=== PATIENT | female | born 1995 | race Caucasian/White ===

== ENCOUNTER 2023-02-11 18:13 | Outpatient (CLI) | payer MEDICAID, SELFPAY ==
[2023-02-11 18:27] VITALS: BMI 44.8
[2023-02-11 19:00] VITALS: BP 131/82; PULSE 80; RESP 18; TEMP 36.9; O2SAT 99; BMI 45.1
[2023-02-11 19:03] LABS: Microscopic, Urine URINE MICROSCOPIC (MICROSCOPIC)
[2023-02-11 19:29] LABS: Appearance,Urine CLEAR (Clear); Bilirubin,Urine Negative (Negative); Blood, Urine Negative (Negative); Color,Urine YELLOW (Yellow); Glucose,Urine (UA) Negative (Negative); Ketones,Urine Negative (Negative); Leukocyte Esterase,Urine Negative (Negative); Nitrate,Urine Negative (Negative); Protein,Urine Negative (Negative); Specific Gravity, Urine 1.025 (1.005-1.030); Urobilinogen,Urine 0.2 EU/dl (0.2)
[2023-02-11 19:42] LABS: Barbiturates Screen,Urine Negative ng/ml (<200); Benzodiazepines Screen,Urine Negative ng/ml (<200)
[2023-02-11 19:43] LABS: Amphetamine/Metha Screen,Urine Negative ng/ml (<1000)
[2023-02-11 19:44] LABS: Cannabinoid Screen,Urine Negative ng/ml (<50); Methadone Screen,Urine Negative ng/ml (<300)
[2023-02-11 19:45] LABS: Cocaine Screen,Urine Negative ng/ml (<300)
[2023-02-11 19:46] LABS: Opiate Screen,Urine Negative ng/ml (<300); Phencyclidine Screen,Urine Negative ng/ml (<25)
== END 2023-02-11 21:45 | disposition home or self-care (01) ==
LOC: OBOUT 18:18 → OB 18:19
PROVIDERS: Visit Provider Obstetrics & Gynecology
DX: O26.893 Other specified pregnancy related conditions, third trimester (principal); Z3A.28 28 weeks gestation of pregnancy; R10.2 Pelvic and perineal pain; R10.9 Unspecified abdominal pain; M54.50 Low back pain, unspecified
CPT/HCPCS: 59025; 80305; 81001; 96360

== ENCOUNTER 2023-03-17 03:25 | Outpatient (CLI) | payer MEDICAID, SELFPAY ==
[2023-03-17 03:44] VITALS: BMI 44.8
[2023-03-17 04:05] LABS: Microscopic, Urine URINE MICROSCOPIC (MICROSCOPIC)
[2023-03-17 04:09] LABS: Basophils % 0.3 % (0.1-2.0); Eosinophils # 0.1 K/mm3 (0.0-0.4); Eosinophils % 1.2 % (0.1-12.0); Hematocrit 35.1 % (37.0-47.0); Hemoglobin 11.5 g/dL (12.2-16.2); Lymphocytes # 2.3 K/mm3 (0.7-4.5); Lymphocytes % 21.5 % (10-50); Mean Corpuscular HGB Conc 32.7 g/dL (31.8-35.4); Mean Corpuscular Hemoglobin 28.2 pg (27.0-31.2); Mean Corpuscular Volume 86.5 fl (81-99); Mean Platelet Volume 8.1 fl (7.4-10.4); Monocytes # 0.6 K/mm3 (0.1-1.0); Monocytes % 5.6 % (1.7-9.3); Neutrophils # 7.6 K/mm3 (1.8-7.8); Neutrophils % 71.5 % (37.0-80.0); Platelet Count 238 K/mm3 (142-424); Red Blood Count 4.06 M/mm3 (4.20-5.40); Red Cell Distribution Width 13.9 % (11.5-17.5); White Blood Count 10.6 K/mm3 (4.8-10.8)
[2023-03-17 04:12] LABS: Fetal Membrane Rupture (Rapid) Negative (Negative)
[2023-03-17 04:18] LABS: Alanine Aminotransferase 19 U/L (12-78); Albumin Level 3.4 g/dl (3.5-5.0); Albumin/Globulin Ratio 1.1 (1.1-1.8); Alkaline Phosphatase 88 U/L (38-126); Anion Gap 12.6 mEq/L (5-15); Aspartate Amino Transferase 23 U/L (14-36); Bilirubin,Total 0.4 mg/dl (0.2-1.3); Blood Urea Nitrogen 10 mg/dl (7-17); Calcium 8.7 mg/dl (8.4-10.2); Carbon Dioxide 22 mmol/L (22.0-30.0); Chloride 104 mmol/L (98-107); Creatinine Clearance Estimated 95 mL/min (50-200); Estimated Glomerular Filt Rate 100 ml/min (>60); GFR (African American) 121 ML/MIN (>60); Globulin 3.2 g/dL (1.3-3.2); Glucose 148 mg/dl (74-100); Potassium 3.6 mmoL/L (3.5-5.1); Sodium 135 mmol/L (136-145); Total Protein,Serum 6.6 g/dl (6.3-8.2)
[2023-03-17 04:22] VITALS: BP 131/72; PULSE 104; RESP 18; TEMP 36.7; BMI 45.1
[2023-03-17 04:35] LABS: Fetal Membrane Rupture (Rapid) Negative (Negative)
[2023-03-17 04:38] LABS: Appearance,Urine CLEAR (Clear); Bilirubin,Urine Negative (Negative); Blood, Urine Negative (Negative); Color,Urine YELLOW (Yellow); Glucose,Urine (UA) Negative (Negative); Ketones,Urine Negative (Negative); Leukocyte Esterase,Urine Negative (Negative); Nitrate,Urine Negative (Negative); Protein,Urine Negative (Negative); Specific Gravity, Urine 1.015 (1.005-1.030); Urobilinogen,Urine 0.2 EU/dl (0.2)
[2023-03-17 05:01] LABS: Bacteria,Urine Trace /lpf; RBC,Urine Occasional #/hpf (0-3); WBC,Urine Occasional #/hpf (0-3)
--- NOTE | 2023-03-17 05:16 | US_ITS ---
PROCEDURE: US OB BIOPHYSICAL PROFILE CLINICAL INDICATION: Possible ruptured membranes at 33 3/7 weeks COMPARISON: No other comparison studies. FINDINGS: From her last menstrual period she is 33weeks 3days. The following parameters are obtained: Viable fetus in the cephalic presentation. heart rate: 139bpm bpm. Amniotic fluid index: 14.2cm Qualitative AFV: 2 breathing movements: 2 Gross body movements: 2 Tone: 2 Biophysical profile score: 8 Doppler evaluation of the umbilical artery: SD ratio: Resistive index: No obvious anomalies evident.Kidneys, three-vessel cord appear normal. Four-chamber cardiac view appears normal. Placenta: Grade 2 IMPRESSION: 1. Viable fetus in the cephalic presentation with an anterior placenta grade 2. 2. Biophysical profile 8/8 with good breathing movement seen. 3. Normal amniotic fluid index 14.2 cm. Dictated by: Bennett Tolliver MD 03/17/2023 17:36 Bennett Tolliver MD in [facility] 03/17/2023 17:36
--- NOTE | 2023-03-17 08:57 | CARE MANAGER ---
Patient told OB staff that they did not have enough gas to drive home. Provided patient with $10 [employer] gift card for gas.
[2023-03-17 10:52] LABS: Benzodiazepines Screen,Urine Negative ng/ml (<200)
[2023-03-17 10:53] LABS: Amphetamine/Metha Screen,Urine Negative ng/ml (<1000); Barbiturates Screen,Urine Negative ng/ml (<200)
[2023-03-17 10:55] LABS: Cannabinoid Screen,Urine Negative ng/ml (<50); Methadone Screen,Urine Negative ng/ml (<300)
[2023-03-17 10:56] LABS: Cocaine Screen,Urine Negative ng/ml (<300); Opiate Screen,Urine Negative ng/ml (<300)
[2023-03-17 10:57] LABS: Phencyclidine Screen,Urine Negative ng/ml (<25)
== END 2023-03-17 08:47 | disposition home or self-care (01) ==
LOC: OB 08:04 → OUTP 03-18 10:49
PROVIDERS: Visit Provider Nurse Practitioner Obstetrics & Gynecology
DX: O47.03 False labor before 37 completed weeks of gestation, third trimester (principal); Z3A.33 33 weeks gestation of pregnancy
CPT/HCPCS: 59025; 76819; 80053; 80305; 81001; 84112; 85025; 86850; 86870; 96365; 96372

== ENCOUNTER 2023-07-13 18:38 | Emergency (ER) | payer MEDICAID, SELFPAY ==
[2023-07-13 18:41] VITALS: BP 141/85; PULSE 92; RESP 18; TEMP 36.7; O2SAT 100; BMI 43.0
[2023-07-13 18:45] VITALS: BP 141/85; PULSE 86; O2SAT 100
--- NOTE | 2023-07-13 19:00 | CT_ITS ---
PROCEDURE INFORMATION: Exam: CT Head Without Contrast Exam date and time: 07/13/23 07:51 PM Age: 27 years old Clinical indication: Pain; Headache not specified; Additional info: Headache x2 days, new TECHNIQUE: Imaging protocol: Computed tomography of the head without contrast. Radiation optimization: All CT scans at this facility use at least one of these dose optimization techniques: automated exposure control; mA and/or kV adjustment per patient size (includes targeted exams where dose is matched to clinical indication); or iterative reconstruction. REPORTING DATA: Count of CT and Cardiac NM exams in prior 12 months: This patient has received 0 known CTs and 0 known cardiac nuclear medicine studies in the 12 months prior to the current study. COMPARISON: No relevant prior studies available. FINDINGS: Brain: Normal. No hemorrhage. Unremarkable white matter. No mass effect. Cerebral ventricles: No ventriculomegaly. Paranasal sinuses: Visualized sinuses are unremarkable. No fluid levels. Mastoid air cells: Visualized mastoid air cells are well aerated. Bones/joints: Unremarkable. No acute fracture. Soft tissues: Unremarkable. IMPRESSION: No acute intracranial abnormality.
[2023-07-13 19:01] VITALS: BP 131/71; PULSE 80; O2SAT 99
--- NOTE | 2023-07-13 19:13 | HMH.EDGENADL ---
Discharge Plan Disposition Patient Disposition: Home, Self-Care Condition: Good Activity Restrictions/Add. Instructions Additional Instructions/Restrictions: You were evaluated in the emergency department today. Please follow-up with your primary care provider over the next 48 hours. Return to the emergency department for new or worsening symptoms. Clinical Impressions Clinical Impression: Migraine Stand Alone Forms Stand Alone Forms: Work/School Release Instructions Patient Instructions: DI for Headache Discharge ED Provider: Mercedes Yousif General Adult HPI General Chief complaint: Headache Stated complaint: pain in her head and down the back. Time Seen by Provider: 07/13/23 18:56 Mode of Arrival: Ambulatory Source of Information: Patient Limitations: No Limitations Description of Symptoms (Recalled from ER Triage Doc. by RN): c/o head pain shooting down her neck and back for 2 days. Concerned that she has a broken tooth that she noticed to today, thinks this might be a cause of it. History of Present Illness HPI narrative: This patient is a 27-year-old female presenting to the emergency department for evaluation with concern for headache x2 days. She states that she has had pain radiating down her neck. She denies any fevers, vision changes, numbness, tingling, weakness, or other concerns. She does note lightheadedness and light sensitivity. She notes that she does have a broken tooth, which she thinks may be contributing to her symptoms. She took Tylenol and ibuprofen earlier without significant improvement. It was not sudden thunderclap and the headache is not new in quality for her. She does note that she has a history of migraines. Related Data Allergies Allergy/AdvReac Type Severity Reaction Status Date / Time tramadol AdvReac Verified 02/11/23 18:44 ubrogepant [From Ubrelvy] AdvReac Verified 02/11/23 18:44 [facility] Disclaimer: The information contained in this section may have been updated after the patient was seen, as this information can be updated by other users. Social History Smoking Status: Current every day smoker alcohol intake: never current occupational status: unemployed Travel in the last 8 weeks: None ROS Obtained: Yes All systems reviewed & no additional complaints except as documented Physical Exam General General appearance: alert and in no apparent distress Head Head exam: atraumatic and normocephalic Eye Eye exam: Present normal appearance, PERRL and EOMI ENT ENT exam: Present mucous membranes moist and normal external ear exam; Absent normal oropharynx ([place] I fx of tooth 16 with no surrounding swelling/abscess) Neck Neck exam: Present normal inspection, full ROM and trachea midline; Absent tenderness Chest Chest inspection: Present normal inspection and symmetric chest wall rise; Absent tenderness Respiratory Respiratory exam: Present normal lung sounds bilaterally; Absent respiratory distress, wheezes, stridor or accessory muscle use Cardiovascular Cardiovascular exam: Present regular rate and normal rhythm Abdominal Exam Abdominal exam: Present soft; Absent distention, tenderness or guarding Extremities Exam Extremities exam: Present normal inspection, full ROM and normal capillary refill; Absent tenderness or edema Back Exam Back exam: Present normal inspection and full ROM; Absent tenderness Neurological Exam Neurological exam: Present alert, oriented X3, CN II-XII intact and normal gait; Absent motor sensory deficit Psychiatric Psychiatric exam: Present normal affect and normal mood Skin Skin exam: Present warm and dry Medical Decision Making Medical Records Medical records reviewed: Yes I reviewed the patient's medical records. Gareth Inquiry Pt receiving controlled substance: No Vital Signs: 07/13/23 18:41 07/13/23 18:45 07/13/23 19:01 Temperature 98.0 F Temperature Source Oral
[2023-07-13 19:28] LABS: Basophils # 0.1 K/mm3 (0-0.2); Basophils % 0.9 % (0.1-2.0); Eosinophils # 0.2 K/mm3 (0.0-0.4); Eosinophils % 3.2 % (0.1-12.0); Hematocrit 38.8 % (37.0-47.0); Hemoglobin 13.4 g/dL (12.2-16.2); Lymphocytes # 2.8 K/mm3 (0.7-4.5); Lymphocytes % 44.8 % (10-50); Mean Corpuscular HGB Conc 34.5 g/dL (31.8-35.4); Mean Corpuscular Hemoglobin 28.8 pg (27.0-31.2); Mean Corpuscular Volume 83.4 fl (81-99); Mean Platelet Volume 7.5 fl (7.4-10.4); Monocytes # 0.3 K/mm3 (0.1-1.0); Monocytes % 4.7 % (1.7-9.3); Neutrophils # 2.9 K/mm3 (1.8-7.8); Neutrophils % 46.4 % (37.0-80.0); Platelet Count 218 K/mm3 (142-424); Red Blood Count 4.65 M/mm3 (4.20-5.40); Red Cell Distribution Width 15.8 % (11.5-17.5); White Blood Count 6.3 K/mm3 (4.8-10.8)
[2023-07-13 19:33] LABS: Anion Gap 11.7 mEq/L (5-15); Blood Urea Nitrogen 19 mg/dl (7-17); Calcium 9.3 mg/dl (8.4-10.2); Carbon Dioxide 28 mmol/L (22.0-30.0); Chloride 104 mmol/L (98-107); Creatinine Clearance Estimated 83 mL/min (50-200); Estimated Glomerular Filt Rate 85 ml/min (>60); GFR (African American) 103 ML/MIN (>60); Glucose 107 mg/dl (74-100); Potassium 3.7 mmoL/L (3.5-5.1); Sodium 140 mmol/L (136-145)
[2023-07-13 19:40] LABS: HCG Qualitative, Serum Negative (Negative)
--- NOTE | 2023-07-13 22:13 | PC.NURSE ---
rounded on patient no new complaints noted
[2023-07-13 22:20] VITALS: BP 130/75; PULSE 79; RESP 19; TEMP 36.8; O2SAT 98
== END 2023-07-13 22:25 | disposition home or self-care (01) ==
PROVIDERS: Emergency Provider Emergency Medicine
DX: G43.909 Migraine, unspecified, not intractable, without status migrainosus (principal); E66.9 Obesity, unspecified
CPT/HCPCS: 70450; 80048; 84703; 85025; 96361; 96374; 96375; 99284; J0131

== ENCOUNTER 2023-08-01 09:44 | Emergency (ER) | payer MEDICAID, SELFPAY ==
[2023-08-01 09:55] VITALS: BP 143/99; PULSE 104; O2SAT 98
--- NOTE | 2023-08-01 10:01 | HMH.EDGENADL ---
Discharge Plan Disposition Patient Disposition: Home, Self-Care Condition: Fair Prescriptions Prescriptions: New methocarbamol 500 mg tablet 500 mg PO .q6h prn Qty: 30 0RF lidocaine 5 % adhesive patch,medicated 1 patch topical DAILY Qty: 5 0RF Rx Instructions: leave on most painful area for up to 12 hrs Referrals Follow up/Referrals: Titus Santiago DO [Staff Physician] - See instructions (back pain R side w/ radiculopathy) Provider,Referral, [Primary Care Provider] - See instructions Activity Restrictions/Add. Instructions Additional Instructions/Restrictions: You were evaluated in the emergency department today for concerns of back pain. I believe this is likely related to your prior disc problems and muscle spasm. You are appropriate for discharge at this time. You have been prescribed muscle relaxant (methocarbamol) and lidocaine patch. Take these as directed. Also take Tylenol and ibuprofen as you have been. You have been referred to orthopedics for follow-up. Also make an appointment with your primary care physician in 2 to 3 days for reevaluation. Return to the emergency department with any new, worsening, or otherwise concerning symptoms. Clinical Impressions Clinical Impression: Acute lumbar back pain Stand Alone Forms Stand Alone Forms: Work/School Release Discharge ED Provider: Sara Lopez General Adult HPI General Chief complaint: PAIN Stated complaint: lower back/hip pain, no known accident Time Seen by Provider: 08/01/23 09:48 History of Present Illness HPI narrative: This 27-year-old female who recently sprained her right ankle presents to the emergency department with concerns of low back pain. Patient states she knows she has 2 bad disks that have caused back pain in the past. She states that the pain is isolated to her right low back and she has severe pain with trying to bend over. She denies any numbness, tingling, or weakness. She states it is difficult to walk with the pain in her back. She states she has been taking Tylenol and ibuprofen regularly for right ankle pain. She denies any bowel or bladder incontinence or difficulty using the restroom. She states she has in the past been on Percocet for back pain but states that she is no longer able to see her pain doctor because her insurance will not cover it. Related Data Previous Rx's Medication Instructions Recorded lidocaine 5 % topical patch 1 patch topical DAILY #5 ea 08/01/23 methocarbamol 500 mg tablet 500 mg PO .q6h prn #30 tabs 08/01/23 Allergies Allergy/AdvReac Type Severity Reaction Status Date / Time tramadol AdvReac Verified 02/11/23 18:44 ubrogepant [From Ubrelvy] AdvReac Verified 02/11/23 18:44 PFSH PFS Disclaimer: The information contained in this section may have been updated after the patient was seen, as this information can be updated by other users. Social History (Updated 07/13/23 @ 23:24 by Mercedes Yousif DO) Smoking Status: Current every day smoker alcohol intake: never current occupational status: unemployed Travel in the last 8 weeks: None ROS Obtained: Yes All systems reviewed & no additional complaints except as documented Constitutional Constitutional: Denies chills, Denies fever(s), Denies headache(s) and Denies weakness Eyes Eyes: Denies change in vision ENT Ears, Nose, Mouth, and Throat: Denies dizziness, Denies headache(s), Denies nasal congestion and Denies sore throat Cardiovascular Cardiovascular: Denies chest pain, Denies dyspnea and Denies leg edema Respiratory Respiratory: Denies cough and Denies dyspnea Gastrointestinal Gastrointestingal: Denies constipation, diarrhea, nausea or vomiting Genitourinary Female Genitourinary: Denies dysuria Musculoskeletal Musculoskeletal: Reports arthralgias (Right ankle pain, boot in place), Reports back pain, Denies myalgias, Denies numbness and Denies tingling Integumentary/Breasts Skin/Breast: Denies c
[2023-08-01 10:04] VITALS: BP 143/99; PULSE 112; RESP 15; TEMP 36.9; O2SAT 97; BMI 36.6
[2023-08-01 10:08] LABS: Microscopic, Urine URINE MICROSCOPIC (MICROSCOPIC)
[2023-08-01 10:11] LABS: Appearance,Urine CLEAR (Clear); Bilirubin,Urine Negative (Negative); Blood, Urine 3+ (Negative); Color,Urine YELLOW (Yellow); Glucose,Urine (UA) Negative (Negative); Ketones,Urine Negative (Negative); Leukocyte Esterase,Urine Negative (Negative); Nitrate,Urine Negative (Negative); Protein,Urine Negative (Negative); Specific Gravity, Urine >= 1.030 (1.005-1.030); Urobilinogen,Urine 0.2 EU/dl (0.2)
[2023-08-01 10:15] VITALS: BP 79/59; PULSE 75; O2SAT 96
[2023-08-01 10:16] VITALS: BP 102/53; PULSE 82; O2SAT 98
--- NOTE | 2023-08-01 10:46 | PC.NURSE ---
pt sitting on side of bed with call light within reach.
[2023-08-01 12:14] VITALS: BP 102/53; PULSE 82; RESP 18; TEMP 36.9
== END 2023-08-01 12:15 | disposition home or self-care (01) ==
PROVIDERS: Emergency Provider Emergency Medicine
DX: M54.50 Low back pain, unspecified (principal); F17.210 Nicotine dependence, cigarettes, uncomplicated
CPT/HCPCS: 81001; 96372; 99283

== ENCOUNTER 2023-09-17 14:16 | Emergency (ER) | payer MEDICAID, SELFPAY ==
[2023-09-17 14:18] VITALS: BP 126/92; PULSE 102; RESP 16; TEMP 36.7; O2SAT 99; BMI 42.0
[2023-09-17 15:12] LABS: Coronavirus 19, PCR Not Detected (NotDetected); Influenza A, PCR Not Detected (NotDetected); Influenza B, PCR Not Detected (NotDetected)
--- NOTE | 2023-09-17 15:27 | HMH.EDGENADL ---
Discharge Plan Disposition Patient Disposition: Still a Patient Condition: Good Prescriptions Prescriptions: New hydrocodone-acetaminophen 5-325 mg tablet 1 tab PO Q8H PRN (Reason: pain) Qty: 10 0RF clindamycin HCl 300 mg capsule 300 mg PO TID 5 Days Qty: 15 0RF No Action methocarbamol 500 mg tablet 500 mg PO .q6h prn Qty: 30 0RF lidocaine 5 % adhesive patch,medicated 1 patch topical DAILY Qty: 5 0RF Rx Instructions: leave on most painful area for up to 12 hrs Referrals Follow up/Referrals: Provider,Referral, MD [Primary Care Provider] - See instructions Activity Restrictions/Add. Instructions Additional Instructions/Restrictions: Please follow-up with your primary care provider. Please return to the emergency department if you develop any new or worsening symptoms or become concerned for your health. As we discussed, recommend that you establish care with a primary care provider, dentist. Clinical Impressions Clinical Impression: Pain, dental Discharge ED Provider: Sahil Meyer I General Adult HPI General Chief complaint: Dental/Oral Stated complaint: TOOTH ACHE Time Seen by Provider: 09/17/23 14:19 Mode of Arrival: Ambulatory Source of Information: Patient Limitations: No Limitations Description of Symptoms (Recalled from ER Triage Doc. by RN): Patient states that she has a broken tooth on the left upper back side of her mouth. States that she cannot tolerate the pain anymore. History of Present Illness HPI narrative: Patient is a 27-year-old female presenting to the emergency department with dental pain. History was conducted with the patient at bedside. She reports that she was eating some taco meat, started to have pain in the left upper back molar. Patient states that she has had multiple cracked teeth, issues in the past that have been previously managed by dentist. However, she is new to this area, and has not yet established care with a new PCP, dentist. She denies any purulent drainage, fever, chills but does report that she has radiation of her pain down her jaw. States that she has otherwise been in her normal state of health. Denies any recent trauma, injuries. She does report that she has also had a mild sore throat, her son has had a viral infection and she is concerned that she could possibly have COVID and would like to be tested for strep and COVID today. Denies shortness of breath, chest pain, abdominal pain, nausea, vomiting. Related Data Previous Rx's Medication Instructions Recorded lidocaine 5 % topical patch 1 patch topical DAILY #5 ea 08/01/23 methocarbamol 500 mg tablet 500 mg PO .q6h prn #30 tabs 08/01/23 clindamycin HCl 300 mg capsule 300 mg PO TID 5 days #15 caps 09/17/23 hydrocodone 5 mg-acetaminophen 325 1 tab PO Q8H PRN pain #10 tabs 09/17/23 mg tablet Allergies Allergy/AdvReac Type Severity Reaction Status Date / Time tramadol AdvReac Verified 02/11/23 18:44 ubrogepant [From Ubrelvy] AdvReac Verified 02/11/23 18:44 PFSH PFS Disclaimer: The information contained in this section may have been updated after the patient was seen, as this information can be updated by other users. Social History (Updated 07/13/23 @ 23:24 by Mercedes Yousif DO) Smoking Status: Current every day smoker alcohol intake: never current occupational status: unemployed Travel in the last 8 weeks: None ROS Obtained: Yes All systems reviewed & no additional complaints except as documented Physical Exam General General appearance: alert and in no apparent distress Head Head exam: atraumatic and normocephalic ENT ENT exam: Present other (Patient does have progressive tenderness to palpation of the back left upper molar); Absent normal exam Neck Neck exam: Present full ROM Chest Chest inspection: Present normal inspection and symmetric chest wall rise Respiratory Respiratory exam: Present normal lung sounds bilaterally; Absent respiratory di
[2023-09-17 15:28] LABS: Strep Scrn Group A (Rapid) Negative (Negative)
[2023-09-17 15:53] VITALS: BP 126/92; PULSE 102; RESP 16; TEMP 36.7; O2SAT 99
== END 2023-09-17 15:55 | disposition home or self-care (01) ==
PROVIDERS: Emergency Provider Emergency Medicine
DX: R68.84 Jaw pain (principal); J02.9 Acute pharyngitis, unspecified; F17.200 Nicotine dependence, unspecified, uncomplicated
CPT/HCPCS: 87430; 87636; 99283

== ENCOUNTER 2023-10-20 17:02 | Emergency (ER) | payer MEDICAID, SELFPAY ==
[2023-10-20 17:42] VITALS: BP 116/86; PULSE 84; RESP 16; TEMP 36.9; O2SAT 100; BMI 43.4
[2023-10-20] MEDS: TETRACAINE/BENZOCAINE/BUTAMBEN 56 GM SPRAY TP (18:00)
[2023-10-20] MEDS: LIDOCAINE 2% VISCOUS SOL 15ML UDC 15 ML PO (18:00)
[2023-10-20] MEDS: ACETAMINOPHEN 300MG W/CODEINE 30MG TAKE HOME PACK (6) 1 PACKET PO (18:48)
--- NOTE | 2023-10-20 18:54 | ED_ITS ---
Discharge Plan Disposition Patient Disposition: Home, Self-Care Prescriptions Prescriptions: New amoxicillin-pot clavulanate 875-125 mg tablet 1 tab PO BID 5 Days Qty: 10 0RF No Action methocarbamol 500 mg tablet 500 mg PO .q6h prn Qty: 30 0RF lidocaine 5 % adhesive patch,medicated 1 patch topical DAILY Qty: 5 0RF Rx Instructions: leave on most painful area for up to 12 hrs hydrocodone-acetaminophen 5-325 mg tablet 1 tab PO Q8H PRN (Reason: pain) Qty: 10 0RF clindamycin HCl 300 mg capsule 300 mg PO TID 5 Days Qty: 15 0RF Referrals Follow up/Referrals: Provider,Referral, MD [Primary Care Provider] - See instructions Activity Restrictions/Add. Instructions Additional Instructions/Restrictions: Call your family doctor to establish care for this visit to the emergency department and schedule follow-up within 48 hours to ensure improvement. If you have any worsening of your condition or any other concerning signs or symptoms, return to the emergency department or your primary care doctor for further evaluation. Clinical Impressions Clinical Impression: Abscess, dental Discharge ED Provider: James Duke General Adult HPI General Chief complaint: Dental/Oral Stated complaint: Broken tooth Time Seen by Provider: 10/20/23 17:03 Mode of Arrival: Ambulatory Source of Information: Patient Limitations: No Limitations Description of Symptoms (Recalled from ER Triage Doc. by RN): c/o broken tooth left upper side that is causing pain since for a few months History of Present Illness HPI narrative: 27-year-old female history of numerous dental caries and dental infections presenting with dental pain. Has been going on for few months, got worse over the past couple days. No fevers or chills, patient is having trismus and facial swelling. Is supposed be following up with a dentist tomorrow, 10/21. Related Data Previous Rx's Medication Instructions Recorded lidocaine 5 % topical patch 1 patch topical DAILY #5 ea 08/01/23 methocarbamol 500 mg tablet 500 mg PO .q6h prn #30 tabs 08/01/23 clindamycin HCl 300 mg capsule 300 mg PO TID 5 days #15 caps 09/17/23 hydrocodone 5 mg-acetaminophen 325 1 tab PO Q8H PRN pain #10 tabs 09/17/23 mg tablet amoxicillin 875 mg-potassium 1 tab PO BID 5 days #10 tabs 10/20/23 clavulanate 125 mg tablet Allergies Allergy/AdvReac Type Severity Reaction Status Date / Time tramadol AdvReac Verified 02/11/23 18:44 ubrogepant [From Ubrelvy] AdvReac Verified 02/11/23 18:44 PFSH [facility] Disclaimer: The information contained in this section may have been updated after the patient was seen, as this information can be updated by other users. Social History (Updated 07/13/23 @ 23:24 by Mercedes Yousif DO) Smoking Status: Former smoker alcohol intake: never current occupational status: unemployed Travel in the last 8 weeks: None ROS Obtained: Yes All systems reviewed & no additional complaints except as documented Physical Exam General General appearance: alert and in no apparent distress Head Head exam: atraumatic, normocephalic and other (Left-sided facial swelling. Trismus. Intraoral exam unremarkable) Eye Eye exam: Present normal appearance, PERRL and EOMI ENT ENT exam: Present mucous membranes moist Neck Neck exam: Present normal inspection, full ROM and trachea midline Respiratory Respiratory exam: Absent respiratory distress, wheezes, stridor, accessory muscle use or prolonged expiratory phase Cardiovascular Cardiovascular exam: Present normal rhythm Abdominal Exam Abdominal exam: Present soft; Absent distention, tenderness, guarding, rebound or rigidity Extremities Exam Extremities exam: Absent edema Neurological Exam Neurological exam: Present alert, oriented X3, CN II-XII intact and normal gait; Absent motor sensory deficit Skin Skin exam: Present warm and dry; Absent diaphoresis or erythema Medical Decision Making Medical Records Medical records reviewed: Yes I reviewed the patient's medical records. Gareth Inquiry Pt receiving controlled substance: No Gareth was queried for this patient: No Vital Signs: 10/20/23 17:42 10/20/23 19:05 Temperature 98.5 F 98.5 F Temperature Source Oral Pulse Rate 84 Pulse Rate [Left Radial] 84 Respiratory Rate 16 16 Blood Pressure 116/86 Blood Pressure [Right Arm] 116/86 Blood Pressure Mean [Right Arm] 96 Blood Pressure Source [Right Arm] Automatic Cuff Blood Pressure Position [Right Arm] Sitting 02 Sat by Pulse Oximetry 100 Oxygen Delivery Method Room Air Orders (Tests/Meds): ED MEDICATIONS Discontinued Medications Generic Name Dose Route Start Last Admin Trade Name Freq PRN Reason Stop Dose Admin Acetaminophen/Codeine Phosphate 1 packet 10/20/23 18:25 10/20/23 18:48 Acetaminophen 300mg W/Codeine 30mg Take Home Pack (6) PO 10/20/23 18:26 1 packet ONCE ONE Administration Amoxicillin/Clavulanate Potassium 1 each 10/20/23 19:09 Amoxicillin/Clavulanate Potassium 875/125mg Tablet PO 10/20/23 19:10 ONCE ONE Benzocaine/Butamben/Tetracaine HCl 1 gm 10/20/23 18:00 10/20/23 18:00 Tetracaine/Benzocaine/Butamben 56 Gm [place] TP 10/20/23 18:01 1 gm ONCE ONE Administration Lidocaine HCl 15 ml 10/20/23 18:00 10/20/23 18:00 Lidocaine 2% Viscous [place] 15ml Udc PO 10/20/23 18:01 15 ml ONCE ONE Administration Medical Decision Narrative: 27-year-old female history of numerous dental caries and dental infections presenting with dental pain. Has been going on for few months, got worse over the past couple days. No fevers or chills, patient is having trismus and facial swelling. Is supposed be following up with a dentist tomorrow, 10/21. History obtained with patient. On physical exam, patient very well-appearing. No acute distress, but is holding her face. Patient has trismus. Intraoral exam largely unremarkable, no evidence of drainable, dental abscess. No lymphadenopathy. Patient has no mastoid tenderness or angle of mandible tenderness. No difficulty with range of motion of neck. Lidocaine was tried, unsuccessful. Patient was given Tylenol 3 take-home pack due to severe pain. She was also given first dose of Augmentin here. Because patient at baseline without signs or symptoms of clinical decompensation, deemed appropriate for discharge. Results were relayed to patient who voiced understanding and were agreeable to outpatient management and follow up. At the time of discharge the patient was hemodynamically stable, tolerating PO, and mobilizing appropriately. Augmentin sent to pharmacy. Critical Care Critical Care Time Critical Care Time: No
[2023-10-20 19:05] VITALS: BP 116/86; PULSE 84; RESP 16; TEMP 36.9; O2SAT 100
[2023-10-20] MEDS: AMOXICILLIN/CLAVULANATE POTASSIUM 875/125MG TABLET 1 EACH PO (19:25)
== END 2023-10-20 19:37 | disposition home or self-care (01) ==
PROVIDERS: Emergency Provider Emergency Medicine
DX: R22.0 Localized swelling, mass and lump, head (principal); S02.5XXA Fracture of tooth (traumatic), initial encounter for closed fracture; X58.XXXA Exposure to other specified factors, initial encounter; Z87.891 Personal history of nicotine dependence
CPT/HCPCS: 99283

== ENCOUNTER 2024-01-23 17:37 | Observation (INO) | payer MEDICAID, SELFPAY ==
[2024-01-23 17:38] VITALS: BP 126/67; PULSE 124; RESP 16; TEMP 36.8; O2SAT 100; BMI 43.0
--- NOTE | 2024-01-23 18:10 | ED_ITS ---
<Statement entered by Ramiro Coppola MD - 01/24/24 00:34> I was consulted by the AISHA, and we discussed the complexity of the problems being addressed. I approved the treatment and management plan for this patient's care in the emergency department, thus performing a substantive portion of the medical decision making. Ramiro Coppola MD Discharge Plan Disposition Patient Disposition: Admitted Condition: Fair Clinical Impressions Clinical Impression: Tachycardia, Abdominal pain, acute Discharge ED Provider: Ramiro Coppola General Adult HPI <YUNIEL Redmond - Last Filed: 01/23/24 22:33> General Chief complaint: Abdominal Pain Stated complaint: RT abd pain, fever dizzy, RT shoulder pain Time Seen by Provider: 01/23/24 18:10 Mode of Arrival: Ambulatory Source of Information: Patient Limitations: No Limitations Description of Symptoms (Recalled from ER Triage Doc. by RN): Patient reports dizziness, fever and right sided abdomen pain since last night. States she took tylenol at 1pm, ibuprofen at 11am, and zofran at 1pm. History of Present Illness HPI narrative: Patient presents for 24 hours dizziness, abdominal pain, fever greater than 101, and right-sided abdominal pain. Patient took Tylenol without relief and presents today with continued symptoms. She denies hemoptysis hematochezia hematemesis melena but she is on her period currently. Related Data Previous Rx's Medication Instructions Recorded lidocaine 5 % topical patch 1 patch topical DAILY #5 ea 08/01/23 methocarbamol 500 mg tablet 500 mg PO .q6h prn #30 tabs 08/01/23 clindamycin HCl 300 mg capsule 300 mg PO TID 5 days #15 caps 09/17/23 hydrocodone 5 mg-acetaminophen 325 1 tab PO Q8H PRN pain #10 tabs 09/17/23 mg tablet amoxicillin 875 mg-potassium 1 tab PO BID 5 days #10 tabs 10/20/23 clavulanate 125 mg tablet cefdinir 300 mg capsule 300 mg PO BID 10 days #20 caps 01/23/24 Allergies Allergy/AdvReac Type Severity Reaction Status Date / Time tramadol AdvReac Verified 02/11/23 18:44 ubrogepant [From Ubrelvy] AdvReac Verified 02/11/23 18:44 PFSH <YUNIEL Redmond - Last Filed: 01/23/24 22:33> [facility] Disclaimer: The information contained in this section may have been updated after the patient was seen, as this information can be updated by other users. Social History (Updated 07/13/23 @ 23:24 by Mercedes Yousif DO) Smoking Status: Unknown if ever smoked alcohol intake: never current occupational status: unemployed Travel in the last 8 weeks: None <YUNIEL Redmond - Last Filed: 01/23/24 22:33> ROS Obtained: Yes Systems reviewed as appropriate & no additional complaints except as documented Physical Exam <YUNIEL Redmond - Last Filed: 01/23/24 22:33> General General appearance: alert and in no apparent distress Head Head exam: atraumatic and normal inspection Eye Eye exam: Present normal appearance ENT ENT exam: Present normal exam, normal oropharynx and mucous membranes moist Neck Neck exam: Present normal inspection and full ROM Chest Chest inspection: Present normal inspection Respiratory Respiratory exam: Present normal lung sounds bilaterally; Absent respiratory distress Cardiovascular Cardiovascular exam: Present normal rhythm, tachycardia, normal heart sounds, +S1 and +S2 Abdominal Exam Abdominal exam: Present soft (Grossly obese), tenderness (Mildly nonfocally tender in the right side of her abdomen) and normal bowel sounds; Absent guarding, rebound or rigidity Extremities Exam Extremities exam: Present normal inspection and full ROM Back Exam Back exam: Present normal inspection and full ROM Neurological Exam Neurological exam: Present alert and oriented X3 Psychiatric Psychiatric exam: Present normal affect and normal mood Skin Skin exam: Present warm, dry and normal color Medical Decision Making <YUNIEL Redmond - Last Filed: 01/23/24 22:33> Medical Records Medical records reviewed: Yes I reviewed the patient's medical records. Gareth Inquiry Pt receiving controlled substance: No Vital Signs: 01/23/24 17:38 01/23/24 20:57 Temperature 98.3 F 98.3 F Temperature Source Oral Oral Pulse Rate 91 H Pulse Rate [Radial] 124 H Respiratory Rate 16 16 Blood Pressure 134/78 Blood Pressure [Right Arm] 126/67 Blood Pressure Mean [Right Arm] 86 Blood Pressure Source [Right Arm] Automatic Cuff Blood Pressure Position [Right Arm] Sitting 02 Sat by Pulse Oximetry 100 Oxygen Delivery Method Room Air Lab Data Lab results reviewed: Yes I reviewed the patient's lab results. Lab Results 01/23/24 17:40: Urine Color Dark yellow, Urine Appearance Cloudy, Urine pH 6.0, Ur Specific [place] >= 1.030, Urine Protein 1+, Urine Glucose (UA) Negative, Urine Ketones Negative, Urine Blood 3+, Urine Nitrate Positive, Urine Bilirubin 1+ A, Urine Urobilinogen 1.0, Ur Leukocyte Esterase Trace, Urine RBC Tntc, Urine WBC Occasional, Ur Squamous Epith Cells Occasional, Urine Bacteria Trace, Urine HCG, Qual Negative 01/23/24 17:55: WBC 8.7, RBC 4.72, Hgb 13.2, Hct 39.6, MCV 83.9, MCH 28.0, MCHC 33.3, RDW 14.8, Plt Count 240, MPV 7.6, Neut % (Auto) 77.2, Lymph % (Auto) 15.5, [place] % (Auto) 5.7, Eos % (Auto) 1.1, Baso % (Auto) 0.6, Neut # (Auto) 6.7, Lymph # (Auto) 1.4, [place] # (Auto) 0.5, Eos # (Auto) 0.1, Baso # (Auto) 0.1, PT 11.3, INR 1.05, Sodium 140, Potassium 3.0 L, Chloride 102, Carbon Dioxide 30, Anion Gap 11.0, BUN 14, Creatinine 1.00, Estimated Creat Clear 66, Estimated GFR 66, Est GFR ( Amer) 79, Glucose 75, Lactate 0.8, Calcium 9.1, Total Bilirubin 1.5 H, AST 27, ALT 20, Alkaline Phosphatase 61, Total Protein 7.8, Albumin 4.3, Globulin 3.5 H, Albumin/Globulin Ratio 1.2, Lipase 25, Procalcitonin 0.098, Serum HCG, Qual Negative, SARS-CoV-2 (PCR) Not detected, Influenza A Untype (PCR) Not detected, Influenza Type B (PCR) Not detected 01/23/24 17:55 01/23/24 17:55 Orders (Tests/Meds): ED MEDICATIONS Generic Name Dose Route Start Last Admin Trade Name Freq PRN Reason Stop Dose Admin Acetaminophen 650 mg 01/23/24 20:51 Acetaminophen 325mg Tab PO 02/22/24 20:50 Q4HP PRN Fever or Mild Pain (1-3) Enoxaparin Sodium 40 mg 01/23/24 21:00 01/23/24 22:29 Enoxaparin 40mg/0.4ml Syringe SQ 02/22/24 20:59 40 mg DAILY CIRILO Administration Potassium Chloride/Water 100 mls @ 50 mls/hr 01/23/24 19:05 01/23/24 22:29 Potassium Chloride 20meq/100ml Ivpb IV 01/24/24 01:04 50 mls/hr Q2H CIRILO Administration Ceftriaxone Sodium 1 gm/ 50 mls @ 100 mls/hr 01/23/24 20:45 01/23/24 22:28 Sodium Chloride IV 02/02/24 20:44 100 mls/hr Q24H CIRILO Administration Sodium Chloride 500 mls @ 250 mls/hr 01/23/24 22:20 01/23/24 22:28 Sod Chlor 0.9% 1000ml Bag IV 01/24/24 00:19 250 mls/hr .Q2H ONE Administration Nicotine 21 mg 01/23/24 20:51 Nicotine 21mg/24hr Patch TD 02/22/24 20:50 DAILYP PRN Nicotine Cravings Ondansetron HCl 4 mg 01/23/24 20:51 Ondansetron 4mg/2ml Vial IV 02/22/24 20:50 Q8HP PRN Nausea Pantoprazole Sodium 40 mg 01/23/24 21:00 01/23/24 22:29 Pantoprazole 40mg Tablet PO 02/22/24 20:59 40 mg DAILY CIRILO Administration Sodium Chloride 10 ml 01/23/24 19:03 01/23/24 19:04 Sodium Chloride 0.9% 10ml Syr (Rad Only) IV 02/22/24 19:02 10 ml NEEDED PRN Administration Maintain IV Site Discontinued Medications Generic Name Dose Route Start Last Admin Trade Name Freq PRN Reason Stop Dose Admin Acetaminophen 1,000 mg 01/23/24 18:26 01/23/24 18:36 Acetaminophen 1,000mg/100ml Vial IV 01/23/24 18:27 1,000 mg ONCE ONE Administration Hydromorphone HCl 1 mg 01/23/24 20:38 01/23/24 21:56 Hydromorphone 2mg/Ml Syringe IM 01/23/24 20:39 Not Given ONCE ONE Lactated Ringer's 1,000 mls @ 999 mls/hr 01/23/24 18:26 01/23/24 18:37 Lactated Ringer's 1000 Ml Bag IV 01/23/24 19:26 999 mls/hr .Q1H1M ONE Administration Lactated Ringer's 1,000 mls @ 250 mls/hr 01/23/24 20:30 Lactated Ringer's 1000 Ml Bag IV 02/22/24 20:29 .Q4H CIRILO Iopamidol 75 ml 01/23/24 19:03 01/23/24 19:04 Iopamidol-370 (76%);100ml Bottle IV 01/23/24 19:04 75 ml ONCE ONE Administration Ketorolac Tromethamine 15 mg 01/23/24 18:26 01/23/24 18:36 Ketorolac 30mg/Ml Vial IV 01/23/24 18:27 15 mg ONCE ONE Administration Ondansetron HCl 4 mg 01/23/24 18:26 01/23/24 18:37 Ondansetron 4mg/2ml Vial IV 01/23/24 18:27 4 mg ONCE ONE Administration ORDERS Category Date Time Status CT abdomen pelvis w con Stat Cat Scan 01/23/24 18:26 Completed CBC w/Auto Diff [Complete Blood Count Auto Diff] Stat Lab 01/23/24 17:55 Completed CMP [Comprehensive Metabolic Panel] Stat Lab 01/23/24 17:55 Completed Complete Blood Count Auto Diff AMLAB Lab 01/24/24 06:00 Ordered Comprehensive Metabolic Panel AMLAB Lab 01/24/24 06:00 Ordered HCG Qualitative, Serum Stat Lab 01/23/24 17:55 Completed HIV Panel [id number] Routine Lab 01/23/24 20:58 Ordered INR [Prothrombin Time INR] Stat Lab 01/23/24 17:55 Completed Lactic Acid Stat Lab 01/23/24 17:55 Completed Lipase Stat Lab 01/23/24 17:55 Completed Magnesium AMLAB Lab 01/24/24 06:00 Ordered Peripheral Smear Review Routine Lab 01/23/24 17:55 Received Procalcitonin Stat Lab 01/23/24 17:55 Completed Rapid PCR Covid and Flu A/B Stat Lab 01/23/24 17:55 Completed Urinalysis and Microscopic Stat Lab 01/23/24 17:40 Completed Urine , HCG Qual. Stat Lab 01/23/24 17:40 Completed Blood Culture Stat Micro 01/23/24 21:10 Received Medical Decision Narrative: In summary patient is a 28-year-old female who presents to the emergency department for evaluation of nausea vomiting and abdominal pain. Patient is normotensive tachycardic satting at 100% on room air upon arrival, with a temperature of 98.3 currently. Physical exam is remarkable for an unwell appearing 28-year-old female who has a nonspecific abdominal exam however she is tender to palpation only on the right side. There is no rebound no guarding no rigidity. Bowel sounds are normal active.. Differential diagnosis includes urinary tract infectious disease, cholecystitis, appendicitis, ovarian torsion, gastroenteritis etc. Initial workup will be conducted with hematologic labs urines CT scan of the abdomen pelvis with contrast twelve-lead EKG. Initial interventions include Toradol Tylenol to crystalloid bolus. Initial workup reviewed by me shows a normal white count only and elevated alk phos but normal transaminases and bilirubin and trace bacteria nitrites and proteinuria. Upon repeat evaluation patient is not feeling better and remains tachycardic thus I had a discussion about patient management with hospital medicine. Will get blood cultures start her on Rocephin and admit her for further evaluation and care. <Ramiro Coppola MD - Last Filed: 01/23/24 18:42> Vital Signs: 01/23/24 17:38 01/23/24 20:57 Temperature 98.3 F 98.3 F Temperature Source Oral Oral Pulse Rate 91 H Pulse Rate [Radial] 124 H Respiratory Rate 16 16 Blood Pressure 134/78 Blood Pressure [Right Arm] 126/67 Blood Pressure Mean [Right Arm] 86 Blood Pressure Source [Right Arm] Automatic Cuff Blood Pressure Position [Right Arm] Sitting 02 Sat by Pulse Oximetry 100 Oxygen Delivery Method Room Air Lab Data Lab Results 01/23/24 17:40: Urine Color Dark yellow, Urine Appearance Cloudy, Urine pH 6.0, Ur Specific [place] >= 1.030, Urine Protein 1+, Urine Glucose (UA) Negative, Urine Ketones Negative, Urine Blood 3+, Urine Nitrate Positive, Urine Bilirubin 1+ A, Urine Urobilinogen 1.0, Ur Leukocyte Esterase Trace, Urine RBC Tntc, Urine WBC Occasional, Ur Squamous Epith Cells Occasional, Urine Bacteria Trace, Urine HCG, Qual Negative 01/23/24 17:55: WBC 8.7, RBC 4.72, Hgb 13.2, Hct 39.6, MCV 83.9, MCH 28.0, MCHC 33.3, RDW 14.8, Plt Count 240, MPV 7.6, Neut % (Auto) 77.2, Lymph % (Auto) 15.5, [place] % (Auto) 5.7, Eos % (Auto) 1.1, Baso % (Auto) 0.6, Neut # (Auto) 6.7, Lymph # (Auto) 1.4, [place] # (Auto) 0.5, Eos # (Auto) 0.1, Baso # (Auto) 0.1, PT 11.3, INR 1.05, Sodium 140, Potassium 3.0 L, Chloride 102, Carbon Dioxide 30, Anion Gap 11.0, BUN 14, Creatinine 1.00, Estimated Creat Clear 66, Estimated GFR 66, Est GFR ( Amer) 79, Glucose 75, Lactate 0.8, Calcium 9.1, Total Bilirubin 1.5 H, AST 27, ALT 20, Alkaline Phosphatase 61, Total Protein 7.8, Albumin 4.3, Globulin 3.5 H, Albumin/Globulin Ratio 1.2, Lipase 25, Procalcitonin 0.098, Serum HCG, Qual Negative, SARS-CoV-2 (PCR) Not detected, Influenza A Untype (PCR) Not detected, Influenza Type B (PCR) Not detected Orders (Tests/Meds): ED MEDICATIONS Generic Name Dose Route Start Last Admin Trade Name Freq PRN Reason Stop Dose Admin Acetaminophen 650 mg 01/23/24 20:51 Acetaminophen 325mg Tab PO 02/22/24 20:50 Q4HP PRN Fever or Mild Pain (1-3) Enoxaparin Sodium 40 mg 01/23/24 21:00 01/23/24 22:29 Enoxaparin 40mg/0.4ml Syringe SQ 02/22/24 20:59 40 mg DAILY CIRILO Administration Potassium Chloride/Water 100 mls @ 50 mls/hr 01/23/24 19:05 01/23/24 22:29 Potassium Chloride 20meq/100ml Ivpb IV 01/24/24 01:04 50 mls/hr Q2H CIRILO Administration Ceftriaxone Sodium 1 gm/ 50 mls @ 100 mls/hr 01/23/24 20:45 04/21/24 22:28 Sodium Chloride IV 02/02/24 20:44 100 mls/hr Q24H CIRILO Administration Sodium Chloride 500 mls @ 250 mls/hr 01/23/24 22:20 01/23/24 22:28 Sod Chlor 0.9% 1000ml Bag IV 01/24/24 00:19 250 mls/hr .Q2H ONE Administration Nicotine 21 mg 01/23/24 20:51 Nicotine 21mg/24hr Patch TD 02/22/24 20:50 DAILYP PRN Nicotine Cravings Ondansetron HCl 4 mg 01/23/24 20:51 Ondansetron 4mg/2ml Vial IV 02/22/24 20:50 Q8HP PRN Nausea Pantoprazole Sodium 40 mg 01/23/24 21:00 01/23/24 22:29 Pantoprazole 40mg Tablet PO 02/22/24 20:59 40 mg DAILY CIRILO Administration Sodium Chloride 10 ml 01/23/24 19:03 01/23/24 19:04 Sodium Chloride 0.9% 10ml Syr (Rad Only) IV 02/22/24 19:02 10 ml NEEDED PRN Administration Maintain IV Site Discontinued Medications Generic Name Dose Route Start Last Admin Trade Name Freq PRN Reason Stop Dose Admin Acetaminophen 1,000 mg 01/23/24 18:26 01/23/24 18:36 Acetaminophen 1,000mg/100ml Vial IV 01/23/24 18:27 1,000 mg ONCE ONE Administration Hydromorphone HCl 1 mg 01/23/24 20:38 01/23/24 21:56 Hydromorphone 2mg/Ml Syringe IM 01/23/24 20:39 Not Given ONCE ONE Lactated Ringer's 1,000 mls @ 999 mls/hr 01/23/24 18:26 01/23/24 18:37 Lactated Ringer's 1000 Ml Bag IV 01/23/24 19:26 999 mls/hr .Q1H1M ONE Administration Lactated Ringer's 1,000 mls @ 250 mls/hr 01/23/24 20:30 Lactated Ringer's 1000 Ml Bag IV 02/22/24 20:29 .Q4H CIRILO Iopamidol 75 ml 01/23/24 19:03 01/23/24 19:04 Iopamidol-370 (76%);100ml Bottle IV 01/23/24 19:04 75 ml ONCE ONE Administration Ketorolac Tromethamine 15 mg 01/23/24 18:26 01/23/24 18:36 Ketorolac 30mg/Ml Vial IV 01/23/24 18:27 15 mg ONCE ONE Administration Ondansetron HCl 4 mg 01/23/24 18:26 01/23/24 18:37 Ondansetron 4mg/2ml Vial IV 01/23/24 18:27 4 mg ONCE ONE Administration ORDERS Category Date Time Status CT abdomen pelvis w con Stat Cat Scan 01/23/24 18:26 Completed CBC w/Auto Diff [Complete Blood Count Auto Diff] Stat Lab 01/23/24 17:55 Completed CMP [Comprehensive Metabolic Panel] Stat Lab 01/23/24 17:55 Completed Complete Blood Count Auto Diff AMLAB Lab 01/24/24 06:00 Ordered Comprehensive Metabolic Panel AMLAB Lab 01/24/24 06:00 Ordered HCG Qualitative, Serum Stat Lab 01/23/24 17:55 Completed HIV Panel [id number] Routine Lab 01/23/24 20:58 Ordered INR [Prothrombin Time INR] Stat Lab 01/23/24 17:55 Completed Lactic Acid Stat Lab 01/23/24 17:55 Completed Lipase Stat Lab 01/23/24 17:55 Completed Magnesium AMLAB Lab 01/24/24 06:00 Ordered Peripheral Smear Review Routine Lab 01/23/24 17:55 Received Procalcitonin Stat Lab 01/23/24 17:55 Completed Rapid PCR Covid and Flu A/B Stat Lab 01/23/24 17:55 Completed Urinalysis and Microscopic Stat Lab 01/23/24 17:40 Completed Urine , HCG Qual. Stat Lab 01/23/24 17:40 Completed Blood Culture Stat Micro 01/23/24 21:10 Received ECG Data Tracing #1: Independently interpreted by me, rate is 107, rhythm is regular, axis is normal, no ST elevation in anatomical contiguous leads, QTc 385. Critical Care <YUNIEL Redmond - Last Filed: 01/23/24 22:33> Critical Care Time Critical Care Time: No
--- NOTE | 2024-01-23 18:26 | CT_ITS ---
PROCEDURE INFORMATION: Exam: CT Abdomen And Pelvis With Contrast Exam date and time: 01/23/2024 7:05 PM Age: 28 years old Clinical indication: Abdominal pain; Additional info: Acute abdominal pain TECHNIQUE: Imaging protocol: Computed tomography of the abdomen and pelvis with contrast. Radiation optimization: All CT scans at this facility use at least one of these dose optimization techniques: automated exposure control; mA and/or kV adjustment per patient size (includes targeted exams where dose is matched to clinical indication); or iterative reconstruction. Contrast material: ISOVUE; Contrast volume: 75 ml; Contrast route: IV; COMPARISON: US OB BIOPHYSICAL PROFILE 03/17/2023 7:05 AM FINDINGS: Lungs: Patchy nodular infiltrate left lower lobe partially visualized likely secondary to pneumonia. Liver: Normal. No mass. Gallbladder and bile ducts: Normal. No calcified stones. No ductal dilation. Pancreas: Normal. No ductal dilation. Spleen: Spleen is enlarged measuring 15 cm in greatest dimension. Adrenal glands: Normal. No mass. Kidneys and ureters: Normal. No hydronephrosis. Stomach and bowel: Unremarkable. No obstruction. No mucosal thickening. Appendix: No evidence of appendicitis. Intraperitoneal space: Unremarkable. No free air. No significant fluid collection. Vasculature: Unremarkable. No abdominal aortic aneurysm. Lymph nodes: Unremarkable. No enlarged lymph nodes. Urinary bladder: Unremarkable as visualized. Reproductive: Unremarkable as visualized. Bones/joints: Unremarkable. No acute fracture. Soft tissues: Unremarkable. IMPRESSION: 1. Patchy nodular infiltrate left lower lobe partially visualized likely secondary to pneumonia. 2. Mild splenomegaly.
--- NOTE | 2024-01-23 18:26 | ECG_ITS ---
APPROVED REPORT Exam: Resting ECG HR:107 bpm ECG Measurements Heart Rate 107 AXES IL 172 P 60 QRSd 92 QRS 75 QT 323 T 52 QTc 385 Conclusion SINUS TACHYCARDIA ABNORMAL RHYTHM ECG UNCONFIRMED REPORT Electronically signed by : HELIO STEPHENSON, 01/24/2024 02:56:28
[2024-01-23 18:27] LABS: Microscopic, Urine URINE MICROSCOPIC (MICROSCOPIC)
[2024-01-23 18:29] LABS: Appearance,Urine CLOUDY (Clear); Blood, Urine 3+ (Negative); Color,Urine DARK YELLOW (Yellow); Glucose,Urine (UA) Negative (Negative); Ketones,Urine Negative (Negative); Leukocyte Esterase,Urine TRACE (Negative); Nitrate,Urine POSITIVE (Negative); Protein,Urine 1+ (Negative); Specific Gravity, Urine >= 1.030 (1.005-1.030)
[2024-01-23 18:32] LABS: Bilirubin,Urine 1+ (Negative); Urine Pregnancy, HCG Qual. Negative (Negative)
[2024-01-23 18:35] LABS: Coronavirus 19, PCR Not Detected (NotDetected); Influenza A, PCR Not Detected (NotDetected); Influenza B, PCR Not Detected (NotDetected)
[2024-01-23] MEDS: ACETAMINOPHEN 1,000MG/100ML VIAL 1000 MG IV (18:36)
[2024-01-23] MEDS: KETOROLAC 30MG/ML VIAL 15 MG IV (18:36)
[2024-01-23] MEDS: ONDANSETRON 4MG/2ML VIAL 4 MG IV (18:37)
[2024-01-23] MEDS: LACTATED RINGERS 1000ML 1,000 ML 999 ML IV (18:37)
[2024-01-23 18:41] LABS: Lactic Acid 0.8 mmol/L (0.7-2.1)
[2024-01-23 18:42] LABS: Basophils # 0.1 K/mm3 (0-0.2); Basophils % 0.6 % (0.1-2.0); Eosinophils # 0.1 K/mm3 (0.0-0.4); Eosinophils % 1.1 % (0.1-12.0); Hematocrit 39.6 % (37.0-47.0); Hemoglobin 13.2 g/dL (12.2-16.2); Lymphocytes # 1.4 K/mm3 (0.7-4.5); Lymphocytes % 15.5 % (10-50); Mean Corpuscular HGB Conc 33.3 g/dL (31.8-35.4); Mean Corpuscular Volume 83.9 fl (81-99); Mean Platelet Volume 7.6 fl (7.4-10.4); Monocytes # 0.5 K/mm3 (0.1-1.0); Monocytes % 5.7 % (1.7-9.3); Neutrophils # 6.7 K/mm3 (1.8-7.8); Neutrophils % 77.2 % (37.0-80.0); Platelet Count 240 K/mm3 (142-424); Red Blood Count 4.72 M/mm3 (4.20-5.40); Red Cell Distribution Width 14.8 % (11.5-17.5); White Blood Count 8.7 K/mm3 (4.8-10.8)
[2024-01-23 18:45] LABS: Alanine Aminotransferase 20 U/L (12-78); Albumin Level 4.3 g/dl (3.5-5.0); Albumin/Globulin Ratio 1.2 (1.1-1.8); Alkaline Phosphatase 61 U/L (38-126); Aspartate Amino Transferase 27 U/L (14-36); Bilirubin,Total 1.5 mg/dl (0.2-1.3); Blood Urea Nitrogen 14 mg/dl (7-17); Calcium 9.1 mg/dl (8.4-10.2); Carbon Dioxide 30 mmol/L (22.0-30.0); Chloride 102 mmol/L (98-107); Creatinine Clearance Estimated 66 mL/min (50-200); Estimated Glomerular Filt Rate 66 ml/min (>60); GFR (African American) 79 ML/MIN (>60); Globulin 3.5 g/dL (1.3-3.2); Glucose 75 mg/dl (74-100); INR 1.05 (0.9-1.1); Prothrombin Time 11.3 seconds (10.1-12.5); Sodium 140 mmol/L (136-145); Total Protein,Serum 7.8 g/dl (6.3-8.2)
[2024-01-23 18:46] LABS: Bacteria,Urine Trace /lpf; RBC,Urine TNTC #/hpf (0-3); Squamous Epithelial Cell,Urine Occasional #/hpf (0-5)
[2024-01-23 18:47] LABS: WBC,Urine Occasional #/hpf (0-3)
[2024-01-23 18:52] LABS: HCG Qualitative, Serum Negative (Negative)
[2024-01-23 18:54] LABS: Lipase 25 U/L (23-300)
[2024-01-23 19:01] LABS: Procalcitonin 0.098 ng/mL (0.0-2.0)
--- NOTE | 2024-01-23 19:02 | PC.NURSE ---
PT TO CT
[2024-01-23] MEDS: IOPAMIDOL-370 (76%);100ML BOTTLE 75 ML IV (19:04)
[2024-01-23] MEDS: SODIUM CHLORIDE 0.9% 10ML SYR (RAD ONLY) 10 ML IV (19:04)
[2024-01-23] MEDS: KCl 20mEq/100ml 100 ML 50 MEQ IV ×3 (19:22→22:29)
--- NOTE | 2024-01-23 20:52 | P.HP_ITS ---
History of Present Illness *Admission Date: 01/23/24 *Reason for visit:: abd pain *History of present illness: This is a 28-year-old obese female, with past medical history of chronic lumbar pain, migraine, multiple dental caries with a recent treatment for dental abscess, back in October who presented today to the ED for evaluation of 24 hours dizziness, fever greater than 101, and right-sided abdominal pain. Patient took Tylenol without relief and presents today with continued symptoms. She denies hemoptysis hematochezia hematemesis melena but she is on her period currently. Admitted for further workup. [facility] Disclaimer: The information contained in this section may have been updated after the patient was seen, as this information can be updated by other users. 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 (Updated 01/23/24 @ 23:07 by Mandie Mazariegos RN) History of wisdom tooth extraction Hx of tonsillectomy Social History (Updated 07/13/23 @ 23:24 by Mercedes Yousif DO) Smoking Status: Unknown if ever smoked alcohol intake: never current occupational status: unemployed Travel in the last 8 weeks: None Review of Systems Review of Systems Review of systems:: pertinent systems reviewed and negative unless documented below Meds Home Medications and Allergies New Prescriptions to Start Prescriptions: Allergies Allergy/AdvReac Type Severity Reaction Status Date / Time tramadol AdvReac Verified 02/11/23 18:44 ubrogepant [From Ubrelvy] AdvReac Verified 02/11/23 18:44 Exam Data for Last 24 hours Vital signs and Labs for Last 24 Hours: Temp Pulse Resp BP Pulse Ox O2 Del Method 98.3 F 124 H 16 126/67 100 Room Air 01/23/24 17:38 01/23/24 17:38 01/23/24 17:38 01/23/24 17:38 01/23/24 17:38 01/23/24 17:38 Laboratory Results - last 24 hr 01/23/24 17:40: Urine Color Dark yellow, Urine Appearance Cloudy, Urine pH 6.0, Ur Specific [place] >= 1.030, Urine Protein 1+, Urine Glucose (UA) Negative, Urine Ketones Negative, Urine Blood 3+, Urine Nitrate Positive, Urine Bilirubin 1+ A, Urine Urobilinogen 1.0, Ur Leukocyte Esterase Trace, Urine RBC Tntc, Urine WBC Occasional, Ur Squamous Epith Cells Occasional, Urine Bacteria Trace, Urine HCG, Qual Negative 01/23/24 17:55: WBC 8.7, RBC 4.72, Hgb 13.2, Hct 39.6, MCV 83.9, MCH 28.0, MCHC 33.3, RDW 14.8, Plt Count 240, MPV 7.6, Neut % (Auto) 77.2, Lymph % (Auto) 15.5, [place] % (Auto) 5.7, Eos % (Auto) 1.1, Baso % (Auto) 0.6, Neut # (Auto) 6.7, Lymph # (Auto) 1.4, [place] # (Auto) 0.5, Eos # (Auto) 0.1, Baso # (Auto) 0.1, PT 11.3, INR 1.05, Sodium 140, Potassium 3.0 L, Chloride 102, Carbon Dioxide 30, Anion Gap 11.0, BUN 14, Creatinine 1.00, Estimated Creat Clear 66, Estimated GFR 66, Est GFR ( Amer) 79, Glucose 75, Lactate 0.8, Calcium 9.1, Total Bilirubin 1.5 H, AST 27, ALT 20, Alkaline Phosphatase 61, Total Protein 7.8, Albumin 4.3, Globulin 3.5 H, Albumin/Globulin Ratio 1.2, Lipase 25, Procalcitonin 0.098, Serum HCG, Qual Negative, SARS-CoV-2 (PCR) Not detected, Influenza A Untype (PCR) Not detected, Influenza Type B (PCR) Not detected I & O for Last 24 hours: Intake & Output 01/20/24 01/21/24 01/22/24 01/23/24 23:59 23:59 23:59 23:59 Weight 106.594 kg Constitutional Constitutional: moderate distress and morbidly obese *Routine HEENT Exam Head: Present normocephalic Eye: Present EOMI and PERRL ENT: Present mucous membranes moist *Routine Neck Exam Neck: Present supple; Absent lymphadenopathy *Routine Respiratory Exam Respiratory: Present CTA bilaterally *Routine Cardiovascular Exam Cardiovascular: Present RRR, Normal S1, Normal S2 and tachycardia *Routine Abdominal Exam Abdominal: Present soft, normoactive bowel sounds, tenderness and guarding *Routine Rectal Exam Rectal:: deferred *Routine Genitalia Exam Genitalia:: deferred *Routine Extremities Exam Extremities: Absent cyanosis, clubbing or edema *Routine Skin Exam Skin: Present warm; Absent rash *Routine Neurological Exam Neurological: Present alert, oriented X3, normal reflexes and moving all extremities Routine Psychiatric Exam Psychiatric: Present good insight H&P: Result Imaging and Cardiology EKG: Status: image reviewed by me, Preliminary report and final report CT scan - abdomen: Status: image reviewed by me, Preliminary report and final report Assessment and Plan *Assessment and plan (1) Fever of unknown origin (FUO): Status: Acute Category: Medical Code(s): R50.9 - Fever, unspecified (2) Tachycardia: Status: Acute Category: Medical Code(s): R00.0 - Tachycardia, unspecified (3) Abdominal pain, acute: Status: Acute Category: Medical Code(s): R10.9 - Unspecified abdominal pain (4) Left lower lobe pneumonia: Status: Acute Qualifiers: Pneumonia type: due to unspecified organism Qualified Code(s): J18.9 - Pneumonia, unspecified organism Category: Medical Code(s): J18.9 - Pneumonia, unspecified organism (5) Splenomegaly: Status: Acute Category: Medical Code(s): R16.1 - Splenomegaly, not elsewhere classified (6) Hypokalemia: Status: Acute Category: Medical Code(s): E87.6 - Hypokalemia (7) Current every day vaping: Status: Acute Category: Social Hx Code(s): Z72.89 - Other problems related to lifestyle (8) Obesities, morbid: Status: Acute Category: Medical Code(s): E66.01 - Morbid (severe) obesity due to excess calories Plan 28-year-old obese female, with past medical history of chronic lumbar pain, migraine, vaping and multiple dental caries with a recent treatment for dental abscess, back in October who presented today to the ED for evaluation of 24 hours dizziness, fever greater than 101, and right-sided abdominal pain. Initially presented with tachycardia and fever. Bolus crystalloid given with Tylenol and ketorolac for abdominal pain and fever. Labs are grossly unremarkable except for slightly elevated globulin, white count are normal, low potassium. CT of the abdomen was conducted. Imaging is reviewed. There is a concern for left lower lobe pneumonia and splenomegaly. Findings discussed with the ED provider for admission. I agree for the admission plan as follow: -Fever and tachycardia. Unknown origin: Suspect left lobe lower pneumonia: Also presented with splenomegaly, normal CBC: Admit patient for medical service. Dispo Med-surg. Patient has history of recent dental axis that required antibiotic treatment back in October. Presented with fever and tachycardia associated with splenomegaly and left lower pneumonia. Diagnosis to rule out is: Streptococcal Staphylococcus infection, endocarditis, sidra virus, HIV. \ Peripheral blood smear Ultrasound of the upper abdomen ordered Echocardiogram ordered Continuous cardiac monitoring Monitor vital signs per unit protocol. Including temperature and sepsis Continue IV hydration Started on Zosyn 4.5 g Pain management with Tylenol and morphine as needed Blood culture pending UA pending. Does not like UTI Repeat a.m. 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 PCP to follow-up abnormal BMI Lovenox for DVT prophylaxis. On Protonix Full Code
[2024-01-23 20:57] VITALS: BP 134/78; PULSE 91; RESP 16; TEMP 36.8; O2SAT 100
[2024-01-23] MEDS: CEFTRIAXONE SODIUM 1 GM in 0.9 % SODIUM CHLORIDE 50 ML IV (22:28)
[2024-01-23] MEDS: 0.9 % SODIUM CHLORIDE 1000ML 500 ML 250 ML IV (22:28)
[2024-01-23] MEDS: ENOXAPARIN 40MG/0.4ML SYRINGE 40 MG SQ (22:29)
[2024-01-23] MEDS: PANTOPRAZOLE 40MG TABLET 40 MG PO (22:29)
[2024-01-23 22:33] VITALS: BP 156/70; PULSE 94; RESP 18; TEMP 37; O2SAT 99
--- NOTE | 2024-01-23 23:57 | PC.NURSE ---
Pt refused HIV panel due to patient stating she had this done at outside facility last April, nothing reactive on that test per patient.
[2024-01-24] VITALS (7 sets, daily range): BP systolic 108–137; BP diastolic 60–85; PULSE 69–101; RESP 16–20; TEMP 36.6–37.4; O2SAT 97–100; BMI 46.8
[2024-01-24] MEDS: MORPHINE 2MG/ML SYRINGE 2 MG IV ×4 (01:16→20:03)
--- NOTE | 2024-01-24 01:44 | US_ITS ---
FINAL REPORT CLINICAL HISTORY: abd pain. Splenomegaly COMPARISON: None FINDINGS: Sonographic images of the right upper quadrant were obtained. The pancreas is partially obscured. There is mild fatty infiltration of the liver. The gallbladder is mildly distended. There is no evidence of gallstones. There is no evidence of biliary ductal dilatation.The common duct measures 3 mm. Limited images of the right kidney are unremarkable. IMPRESSION: Mild fatty liver. Reviewed, Interpreted and Dictated by Eliazar Quiros MD Transcribed by Sussy Hughes Authenticated and [facility]
--- NOTE | 2024-01-24 01:49 | CA_ITS ---
APPROVED REPORT EXAM: Comprehensive 2D, Doppler, and color-flow Echocardiogram [employer] Workman: Khushi Walker RT(R) Ht: 5 ft 2 in Wt: 235lbs BSA: 2.05 BP: 134/78 mmHg Indications: fever, vape, dental abcess in October 2023, rule out endocarditis, tachycardia, right lower quadrant pain. 2D Dimensions LA Volume 26.50 mL LA Volume Index 12.93 mL/m2 (M/F) 16-34 EF AP4 59.80 % GL Strain -21.6 % M-Mode Dimensions RVDd 2.58 cm (0.9-2.6) LA Diam 3.47 cm (1.9-4.0) LVDd 4.25 cm (3.5-5.7) LVDs 3.15 cm (3.5-5.7) IVSd 0.99 cm (0.6-1.1) PWd 0.95 cm (0.6-1.1) EF (Teich) 51.20% FS 25.90% EDV (Teich) 80.80 mL ESV (Teich) 39.40 mL LV Diastology E Decel Time 150 (160-240 msec) E/A Ratio 1.2 Mitral Valve MV E Max Evan. 109.0 (40-130 cm/s) MV A Velocity 91.0 (40-130 cm/s) E/A Ratio 1.20 MV PHT 44.0 ms Left Ventricle The left ventricle is normal size. The left ventricular systolic function is normal. The left ventricular ejection fraction is within the normal range. There is normal left ventricular wall thickness. There is normal LV segmental wall motion. The left ventricular diastolic function is normal. LVEF is 55%. Right Ventricle The right ventricle is normal size. The right ventricular systolic function is normal. Atria The left atrium size is normal. The right atrium size is normal. There is no Doppler evidence of interatrial shunt. Aortic Valve The aortic valve opens well. There is no aortic valvular stenosis. No aortic regurgitation is present. There is no aortic valvular vegetation. Mitral Valve The mitral valve is normal in structure. No evidence of mitral valve stenosis. Trace mitral regurgitation. There is no evidence of mitral valve vegetations. Tricuspid Valve The tricuspid valve leaflets are thin and pliable. Trace tricuspid regurgitation. There is insufficient RVSP. There is no tricuspid valve vegetations. Pulmonic Valve The pulmonary valve is normal in structure. Trace pulmonic regurgitation. There is no pulmonic valve vegetations. Great Vessels The aortic root is normal in size. The ascending aorta is normal in size. IVC is normal in size and collapses >50% with inspiration. Pericardium There is no pericardial effusion. Other Information Study Quality: Fair Conclusion Normal biventricular systolic function. No significant valvular stenosis or regurgitation. In the setting of prior dental abscess, this TTE demonstrates no evidence of valvular vegetations. Note, however, that TTE has low sensitivity to rule out vegetations conclusively. If there is clinical concern, further evaluation with JOE is suggested. Electronically signed by : Kayleigh Babin MD 01/27/2024 11:51:29
[2024-01-24] MEDS: PIPERACILLIN/TAZO 4.5 GM in 0.9 % SODIUM CHLORIDE 100 ML IV ×3 (02:20→18:57)
--- NOTE | 2024-01-24 04:54 | PC.NURSE ---
Alert and oriented. Complained of right sided lower abdominal pain, treated per dec. Pt has been resting. Ambulates to the restroom with standby assist. Pt received 3 runs of potassium per orders, held PO potassium per Jacqueline Martel APRN until morning labs are resulted. Pt has been NPO since 299. Pt has had no other complaints. Call light in reach.
[2024-01-24 07:02] LABS: Basophils # 0.1 K/mm3 (0-0.2); Basophils % 0.8 % (0.1-2.0); Eosinophils # 0.2 K/mm3 (0.0-0.4); Eosinophils % 3.1 % (0.1-12.0); Hematocrit 37.4 % (37.0-47.0); Lymphocytes # 1.5 K/mm3 (0.7-4.5); Lymphocytes % 25.6 % (10-50); Mean Corpuscular HGB Conc 32.2 g/dL (31.8-35.4); Mean Corpuscular Hemoglobin 27.5 pg (27.0-31.2); Mean Corpuscular Volume 85.5 fl (81-99); Mean Platelet Volume 7.6 fl (7.4-10.4); Monocytes # 0.4 K/mm3 (0.1-1.0); Monocytes % 7.3 % (1.7-9.3); Neutrophils # 3.6 K/mm3 (1.8-7.8); Neutrophils % 63.2 % (37.0-80.0); Platelet Count 194 K/mm3 (142-424); Red Blood Count 4.37 M/mm3 (4.20-5.40); Red Cell Distribution Width 15.1 % (11.5-17.5); White Blood Count 5.7 K/mm3 (4.8-10.8)
[2024-01-24 07:08] LABS: Chloride 111 mmol/L (98-107)
[2024-01-24 07:09] LABS: Potassium 3.6 mmoL/L (3.5-5.1); Sodium 139 mmol/L (136-145)
[2024-01-24 07:11] LABS: Alanine Aminotransferase 14 U/L (12-78); Albumin Level 3.1 g/dl (3.5-5.0); Albumin/Globulin Ratio 1.1 (1.1-1.8); Alkaline Phosphatase 57 U/L (38-126); Anion Gap 4.6 mEq/L (5-15); Aspartate Amino Transferase 24 U/L (14-36); Bilirubin,Total 0.8 mg/dl (0.2-1.3); Blood Urea Nitrogen 10 mg/dl (7-17); Calcium 8.1 mg/dl (8.4-10.2); Carbon Dioxide 27 mmol/L (22.0-30.0); Creatinine Clearance Estimated 70 mL/min (50-200); Estimated Glomerular Filt Rate 74 ml/min (>60); GFR (African American) 90 ML/MIN (>60); Globulin 2.8 g/dL (1.3-3.2); Glucose 99 mg/dl (74-100); Total Protein,Serum 5.9 g/dl (6.3-8.2)
[2024-01-24 07:49] LABS: Bilirubin,Unconjugated 0.5 mg/dL (0.0-1.1)
[2024-01-24 07:50] LABS: Alanine Aminotransferase 14 U/L (12-78); Albumin Level 3.1 g/dl (3.5-5.0); Alkaline Phosphatase 60 U/L (38-126); Aspartate Amino Transferase 18 U/L (14-36); Bilirubin,Direct 0.3 mg/dl (0.0-0.4); Bilirubin,Indirect 0.5 mg/dL (0.0-0.9); Bilirubin,Total 0.8 mg/dl (0.2-1.3); Total Protein,Serum 5.7 g/dl (6.3-8.2)
[2024-01-24] MEDS: ENOXAPARIN 40MG/0.4ML SYRINGE 40 MG SQ (07:59)
--- NOTE | 2024-01-24 08:59 | PC.NURSE ---
per cornell, okay to remove heart monitor and resume regular diet.
--- NOTE | 2024-01-24 11:27 | PC.NURSE ---
ROUNDED ON PT, PT SITTING UP IN BED ON THE PHONE, APPEARS TO BE IN NO DISTRESS OR SHOWING SIGNS OF PAIN. WHILE STARTED IV ABX PT ASKED ABOUT POSS GOING HOME TODAY, REASSURED, DISCHARGE IS A POSS LATER TODAY. ABOUT 20 MINS LATER CHECKED ON PT AND SHE STATED SHES HURTING IN SAME PLACE (RLQ) AND WANTING HER V/S CHECKED. PT SAT ON SIDE OF BED, VSS 138/76 HR-94 RR-18 02-100% RA TEMP-98.8. PT STATES MY HEART RATE WILL GO DOWN IF YOU GIVE ME PAIN MEDS . PT WALKED TO BR. WILL TREAT PAIN PER MAR.
[2024-01-24] MEDS: ACETAMINOPHEN 325MG TAB 650 MG PO (16:01)
--- NOTE | 2024-01-24 17:20 | P.PN_ITS ---
Subjective *Date: 01/24/24 *Time: 17:20 Interval history: patient seen at bedside, complains of RLQ abdominal pain, as well as fevers, no CP SOB Exam Data for Last 24 hours Vital signs and Labs for Last 24 Hours: Temp Pulse Resp BP Pulse Ox O2 Del Method 99.3 F 81 20 109/60 L 98 Room Air 01/24/24 15:47 01/24/24 15:47 01/24/24 15:47 01/24/24 15:47 01/24/24 15:47 01/24/24 15:47 Laboratory Results - last 24 hr 01/23/24 17:40: Urine Color Dark yellow, Urine Appearance Cloudy, Urine pH 6.0, Ur Specific [place] >= 1.030, Urine Protein 1+, Urine Glucose (UA) Negative, Urine Ketones Negative, Urine Blood 3+, Urine Nitrate Positive, Urine Bilirubin 1+ A, Urine Urobilinogen 1.0, Ur Leukocyte Esterase Trace, Urine RBC Tntc, Urine WBC Occasional, Ur Squamous Epith Cells Occasional, Urine Bacteria Trace, Urine HCG, Qual Negative 01/23/24 17:55: WBC 8.7, RBC 4.72, Hgb 13.2, Hct 39.6, MCV 83.9, MCH 28.0, MCHC 33.3, RDW 14.8, Plt Count 240, MPV 7.6, Neut % (Auto) 77.2, Lymph % (Auto) 15.5, [place] % (Auto) 5.7, Eos % (Auto) 1.1, Baso % (Auto) 0.6, Neut # (Auto) 6.7, Lymph # (Auto) 1.4, [place] # (Auto) 0.5, Eos # (Auto) 0.1, Baso # (Auto) 0.1, PT 11.3, INR 1.05, Sodium 140, Potassium 3.0 L, Chloride 102, Carbon Dioxide 30, Anion Gap 11.0, BUN 14, Creatinine 1.00, Estimated Creat Clear 66, Estimated GFR 66, Est GFR ( Amer) 79, Glucose 75, Lactate 0.8, Calcium 9.1, Total Bilirubin 1.5 H, AST 27, ALT 20, Alkaline Phosphatase 61, Total Protein 7.8, Albumin 4.3, Globulin 3.5 H, Albumin/Globulin Ratio 1.2, Lipase 25, Procalcitonin 0.098, Serum HCG, Qual Negative, SARS-CoV-2 (PCR) Not detected, Influenza A Untype (PCR) Not detected, Influenza Type B (PCR) Not detected 01/24/24 05:38: WBC 5.7 D, RBC 4.37, Hgb 12.0 L, Hct 37.4, MCV 85.5, MCH 27.5, MCHC 32.2, RDW 15.1, Plt Count 194, MPV 7.6, Neut % (Auto) 63.2, Lymph % (Auto) 25.6, [place] % (Auto) 7.3, Eos % (Auto) 3.1, Baso % (Auto) 0.8, Neut # (Auto) 3.6, Lymph # (Auto) 1.5, [place] # (Auto) 0.4, Eos # (Auto) 0.2, Baso # (Auto) 0.1, Sodium 139, Potassium 3.6, Chloride 111 H, Carbon Dioxide 27, Anion Gap 4.6 L, BUN 10 D, Creatinine 0.90, Estimated Creat Clear 70, Estimated GFR 74, Est GFR ( Amer) 90, Glucose 99 D, Calcium 8.1 L, Magnesium 2.0, Total Bilirubin 0.8 01/24/24 05:38: Total Bilirubin 0.8, Direct Bilirubin 0.3, Conjugated Bilirubin 0.0, Indirect Bilirubin 0.5, Unconjugated Bilirubin 0.5, AST 24 01/24/24 05:38: AST 18, ALT 14 D 01/24/24 05:38: ALT 14, Alkaline Phosphatase 57 01/24/24 05:38: Alkaline Phosphatase 60, Total Protein 5.9 L 01/24/24 05:38: Total Protein 5.7 L, Albumin 3.1 L D 01/24/24 05:38: Albumin 3.1 L, Globulin 2.8, Albumin/Globulin Ratio 1.1 I & O for Last 24 hours: Intake & Output 01/21/24 01/22/24 01/23/24 01/24/24 23:59 23:59 23:59 23:59 Intake Total 1963 Output Total 0 / 0 0 / 0 Balance 0 / 0 1963 Weight 106.594 kg 115.575 kg Constitutional Constitutional: no acute distress *Routine HEENT Exam Head: Present normocephalic Eye: Present EOMI and PERRL ENT: Present mucous membranes moist *Routine Neck Exam Neck: Present supple; Absent lymphadenopathy *Routine Respiratory Exam Respiratory: Present CTA bilaterally *Routine Cardiovascular Exam Cardiovascular: Present RRR *Routine Abdominal Exam Abdominal: Present soft, normoactive bowel sounds and tenderness Comments: reports mild tenderness in RLQ abdomen *Routine Extremities Exam Extremities: Absent cyanosis, clubbing or edema *Routine Skin Exam Skin: Present warm; Absent rash *Routine Neurological Exam Neurological: Present alert and oriented X3 Assessment and Plan *Assessment and plan (1) Fever of unknown origin (FUO): Status: Acute Category: Medical Code(s): R50.9 - Fever, unspecified (2) Tachycardia: Status: Acute Category: Medical Code(s): R00.0 - Tachycardia, unspecified (3) Abdominal pain, acute: Status: Acute Category: Medical Code(s): R10.9 - Unspecified abdominal pain (4) Left lower lobe pneumonia: Status: Acute Qualifiers: Pneumonia type: due to unspecified organism Qualified Code(s): J18.9 - Pneumonia, unspecified organism Category: Medical Code(s): J18.9 - Pneumonia, unspecified organism (5) Splenomegaly: Status: Acute Category: Medical Code(s): R16.1 - Splenomegaly, not elsewhere classified (6) Hypokalemia: Status: Acute Category: Medical Code(s): E87.6 - Hypokalemia (7) Current every day vaping: Status: Acute Category: Social Hx Code(s): Z72.89 - Other problems related to lifestyle (8) Obesities, morbid: Status: Acute Category: Medical Code(s): E66.01 - Morbid (severe) obesity due to excess calories Plan 28-year-old obese female, with past medical history of chronic lumbar pain, migraine, vaping and multiple dental caries with a recent treatment for dental abscess, back in October who presented today to the ED for evaluation of 24 hours dizziness, fever greater than 101, and right-sided abdominal pain. Initially presented with tachycardia and fever. Bolus crystalloid given with Tylenol and ketorolac for abdominal pain and fever. Labs are grossly unremarkable except for slightly elevated globulin, white count are normal, low potassium. CT of the abdomen was conducted. Imaging is reviewed. There is a concern for left lower lobe pneumonia and splenomegaly. Findings discussed with the ED provider for admission. I agree for the admission plan as follow: -Fever and tachycardia. Unknown origin: Suspect left lobe lower pneumonia: Also presented with splenomegaly, normal CBC: Patient has history of recent dental axis that required antibiotic treatment back in October. Presented with fever and tachycardia associated with splenomegaly and left lower pneumonia. Diagnosis to rule out is: Streptococcal Staphylococcus infection, endocarditis, sidra virus, HIV. \ Peripheral blood smear Ultrasound of the upper abdomen ordered Echocardiogram ordered Continuous cardiac monitoring Monitor vital signs per unit protocol. Including temperature and sepsis Continue IV hydration Started on Zosyn 4.5 g Pain management with Tylenol and morphine as needed Blood culture pending UA pending. Does not like UTI Repeat a.m. monitor daily lab Hypokalemia : monitor and replace During every day vaping On nicotine patch morbidly obese: Encouraged for weight management. PCP to follow-up abnormal BMI Lovenox for DVT prophylaxis. On Protonix Full Code has mild elevations of temperature, abdominal pain. continue empirircal Abx, if septic work up negative and stays fever free for 24hrs, can be discharged in the morning after Echo resul.
[2024-01-24] MEDS: PANTOPRAZOLE 40MG TABLET 40 MG PO (20:47)
[2024-01-24] MEDS: NICOTINE 21MG/24HR PATCH 21 MG TD (20:48)
[2024-01-25] VITALS: PULSE 101
[2024-01-25] MEDS: MORPHINE 2MG/ML SYRINGE 2 MG IV ×2 (01:56→08:32)
[2024-01-25] MEDS: PIPERACILLIN/TAZO 4.5 GM in 0.9 % SODIUM CHLORIDE 100 ML IV ×2 (01:57→09:27)
[2024-01-25 04:00] VITALS: BMI 47.0
[2024-01-25 06:34] LABS: Chloride 112 mmol/L (98-107); Potassium 3.7 mmoL/L (3.5-5.1); Sodium 142 mmol/L (136-145)
[2024-01-25 06:36] LABS: Alanine Aminotransferase 13 U/L (12-78); Aspartate Amino Transferase 18 U/L (14-36); Blood Urea Nitrogen 10 mg/dl (7-17); Creatinine Clearance Estimated 78 mL/min (50-200); Estimated Glomerular Filt Rate 85 ml/min (>60); GFR (African American) 103 ML/MIN (>60)
[2024-01-25 06:37] LABS: Albumin Level 3.1 g/dl (3.5-5.0); Albumin/Globulin Ratio 1.1 (1.1-1.8); Alkaline Phosphatase 54 U/L (38-126); Anion Gap 6.7 mEq/L (5-15); Bilirubin,Total 0.6 mg/dl (0.2-1.3); Calcium 8.1 mg/dl (8.4-10.2); Carbon Dioxide 27 mmol/L (22.0-30.0); Globulin 2.8 g/dL (1.3-3.2); Glucose 105 mg/dl (74-100); Total Protein,Serum 5.9 g/dl (6.3-8.2)
[2024-01-25 06:43] LABS: Basophils % 0.8 % (0.1-2.0); Eosinophils # 0.2 K/mm3 (0.0-0.4); Eosinophils % 4.4 % (0.1-12.0); Hematocrit 35.4 % (37.0-47.0); Hemoglobin 11.6 g/dL (12.2-16.2); Lymphocytes # 1.8 K/mm3 (0.7-4.5); Lymphocytes % 40.5 % (10-50); Mean Corpuscular HGB Conc 32.7 g/dL (31.8-35.4); Mean Corpuscular Hemoglobin 27.8 pg (27.0-31.2); Monocytes # 0.2 K/mm3 (0.1-1.0); Monocytes % 5.4 % (1.7-9.3); Neutrophils # 2.2 K/mm3 (1.8-7.8); Platelet Count 217 K/mm3 (142-424); Red Blood Count 4.16 M/mm3 (4.20-5.40); Red Cell Distribution Width 14.8 % (11.5-17.5); White Blood Count 4.4 K/mm3 (4.8-10.8)
[2024-01-25 07:52] VITALS: BP 113/62; PULSE 93; RESP 18; TEMP 36.7; O2SAT 100
--- NOTE | 2024-01-25 08:04 | P.DS_ITS ---
General Admission date:: 01/23/24 Discharge date: 01/25/24 HPI HPI HPI: This is a 28-year-old obese female, with past medical history of chronic lumbar pain, migraine, multiple dental caries with a recent treatment for dental abscess, back in October who presented today to the ED for evaluation of 24 hours dizziness, fever greater than 101, and right-sided abdominal pain. Patient took Tylenol without relief and presents today with continued symptoms. She denies hemoptysis hematochezia hematemesis melena but she is on her period currently. Admitted for further workup. Hospital Course Hospital Course Hospital Course: 28-year-old obese female, with past medical history of chronic lumbar pain, migraine, vaping and multiple dental caries with a recent treatment for dental abscess, back in October who presented today to the ED for evaluation of 24 hours dizziness, fever greater than 101, and right-sided abdominal pain. Initially presented with tachycardia and fever. Bolus crystalloid given with Tylenol and ketorolac for abdominal pain and fever. Labs are grossly unremarkable except for slightly elevated globulin, white count are normal, low potassium. CT of the abdomen was conducted. Imaging is reviewed. There is a concern for left lower lobe pneumonia and splenomegaly. Findings discussed with the ED provider for admission. Patient admitted to medicine for further management. Remained afebrile during duration of hospitalization. Tolerating p.o. intake. Still having persistent abdominal pain that would wax and wane. Given her stability however, will discharge home to further convalesce. No indication for further inpatient management. Problems addressed as follows: -Fever and tachycardia. Unknown origin: Suspect left lobe lower pneumonia: Also presented with splenomegaly, normal CBC: [place] (EBV positive) Patient admitted with abdominal pain and fever of unknown origin. Started on empiric antibiotics. Imaging concerning for lower lobe pneumonia and splenomegaly. Workup relatively unremarkable. Strep was negative. After discharge, her EBV titers came back early. Given her symptoms and image findings, condition highly suspicious for mono. No specific treatment for EBV. Patient was transitioned to Augmentin to complete empiric course for her pneumonia. Continue symptomatic management with pain control for abdomen. Tolerating p.o. intake. Voiding independently. No fever in over 48 hours. Stable to discharge home. Blood cultures and urinalysis were unremarkable. Minor electrolyte disturbances with hypokalemia, replaced during admission. Her obesity complicates all aspects of her care Exam Data for Last 24 hours Vital signs and Labs for Last 24 Hours: Temp Pulse Resp BP Pulse Ox O2 Del Method 98.1 F 93 H 18 113/62 100 Room Air 01/25/24 07:52 01/25/24 07:52 01/25/24 07:52 01/25/24 07:52 01/25/24 07:52 01/25/24 07:52 Laboratory Results - last 24 hr 01/25/24 05:41: WBC 4.4 L, RBC 4.16 L, Hgb 11.6 L, Hct 35.4 L, MCV 85.0, MCH 27.8, MCHC 32.7, RDW 14.8, Plt Count 217, MPV 8.0, Neut % (Auto) 49.0, Lymph % (Auto) 40.5, [place] % (Auto) 5.4, Eos % (Auto) 4.4, Baso % (Auto) 0.8, Neut # (Auto) 2.2, Lymph # (Auto) 1.8, [place] # (Auto) 0.2, Eos # (Auto) 0.2, Baso # (Auto) 0.0, Sodium 142, Potassium 3.7, Chloride 112 H, Carbon Dioxide 27, Anion Gap 6.7, BUN 10, Creatinine 0.80, Estimated Creat Clear 78, Estimated GFR 85, Est GFR ( Amer) 103, Glucose 105 H, Calcium 8.1 L, Magnesium 2.0, Total Bilirubin 0.6, AST 18, ALT 13, Alkaline Phosphatase 54, Total Protein 5.9 L, Albumin 3.1 L, Globulin 2.8, Albumin/Globulin Ratio 1.1 I & O for Last 24 hours: Intake & Output 01/22/24 01/23/24 01/24/24 01/25/24 23:59 23:59 23:59 23:59 Intake Total 2186 / 2186 Output Total 0 / 0 0 / 0 0 / 0 Balance 0 / 0 2186 / 2186 0 / 0 Weight 106.594 kg 115.575 kg 116.074 kg Constitutional Constitutional: no acute distress, morbidly obese and cooperative *Routine HEENT Exam Head: Present normocephalic Eye: Present EOMI and PERRL ENT: Present mucous membranes moist *Routine Neck Exam Neck: Present supple; Absent lymphadenopathy *Routine Respiratory Exam Respiratory: Present CTA bilaterally; Absent rhonchi, wheezes or crackles *Routine Cardiovascular Exam Cardiovascular: Present RRR *Routine Abdominal Exam Abdominal: Present soft, normoactive bowel sounds and tenderness (Mild, nonfocal) *Routine Rectal Exam Patient deferred: visual exam *Routine Exam Patient deferred: external exam *Routine Extremities Exam Extremities: Absent cyanosis, clubbing or edema *Routine Skin Exam Skin: Present warm; Absent rash *Routine Neurological Exam Neurological: Present alert, oriented X3 and moving all extremities; Absent altered mental status Results Data Completed and Pending Labs on day of discharge: Labs from last 24 hours 01/25/24 05:41 WBC 4.4 L RBC 4.16 L Hgb 11.6 L Hct 35.4 L MCV 85.0 MCH 27.8 MCHC 32.7 RDW 14.8 Plt Count 217 MPV 8.0 Neut % (Auto) 49.0 Lymph % (Auto) 40.5 [place] % (Auto) 5.4 Eos % (Auto) 4.4 Baso % (Auto) 0.8 Neut # (Auto) 2.2 Lymph # (Auto) 1.8 [place] # (Auto) 0.2 Eos # (Auto) 0.2 Baso # (Auto) 0.0 Sodium 142 Potassium 3.7 Chloride 112 H Carbon Dioxide 27 Anion Gap 6.7 BUN 10 Creatinine 0.80 Estimated Creat Clear 78 Estimated GFR 85 Est GFR ( Amer) 103 Glucose 105 H Calcium 8.1 L Magnesium 2.0 Total Bilirubin 0.6 AST 18 ALT 13 Alkaline Phosphatase 54 Total Protein 5.9 L Albumin 3.1 L Globulin 2.8 Albumin/Globulin Ratio 1.1 DS: Diagnosis Discharge Diagnosis (1) EBV infection: Status: Acute Code(s): B27.90 - Infectious mononucleosis, unspecified without complication (2) Fever of unknown origin (FUO): Status: Acute Code(s): R50.9 - Fever, unspecified (3) Tachycardia: Status: Acute Code(s): R00.0 - Tachycardia, unspecified (4) Abdominal pain, acute: Status: Acute Code(s): R10.9 - Unspecified abdominal pain (5) Left lower lobe pneumonia: Status: Acute Code(s): J18.9 - Pneumonia, unspecified organism Qualifiers: Pneumonia type: due to unspecified organism Qualified Code(s): J18.9 - Pneumonia, unspecified organism (6) Splenomegaly: Status: Acute Code(s): R16.1 - Splenomegaly, not elsewhere classified (7) Hypokalemia: Status: Acute Code(s): E87.6 - Hypokalemia (8) Current every day vaping: Status: Acute Code(s): Z72.89 - Other problems related to lifestyle (9) Obesities, morbid: Status: Acute Code(s): E66.01 - Morbid (severe) obesity due to excess calories Meds Home Medications and Allergies Home Medications Medication Instructions Recorded Confirmed Type amoxicillin 875 mg-potassium 1 tab PO BID 3 days #5 tabs 01/25/24 Rx clavulanate 125 mg tablet hydrocodone 5 mg-acetaminophen 325 1 tab PO Q8H PRN abdominal pain 3 01/25/24 Rx mg tablet days #9 tabs New Prescriptions to Start Prescriptions: amoxicillin-pot clavulanate Cristofer Sy hydrocodone-acetaminophen Cristofer Sy Allergies Allergy/AdvReac Type Severity Reaction Status Date / Time tramadol AdvReac Verified 02/11/23 18:44 ubrogepant [From Ubrelvy] AdvReac Verified 02/11/23 18:44 Discharge Plan Disposition Patient Disposition: Home, Self-Care Condition: Fair Follow up Plan Follow up with: Bennett Tolliver MD [Staff Physician] - Enter time for follow up (Please call for follow up appt. tomorrow. ) Prescriptions/Medication Reconciliation: New amoxicillin-pot clavulanate 875-125 mg tablet 1 tab PO BID 3 Days Qty: 5 0RF hydrocodone-acetaminophen 5-325 mg tablet 1 tab PO Q8H PRN (Reason: abdominal pain) 3 Days Qty: 9 0RF Problem Reconciliation Problems Reviewed?: Yes Patient Discharge Instructions ACTIVITY: Continue current activity DIET: continue same diet Patient Instructions: DI for Pneumonia -- Adult, DI for Abdominal Pain-Adult Providers Primary Care Provider: Provider,Referral Admit Provider: Darryl Horne Attending Provider: Darryl Horne
[2024-01-25] MEDS: ENOXAPARIN 40MG/0.4ML SYRINGE 40 MG SQ (08:33)
[2024-01-25 10:00] VITALS: PULSE 91; RESP 16
[2024-01-25] MEDS: SODIUM CHLORIDE 3% 15ML NEB 3 ML IH (10:00)
[2024-01-25 14:46] LABS: Epstein-Barr Virus Early Ag Ab 20.4 U/mL (0.0-8.9)
[2024-01-25] MEDS: KETOROLAC 30MG/ML VIAL 30 MG IV (14:49)
[2024-01-25 16:00] VITALS: BP 115/70; PULSE 60; RESP 18; TEMP 36.9; O2SAT 100
--- NOTE | 2024-01-25 16:16 | PC.NURSE ---
no acute changes since previous assessment. c/o abd x1 this shift. medicated per mar with good effectiveness.
[2024-01-25 21:13] LABS: Peripheral Smear Review Scanned Result
[2024-01-27 08:43] LABS: Epstein-Barr DNA Quant, PCR Negative
--- NOTE | 2024-01-27 11:42 | CARE MANAGER ---
Unable to reach patient to discuss recent discharge. Call attempted X 2 to both numbers on chart. Left VM on S/O phone for return call.
== END 2024-01-25 18:52 | disposition home or self-care (01) ==
LOC: ER 20:33 → 2ND 20:50
PROVIDERS: Internal Medicine Adolescent Medicine; Nurse Practitioner Family; Physician Assistant; Admitting Provider Internal Medicine; Emergency Provider Emergency Medicine; Visit Provider Internal Medicine
DX: J18.9 Pneumonia, unspecified organism (principal); E87.6 Hypokalemia; R50.9 Fever, unspecified; E66.01 Morbid (severe) obesity due to excess calories; Z68.42 Body mass index [BMI] 45.0-49.9, adult
CPT/HCPCS: 36415; 74177; 76705; 80053; 80076; 81001; 81025; 83605; 83690; 83735; 84145; 84703; 85025; 85610; 86663; 87040; 87070; 87205; 87636; 87799; 87802; 93005; 93306; 99285; G0378; J0131; J0696; J2405; J2543; Q9967

== ENCOUNTER 2024-04-23 18:05 | Emergency (ER) | payer MEDICAID, SELFPAY ==
[2024-04-23 18:06] VITALS: BP 146/91; PULSE 94; RESP 16; TEMP 37.2; O2SAT 96; BMI 43.0
--- NOTE | 2024-04-23 18:29 | ECG_ITS ---
APPROVED REPORT Exam: Resting ECG HR:86 bpm ECG Measurements Heart Rate 86 AXES MI 132 P 48 QRSd 91 QRS 71 QT 360 T 58 QTc 403 Conclusion SINUS RHYTHM LOW QRS VOLTAGE IN PRECORDIAL LEADS [QRS DEFLECTION < 1.0 mV IN CHEST LEADS] BORDERLINE ECG UNCONFIRMED REPORT Electronically signed by : HELIO STEPHENSON, 04/24/2024 00:36:13
--- NOTE | 2024-04-23 18:56 | ED_ITS ---
<Statement entered by Ramiro Coppola MD - 04/23/24 23:50> I was consulted by the AISHA, and we discussed the complexity of the problems being addressed. I approved the treatment and management plan for this patient's care in the emergency department, thus performing a substantive portion of the medical decision making. Patient has mildly tender upper abdomen, no evidence of peritonitis, no rebound. Patient has right upper quadrant pain with p.o. intake that radiates to her right shoulder strongly consistent with biliary colic. However she does not have cholecystitis was tolerating p.o. at bedside and is appropriate for outpatient management. Ramiro Coppola MD Discharge Plan Disposition Patient Disposition: Home, Self-Care Condition: Good Prescriptions Prescriptions: No Action amoxicillin-pot clavulanate 875-125 mg tablet 1 tab PO BID 3 Days Qty: 5 0RF hydrocodone-acetaminophen 5-325 mg tablet 1 tab PO Q8H PRN (Reason: abdominal pain) 3 Days Qty: 9 0RF oxycodone 5 mg tablet 5 mg PO Q8H PRN (Reason: pain (scale score 7-10) from tooth) Qty: 12 0RF amoxicillin-pot clavulanate 875-125 mg tablet 1 tab PO BID Qty: 20 0RF Referrals Follow up/Referrals: Panda Noel MD [Staff Physician] - See instructions (Right upper quadrant abdominal pain) ProviderJosé Antonio MD [Primary Care Provider] - See instructions Activity Restrictions/Add. Instructions Additional Instructions/Restrictions: Please call tomorrow and make your appointment general surgery. Please eat a bland diet like bananas rice applesauce toast and stay away from all spicy foods. Please establish care with a local PCP. Return to the emergency department for any worsening signs or symptoms as needed. Clinical Impressions Clinical Impression: Right upper quadrant abdominal pain Instructions Patient Instructions: DI for Acute Abdominal Pain Discharge ED Provider: Ramiro Coppola General Adult HPI <YUNIEL Redmond - Last Filed: 04/23/24 21:40> General Chief complaint: Abdominal Pain Stated complaint: Abdominal pain Time Seen by Provider: 04/23/24 18:55 Mode of Arrival: Ambulatory Source of Information: Patient Limitations: No Limitations Description of Symptoms (Recalled from ER Triage Doc. by RN): pt presents to ED with c/o right upper quadrant pain that began 1 week ago intermittent, pain became constant today. pt reports right shoulder pain ongoing for the past couple of days with radiation into her chest. pt reports pain with deep inspiration and diarrhea. History of Present Illness HPI narrative: Patient presents for evaluation of right upper quadrant and epigastric abdominal pain. Patient states that this has been ongoing for a week usually worse with food but has been intermittent not constant. However the last 24 hours patient reports that he has been intense radiating to her back on the right and she is been nauseated so has not eaten. Patient denies fever chills hemoptysis hematochezia melena hematemesis hematuria but does report that she has had some loose stool. Patient is G6, P5 Ab1 and her last period ended today Related Data Previous Rx's Medication Instructions Recorded amoxicillin 875 mg-potassium 1 tab PO BID 3 days #5 tabs 01/25/24 clavulanate 125 mg tablet hydrocodone 5 mg-acetaminophen 325 1 tab PO Q8H PRN abdominal pain 3 01/25/24 mg tablet days #9 tabs amoxicillin 875 mg-potassium 1 tab PO BID tooth infection #20 03/05/24 clavulanate 125 mg tablet tabs oxycodone 5 mg tablet 5 mg PO Q8H PRN pain (scale score 03/05/24 7-10) from tooth #12 tabs Allergies Allergy/AdvReac Type Severity Reaction Status Date / Time ketorolac [From Toradol] AdvReac Verified 04/23/24 19:13 tramadol AdvReac Verified 02/11/23 18:44 ubrogepant [From Ubrelvy] AdvReac Verified 02/11/23 18:44 [facility] <YUNIEL Redmond - Last Filed: 04/23/24 21:40> [facility] Disclaimer: The information contained in this section may have been updated after the patient was seen, as this information can be updated by other users. 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 (Updated 01/23/24 @ 23:07 by Mandie Mazariegos RN) History of wisdom tooth extraction Hx of tonsillectomy Family History (Updated 01/24/24 @ 12:53 by Faby De La Garza RN) Mother Breast cancer Father Hypertension Grandfather Stomach cancer Other Diabetes Social History (Updated 07/13/23 @ 23:24 by Mercedes Yousif DO) Smoking Status: Current every day smoker alcohol intake: never current occupational status: unemployed Travel in the last 8 weeks: None <YUNIEL Redmond - Last Filed: 04/23/24 21:40> ROS Obtained: Yes Systems reviewed as appropriate & no additional complaints except as documented Physical Exam <YUNIEL Redmond - Last Filed: 04/23/24 21:40> General General appearance: alert and in no apparent distress Respiratory Respiratory exam: Present normal lung sounds bilaterally Cardiovascular Cardiovascular exam: Present regular rate, normal rhythm and normal heart sounds Abdominal Exam Abdominal exam: Present soft (Obese), tenderness (Tender to palpation in the epigastrium right upper quadrant without rebound or guarding or rigidity.) and normal bowel sounds; Absent guarding or rebound Neurological Exam Neurological exam: Present alert and oriented X3 Medical Decision Making <YUNIEL Redmond - Last Filed: 04/23/24 21:40> Medical Records Medical records reviewed: Yes I reviewed the patient's medical records. Gareth Inquiry Pt receiving controlled substance: No Vital Signs: 04/23/24 18:06 Temperature 98.9 F Temperature Source Oral Pulse Rate [Left Radial] 94 H Respiratory Rate 16 Blood Pressure [Right Arm] 146/91 H Blood Pressure Mean [Right Arm] 109 02 Sat by Pulse Oximetry 96 Oxygen Delivery Method Room Air Lab Data Lab results reviewed: Yes I reviewed the patient's lab results. Lab Results 04/23/24 18:23: WBC 4.7 L, RBC 4.64, Hgb 13.6, Hct 38.8, MCV 83.5, MCH 29.3, MCHC 35.1, RDW 14.5, Plt Count 239, MPV 7.7, Neut % (Auto) 63.4, Lymph % (Auto) 30.6, [place] % (Auto) 3.2, Eos % (Auto) 1.7, Baso % (Auto) 1.1, Neut # (Auto) 3.0, Lymph # (Auto) 1.4, [place] # (Auto) 0.2, Eos # (Auto) 0.1, Baso # (Auto) 0.1, Sodium 138, Potassium 3.5, Chloride 108 H, Carbon Dioxide 25, Anion Gap 8.5, BUN 15, Creatinine 0.90, Estimated Creat Clear 73, Estimated GFR 74, Est GFR ( Amer) 90, Glucose 122 H, Calcium 9.4, Total Bilirubin 0.9, AST 25, ALT 23, Alkaline Phosphatase 57, Total Protein 7.3, Albumin 4.0, Globulin 3.3 H, Albumin/Globulin Ratio 1.2, Lipase 43, Serum HCG, Qual Negative, Urine Color Yellow, Urine Appearance Clear, Urine pH 7.0, Ur Specific [place] 1.020, Urine Protein Negative, Urine Glucose (UA) Negative, Urine Ketones Negative, Urine Blood Negative, Urine Nitrate Negative, Urine Bilirubin Negative, Urine Urobilinogen 0.2, Ur Leukocyte Esterase Negative, Urine RBC Occasional, Urine WBC 3-5, Ur Squamous Epith Cells 5-10 04/23/24 18:23 04/23/24 18:23 Orders (Tests/Meds): ED MEDICATIONS Discontinued Medications Generic Name Dose Route Start Last Admin Trade Name Freq PRN Reason Stop Dose Admin Acetaminophen 1,000 mg 04/23/24 19:01 04/23/24 19:12 Acetaminophen 1,000mg/100ml Vial IV 04/23/24 19:02 1,000 mg ONCE ONE Administration Lactated Ringer's 1,000 mls @ 999 mls/hr 04/23/24 19:01 04/23/24 19:12 Lactated Ringer's 1000 Ml Bag IV 04/23/24 20:01 999 mls/hr .Q1H1M ONE Administration Iopamidol 75 ml 04/23/24 19:36 04/23/24 19:36 Iopamidol-370 (76%);100ml Bottle IV 04/23/24 19:37 75 ml ONCE ONE Administration Ketorolac Tromethamine 15 mg 04/23/24 19:01 04/23/24 19:19 Ketorolac 30mg/Ml Vial IV 04/23/24 19:02 Not Given ONCE ONE Morphine Sulfate 4 mg 04/23/24 21:11 04/23/24 21:24 Morphine 4mg/Ml Syringe IV 04/23/24 21:12 4 mg ONCE ONE Administration Ondansetron HCl 4 mg 04/23/24 19:01 04/23/24 19:12 Ondansetron 4mg/2ml Vial IV 04/23/24 19:02 4 mg ONCE ONE Administration Sodium Chloride 10 ml 04/23/24 19:36 04/23/24 19:36 Sodium Chloride 0.9% 10ml Syr (Rad Only) IV 04/23/24 19:37 10 ml ONCE ONE Administration ORDERS Category Date Time Status CT abdomen pelvis w con Stat Cat Scan 04/23/24 19:01 Completed CBC w/Auto Diff [Complete Blood Count Auto Diff] Stat Lab 04/23/24 18:23 Completed CMP [Comprehensive Metabolic Panel] Stat Lab 04/23/24 18:23 Completed Diarrhea 23 Panel, PCR Stat Lab 04/23/24 19:02 Ordered HCG Qualitative, Serum Stat Lab 04/23/24 18:23 Completed Lipase Stat Lab 04/23/24 18:23 Completed UA [Urinalysis and Microscopic] Stat Lab 04/23/24 18:23 Completed Medical Decision Narrative: In summary patient is a 28-year-old female who presents to the emergency department for evaluation of right upper quadrant abdominal pain. Patient is dynamically stable upon arrival, afebrile. Physical exam remarkable for right upper quadrant tenderness to palpation/epigastric tenderness without rebound or guarding or rigidity. Bowel sounds normal active.. Differential diagnosis includes ulcer disease versus esophagitis versus kidney stone versus UTI versus biliary colic versus cholecystitis versus pancreatitis etc. Initial workup will be conducted with hematologic labs CT scan abdomen pelvis urinalysis. Initial interventions include crystalloid bolus Tylenol Zofran. Initial workup reviewed by me shows that her hematologic labs are nonactionable including normal white count with no shift normal transaminases, my informal interpretation of his CT scan shows shows no acute processes. Upon repeat evaluation patient reports minimal improvement in her pain. Given this we will attempt a p.o. challenge with a stronger opiate. On reassessment patient is tolerating oral intake and is comfortable for discharge. Given that we are going to refer her to general surgery for possible HIDA scan/upper endoscopy. <Ramiro Coppola MD - Last Filed: 04/23/24 19:09> Vital Signs: 04/23/24 18:06 Temperature 98.9 F Temperature Source Oral Pulse Rate [Left Radial] 94 H Respiratory Rate 16 Blood Pressure [Right Arm] 146/91 H Blood Pressure Mean [Right Arm] 109 02 Sat by Pulse Oximetry 96 Oxygen Delivery Method Room Air Lab Data Lab Results 04/23/24 18:23: WBC 4.7 L, RBC 4.64, Hgb 13.6, Hct 38.8, MCV 83.5, MCH 29.3, MCHC 35.1, RDW 14.5, Plt Count 239, MPV 7.7, Neut % (Auto) 63.4, Lymph % (Auto) 30.6, [place] % (Auto) 3.2, Eos % (Auto) 1.7, Baso % (Auto) 1.1, Neut # (Auto) 3.0, Lymph # (Auto) 1.4, [place] # (Auto) 0.2, Eos # (Auto) 0.1, Baso # (Auto) 0.1, Sodium 138, Potassium 3.5, Chloride 108 H, Carbon Dioxide 25, Anion Gap 8.5, BUN 15, Creatinine 0.90, Estimated Creat Clear 73, Estimated GFR 74, Est GFR ( Amer) 90, Glucose 122 H, Calcium 9.4, Total Bilirubin 0.9, AST 25, ALT 23, Alkaline Phosphatase 57, Total Protein 7.3, Albumin 4.0, Globulin 3.3 H, Albumin/Globulin Ratio 1.2, Lipase 43, Serum HCG, Qual Negative, Urine Color Yellow, Urine Appearance Clear, Urine pH 7.0, Ur Specific [place] 1.020, Urine Protein Negative, Urine Glucose (UA) Negative, Urine Ketones Negative, Urine Blood Negative, Urine Nitrate Negative, Urine Bilirubin Negative, Urine Urobilinogen 0.2, Ur Leukocyte Esterase Negative, Urine RBC Occasional, Urine WBC 3-5, Ur Squamous Epith Cells 5-10 Orders (Tests/Meds): ED MEDICATIONS Discontinued Medications Generic Name Dose Route Start Last Admin Trade Name Freedomq PRN Reason Stop Dose Admin Acetaminophen 1,000 mg 04/23/24 19:01 04/23/24 19:12 Acetaminophen 1,000mg/100ml Vial IV 04/23/24 19:02 1,000 mg ONCE ONE Administration Lactated Ringer's 1,000 mls @ 999 mls/hr 04/23/24 19:01 04/23/24 19:12 Lactated Ringer's 1000 Ml Bag IV 04/23/24 20:01 999 mls/hr .Q1H1M ONE Administration Iopamidol 75 ml 04/23/24 19:36 04/23/24 19:36 Iopamidol-370 (76%);100ml Bottle IV 04/23/24 19:37 75 ml ONCE ONE Administration Ketorolac Tromethamine 15 mg 04/23/24 19:01 04/23/24 19:19 Ketorolac 30mg/Ml Vial IV 04/23/24 19:02 Not Given ONCE ONE Morphine Sulfate 4 mg 04/23/24 21:11 04/23/24 21:24 Morphine 4mg/Ml Syringe IV 04/23/24 21:12 4 mg ONCE ONE Administration Ondansetron HCl 4 mg 04/23/24 19:01 04/23/24 19:12 Ondansetron 4mg/2ml Vial IV 04/23/24 19:02 4 mg ONCE ONE Administration Sodium Chloride 10 ml 04/23/24 19:36 04/23/24 19:36 Sodium Chloride 0.9% 10ml Syr (Rad Only) IV 04/23/24 19:37 10 ml ONCE ONE Administration ORDERS Category Date Time Status CT abdomen pelvis w con Stat Cat Scan 04/23/24 19:01 Completed CBC w/Auto Diff [Complete Blood Count Auto Diff] Stat Lab 04/23/24 18:23 Completed CMP [Comprehensive Metabolic Panel] Stat Lab 04/23/24 18:23 Completed Diarrhea 23 Panel, PCR Stat Lab 04/23/24 19:02 Ordered HCG Qualitative, Serum Stat Lab 04/23/24 18:23 Completed Lipase Stat Lab 04/23/24 18:23 Completed UA [Urinalysis and Microscopic] Stat Lab 04/23/24 18:23 Completed ECG Data Tracing #1: Independently inter by me rate is 86, rhythm is regular, axis is normal, no ST elevation in anatomical contiguous leads, QTc 403 Critical Care <YUNIEL Redmond - Last Filed: 04/23/24 21:40> Critical Care Time Critical Care Time: No
--- NOTE | 2024-04-23 19:01 | CT_ITS ---
PROCEDURE INFORMATION: Exam: CT Abdomen And Pelvis With Contrast Exam date and time: 04/23/2024 7:36 PM Age: 28 years old Clinical indication: Abdominal pain; Generalized; Additional info: Epigastric abdominal pain TECHNIQUE: Imaging protocol: Computed tomography of the abdomen and pelvis with contrast. Radiation optimization: All CT scans at this facility use at least one of these dose optimization techniques: automated exposure control; mA and/or kV adjustment per patient size (includes targeted exams where dose is matched to clinical indication); or iterative reconstruction. Contrast material: ISOVUE; Contrast volume: 75 ml; Contrast route: IV; COMPARISON: CT ABDOMEN PELVIS W CON 01/23/2024 7:05 PM FINDINGS: Lungs: Lung bases are clear. Liver: Normal. No mass. Gallbladder and biliary ducts: Normal. No calcified stones. No ductal dilation. Pancreas: Normal. No ductal dilation. Spleen: Normal. No splenomegaly. Adrenal glands: Normal. No mass. Kidneys and ureters: Normal. No hydronephrosis. Stomach and bowel: Unremarkable. No obstruction. No mucosal thickening. Appendix: Appendix is normal. No evidence of appendicitis. Intraperitoneal space: Unremarkable. No free air. No significant fluid collection. Vasculature: Unremarkable. No abdominal aortic aneurysm. Lymph nodes: Unremarkable. No enlarged lymph nodes. Urinary bladder: Unremarkable as visualized. Reproductive: Unremarkable as visualized. Bones/joints: Unremarkable. No acute fracture. Soft tissues: Small fat containing umbilical hernia redemonstrated. IMPRESSION: No acute abnormalities of the abdomen and pelvis. Nonemergent findings as above.
[2024-04-23 19:11] LABS: Microscopic, Urine URINE MICROSCOPIC (MICROSCOPIC)
[2024-04-23] MEDS: ACETAMINOPHEN 1,000MG/100ML VIAL 1000 MG IV (19:12)
[2024-04-23] MEDS: ONDANSETRON 4MG/2ML VIAL 4 MG IV (19:12)
[2024-04-23] MEDS: LACTATED RINGERS 1000ML 1,000 ML 999 ML IV (19:12)
[2024-04-23 19:13] LABS: Basophils # 0.1 K/mm3 (0-0.2); Basophils % 1.1 % (0.1-2.0); Eosinophils # 0.1 K/mm3 (0.0-0.4); Eosinophils % 1.7 % (0.1-12.0); Hematocrit 38.8 % (37.0-47.0); Hemoglobin 13.6 g/dL (12.2-16.2); Lymphocytes # 1.4 K/mm3 (0.7-4.5); Lymphocytes % 30.6 % (10-50); Mean Corpuscular HGB Conc 35.1 g/dL (31.8-35.4); Mean Corpuscular Hemoglobin 29.3 pg (27.0-31.2); Mean Corpuscular Volume 83.5 fl (81-99); Mean Platelet Volume 7.7 fl (7.4-10.4); Monocytes # 0.2 K/mm3 (0.1-1.0); Monocytes % 3.2 % (1.7-9.3); Neutrophils % 63.4 % (37.0-80.0); Platelet Count 239 K/mm3 (142-424); Red Blood Count 4.64 M/mm3 (4.20-5.40); Red Cell Distribution Width 14.5 % (11.5-17.5); White Blood Count 4.7 K/mm3 (4.8-10.8)
[2024-04-23 19:15] LABS: Appearance,Urine CLEAR (Clear); Bilirubin,Urine Negative (Negative); Blood, Urine Negative (Negative); Color,Urine YELLOW (Yellow); Glucose,Urine (UA) Negative (Negative); Ketones,Urine Negative (Negative); Leukocyte Esterase,Urine Negative (Negative); Nitrate,Urine Negative (Negative); Protein,Urine Negative (Negative); Urobilinogen,Urine 0.2 EU/dl (0.2)
[2024-04-23 19:20] LABS: Chloride 108 mmol/L (98-107); Potassium 3.5 mmoL/L (3.5-5.1); Sodium 138 mmol/L (136-145)
[2024-04-23 19:23] LABS: Alanine Aminotransferase 23 U/L (12-78); Albumin/Globulin Ratio 1.2 (1.1-1.8); Alkaline Phosphatase 57 U/L (38-126); Anion Gap 8.5 mEq/L (5-15); Aspartate Amino Transferase 25 U/L (14-36); Bilirubin,Total 0.9 mg/dl (0.2-1.3); Blood Urea Nitrogen 15 mg/dl (7-17); Calcium 9.4 mg/dl (8.4-10.2); Carbon Dioxide 25 mmol/L (22.0-30.0); Creatinine Clearance Estimated 73 mL/min (50-200); Estimated Glomerular Filt Rate 74 ml/min (>60); GFR (African American) 90 ML/MIN (>60); Globulin 3.3 g/dL (1.3-3.2); Glucose 122 mg/dl (74-100); Lipase 43 U/L (23-300); Total Protein,Serum 7.3 g/dl (6.3-8.2)
[2024-04-23 19:25] LABS: HCG Qualitative, Serum Negative (Negative)
[2024-04-23 19:29] LABS: RBC,Urine Occasional #/hpf (0-3)
[2024-04-23] MEDS: IOPAMIDOL-370 (76%);100ML BOTTLE 75 ML IV (19:36)
[2024-04-23] MEDS: SODIUM CHLORIDE 0.9% 10ML SYR (RAD ONLY) 10 ML IV (19:36)
[2024-04-23] MEDS: MORPHINE 4MG/ML SYRINGE 4 MG IV (21:24)
[2024-04-23 21:40] VITALS: BP 118/64; PULSE 70; RESP 16; TEMP 36.8; O2SAT 99
== END 2024-04-23 21:50 | disposition home or self-care (01) ==
PROVIDERS: Physician Assistant; Emergency Provider Emergency Medicine
DX: R10.11 Right upper quadrant pain (principal); R11.0 Nausea; F17.210 Nicotine dependence, cigarettes, uncomplicated
CPT/HCPCS: 74177; 80053; 81001; 83690; 84703; 85025; 93005; 96361; 96374; 96375; 99285; J0131; J2270; J2405; J7120; Q9967

== ENCOUNTER 2024-07-29 17:49 | Emergency (ER) | payer MEDICAID, SELFPAY ==
[2024-07-29 18:08] VITALS: BP 122/73; PULSE 82; RESP 13; TEMP 36.8; O2SAT 100; BMI 42.2
--- NOTE | 2024-07-29 18:31 | HMH.EDGENADL ---
Discharge Plan Disposition Patient Disposition: Home, Self-Care Condition: Good Prescriptions Prescriptions: New amoxicillin 500 mg tablet 500 mg PO BID 10 Days Qty: 20 0RF No Action amoxicillin-pot clavulanate 875-125 mg tablet 1 tab PO BID 3 Days Qty: 5 0RF hydrocodone-acetaminophen 5-325 mg tablet 1 tab PO Q8H PRN (Reason: abdominal pain) 3 Days Qty: 9 0RF oxycodone 5 mg tablet 5 mg PO Q8H PRN (Reason: pain (scale score 7-10) from tooth) Qty: 12 0RF amoxicillin-pot clavulanate 875-125 mg tablet 1 tab PO BID Qty: 20 0RF Referrals Follow up/Referrals: Provider,Referral, MD [Primary Care Provider] - See instructions Activity Restrictions/Add. Instructions Additional Instructions/Restrictions: Tylenol as needed for pain Follow-up with a dentist Antibiotics as ordered If symptoms worsen or do not improve return Clinical Impressions Clinical Impression: Dental caries Instructions Patient Instructions: DI for Tooth Decay Print Language Print Language: Yi Discharge ED Provider: Karlie Avila General Adult HPI <Filomena Ludwig ([facility]), HYDROGEN OPERATOR - Last Filed: 07/29/24 18:39> General Chief complaint: PAIN Stated complaint: Toothache Time Seen by Provider: 07/29/24 18:22 Mode of Arrival: Ambulatory Source of Information: Patient Limitations: No Limitations Description of Symptoms (Recalled from ER Triage Doc. by RN): pt presents to ED with c/o left broken teeth. pt reports that pain began yesterday, but teeth have been broken for the past few months. History of Present Illness HPI narrative: 28-year-old female presents for dental pain. Patient states she has 2 broken teeth 1 on the top and 1 on the bottom on the left side for few months and pain began yesterday. Patient states she is 6 weeks Related Data Previous Rx's ?Medication ?Instructions ?Recorded amoxicillin 875 mg-potassium 1 tab PO BID 3 days #5 tabs 01/25/24 clavulanate 125 mg tablet hydrocodone 5 mg-acetaminophen 325 1 tab PO Q8H PRN abdominal pain 3 01/25/24 mg tablet days #9 tabs amoxicillin 875 mg-potassium 1 tab PO BID tooth infection #20 03/05/24 clavulanate 125 mg tablet tabs oxycodone 5 mg tablet 5 mg PO Q8H PRN pain (scale score 03/05/24 7-10) from tooth #12 tabs amoxicillin 500 mg tablet 500 mg PO BID 10 days #20 tabs 07/29/24 Allergies Allergy/AdvReac Type Severity Reaction Status Date / Time ketorolac [From Toradol] AdvReac Verified 04/23/24 19:13 tramadol AdvReac Verified 02/11/23 18:44 ubrogepant [From Ubrelvy] AdvReac Verified 02/11/23 18:44 PFSH <[facility] HYDROGEN OPERATOR - Last Filed: 07/29/24 18:39> PFSH Disclaimer: The information contained in this section may have been updated after the patient was seen, as this information can be updated by other users. 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) Smoking Status: Current every day smoker alcohol intake: never current occupational status: unemployed Travel in the last 8 weeks: None Other Medical History Have you received the Flu Vaccine for this season: No Have you received the Pneumonia Vaccine: No <[facility] HYDROGEN OPERATOR - Last Filed: 07/29/24 18:39> ROS Obtained: Yes Systems reviewed as appropriate & no additional complaints except as documented ENT Ears, Nose, Mouth, and Throat: Reports system reviewed and no additional complaints, except as documented, Reports as per HPI and Reports dental pain Physical Exam <[facility] HYDROGEN OPERATOR - Last Filed: 07/29/24 18:39> General General appearance: alert and in no apparent distress Head Head exam: atraumatic Eye Eye exam: Present normal appearance ENT ENT exam: Present normal oropharynx, mucous membranes moist and other Expanded ENT Exam Open Mouth Image: 1. Dental caries 2. Dental caries Teeth exam: Present dental caries Respiratory Respiratory exam: Present normal lung sounds bilaterally Cardiovascular Cardiovascular exam: Present regular rate and normal rhythm Neurological Exam Neurological exam: Present alert and oriented X3 Skin Skin exam: Present warm and intact Medical Decision Making <[facility] Daniels - Last Filed: 07/29/24 18:39> Medical Records Medical records reviewed: Yes I reviewed the patient's medical records. Screening: Per USPSTF and CDC recommendations, given the prevalence of disease in our region, it is our hospital?s policy to screen for HIV and viral Hepatitis for all patients aged 18 and over and those with ongoing risk factors. Gareth Inquiry Pt receiving controlled substance: No Gareth was queried for this patient: No Vital Signs: 07/29/24 18:08 07/29/24 18:59 Temperature 98.2 F 98.0 F Temperature Source Oral Pulse Rate 78 Pulse Rate [Left Radial] 82 Respiratory Rate 13 13 Blood Pressure 150/78 H Blood Pressure [Right Arm] 122/73 Blood Pressure Mean [Right Arm] 89 02 Sat by Pulse Oximetry 100 Oxygen Delivery Method Room Air Lab Data Lab results reviewed: Yes I reviewed the patient's lab results. Orders (Tests/Meds): ED MEDICATIONS Discontinued Medications Generic Name Dose Route Start Last Admin Trade Name Freq PRN Reason Stop Dose Admin Lidocaine HCl 15 ml 07/29/24 18:40 07/29/24 18:51 Lidocaine 2% Viscous [place] 15ml Udc PO 07/29/24 18:41 15 ml ONCE ONE Administration Medical Decision Narrative: In summary patient is a 28-year-old female who presents to the emergency department for evaluation of dental pain. Patient is hemodynamically stable upon arrival, afebrile. On exam dental caries noted. Differential diagnosis includes dental caries. Upon repeat evaluation dental caries noted no tenderness or redness or swelling noted. Given this patient was appropriate for discharge at this time will discharge with prescription of amoxicillin and lidocaine. Patient instructed to take Tylenol as needed for pain and to follow-up with a dentist. <Karlie Avila MD - Last Filed: 07/29/24 19:07> Vital Signs: 07/29/24 18:08 07/29/24 18:59 Temperature 98.2 F 98.0 F Temperature Source Oral Pulse Rate 78 Pulse Rate [Left Radial] 82 Respiratory Rate 13 13 Blood Pressure 150/78 H Blood Pressure [Right Arm] 122/73 Blood Pressure Mean [Right Arm] 89 02 Sat by Pulse Oximetry 100 Oxygen Delivery Method Room Air Orders (Tests/Meds): ED MEDICATIONS Discontinued Medications Generic Name Dose Route Start Last Admin Trade Name Whit PRN Reason Stop Dose Admin Lidocaine HCl 15 ml 07/29/24 18:40 07/29/24 18:51 Lidocaine 2% Viscous [place] 15ml Udc PO 07/29/24 18:41 15 ml ONCE ONE Administration Medical Decision Narrative: In summary patient is a 28-year-old female who presents to the emergency department for evaluation of dental pain. Patient is hemodynamically stable upon arrival, afebrile. On exam dental caries noted. Differential diagnosis includes dental caries. Upon repeat evaluation dental caries noted no tenderness or redness or swelling noted. Given this patient was appropriate for discharge at this time will discharge with prescription of amoxicillin and lidocaine. Patient instructed to take Tylenol as needed for pain and to follow-up with a dentist. I was consulted by the AISHA, and we discussed the complexity of the problems being addressed. I approved the treatment and management plan for this patient's care in the Emergency Department, thus performing a substantive portion of the medical decision making. Karlie Avila MD Critical Care <Filomena Ludwig ([facility]), HYDROGEN OPERATOR - Last Filed: 07/29/24 18:39> Critical Care Time Critical Care Time: No
[2024-07-29] MEDS: LIDOCAINE 2% VISCOUS SOL 15ML UDC 15 ML PO (18:51)
[2024-07-29 18:59] VITALS: BP 150/78; PULSE 78; RESP 13; TEMP 36.7; O2SAT 99
== END 2024-07-29 19:00 | disposition home or self-care (01) ==
LOC: UTC 17:51 → ER 17:53
PROVIDERS: Emergency Provider Emergency Medicine
DX: K02.9 Dental caries, unspecified (principal); K08.89 Other specified disorders of teeth and supporting structures
CPT/HCPCS: 99282

== ENCOUNTER 2024-09-29 23:27 | Observation (INO) | payer MEDICAID, SELFPAY ==
[2024-09-29 23:36] VITALS: BP 125/72; PULSE 92; RESP 20; TEMP 36.8; O2SAT 99; BMI 43.9
--- NOTE | 2024-09-29 23:42 | HMH.EDGENADL ---
Discharge Plan Disposition Patient Disposition: Admitted Prescriptions Prescriptions: No Action amoxicillin-pot clavulanate 875-125 mg tablet 1 tab PO BID 3 Days Qty: 5 0RF hydrocodone-acetaminophen 5-325 mg tablet 1 tab PO Q8H PRN (Reason: abdominal pain) 3 Days Qty: 9 0RF amoxicillin 500 mg tablet 500 mg PO BID 10 Days Qty: 20 0RF oxycodone 5 mg tablet 5 mg PO Q8H PRN (Reason: pain (scale score 7-10) from tooth) Qty: 12 0RF amoxicillin-pot clavulanate 875-125 mg tablet 1 tab PO BID Qty: 20 0RF Referrals Follow up/Referrals: Provider,Referral, MD [Primary Care Provider] - See instructions Clinical Impressions Clinical Impression: Nausea, vomiting, and diarrhea, Intrauterine Instructions Patient Instructions: DI for Diarrhea and Traveler's Diarrhea -- Adult, DI for Diarrhea and Traveler's Diarrhea -- Child, DI for Nausea -- Adult, DI for Nausea -- Child Print Language Print Language: Hebrew Discharge ED Provider: Sara Lopez General Adult HPI General Chief complaint: Nausea/Vomiting/Diarrhea Stated complaint: abd pain, diarrhea, vomiting, 15 wks antepartum Time Seen by Provider: 09/29/24 23:29 Mode of Arrival: Wheelchair Source of Information: Patient Limitations: No Limitations Description of Symptoms (Recalled from ER Triage Doc. by RN): pt reports Nausea, vomitting, diarrhea since 8 am. pt reports upper abdominal soreness as well. History of Present Illness HPI narrative: 28-year-old female G8, P5 approximately 15 weeks presents to the ER for concerns of nausea, vomiting, diarrhea that started 15 hours prior to arrival. She reports diffuse abdominal discomfort. She states she gets significant cramping prior to having diarrhea. She states she is not having any pelvic cramping or contractions, no vaginal bleeding or discharge. She denies dysuria or hematuria. She reports she has taken Tylenol at home without significant improvement of symptoms. She has not taken anything for her other symptoms. She states she did previously have a prescription for narcotics for dental pain but is out of those. She states she has had subjective fever and chills, no measured fever at home. No chest pain or shortness of breath, no numbness, tingling, weakness, headache, or other symptoms Related Data Previous Rx's ?Medication ?Instructions ?Recorded amoxicillin 875 mg-potassium 1 tab PO BID 3 days #5 tabs 01/25/24 clavulanate 125 mg tablet hydrocodone 5 mg-acetaminophen 325 1 tab PO Q8H PRN abdominal pain 3 01/25/24 mg tablet days #9 tabs amoxicillin 875 mg-potassium 1 tab PO BID tooth infection #20 03/05/24 clavulanate 125 mg tablet tabs oxycodone 5 mg tablet 5 mg PO Q8H PRN pain (scale score 03/05/24 7-10) from tooth #12 tabs amoxicillin 500 mg tablet 500 mg PO BID 10 days #20 tabs 07/29/24 Allergies Allergy/AdvReac Type Severity Reaction Status Date / Time ketorolac (From Toradol) AdvReac Verified 04/23/24 19:13 tramadol AdvReac Verified 02/11/23 18:44 ubrogepant (From Ubrelvy) AdvReac Verified 02/11/23 18:44 PFSH PFS Disclaimer: The information contained in this section may have been updated after the patient was seen, as this information can be updated by other users. 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: No Have you tested positive for COVID-19: No Exposed to someone with COVID-19 in past 14 days?: No Do you have a sore throat?: No Do you have a cough?: No Do you have any weakness?: No Do you have any diarrhea?: Yes Are you experiencing any unusual bleeding?: No Do you have any muscle aches/pain?: No Do you have any abdominal pain?: Yes Are you experiencing loss of taste or smell?: No Other Medical History Have you received the Flu Vaccine for this season: No Have you received the Pneumonia Vaccine: No ROS Obtained: Yes Systems reviewed as appropriate & no additional complaints except as documented Per HPI Physical Exam General General appearance: alert and in no apparent distress Head Head exam: atraumatic and normocephalic Eye Eye exam: Present PERRL and EOMI ENT ENT exam: Present mucous membranes moist Neck Neck exam: Present normal inspection and full ROM Chest Chest inspection: Present symmetric chest wall rise Respiratory Respiratory exam: Present normal lung sounds bilaterally; Absent respiratory distress, wheezes or stridor Cardiovascular Cardiovascular exam: Present regular rate and normal rhythm Abdominal Exam Abdominal exam: Present soft and tenderness (Mild diffuse); Absent distention, guarding, rebound or rigidity Extremities Exam Extremities exam: Present full ROM; Absent edema or calf tenderness Neurological Exam Neurological exam: Present alert and oriented X3; Absent motor sensory deficit Psychiatric Psychiatric exam: Present normal affect and normal mood Skin Skin exam: Present warm, dry and other (Few small less than 1 cm open wounds on the right hand, right forearm. Patient states she has chronic dry skin and often picks. Wounds do not appear infected, no purulence, fluctuance, or induration, or erythema.) Medical Decision Making Medical Records Medical records reviewed: Yes I reviewed the patient's medical records. Screening: Per USPSTF and CDC recommendations, given the prevalence of disease in our region, it is our hospital?s policy to screen for HIV and viral Hepatitis for all patients aged 18 and over and those with ongoing risk factors. MR Comment: Patient was admitted to our hospital in January 2024 for concerns of abdominal pain. She had fever and tachycardia at that time. Suspected left lower lobe pneumonia and splenomegaly. Patient received empiric antibiotics per the progress note I reviewed from January 23. Per the discharge summary from the next day, patient ended up tolerating oral intake and was discharged on Augmentin and hydrocodone for dental concerns Gareth Inquiry Pt receiving controlled substance: No Vital Signs: 09/29/24 23:36 09/29/24 23:56 09/30/24 00:00 Temperature 98.2 F Temperature Source Oral Pulse Rate 98 H 95 H Pulse Rate [Right] 92 H Respiratory Rate 20 Blood Pressure 120/71 109/70 L Blood Pressure [Right Arm] 125/72 Blood Pressure Mean [Right Arm] 89 02 Sat by Pulse Oximetry 99 100 98 Oxygen Delivery Method Room Air 09/30/24 00:11 09/30/24 00:26 09/30/24 00:30 Temperature Temperature Source Pulse Rate 90 86 80 Pulse Rate [Right] Respiratory Rate Blood Pressure 100/58 L 113/67 116/70 Blood Pressure [Right Arm] Blood Pressure Mean [Right Arm] 02 Sat by Pulse Oximetry 99 99 99 Oxygen Delivery Method 09/30/24 00:36 09/30/24 00:41 09/30/24 00:46 Temperature Temperature Source Pulse Rate 76 83 75 Pulse Rate [Right] Respiratory Rate Blood Pressure 103/60 L 110/61 110/56 L Blood Pressure [Right Arm] Blood Pressure Mean [Right Arm] 02 Sat by Pulse Oximetry 98 97 97 Oxygen Delivery Method 09/30/24 00:50 09/30/24 00:56 09/30/24 01:00 Temperature Temperature Source Pulse Rate 76 74 71 Pulse Rate [Right] Respiratory Rate Blood Pressure 108/60 L 108/55 L 115/59 L Blood Pressure [Right Arm] Blood Pressure Mean [Right Arm] 02 Sat by Pulse Oximetry 98 98 99 Oxygen Delivery Method Lab Data Lab Results 09/29/24 23:41: WBC 5.6, RBC 4.45, Hgb 13.0, Hct 36.8 L, MCV 82.7, MCH 29.2, MCHC 35.3, RDW 14.1, Plt Count 176, MPV 8.9, Neut % (Auto) 85.0 H, Lymph % (Auto) 9.5 L, [place] % (Auto) 4.7, Eos % (Auto) 0.2, Baso % (Auto) 0.2, Neut # (Auto) 4.7, Lymph # (Auto) 0.5 L, [place] # (Auto) 0.3, Eos # (Auto) 0.0, Baso # (Auto) 0.0, Total Counted 100, Neutrophils % (Manual) 82 H, Lymphocytes % (Manual) 15, Monocytes % (Manual) 3, Platelet Estimate Normal, RBC Morphology Normal, PT 10.2, INR 0.90, Sodium 131 L, Potassium 3.5, Chloride 102, Carbon Dioxide 24, Anion Gap 8.5, BUN 6 L, Creatinine 0.70, Estimated Creat Clear 94, Estimated GFR 99, Est GFR ( Amer) 120, Glucose 101 H, Calcium 8.9, Total Bilirubin 1.1, AST 21, ALT 16, Alkaline Phosphatase 60, Total Protein 6.8, Albumin 3.7, Globulin 3.1, Albumin/Globulin Ratio 1.2, HCG, Quant [id number] H 09/30/24 00:08: Urine Color Yellow, Urine Appearance Clear, Urine pH 6.0, Ur Specific [place] 1.025, Urine Protein Negative, Urine Glucose (UA) Negative, Urine Ketones Trace, Urine Blood Negative, Urine Nitrate Negative, Urine Bilirubin Negative, Urine Urobilinogen 1.0, Ur Leukocyte Esterase Negative, Urine RBC None, Urine WBC None, Ur Squamous Epith Cells 3-5, Urine Bacteria Trace, Urine Opiates Screen Negative, Urine Methadone Screen Negative, Ur Barbituates Screen Negative, Ur Phencyclidine Scrn Negative, Ur Amphetamines Screen Negative, U Benzodiazepines Scrn Negative, Urine Cocaine Screen Negative, U Marijuana (THC) Screen Negative 09/30/24 00:33: Blood Type A Negative 09/29/24 23:41 09/29/24 23:41 Orders (Tests/Meds): ED MEDICATIONS Generic Name Dose Route Start Last Admin Trade Name Freq PRN Reason Stop Dose Admin Folic Acid 1 mg 09/30/24 02:57 Folic Acid 1mg Tablet PO 09/30/24 02:58 ONCE ONE Multivitamins 10 ml/ Thiamine 1,015 mls @ 150 mls/hr 09/30/24 03:00 HCl 100 mg/ Magnesium Sulfate IV 09/30/24 09:45 2 gm/ Lactated Ringer's .[id number] [facility] Ondansetron HCl 4 mg 09/30/24 02:56 Ondansetron 4mg/2ml Vial IV 09/30/24 02:57 ONCE ONE Discontinued Medications Generic Name Dose Route Start Last Admin Trade Name Freq PRN Reason Stop Dose Admin Acetaminophen 1,000 mg 09/30/24 00:02 09/30/24 00:05 Acetaminophen 1,000mg/100ml Vial IV 09/30/24 00:03 1,000 mg ONCE ONE Administration Doxylamine Succinate/Pyridoxine 1 tab 09/30/24 00:03 09/30/24 00:10 Doxylamine 10mg/Pyridoxine 10mg Tablet PO 09/30/24 00:04 1 tab ONCE ONE Administration Lactated Ringer's 1,000 mls @ 999 mls/hr 09/29/24 23:45 09/29/24 23:56 Lactated Ringer's 1000 Ml Bag IV 09/30/24 00:45 999 mls/hr .Q1H1M ONE Administration Lactated Ringer's 1,000 mls @ 999 mls/hr 09/30/24 00:01 09/30/24 00:58 Lactated Ringer's 1000 Ml Bag IV 09/30/24 01:01 999 mls/hr .Q1H1M ONE Administration Metoclopramide HCl 10 mg 09/30/24 02:01 09/30/24 02:03 Metoclopramide 10mg Tablet PO 09/30/24 02:02 10 mg ONCE ONE Administration Sodium Chloride 10 ml 09/29/24 23:41 Sodium Chloride 0.9% 10ml Flush Syringe IV 10/29/24 23:40 NEEDED PRN Maintain IV Site ORDERS Category Date Time Status ABO/RH Type Stat BBK 09/29/24 23:46 Completed POCUS Point of Care (ER Only) Stat Exams 09/30/24 00:03 Completed CBC w/Auto Diff [Complete Blood Count Auto Diff] Stat Lab 09/29/24 23:41 Completed CMP [Comprehensive Metabolic Panel] Stat Lab 09/29/24 23:41 Completed HCG,Quantitative Stat Lab 09/29/24 23:41 Completed PT INR [Prothrombin Time INR] Stat Lab 09/29/24 23:41 Completed UDS [Drug Screen,Urine] Stat Lab 09/29/24 23:45 Completed Urinalysis and Microscopic Stat Lab 09/30/24 00:08 Completed ECG Request Stat Y 09/29/24 23:41 Stop Req Medical Decision Narrative: In summary, this 28-year-old female G8, P5 presents to the emergency department today with nausea vomiting and diarrhea in the setting of known 15-week gestational age . On initial evaluation patient is hemodynamically stable, afebrile, she is ill-appearing but nontoxic, not in extremis, overall her physical exam is reassuring aside from her appearing ill. She has moist mucous membranes, soft abdomen which is mildly diffusely tender but no rebound or guarding, no peritonitic signs. Differential diagnosis includes but is not limited to viral syndrome, electrolyte abnormality, dehydration, intrauterine , ectopic , urinary tract infection. Based on these concerns, I ordered serum labs, [id number] ultrasound. Because of the picking erwin on the patient's arms as well as her ill appearance, I considered the possibility of substance use so I did order UDS. Patient received IV fluids, doxylamine, pyridoxine initially for treatment. Labs did not demonstrate any acute actionable abnormality, quantitative hCG 37,297, UA negative for findings of infection, UDS negative. No leukocytosis or anemia. Platelets normal. Patient still had nausea and inability to tolerate oral intake after initial treatment. She then received metoclopramide since this has a better safety profile in than some other medications. Despite this medication, she continued having nausea and vomiting. At this point I believe she requires admission since she is intolerant to any oral intake despite multiple interventions. I called OB on-call and discussed this case with Dr. Johnson. After reviewing the case, she recommended a banana bag and additional antiemetics. She stated that since the patient is in second trimester she is comfortable with both Phenergan and Zofran. IV Zofran is being administered to the patient. She is agreeable to admit the patient for continued fluids and emesis management. Patient in agreement with this plan. She was admitted to the OB floor in stable condition. Procedures Miscellaneous Procedure Procedure Performed: Limited OB ultrasound Indication: Known , EGA approximately 15 weeks according to mom Identified structures: [-Uterus -Left adnexa -Right adnexa -Pouch of El] Findings: Uterus: Definitive single live IUP FHR: 150 CRL: 86 mm, EGA 14 weeks 4 days Right adnexa: Normal Left adnexa: Normal Cul de sac: Free fluid absent Impression: -IUP: Present - heart rate: 150 -Ectopic : Absent -Free fluid: Absent Images were saved to permanent archive The study was technically adequate CPT Transabdominal: 28892-57 This study was performed by me, and I personally interpreted all images/videos. Based on my clinical judgement, these images were adequate and did not necessitate further imaging. Critical Care Critical Care Time Critical Care Time: No
[2024-09-29 23:53] LABS: Basophils % 0.2 % (0.1-2.0); Eosinophils % 0.2 % (0.1-12.0); Hematocrit 36.8 % (37.0-47.0); Lymphocytes # 0.5 K/mm3 (0.7-4.5); Lymphocytes % 9.5 % (10-50); Mean Corpuscular HGB Conc 35.3 g/dL (31.8-35.4); Mean Corpuscular Hemoglobin 29.2 pg (27.0-31.2); Mean Corpuscular Volume 82.7 fl (81-99); Mean Platelet Volume 8.9 fl (7.4-10.4); Monocytes # 0.3 K/mm3 (0.1-1.0); Monocytes % 4.7 % (1.7-9.3); Neutrophils # 4.7 K/mm3 (1.8-7.8); Platelet Count 176 K/mm3 (142-424); Red Blood Count 4.45 M/mm3 (4.20-5.40); Red Cell Distribution Width 14.1 % (11.5-17.5); White Blood Count 5.6 K/mm3 (4.8-10.8)
[2024-09-29 23:56] VITALS: BP 120/71; PULSE 98; O2SAT 100
[2024-09-29] MEDS: LACTATED RINGERS 1000ML 1,000 ML 999 ML IV (23:56)
[2024-09-29 23:57] LABS: MANUAL DIFFERENTIAL MANUAL DIFFERENTIAL (MANUAL DIFF)
[2024-09-30] VITALS (15 sets, daily range): BP systolic 96–116; BP diastolic 40–72; PULSE 71–95; RESP 16–18; TEMP 36.6–37.1; O2SAT 97–99; BMI 44.1
[2024-09-30 00:04] LABS: Alanine Aminotransferase 16 U/L (12-78); Albumin Level 3.7 g/dl (3.5-5.0); Albumin/Globulin Ratio 1.2 (1.1-1.8); Alkaline Phosphatase 60 U/L (38-126); Anion Gap 8.5 mEq/L (5-15); Aspartate Amino Transferase 21 U/L (14-36); Bilirubin,Total 1.1 mg/dl (0.2-1.3); Blood Urea Nitrogen 6 mg/dl (7-17); Calcium 8.9 mg/dl (8.4-10.2); Carbon Dioxide 24 mmol/L (22.0-30.0); Chloride 102 mmol/L (98-107); Creatinine Clearance Estimated 94 mL/min (50-200); Estimated Glomerular Filt Rate 99 ml/min (>60); GFR (African American) 120 ML/MIN (>60); Globulin 3.1 g/dL (1.3-3.2); Glucose 101 mg/dl (74-100); Potassium 3.5 mmoL/L (3.5-5.1); Sodium 131 mmol/L (136-145); Total Protein,Serum 6.8 g/dl (6.3-8.2)
[2024-09-30] MEDS: ACETAMINOPHEN 1,000MG/100ML VIAL 1000 MG IV (00:05)
[2024-09-30 00:07] LABS: Prothrombin Time 10.2 seconds (10.1-12.5)
[2024-09-30] MEDS: DOXYLAMINE 10MG/PYRIDOXINE 10MG TABLET 1 TAB PO (00:10)
[2024-09-30 00:23] LABS: Microscopic, Urine URINE MICROSCOPIC (MICROSCOPIC)
[2024-09-30 00:30] LABS: Appearance,Urine CLEAR (Clear); Bilirubin,Urine Negative (Negative); Blood, Urine Negative (Negative); Color,Urine YELLOW (Yellow); Glucose,Urine (UA) Negative (Negative); Ketones,Urine TRACE (Negative); Leukocyte Esterase,Urine Negative (Negative); Nitrate,Urine Negative (Negative); Protein,Urine Negative (Negative); Specific Gravity, Urine 1.025 (1.005-1.030)
[2024-09-30 00:46] LABS: HCG,Quantitative 37297 mIU/ml (0-5.42)
[2024-09-30 00:50] LABS: Bacteria,Urine Trace /lpf
[2024-09-30] MEDS: LACTATED RINGERS 1000ML 1,000 ML 999 ML IV (00:58)
[2024-09-30 01:22] LABS: Amphetamine/Metha Screen,Urine Negative ng/ml (<1000)
[2024-09-30 01:23] LABS: Barbiturates Screen,Urine Negative ng/ml (<200)
[2024-09-30 01:24] LABS: Benzodiazepines Screen,Urine Negative ng/ml (<200); Cannabinoid Screen,Urine Negative ng/ml (<50)
[2024-09-30 01:25] LABS: Cocaine Screen,Urine Negative ng/ml (<300); Methadone Screen,Urine Negative ng/ml (<300)
[2024-09-30 01:26] LABS: Opiate Screen,Urine Negative ng/ml (<300)
[2024-09-30 01:27] LABS: Phencyclidine Screen,Urine Negative ng/ml (<25)
[2024-09-30] MEDS: METOCLOPRAMIDE 10MG TABLET 10 MG PO (02:03)
[2024-09-30 02:54] LABS: Lymphocytes % 15 % (10-50); Monocytes % 3 % (2-9); Neutrophils % 82 % (42-76); RBC Morphology Normal; Total Cells Counted 100
[2024-09-30 02:55] LABS: Platelet Estimate Normal
[2024-09-30] MEDS: ONDANSETRON 4MG/2ML VIAL 4 MG IV ×2 (03:05→10:48)
[2024-09-30] MEDS: MVI, ADULT NO.1 WITH VIT K 10 ML, THIAMINE HCL 100 MG, MAGNESIUM SULFATE 2 GM in LACTAT... 150 ML IV (03:06)
--- NOTE | 2024-09-30 03:25 | PC.NURSE ---
report received from Umer Lawrence RN
--- NOTE | 2024-09-30 12:03 | EXP.HPDC ---
General Admission date:: 09/30/24 Discharge date: 09/30/24 *Admission Date: 09/30/24 *Chief complaint: Nausea, vomiting, diarrhea *History of present illness: Ms Adelia Willoughby is a 28 at approximately 15 week gestation who presented to [facility] ED with complaint of nausea, vomiting, abdominal pain and diarrhea that started yesterday around 1600 while she was at work. She admits prior to this she had some normal morning sickness. She denies pelvic pain and vaginal bleeding. Past medical history significant for chronic back pain/bulging disc for which she takes Tylenol. She also reports new diagnosis of hypothyroidism. She has not started medication yet. She saw the diagnosis in her medical records from her PCP. She also reports teeth pain from broken and infected teeth. She does not have a dentist yet. She denies urinary symptoms. No fever/chills, chest pain or shortness of breath. History of x 5. She receives care at [facility]. She has had one visit with them so far this . Her first child has a different father from the rest of her children and current . She received IV fluids, B6 and Unisom in the ER without relief of nausea and vomiting. She was unable to keep sips of water down. Suspect viral gastroenteritis. Labs within normal limits (WBC WNL but neutrophils elevated slightly). Vital signs stable/afebrile. She was admitted for banana bag and antiemetics. She received IV zofran and has not had any further emesis. She has tolerated sips, bites of jello and some crackers. Nausea and vomiting is improved by zofran. She is still reporting diarrhea and fatigue. This morning she is also complaining of chronic back pain and teeth pain. She received Tylenol and ice pack for her back pain. She reports heat makes it worse. TSH ordered. She was discharged home with instructions to rest and hydrate. She was instructed to follow-up with her PCP and OB early next week. [facility] Disclaimer: The information contained in this section may have been updated after the patient was seen, as this information can be updated by other users. 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 , [employer]) History of wisdom tooth extraction Hx of tonsillectomy Family History , [employer]) Stomach cancer Grandfather Diabetes Breast cancer Mother Hypertension Father Social History , [employer]ATION [employer]) Smoking Status: Current every day smoker alcohol intake: never current occupational status: employed Travel in the last 8 weeks: None Have you lived/traveled outside US in past 30 days?: No Contact w/someone who lives/traveled outside US past 30 days?: No Exposure to someone with infectious disease in past 14 days?: No Do you have a fever (greater than 100.4 F or 38 C)?: No Have you tested positive for COVID-19: No Exposed to someone with COVID-19 in past 14 days?: No Do you have a sore throat?: No Do you have a cough?: No Do you have any weakness?: No Do you have any diarrhea?: Yes Are you experiencing any unusual bleeding?: No Do you have any muscle aches/pain?: No Do you have any abdominal pain?: Yes Are you experiencing loss of taste or smell?: No Other Medical History Have you received the Flu Vaccine for this season: No Have you received the Pneumonia Vaccine: No Review of Systems Review of Systems Review of systems:: pertinent systems reviewed and negative unless documented below Constitutional Constitutional: Reports fatigue *Gastrointestinal Gastrointestinal: Reports cramping and Reports diarrhea Endocrine Endocrine: Reports fatigue Exam Data for Last 24 hours Vital signs and Labs for Last 24 Hours: Temp Pulse Resp BP Pulse Ox O2 Del Method 98.8 F 91 H 18 108/51 L 97 Room Air 09/30/24 07:59 09/30/24 07:59 09/30/24 07:59 09/30/24 07:59 09/30/24 07:59 09/30/24 07:59 Laboratory Results - last 24 hr 09/29/24 23:41: WBC 5.6, RBC 4.45, Hgb 13.0, Hct 36.8 L, MCV 82.7, MCH 29.2, MCHC 35.3, RDW 14.1, Plt Count 176, MPV 8.9, Neut % (Auto) 85.0 H, Lymph % (Auto) 9.5 L, [place] % (Auto) 4.7, Eos % (Auto) 0.2, Baso % (Auto) 0.2, Neut # (Auto) 4.7, Lymph # (Auto) 0.5 L, [place] # (Auto) 0.3, Eos # (Auto) 0.0, Baso # (Auto) 0.0, Total Counted 100, Neutrophils % (Manual) 82 H, Lymphocytes % (Manual) 15, Monocytes % (Manual) 3, Platelet Estimate Normal, RBC Morphology Normal, PT 10.2, INR 0.90, Sodium 131 L, Potassium 3.5, Chloride 102, Carbon Dioxide 24, Anion Gap 8.5, BUN 6 L, Creatinine 0.70, Estimated Creat Clear 94, Estimated GFR 99, Est GFR ( Amer) 120, Glucose 101 H, Calcium 8.9, Total Bilirubin 1.1, AST 21, ALT 16, Alkaline Phosphatase 60, Total Protein 6.8, Albumin 3.7, Globulin 3.1, Albumin/Globulin Ratio 1.2, HCG, Quant 40767 H 09/30/24 00:08: Urine Color Yellow, Urine Appearance Clear, Urine pH 6.0, Ur Specific [place] 1.025, Urine Protein Negative, Urine Glucose (UA) Negative, Urine Ketones Trace, Urine Blood Negative, Urine Nitrate Negative, Urine Bilirubin Negative, Urine Urobilinogen 1.0, Ur Leukocyte Esterase Negative, Urine RBC None, Urine WBC None, Ur Squamous Epith Cells 3-5, Urine Bacteria Trace, Urine Opiates Screen Negative, Urine Methadone Screen Negative, Ur Barbituates Screen Negative, Ur Phencyclidine Scrn Negative, Ur Amphetamines Screen Negative, U Benzodiazepines Scrn Negative, Urine Cocaine Screen Negative, U Marijuana (THC) Screen Negative 09/30/24 00:33: Blood Type A Negative I & O for Last 24 hours: Intake & Output 09/27/24 09/28/24 09/29/24 09/30/24 23:59 23:59 23:59 23:59 Weight 240 lb 239 lb 15.994 oz Constitutional Constitutional: no acute distress and cooperative *Routine HEENT Exam Head: Present normocephalic and atraumatic Eye: Absent conjunctivae pink ENT: Present mucous membranes moist *Routine Neck Exam Neck: Present full ROM *Routine Respiratory Exam Respiratory: Present CTA bilaterally and normal respiratory effort *Routine Cardiovascular Exam Cardiovascular: Present RRR *Routine Abdominal Exam Abdominal: Present soft and tenderness (mild diffuse tenderness to palpation); Absent distended *Routine Rectal Exam Rectal:: deferred *Routine Genitalia Exam Genitalia:: deferred *Routine Extremities Exam Extremities: Present full ROM; Absent edema or calf tenderness *Routine Neurological Exam Neurological: Present alert, moving all extremities and normal speech Routine Psychiatric Exam Psychiatric: Present normal affect and cooperative Meds Home Medications and Allergies Home Medications ?Medication ?Instructions ?Recorded ?Confirmed ?Type amoxicillin 875 mg-potassium 1 tab PO BID 3 days #5 tabs 01/25/24 Rx clavulanate 125 mg tablet amoxicillin 875 mg-potassium 1 tab PO BID tooth infection #20 03/05/24 Rx clavulanate 125 mg tablet tabs oxycodone 5 mg tablet 5 mg PO Q8H PRN pain (scale score 03/05/24 Rx 7-10) from tooth #12 tabs amoxicillin 500 mg tablet 500 mg PO BID 10 days #20 tabs 07/29/24 Rx ondansetron 4 mg disintegrating 4 mg PO Q6H PRN nausea and 09/30/24 Rx tablet vomiting #30 tabs New Prescriptions to Start Prescriptions: ondansetron Eliza Johnson Allergies Allergy/AdvReac Type Severity Reaction Status Date / Time ketorolac (From Toradol) AdvReac Verified 04/23/24 19:13 tramadol AdvReac Verified 02/11/23 18:44 ubrogepant (From Ubrelvy) AdvReac Verified 02/11/23 18:44 Hospital Course Hospital Course Hospital Course: Ms Adelia Willoughby is a 28 at approximately 15 week gestation who presented to [facility] ED with complaint of nausea, vomiting, abdominal pain and diarrhea that started yesterday around 1600 while she was at work. She admits prior to this she had some normal morning sickness. She denies pelvic pain and vaginal bleeding. Past medical history significant for chronic back pain/bulging disc for which she takes Tylenol. She also reports new diagnosis of hypothyroidism. She has not started medication yet. She saw the diagnosis in her medical records from her PCP. She also reports teeth pain from broken and infected teeth. She does not have a dentist yet. She denies urinary symptoms. No fever/chills, chest pain or shortness of breath. History of x 5. She receives care at [facility]. She has had one visit with them so far this . Her first child has a different father from the rest of her children and current . She received IV fluids, B6 and Unisom in the ER without relief of nausea and vomiting. She was unable to keep sips of water down. Suspect viral gastroenteritis. Labs within normal limits (WBC WNL but neutrophils elevated slightly). Vital signs stable/afebrile. She was admitted for banana bag and antiemetics. She received IV zofran and has not had any further emesis. She has tolerated sips, bites of jello and some crackers. Nausea and vomiting is improved by zofran. She is still reporting diarrhea and fatigue. This morning she is also complaining of chronic back pain and teeth pain. She received Tylenol and ice pack for her back pain. She reports heat makes it worse. TSH ordered. She was discharged home with instructions to rest and hydrate. She was instructed to follow-up with her PCP and OB early next week. Results Data Completed and Pending Labs on day of discharge: Labs from last 24 hours 09/30/24 09/30/24 09/29/24 00:33 00:08 23:41 WBC 5.6 RBC 4.45 Hgb 13.0 Hct 36.8 L MCV 82.7 MCH 29.2 MCHC 35.3 RDW 14.1 Plt Count 176 MPV 8.9 Neut % (Auto) 85.0 H Lymph % (Auto) 9.5 L [place] % (Auto) 4.7 Eos % (Auto) 0.2 Baso % (Auto) 0.2 Neut # (Auto) 4.7 Lymph # (Auto) 0.5 L [place] # (Auto) 0.3 Eos # (Auto) 0.0 Baso # (Auto) 0.0 Total Counted 100 Neutrophils % (Manual) 82 H Lymphocytes % (Manual) 15 Monocytes % (Manual) 3 Platelet Estimate Normal RBC Morphology Normal PT 10.2 INR 0.90 Sodium 131 L Potassium 3.5 Chloride 102 Carbon Dioxide 24 Anion Gap 8.5 BUN 6 L Creatinine 0.70 Estimated Creat Clear 94 Estimated GFR 99 Est GFR ( Amer) 120 Glucose 101 H Calcium 8.9 Total Bilirubin 1.1 AST 21 ALT 16 Alkaline Phosphatase 60 Total Protein 6.8 Albumin 3.7 Globulin 3.1 Albumin/Globulin Ratio 1.2 HCG, Quant 48983 H Urine Color Yellow Urine Appearance Clear Urine pH 6.0 Ur Specific [place] 1.025 Urine Protein Negative Urine Glucose (UA) Negative Urine Ketones Trace Urine Blood Negative Urine Nitrate Negative Urine Bilirubin Negative Urine Urobilinogen 1.0 Ur Leukocyte Esterase Negative Urine RBC None Urine WBC None Ur Squamous Epith Cells 3-5 Urine Bacteria Trace Urine Opiates Screen Negative Urine Methadone Screen Negative Ur Barbituates Screen Negative Ur Phencyclidine Scrn Negative Ur Amphetamines Screen Negative U Benzodiazepines Scrn Negative Urine Cocaine Screen Negative U Marijuana (THC) Screen Negative Blood Type A Negative DS: Diagnosis Discharge Diagnosis (1) Nausea, vomiting, and diarrhea: Status: Acute Code(s): R11.2 - Nausea with vomiting, unspecified; R19.7 - Diarrhea, unspecified (2) Intrauterine : Status: Acute Code(s): Z34.90 - Encounter for supervision of normal , unspecified, unspecified trimester (3) Current every day vaping: Status: Acute Code(s): Z72.89 - Other problems related to lifestyle (4) Dental caries: Status: Acute Code(s): K02.9 - Dental caries, unspecified (5) Pain in tooth: Status: Acute Code(s): K08.89 - Other specified disorders of teeth and supporting structures Discharge Plan Disposition Patient Disposition: Home, Self-Care Condition: Fair Follow up Plan Prescriptions/Medication Reconciliation: New ondansetron 4 mg tablet,disintegrating 4 mg PO Q6H PRN (Reason: nausea and vomiting) Qty: 30 0RF Continued amoxicillin-pot clavulanate 875-125 mg tablet 1 tab PO BID 3 Days Qty: 5 0RF amoxicillin 500 mg tablet 500 mg PO BID 10 Days Qty: 20 0RF oxycodone 5 mg tablet 5 mg PO Q8H PRN (Reason: pain (scale score 7-10) from tooth) Qty: 12 0RF amoxicillin-pot clavulanate 875-125 mg tablet 1 tab PO BID Qty: 20 0RF Discontinued hydrocodone-acetaminophen 5-325 mg tablet 1 tab PO Q8H PRN (Reason: abdominal pain) 3 Days Qty: 9 0RF Problem Reconciliation Problems Reviewed?: Yes Patient Discharge Instructions ACTIVITY: Continue current activity and Ambulate as tolerated DIET: regular diet Additional Instructions: Follow-up with your primary care doctor and OB next week. Print Language: Burmese Providers Primary Care Provider: Provider,Referral Admit Provider: Eliza Johnson Attending Provider: Eliza Johnson
[2024-09-30 13:17] LABS: Thyroid Stimulating Hormone 0.96 uIU/mL (0.465-4.68)
== END 2024-09-30 16:35 | disposition home or self-care (01) ==
LOC: ER 09-30 02:59 → OB 09-30 03:05
PROVIDERS: Admitting Provider Obstetrics & Gynecology; Emergency Provider Emergency Medicine; Visit Provider Obstetrics & Gynecology
DX: O21.9 Vomiting of pregnancy, unspecified (principal); Z3A.15 15 weeks gestation of pregnancy
CPT/HCPCS: 36415; 80053; 80307; 81001; 84443; 84702; 85007; 85025; 85027; 85610; 86900; 86901; 99285; G0378; J0131; J2405; J3411; J7120

== ENCOUNTER 2024-11-06 23:48 | Emergency (ER) | payer MEDICAID, SELFPAY ==
--- NOTE | 2024-11-06 23:48 | ECG_ITS ---
APPROVED REPORT Exam: Resting ECG HR:99 bpm ECG Measurements Heart Rate 99 AXES DE 143 P 62 QRSd 85 QRS 58 QT 335 T 52 QTc 391 Conclusion SINUS RHYTHM NORMAL ECG UNCONFIRMED REPORT Electronically signed by : HELIO STEPHENSON, 11/07/2024 06:48:00
[2024-11-06 23:49] VITALS: BP 148/91; PULSE 111; RESP 22; O2SAT 97; BMI 42.0
--- NOTE | 2024-11-06 23:55 | ED_ITS ---
Discharge Plan Disposition Patient Disposition: Home, Self-Care Prescriptions Prescriptions: No Action No Known Home Medications Referrals Follow up/Referrals: Provider,Referral, [Primary Care Provider] - See instructions Activity Restrictions/Add. Instructions Additional Instructions/Restrictions: Please follow-up with your primary care provider. Please return to the emergency department if you develop any new or worsening symptoms or become concerned for your health. If your pain continues to worsen consider reassessment. Clinical Impressions Clinical Impression: Abdominal pain, RUQ Chest pain Qualifiers: Chest pain type: unspecified Qualified Code(s): R07.9 - Chest pain, unspecified Stand Alone Forms Stand Alone Forms: Work/School Release Print Language Print Language: Occitan Discharge ED Provider: Tejinder Aj Adult HPI General Chief complaint: Chest Pain Stated complaint: Chest Pain Time Seen by Provider: 11/06/24 23:50 Mode of Arrival: Ambulatory Source of Information: Patient Limitations: No Limitations Description of Symptoms (Recalled from ER Triage Doc. by RN): Pt reports sudden onset of SOA and chest pain 1 hour ago while getting ready for work. Pt describes pain as sharp and constant. Pt also reports tingling and buring in right arm. Pt is 19 weeks . Pt vapes. History of Present Illness HPI narrative: 29-year-old female, 19 weeks , history of obesity, prior gestational diabetes, presents for acute onset shortness of breath and dizziness. She reports it started as she was getting ready for work. She denies any history of blood clot, denies any unilateral swelling. Reports some right-sided chest pain/pain under her right breast. Pain is also somewhat in the right upper quadrant. Reports cough for the last few days, denies fever or chills etc. Related Data Home Medications ?Medication ?Instructions ?Recorded ?Confirmed No Known Home Medications 11/06/24 11/06/24 Allergies Allergy/AdvReac Type Severity Reaction Status Date / Time ketorolac (From Toradol) AdvReac Verified 04/23/24 19:13 tramadol AdvReac Verified 02/11/23 18:44 ubrogepant (From Ubrelvy) AdvReac Verified 02/11/23 18:44 PFSH [facility] Disclaimer: The information contained in this section may have been updated after the patient was seen, as this information can be updated by other users. Medical History (Updated 11/07/24 @ 01:37 by Tejinder Aj MD) EBV infection Splenomegaly 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 , [employer]) History of wisdom tooth extraction Hx of tonsillectomy Family History , [employer]) Stomach cancer Grandfather Diabetes Breast cancer Mother Hypertension Father Social History , [employer]) Smoking Status: Current every day smoker alcohol intake: never current occupational status: employed Travel in the last 8 weeks: None Other Medical History Have you received the Flu Vaccine for this season: No Have you received the Pneumonia Vaccine: No ROS Obtained: Yes All systems reviewed & no additional complaints except as documented Physical Exam General General appearance: alert and anxious Head Head exam: atraumatic and normocephalic Eye Eye exam: Present normal appearance, PERRL and EOMI ENT ENT exam: Present normal oropharynx and normal external ear exam Neck Neck exam: Present normal inspection and full ROM Chest Chest inspection: Present normal inspection and symmetric chest wall rise; Absent tenderness Respiratory Respiratory exam: Present normal lung sounds bilaterally; Absent respiratory distress Cardiovascular Cardiovascular exam: Present regular rate and normal rhythm Abdominal Exam Abdominal exam: Present soft; Absent distention, tenderness or guarding Extremities Exam Extremities exam: Present normal inspection; Absent edema or joint swelling Back Exam Back exam: Present normal inspection; Absent tenderness Neurological Exam Neurological exam: Present alert and oriented X3; Absent motor sensory deficit Psychiatric Psychiatric exam: Present normal affect and normal mood Skin Skin exam: Present warm, dry and normal color Lymphatic Lymphatic Findings: no adenopathy Medical Decision Making Medical Records Medical records reviewed: Yes I reviewed the patient's medical records. Screening: Per USPSTF and CDC recommendations, given the prevalence of disease in our region, it is our hospital?s policy to screen for HIV and viral Hepatitis for all patients aged 18 and over and those with ongoing risk factors. Gareth Inquiry Pt receiving controlled substance: No Gareth was queried for this patient: No Vital Signs: 11/06/24 23:49 11/06/24 23:56 11/07/24 00:30 Temperature Temperature Source Pulse Rate 99 H 87 Pulse Rate [Right Radial] 111 H Respiratory Rate 22 Blood Pressure 130/69 Blood Pressure [Right Arm] 148/91 H Blood Pressure Mean [Right Arm] 110 Blood Pressure Source [Right Arm] Automatic Cuff Blood Pressure Position [Right Arm] Sitting 02 Sat by Pulse Oximetry 97 100 Oxygen Delivery Method Room Air Room Air 11/07/24 01:00 11/07/24 01:31 11/07/24 01:51 Temperature 98.2 F Temperature Source Oral Pulse Rate 91 H 103 H 92 H Pulse Rate [Right Radial] Respiratory Rate 18 Blood Pressure 134/63 159/91 H 152/91 H Blood Pressure [Right Arm] Blood Pressure Mean [Right Arm] Blood Pressure Source [Right Arm] Blood Pressure Position [Right Arm] 02 Sat by Pulse Oximetry 95 100 Oxygen Delivery Method Room Air Room Air Room Air Lab Data Lab results reviewed: Yes I reviewed the patient's lab results. Lab Results 11/06/24 23:52: WBC 8.6, RBC 4.03 L, Hgb 12.0 L, Hct 33.8 L, MCV 83.9, MCH 29.8, MCHC 35.5 H, RDW 14.4, Plt Count 215, MPV 9.2, Neut % (Auto) 70.9, Lymph % (Auto) 22.1, [place] % (Auto) 5.6, Eos % (Auto) 0.8, Baso % (Auto) 0.2, Neut # (Auto) 6.1, Lymph # (Auto) 1.9, [place] # (Auto) 0.5, Eos # (Auto) 0.1, Baso # (Auto) 0.0, D-Dimer 0.65 H, Sodium 136, Potassium 3.3 L, Chloride 104, Carbon Dioxide 23, Anion Gap 12.3, BUN 11, Creatinine 0.60, Estimated Creat Clear 108, Estimated GFR 117, Est GFR ( Amer) 142, Glucose 101 H, Calcium 9.0, Total Bilirubin 0.4, AST 20, ALT 14, Alkaline Phosphatase 57, Troponin I < 0.01, Total Protein 6.9, Albumin 3.8, Globulin 3.1, Albumin/Globulin Ratio 1.2 11/06/24 23:53: SARS-CoV-2 (PCR) Not detected, Influenza A Untype (PCR) Not detected, Influenza Type B (PCR) Not detected 11/06/24 23:52 11/06/24 23:52 Orders (Tests/Meds): ED MEDICATIONS Discontinued Medications Generic Name Dose Route Start Last Admin Trade Name Whit PRN Reason Stop Dose Admin Acetaminophen 500 mg 11/07/24 01:33 11/07/24 01:40 Acetaminophen 500mg Tab PO 11/07/24 01:34 500 mg ONCE ONE Administration Ondansetron HCl 4 mg 11/06/24 23:51 11/07/24 00:02 Ondansetron 4mg/2ml Vial IV 11/06/24 23:52 4 mg ONCE ONE Administration Oxycodone HCl 5 mg 11/07/24 01:33 11/07/24 01:40 Oxycodone 5mg Immediate Release Tablet PO 11/07/24 01:34 5 mg ONCE ONE Administration ORDERS Category Date Time Status POCUS Point of Care (ER Only) Stat Exams 11/07/24 01:38 Ordered CBC w/Auto Diff [Complete Blood Count Auto Diff] Stat Lab 11/06/24 23:52 Completed CMP [Comprehensive Metabolic Panel] Stat Lab 11/06/24 23:52 Completed D-Dimer Stat Lab 11/06/24 23:52 Completed HIV Combo Stat Lab 11/06/24 23:52 Received Hepatitis C Ab Qual. W/ RFX Stat Lab 11/06/24 23:52 Received Rapid PCR Covid and Flu A/B Stat Lab 11/06/24 23:53 Completed Troponin I Q3H Lab 11/06/24 23:52 Completed ECG Data Tracing #1: I reviewed this ECG and interpreted as documented below: Sinus rhythm, rate of 99, no concerning ST or T wave changes, no evidence of arrhythmia. ECG initial impression date: 11/06/24 ECG initial impression time: 23:48 HEART Score History (anamnesis): Slightly suspicious ECG: Normal Age: <45 years Risk factors: 1-2 risk factors Troponin: </= normal limit HEART Score: 1 Medical Decision Narrative: 29-year-old female, 19 weeks presents for sudden onset chest pain, shortness of breath, dizziness starting while she was getting ready for work.. History was obtained via interactive discussion with patient, chart review. On arrival, patient is [afebrile, hemodynamically stable, satting appropriately, alert, oriented x4, GCS 15], moving all extremities spontaneously. Full physical exam performed and significant for clear lungs bilaterally, mild right upper quadrant tenderness Differential includes but is not limited to cholecystitis, cholestasis of , PE, pneumonia, pneumothorax, pleurisy, anxiety. Patient was given Zofran for symptomatic management and correction of underlying abnormalities. Workup initiated including CBC CMP D-dimer EKG troponin. On re-evaluation, patient [remains afebrile, HD stable.] Reports mild improvement in pain but requests additional pain medication. She reports that she sometimes takes Percocets at home for her back and her teeth. I gave her a dose of oxycodone and Tylenol Laboratory workup independently interpreted by me and significant for negative D-dimer by ingested years criteria, given this no indication for CT PE. Labs otherwise with minimal hypokalemia, normal renal function, minimal anemia, no LFT abnormalities. Bedside ultrasound was performed by me to evaluate the right upper quadrant. This showed a normal-appearing gallbladder without stones, pericholecystic fluid, anterior wall thickening etc. Chest x-ray was considered, but deemed unnecessary given patient has clear lungs bilaterally without evidence of pneumonia. Repeat troponin was considered but the administered given no significant concern for ACS at this time.. Given patient history, exam and workup, patient's presentation most likely represents right upper quadrant/right chest pain. Be related to cholestasis of , no evidence of acute cholecystitis at this time. No evidence of PE or other emergent pathology at this time. Patient was discharged in stable condition with return precautions including for continued/worsening pain. Procedures Risk/Benefits of Procedure(s) Were Explained: Yes Limited Ultrasound Indication:: Limited RUQ ultrasound Indication: Abdominal pain Identified structures: -Gallbladder -Gallbladder wall -Liver Findings: Sonographic Flynn sign: Absent Gallstones: Absent Sludge: Absent Pericholecystic fluid: Absent Maximal GB wall thickness (mm): 2 Normal Common bile duct width (mm): Unable to visualize Gallbladder width (cm): Grossly normal Gallbladder length (cm): Grossly normal Impression: Normal gallbladder without cholelithiasis Images were saved to permanent archive The study was technically adequate CPT 07265-43 This study was performed by me, and I personally interpreted all images/videos. Critical Care Critical Care Time Critical Care Time: No
[2024-11-06 23:56] VITALS: PULSE 99
[2024-11-07] MEDS: ONDANSETRON 4MG/2ML VIAL 4 MG IV (00:02)
[2024-11-07 00:03] LABS: Coronavirus 19, PCR Not Detected (NotDetected); Influenza A, PCR Not Detected (NotDetected); Influenza B, PCR Not Detected (NotDetected)
[2024-11-07 00:08] LABS: Basophils % 0.2 % (0.1-2.0); Eosinophils # 0.1 K/mm3 (0.0-0.4); Eosinophils % 0.8 % (0.1-12.0); Hematocrit 33.8 % (37.0-47.0); Lymphocytes # 1.9 K/mm3 (0.7-4.5); Lymphocytes % 22.1 % (10-50); Mean Corpuscular HGB Conc 35.5 g/dL (31.8-35.4); Mean Corpuscular Hemoglobin 29.8 pg (27.0-31.2); Mean Corpuscular Volume 83.9 fl (81-99); Mean Platelet Volume 9.2 fl (7.4-10.4); Monocytes # 0.5 K/mm3 (0.1-1.0); Monocytes % 5.6 % (1.7-9.3); Neutrophils # 6.1 K/mm3 (1.8-7.8); Neutrophils % 70.9 % (37.0-80.0); Platelet Count 215 K/mm3 (142-424); Red Blood Count 4.03 M/mm3 (4.20-5.40); Red Cell Distribution Width 14.4 % (11.5-17.5); White Blood Count 8.6 K/mm3 (4.8-10.8)
[2024-11-07 00:17] LABS: Alanine Aminotransferase 14 U/L (12-78); Albumin Level 3.8 g/dl (3.5-5.0); Albumin/Globulin Ratio 1.2 (1.1-1.8); Alkaline Phosphatase 57 U/L (38-126); Anion Gap 12.3 mEq/L (5-15); Aspartate Amino Transferase 20 U/L (14-36); Bilirubin,Total 0.4 mg/dl (0.2-1.3); Blood Urea Nitrogen 11 mg/dl (7-17); Carbon Dioxide 23 mmol/L (22.0-30.0); Chloride 104 mmol/L (98-107); Creatinine Clearance Estimated 108 mL/min (50-200); Estimated Glomerular Filt Rate 117 ml/min (>60); GFR (African American) 142 ML/MIN (>60); Globulin 3.1 g/dL (1.3-3.2); Glucose 101 mg/dl (74-100); Potassium 3.3 mmoL/L (3.5-5.1); Sodium 136 mmol/L (136-145); Total Protein,Serum 6.9 g/dl (6.3-8.2)
[2024-11-07 00:22] LABS: D-Dimer 0.65 ug/mL (0.0-0.5)
[2024-11-07 00:30] VITALS: BP 130/69; PULSE 87; O2SAT 100
[2024-11-07 00:33] LABS: Troponin I < 0.01 ng/ml (0.00-0.034)
[2024-11-07 01:00] VITALS: BP 134/63; PULSE 91; O2SAT 95
[2024-11-07 01:31] VITALS: BP 159/91; PULSE 103; O2SAT 100
[2024-11-07] MEDS: ACETAMINOPHEN 500MG TAB 500 MG PO (01:40)
[2024-11-07] MEDS: OXYCODONE 5MG IMMEDIATE RELEASE TABLET 5 MG PO (01:40)
[2024-11-07 01:51] VITALS: BP 152/91; PULSE 92; RESP 18; TEMP 36.8; O2SAT 100
[2024-11-07 08:16] LABS: HIV Combo NEGATIVE (Negative)
[2024-11-07 08:24] LABS: Hepatitis C Ab Qual. W/ RFX NEGATIVE (Negative)
== END 2024-11-07 01:53 | disposition home or self-care (01) ==
PROVIDERS: Emergency Provider Emergency Medicine
DX: R06.02 Shortness of breath (principal); R07.9 Chest pain, unspecified; R42 Dizziness and giddiness; R05.9 Cough, unspecified; R10.11 Right upper quadrant pain; Z34.90 Encounter for supervision of normal pregnancy, unspecified, unspecified trimester; F17.290 Nicotine dependence, other tobacco product, uncomplicated; Z3A.19 19 weeks gestation of pregnancy
CPT/HCPCS: 80053; 84484; 85025; 85378; 86803; 87389; 87636; 93005; 96374; 99283; J2405

== ENCOUNTER 2024-11-28 23:48 | Outpatient (CLI) | payer MEDICAID, SELFPAY ==
[2024-11-28 23:53] VITALS: BMI 43.9
[2024-11-28 23:55] VITALS: BP 138/73; PULSE 83; RESP 18; TEMP 36.6; O2SAT 99; BMI 43.9
[2024-11-29 00:25] LABS: Microscopic, Urine URINE MICROSCOPIC (MICROSCOPIC)
[2024-11-29 00:43] LABS: Appearance,Urine Slightly Cloudy (Clear); Color,Urine Yellow (Yellow)
[2024-11-29 00:44] LABS: Bilirubin,Urine Negative (Negative); Blood, Urine Trace (Negative); Glucose,Urine (UA) Negative (Negative); Ketones,Urine Negative (Negative); Leukocyte Esterase,Urine Negative (Negative); Nitrate,Urine Negative (Negative); Protein,Urine Negative (Negative); Specific Gravity, Urine >= 1.030 (1.005-1.030); Urobilinogen,Urine 0.2 EU/dl (0.2)
[2024-11-29 00:49] LABS: Bacteria,Urine 4+ /lpf; Mucus,Urine 3+ /lpf
[2024-11-29] MEDS: LACTATED RINGERS 1000ML 1,000 ML 999 ML IV (01:18)
[2024-11-29] MEDS: ACETAMINOPHEN 1,000MG/100ML VIAL 1000 MG IV (01:18)
[2024-11-29 02:56] LABS: Benzodiazepines Screen,Urine Negative ng/ml (<200)
[2024-11-29 02:57] LABS: Amphetamine/Metha Screen,Urine Negative ng/ml (<1000)
[2024-11-29 02:58] LABS: Barbiturates Screen,Urine Negative ng/ml (<200); Methadone Screen,Urine Negative ng/ml (<300)
[2024-11-29 02:59] LABS: Cannabinoid Screen,Urine Negative ng/ml (<50); Cocaine Screen,Urine Negative ng/ml (<300)
[2024-11-29 03:00] LABS: Opiate Screen,Urine Positive ng/ml (<300)
[2024-11-29 03:01] LABS: Phencyclidine Screen,Urine Negative ng/ml (<25)
== END 2024-11-29 02:47 | disposition home or self-care (01) ==
LOC: OBOUT 23:52 → OB 23:53
PROVIDERS: PCP Pediatrics; Visit Provider Obstetrics & Gynecology
DX: O60.02 Preterm labor without delivery, second trimester (principal); Z3A.22 22 weeks gestation of pregnancy; R10.9 Unspecified abdominal pain
CPT/HCPCS: 80307; 81001; 87086; G0463; J0131; J7120

== ENCOUNTER 2024-12-05 17:24 | Emergency (ER) | payer MEDICAID, SELFPAY ==
[2024-12-05 17:25] VITALS: BP 141/72; PULSE 100; RESP 18; TEMP 36.8; O2SAT 100; BMI 44.9
[2024-12-05] MEDS: TETRACAINE/BENZOCAINE/BUTAMBEN 56 GM SPRAY TP (19:25)
[2024-12-05] MEDS: LIDOCAINE 2% VISCOUS SOL 15ML UDC 15 ML PO (19:25)
[2024-12-05] MEDS: ACETAMINOPHEN/CODEINE #3 TAB 1 EACH PO (19:30)
[2024-12-05] MEDS: AMOXICILLIN 500MG CAPSULE 500 MG PO (19:30)
[2024-12-05] MEDS: ACETAMINOPHEN 300MG W/CODEINE 30MG TAKE HOME PACK (6) 1 PACKET PO (19:33)
[2024-12-05 19:40] VITALS: BP 128/72; PULSE 74; RESP 16; TEMP 36.6; O2SAT 98
--- NOTE | 2024-12-05 20:24 | HMH.EDGENADL ---
Discharge Plan Disposition Patient Disposition: Home, Self-Care Condition: Good Prescriptions Prescriptions: New amoxicillin 500 mg tablet 500 mg PO BID 10 Days Qty: 20 0RF Referrals Follow up/Referrals: Rafa Powell [Primary Care Provider] - See instructions Activity Restrictions/Add. Instructions Additional Instructions/Restrictions: You were evaluated in the emergency department today. It is imperative that you follow-up with a dentist within the next 24 hours. Use the Tylenol 3 take-home pack sparingly. You may take every 8 hours as needed for severe pain. Try to get by with just regular Tylenol if you can, as narcotics can be potentially harmful to your baby as we discussed. 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 Return to the emergency department for new or worsening symptoms. Clinical Impressions Clinical Impression: Fracture of tooth Stand Alone Forms Stand Alone Forms: Work/School Release Instructions Patient Instructions: DI for Fractured Tooth Print Language Print Language: Lithuanian Discharge ED Provider: Mercedes Yousif General Adult HPI General Chief complaint: Dental/Oral Stated complaint: dental pain Time Seen by Provider: 12/05/24 18:19 Mode of Arrival: Ambulatory Source of Information: Patient Description of Symptoms (Recalled from ER Triage Doc. by RN): PT REPORTS BROKEN TOOTH LEFT LOWER, BROKE YESTERDAY. PT IS 24 WEEKS History of Present Illness HPI narrative: This patient is a 29-year-old female who is currently 24 weeks presenting to the emergency department for evaluation with concern for dental fracture. She states that her left lower tooth broke yesterday and she has not been able to get in with dentist. No other concerns noted. Related Data Previous Rx's ?Medication ?Instructions ?Recorded amoxicillin 500 mg tablet 500 mg PO BID 10 days #20 tabs 12/05/24 Allergies Allergy/AdvReac Type Severity Reaction Status Date / Time ketorolac (From Toradol) AdvReac Verified 04/23/24 19:13 tramadol AdvReac Verified 02/11/23 18:44 ubrogepant (From Ubrelvy) AdvReac Verified 02/11/23 18:44 [facility] Disclaimer: The information contained in this section may have been updated after the patient was seen, as this information can be updated by other users. Medical History EBV infection Splenomegaly 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 History of wisdom tooth extraction Hx of tonsillectomy Family History Mother Breast cancer Father Hypertension Grandfather Stomach cancer Other Diabetes Social History Smoking Status: Current every day smoker alcohol intake: never current occupational status: employed Travel in the last 8 weeks: None Have you lived/traveled outside [place] in past 30 days?: No Contact w/someone who lives/traveled outside [place] past 30 days?: No Exposure to someone with infectious disease in past 14 days?: No Do you have a fever (greater than 100.4 F or 38 C)?: No Have you tested positive for COVID-19: No Exposed to someone with COVID-19 in past 14 days?: No Do you have a sore throat?: No Do you have a cough?: No Do you have any weakness?: No Do you have any diarrhea?: No Are you experiencing any unusual bleeding?: No Do you have any muscle aches/pain?: No Do you have any abdominal pain?: No Are you experiencing loss of taste or smell?: No Other Medical History Have you received the Flu Vaccine for this season: No Have you received the Pneumonia Vaccine: No ROS Obtained: Yes All systems reviewed & no additional complaints except as documented Physical Exam General General appearance: alert and in no apparent distress Head Head exam: atraumatic and normocephalic Eye Eye exam: Present normal appearance, PERRL and EOMI ENT ENT exam: Present mucous membranes moist and normal external ear exam Expanded ENT Exam Open Mouth Image: 1. Dental fracture with exposed pulp and tenderness to palpation Neck Neck exam: Present normal inspection, full ROM and trachea midline; Absent tenderness Chest Chest inspection: Present normal inspection and symmetric chest wall rise; Absent tenderness Respiratory Respiratory exam: Present normal lung sounds bilaterally; Absent respiratory distress, wheezes, stridor or accessory muscle use Cardiovascular Cardiovascular exam: Present regular rate and normal rhythm Abdominal Exam Abdominal exam: Present soft; Absent distention, tenderness or guarding Extremities Exam Extremities exam: Present normal inspection, full ROM and normal capillary refill; Absent tenderness or edema Back Exam Back exam: Present normal inspection and full ROM; Absent tenderness Neurological Exam Neurological exam: Present alert, oriented X3, CN II-XII intact and normal gait; Absent motor sensory deficit Psychiatric Psychiatric exam: Present normal affect and normal mood Skin Skin exam: Present warm and dry Medical Decision Making Medical Records Medical records reviewed: Yes I reviewed the patient's medical records. Screening: Per USPSTF and CDC recommendations, given the prevalence of disease in our region, it is our hospital?s policy to screen for HIV and viral Hepatitis for all patients aged 18 and over and those with ongoing risk factors. Gareth Inquiry Pt receiving controlled substance: Yes Gareth was queried for this patient: Yes Risks and benefits of using a controlled substance: were discussed with pt by me Vital Signs: 12/05/24 17:25 12/05/24 19:40 Temperature 98.2 F 97.9 F Temperature Source Oral Oral Pulse Rate 74 Pulse Rate [Radial] 100 H Respiratory Rate 18 16 Blood Pressure 128/72 Blood Pressure [Left Arm] 141/72 H Blood Pressure Mean [Left Arm] 95 Blood Pressure Source Automatic Cuff Blood Pressure Source [Left Arm] Automatic Cuff Blood Pressure Position Supine Blood Pressure Position [Left Arm] Sitting 02 Sat by Pulse Oximetry 100 Oxygen Delivery Method Room Air Room Air Lab Data Lab results reviewed: Yes I reviewed the patient's lab results. Orders (Tests/Meds): ED MEDICATIONS Discontinued Medications Generic Name Dose Route Start Last Admin Trade Name Whit PRN Reason Stop Dose Admin Acetaminophen/Codeine Phosphate 1 each 12/05/24 18:55 12/05/24 19:30 Acetaminophen/Codeine #3 Tab PO 12/05/24 18:56 1 each ONCE ONE Administration Acetaminophen/Codeine Phosphate 1 packet 12/05/24 19:27 12/05/24 19:33 Acetaminophen 300mg W/Codeine 30mg Take Home Pack (6) PO 12/05/24 19:28 1 packet ONCE ONE Administration Amoxicillin 500 mg 12/05/24 18:58 12/05/24 19:30 Amoxicillin 500mg Capsule PO 12/05/24 18:59 500 mg ONCE ONE Administration Benzocaine/Butamben/Tetracaine HCl 1 gm 12/05/24 18:55 12/05/24 19:25 Tetracaine/Benzocaine/Butamben 56 Gm Otis TP 12/05/24 18:56 1 gm ONCE ONE Administration Lidocaine HCl 15 ml 12/05/24 18:55 12/05/24 19:25 Lidocaine 2% Viscous [place] 15ml Udc PO 12/05/24 18:56 15 ml ONCE ONE Administration Medical Decision Narrative: In summary, this patient is a 29-year-old female presenting to the Emergency Department for evaluation of dental pain. Differential diagnoses considered include but are not limited to dental fracture, dental caries, dental abscess. Ruling out the most morbid conditions drove assessment. It should be noted patient's history includes that she is currently 24 weeks . This complicates all aspects of care by increasing patient's risk for morbidity. On exam, the patient is uncomfortable appearing with dental fracture with pulp exposed. Otherwise, exam is reassuring. She is afebrile with normal vitals. I do not feel that labs or imaging are indicated as they would likely not change control analyst. We unfortunately do not have any sort of dental cement or calcium hydroxide for me to cover the fracture. After informed decision making with the patient after risk versus benefit was explained she elects to go ahead and receive Tylenol 3 for treatment of severe pain understanding the risks of narcotic pain medications to . She is given Tylenol 3, dental balls, and oral amoxicillin. At this time, I feel that she is appropriate for discharge with close follow-up with a dentist. I gave her prescription for amoxicillin, Tylenol 3 take-home pack, and dental balls. She was discharged with strict return precautions and instructions to see a dentist over the next 24 hours. Critical Care Critical Care Time Critical Care Time: No
== END 2024-12-05 19:41 | disposition home or self-care (01) ==
PROVIDERS: Emergency Provider Emergency Medicine; PCP Pediatrics
DX: S02.5XXA Fracture of tooth (traumatic), initial encounter for closed fracture (principal); K08.89 Other specified disorders of teeth and supporting structures; Z72.0 Tobacco use
CPT/HCPCS: 99283

== ENCOUNTER 2025-05-25 07:29 | Emergency (ER) | payer MEDICAID, SELFPAY ==
--- OUTSIDE RECORDS SUMMARY | 2025-03-27 06:27 | XMS_ITS | Encounter Summary ---
Author Organization [place] [address] Care Team Providers Care Worm Packer Name Role Phone Rafa Powell MD Primary Care Provider [phone] Reason for Visit * Reason Comments Scheduled Induction * Auth/Cert/Inpt Specialty Diagnoses / Procedures Referred By Contac t Referred To Contact Diagnoses term Referral ID Status Reason Start Date Expiration Date Visits Re quested Visits Authorized [id number] 1 1 Encounter Details Date Type Department Care Team (Late st Contact Info) Description 03/27/2025 6:27 AM EDT - 03/29/2025 3:16 PM EDT Hospital Encounter EDG [address] [place] [address] Lila Greenwood MD [address] [place] [address] Grand multiparity Discharge Disposition: Home or Self Care Social History Tobacco Use Types Packs/Day Years Used Date Smoking Tobacco: Former Cigarettes 0.3 9.3 0 10/04/2011 - 01/19/2021 Passive Smoke Exposure: Past Smokeless Tobacco: Current Comments:3 cigs a day. Pt. reports no longer smoking cigarrettes is vaping and denies interest in quitting or receiving counseling services at this time. Alcohol Use Standard Drinks/Week Comments Not Currently 0 (1 standard drink = 0.6 oz pur e alcohol) [facility] Utilities Answer Date Recorded In the past 12 months has [employer], gas, oil, or water company threatened to shut off services in your home? No 03/28/2025 Overall Financial Resource Strain (CARDIA) Answe r Date Recorded How hard is it for you to pa y for the very basics like food, housing, medical care, and heating? Not very hard 03/28/2025 PHQ-2 Answer Date Recorded PHQ-2 Total Score 0 03/28/2025 [facility] - Occupational Stress Questionnaire Answer Date Recorded Do you feel stress - tense, restless, nervous, or anxious, or unable to sleep at night because your mind is troubled all the time - these days? Only a little 03/28/2025 Exercise Vital Sign Answer Date Recorde d On average, how many days pe r week do you engage in moderate to strenuous exercise (like a brisk walk)? 3 days 03/28/2025 On average, how many minutes do you engage in exercise at this level? 30 min 03/28/2025 Hunger Vital Sign Answer Date Recorded Within the past 12 months, y ou worried that your food would run out before you got the money to buy more. Never true 03/28/20 Within the past 12 months, t he food you bought just didn't last and you didn't have money to get more. Never true 03/28/2025 PRAPARE - Transportation Answer Date Re corded In the past 12 months, has l ack of transportation kept you from medical appointments or from getting medications? Yes 04/04 In the past 12 months, has l ack of transportation kept you from meetings, work, or from getting things needed for daily living? Yes 04/26/2023 [facility] IP Transportation Answer D ate Recorded In the past 12 months, has l ack of reliable transportation kept you from medical appointments, meetings, work or from getting things needed for daily living? No 03/28/2025 Sexually Active Control Partners Comments Yes Male Comments No Sex and Gender Information Value Date Recorded Sex Assigned at Not on file Legal Sex Female 2:22 AM EDT Gender Identity Not on file Sexual Orientation Not on file documented as of this encounter Last Filed Vital Signs Vital Sign Reading Time Taken Comments Blood Pressure 128/68 03/29/2025 8:19 AM EDT Pulse 79 03/29/2025 8:19 AM EDT Temperature 36.6 C (97.9 F) 03/29/2025 8:19 AM EDT Respiratory Rate 18 03/29/2025 8:19 AM EDT Oxygen Saturation 100% 03/29/2025 8:19 AM EDT Inhaled Oxygen Concentration - - Weight 120.2 kg (265 lb) 03/27/2025 7:18 AM EDT Height 157.5 cm (5' 2 ) 03/27/2025 7:18 AM EDT Body Mass Index 48.47 03/27/2025 7:18 AM EDT documented in this encounter Functional Status * Alcohol Screening Score Answer Date of Assessment Author 0 03/27/2025 7:15 AM EDT Renzo Mccloud RN * Drug Screening Score Answer Date of Assessment Author 0 03/27/2025 7:15 AM EDT Renzo Mccloud RN * Question Answer Date of Assessment Author How often do you have a drin k containing alcohol? 0 03/27/2025 7:15 AM EDT Renzo Mccloud RN How many drinks containing a lcohol do you have on a typical day when you are drinking? 0 03/27/2025 7:15 AM EDT Renzo Mccloud RN How often do you have six or more drinks on one occasion? 0 03/27/2025 7:15 AM EDT Odette Mccloud RN AUDIT-C to Determine Rows 4-10 0 03/27/2025 7:15 AM EDT Renzo Mccloud RN * Is the person deaf or does he/she have serious difficulty hearing? Answer Date of Assessment Author No 04/28/2023 2:43 PM EDT Sahil Willson RN * Is the person blind or does he/she have serious difficulty seeing even when wearing glasses? Answer Date of Assessment Author No 04/28/2023 2:43 PM EDT Sahil Willson RN * Does this person have serious difficulty walking or climbing stairs? Answer Date of Assessment Author No 04/28/2023 2:43 PM EDT Sahil Willson RN * Does this person have difficulty dressing or bathing? Answer Date of Assessment Author No 04/28/2023 2:43 PM EDT Sahil Willson RN * Because of a physical, mental or emotional condition, does this person have difficulty doing errands alone such as visiting a doctor's office or shopping? Answer Date of Assessment Author No 04/28/2023 2:43 PM EDT Sahil Willson, CHUY * Question Answer Date of Assessment Author Little interest or pleasure in doing things 0 03/28/2025 12:33 PM EDT Clemencia Gilbert, PAPER COATING MACHINE OPERATOR Feeling down, depressed, or hopeless 0 03/28/2025 12:33 PM EDT Clemencia Gilbert, PAPER COATING MACHINE OPERATOR PHQ-2 Total Score 0 03/28/2025 12:33 PM EDT Clemencia Gilbert, PAPER COATING MACHINE OPERATOR * PHQ-9 Total Score Answer Date of Assessment Author 0 03/28/2025 12:33 PM EDT Clemencia Gilbert, PAPER COATING MACHINE OPERATOR * PHQ-2 Total Score Answer Date of Assessment Author 0 03/28/2025 12:33 PM EDT Clemencia Gilbert, PAPER COATING MACHINE OPERATOR * Question Answer Date of Assessment Author Feeling Nervous, Anxious, or on Edge 0 03/27/2025 7:16 AM EDT Renzo Mccloud RN Not Being Able to Stop or Co ntrol Worrying 0 03/27/2025 7:16 AM EDT Renzo Mccloud RN Worrying too Much About Diff erent Things 0 03/27/2025 7:16 AM EDT Renzo Mccloud RN Trouble Relaxing 0 03/27/2025 7:16 AM EDT Renzo Gonzalez RN Being so Restless That it is Hard to Sit Still 0 03/27/2025 7:16 AM SOPHIET Renzo Mccloud RN Becoming Easily Annoyed or Irritable 0 03/27/2025 7:16 AM SOPHIET Renzo Mccloud RN Feeling Afraid as if Somethi ng Awful Might Happen 0 03/27/2025 7:16 AM EDT Renzo Mccloud RN VLADIMIR-7 Total Score 0 03/27/2025 7:16 AM EDT Renzo Mccloud RN * Suicide Severity Rating Answer Date of Assessment Author No Risk 03/27/2025 7:16 AM EDT Renzo Mccloud RN * [place] Suicide Severity Rating Scale (Q shift for moderate and high) Question Answer Date of Assessment Author 1. In the past month, have y ou wished you were or wished you could go to sleep and not wake up? 0 03/27/2025 7:16 AM EDT Renzo Vidal RN 2. In the past month, have y ou actually had any thoughts of killing yourself? (If no, skip to question 6) 0 03/27/2025 7:16 AM EDT Renzo Mccloud RN 6. Have you ever done anythi ng, started to do anything, or prepared to do anything to end your life? 0 03/27/2025 7:16 AM EDT Renzo Mccloud RN documented as of this encounter Mental Status * Because of a physical, mental or emotional condition, does this person have serious difficulty concentrating, remembering or making decisions? Answer Entry Date Author No 04/28/2023 2:43 PM EDT Sahil Willson RN documented in this encounter Discharge Summaries * Nelda Gay DO - 03/29/2025 10:27 AM EDT Images from the original note were not included. [facility] Discharge Summary Patient Name: Adelia Willoughby : 1995 Admit Date: 03/27/2025 Discharge Date: 03/29/2025 Admitting Physician: Lila Greenwood MD Discharge Physician: Nelda Gay DO Reason for Hospitalization: Active Hospital Problems * (spontaneous vaginal delivery) Noncompliant patient in third trimester Grand multiparity Encounter for supervision of normal in third trimester Rh negative state in antepartum period Hospital Course/Significant Findings: Pt is a 29 y.o. who was admitted for IOL. She had an uncomplicated and pp course. She was discharged home on PPD 2. Procedures Performed: None Consults: Discharge Exam: BP 128/68 (Patient Position: Sitting) Pulse 79 Temp 97.9 ??F (36.6 ??C) (Oral) Resp 18 Ht 5' 2 (1.575 m) Wt 265 lb (120.2 kg) LMP (LMP Unknown) SpO2 100% Unknown BMI 48.47 kg/m?? General appearance: alert, appears stated age, and cooperative Discharge Diagnoses: (spontaneous vaginal delivery) Condition at Discharge: good Disposition: Home Discharge Medications:: Medication List START taking these medications oxyCODONE 5 mg Tab Dose: 5 mg Qty: 9 Tablet Refills: 0 Commonly known as: ROXICODONE 5 mg, Oral, EVERY 8 HOURS PRN CHANGE how you take these medications * acetaminophen 500 mg Tab Dose: 500 mg Refills: 0 Commonly known as: TYLENOL What changed: Another medication with the same name was added. Make sure you understand how and when to take each. * acetaminophen 325 mg Tab Dose: 650 mg Refills: 0 Commonly known as: TYLENOL 650 mg, Oral, *EVERY 6 HOURS, Maximum recommended acetaminophen dosage is 4,000 mg/day. What changed: You were already taking a medication with the same name, and this prescription was added. Make sure you understand how and when to take each. * This list has 2 medication(s) that are the same as other medications prescribed for you. Read thedirections carefully, and ask your doctor or other care provider to review them with you. CONTINUE taking these medications no.[id number] 28 mg iron- 1 mg-200 mg Cap Dose: 1 Tablet Qty: 30 Capsule Refills: 4 1 Tablet, Oral, DAILY STOP taking these medications acetaminophen-codeine 300-30 mg Tab Commonly known as: TYLENOL #3 ondansetron 4 mg Tab Commonly known as: ZOFRAN Where to Get Your Medications These medications were sent to [facility] [address] [place] [address] [place] [address] Hours: Wednesday-Wednesday 8:00am - 6:30pm oxyCODONE 5 mg Tab You can get these medications from any pharmacy You don't need a prescription for these medications acetaminophen 325 mg Tab Follow Up: [address] [address] Follow up in 6 week(s) Signed: Nelda Gay DO 03/29/2025 10:27 AM * Barbara Eldridge MD - 03/28/2025 12:21 PM EDT Images from the original note were not included. [facility]-Discharge Summary Vaginal Delivery Patient Name: Adelia Willoughby : 1995 Admit Date: 03/27/2025 Discharge Date: 03/28/2025 Admitting Physician: Lila Greenwood MD Discharge Physician: Barbara Eldridge MD Reason for Hospitalization: Active Hospital Problems Diagnosis * (spontaneous vaginal delivery) Noncompliant patient in third trimester Grand multiparity Encounter for supervision of normal in third trimester Rh negative state in antepartum period Hospital Course: Adelia Willoughby is a who was admitted on 03/27/2025 for Induction of labor - term. Sheis now being discharged on Hospital Day #1. Procedures Performed: Vaginal, Spontaneous History: The patient had a Vaginal, Spontaneous on 03/27/2025. She delivered a Female that weighed 3925 g (8 lb 10.5 oz). Apgars were 8 and 8 at one and five minutes, respectively. Delivery complications included None. Lacerations were None. Subjective: The patient feels well. Pain is well controlled with current medications. The baby is well. The patient is ambulating well. The patient is tolerating a normal diet. Bleeding is as expected. Objective: Vitals: 03/28/25 0905 BP: 106/65 Pulse: 87 Resp: 18 Temp: 97.7 ??F (36.5 ??C) SpO2: 99% General: alert, well appearing, in no apparent distress Uterine Fundus: firm Ext: good ROM and strength Labs at Discharge: Lab Results Component Value Date WBC 9.0 03/27/2025 HGB 10.0 (L) 03/27/2025 HCT 31.4 (L) 03/27/2025 MCV 82.2 03/27/2025 PLT 203 03/27/2025 Discharge Meds: Medication List START taking these medications oxyCODONE 5 mg Tab Dose: 5 mg Qty: 9 Tablet Refills: 0 Commonly known as: ROXICODONE 5 mg, Oral, EVERY 8 HOURS PRN CHANGE how you take these medications * acetaminophen 500 mg Tab Dose: 500 mg Refills: 0 Commonly known as: TYLENOL What changed: Another medication with the same name was added. Make sure you understand how and when to take each. * acetaminophen 325 mg Tab Dose: 650 mg Refills: 0 Commonly known as: TYLENOL 650 mg, Oral, *EVERY 6 HOURS, Maximum recommended acetaminophen dosage is 4,000 mg/day. What changed: You were already taking a medication with the same name, and this prescription was added. Make sure you understand how and when to take each. * This list has 2 medication(s) that are the same as other medications prescribed for you. Read thedirections carefully, and ask your doctor or other care provider to review them with you. CONTINUE taking these medications no.45-fixd-SD-dha 28 mg iron- 1 mg-200 mg Cap Dose: 1 Tablet Qty: 30 Capsule Refills: 4 1 Tablet, Oral, DAILY STOP taking these medications acetaminophen-codeine 300-30 mg Tab Commonly known as: TYLENOL #3 ondansetron 4 mg Tab Commonly known as: ZOFRAN Where to Get Your Medications These medications were sent to [facility] [address] [place] [address] [place] [address] Hours: Wednesday-Wednesday 8:00am - 6:30pm oxyCODONE 5 mg Tab You can get these medications from any pharmacy You don't need a prescription for these medications acetaminophen 325 mg Tab Follow Up: [address] [address] Follow up in 6 week(s) Signed: Barbara Eldridge MD 03/28/2025 12:21 PM documented in this encounter Discharge Instructions * Discharge Instructions* Katelyn Abernathy RN - 03/29/2025 10:28 AM EDT Follow-up in office in 6 weeks for your visit. If, before then, you experience any of the following please call the office or the doctor injection press operator: 1) Fever >100.4 2) Bleeding >1pad/hour 3) Pain not controlled with your medication 4) Redness/swelling in one leg more than the other You will need to remain on pelvic rest (no sex, no douching, no tampons - nothing in the vagina) until after your visit. [facility] Maternal Care and Discharge Instructions ACTIVITY - Gradually increase your activity as tolerated. If it makes you tired, sore, or bleed more, you are doing too much too soon. Rest as much as you can. You may climb steps, but do so slowly and limit the number of trips up and down in a day. For 2 weeks don't lift anything heavier than 10 pounds. If you had a Section, avoid lifting for 6 weeks. BABY BLUES - Withdrawal of the hormones, as well as fatigue from lack of sleep, can affect the way you feel. Beginning within the first few days after delivery, you may experience irritability, impatience and crying. This is normal. Call your doctor if these feelings worsen or last longerthan 2-3 weeks as it could indicate depression. BLEEDING - During the first few days after delivery your vaginal discharge will be dark red and similar to your menstrual flow. After that, the discharge will continue to decrease in amount and change to a pale pink or brownish color. By the end of there second week most women will have little morethan a clear discharge, which may continue for several weeks. A heavier flow during or when you first get out of bed is normal. Call your doctor if you experience heavy, bright red bleeding (enough to saturate on maxi pad in less than an hour) or if you are passing clots that are increasing in size and frequency. BREAST PAIN - Call your doctor if either breast develops a hard area that becomes red, hot, or tender and is accompanied by flu-like symptoms and fever. CONSTIPATION - Your first bowel movement usually occurs within 2-3 days after delivery. Progressiveexercise, a high fiber diet (fruits, vegetables and whole grains) and plenty of fluids (especially water) will help prevent constipation. [id number] stool softeners may be used, if needed. CRAMPING - Afterpains result from the uterus brittany after delivery, which helps reduce blood loss and returns the uterus to its pre- size. They are most noticeable in the first 3-4 daysfollowing delivery, particularly for women who have had previous deliveries. These contractions arealso more pronounced during . Anti-inflammatory medications (such as Advil, Ibuprofen or Motrin) usually provide effective relief from afterpains. DIET - Unless instructed otherwise, eat a regular, well-balanced diet and include foods high in protein and iron. Drink plenty of fluids. DRIVING - Avoid driving for 1-2 weeks after delivery. If you are still having pain that would prevent you from reacting quickly in case of an emergency, you should not be driving. Do not drive if youare taking narcotic pain medication (such as Percocet). ENGORGEMENT - Swelling of the breasts may occur 2-4 days after delivery and usually lasts 24-48 hours. If you are bottlefeeding: Wear a tight bra 24 hours a day until the engorgement has passed. Avoid any nipple stimulation during this time. Apply ice packs to each breast for 10-15 minutes, 3-4 times a day as needed. You may also take Tylenol as directed for discomfort. If you are : Massage the breast through a cold, wet cloth until the breast softens. You may need to pump or manually express some milk before each feeding if the nipple is too tight to allow the baby to latch on. Massaging breasts in a warm shower may also help to express milk. Continue to nurse frequently. Apply ice packs after for 10-15 minutes to decrease swelling and relive discomfort. FEVER - Call your doctor if you have a temperature above 100.4 degrees. It could be a sign of infection in your urinary tract, breast, uterus, or abdominal incision. HEMORRHOIDS - Hemorrhoids are best treated with sitz baths, cold compresses, topical anti-inflammatory (Hydrocortisone cream, and Witch Katie (Tucks) pads). Avoid constipation to prevent straining against them. INCISIONAL CARE - If you had a Section, clean your incision daily using soap and water. Pat dry, don't rub. Look at your incision every day. Call your doctor if there is any redness in the skin around the incision, pus-filled drainage, or separation of the wound edges. Any stitches you have will dissolve on their own. You can remove steri strips 7 days after they were placed. NIPPLES - Sore nipples are generally due to poor latch-on and improper positioning during . Dab either expressed colostrum or breast milk to your nipple and allow to air dry, or apply a small amount of Lanolin or Lansinoh to your nipple after . Remember to break the suction between your baby's mouth and your breast by sliding your finger into the corner of his/her mouth. PERINEUM - To keep your bottom clean continue to use your squirt bottle to rinse the area with lukewarm water after urination and bowel movements. Dry the area using a front to back patting motion. Use your anesthetic (Dermoplast) spray for pain relief and the topical anti-inflammatory (Hydrocortisone) cream 3-4 times a day as needed. Witch Katie (Tucks) pads are cooling and soothing and can be ap plied to the area as often as desired. Change your pads frequently to avoid infection. Any stitchesyou may have will dissolve on their own. PREECLAMPSIA - High blood pressure brought on by can continue into the period.Call your doctor if you experience headaches, dizziness or visual changes (such as blurred vision, spots, or flashing lights). SITZ BATHS - Sitz baths promote healing and provide relief from the pain and swelling associated with episiotomies, tears or hemorrhoids. This can be done 2- 3 times a day for 15-20 minutes at a time using plain, comfortable hot water. SMOKING - Smoking is hazardous to your health. Second had smoke is harmful to those around you. Contact your doctor for smoking cessation information and classes that can help you quit. URINATION - Call your doctor if you experience difficulty urinating (such as burning, frequency with small amounts, or feeling like you are not emptying your bladder) with or without fever. UTERINE INFECTION - The site where the placenta was attached is a healing wound. To prevent infection, avoid introducing bacteria into the vagina - no tub baths, sex, tampons or douching until after your visit. Call your doctor if you experience increased abdominal tenderness, fever or afoul smelling vaginal discharge. WORKING - If you work outside the home, return to work as instructed by your doctor, usually after your 6 week check-up. CALL YOUR DOCTOR if you have a fever, excessive bleeding, breast pain with flu- like symptoms, pain with urination, foul-smelling discharge, leg pain, shortness of breath or persistent depression. [facility] Maternal Discharge Summary You have been discharged by your doctor. If you have questions or concerns about yourself, call your doctor. Feel free to call us at [facility] if we can help you. Adelia Mohamud Case [id number] 03/29/2025 [address] [place] [address] If your pain intensifies or is unrelieved by the pain medications as ordered, call your doctor. Follow your Maternal Care and Discharge Instructions. documented in this encounter Medications at Time of Discharge acetaminophen (TYLENOL) 500 mg Oral TabletIndication s:Encounter for supervision of other normal in third trimester Take 500 mg by mouth nightly. no.06-ueiw-SM-dh a 28 mg iron- 1 mg-200 mg Oral CapsuleIndicatio ns:, unspecified gestational age Take 1 Tablet by mouth daily. 30 Capsule 4 08/15/2024 acetaminophen 325 mg Oral Tab Take 2 Tablets by mouth every 6 hours for 3 days. Maximum recommended acetaminophen dosage is 4,000 mg/day. 03/28/2025 oxyCODONE (ROXICODONE) 5 mg Oral Tablet Take 1 Tablet by mouth every 8 hours as needed for Acute Pain (R52) for up to 30 days. 9 Tablet 03/28/2025 3:12 PM EDT 03/28/2025 documented as of this encounter Ordered Prescriptions Prescription Sig Dispense Quantity Refills Last Filled Start Date End Date oxyCODONE (ROXICODONE) 5 mg Oral Tablet Take 1 Tablet by mouth every 8 hours as needed for Acute Pain (R52) for up to 30 days. 9 Tablet 03/28/2025 3:12 PM EDT 03/28/2025 04/27/20 acetaminophen 325 mg Oral Tab Take 2 Tablets by mouth every 6 hours for 3 days. Maximum recommended acetaminophen dosage is 4,000 mg/day. 03/28/2025 03/31/20 documented in this encounter Discharge Disposition Disposition Code Departure Means Destination Comment s Home or Self Care Wheelchair Home documented in this encounter Progress Notes * Katelyn Abernathy RN - 03/29/2025 12:42 PM EDT Discharge instructions and follow up reviewed with patient who reports understanding and has no further questions or concerns. * Diana Jason - 03/28/2025 7:54 PM EDT Images from the original note were not included. 03/28/25 1900 Reason for Visit Date of visit 03/28/25 Visited With Patient Visited By [facility] Patent Drafter (Sissy) Patient Assessment Patient Roman Catholic at Registration Mosque Interventions with Patient Holy Communion Decline Rev. Espinoza Stoll M.DivMin Research Methods Instructor, Pastoral and Spiritual Care For non-urgent requests, please place a Pastoral Care consult in [facility]. For all urgent matters, please send an urgent [facility] Secure Chat to the Pastoral Care group at your location. Between 11pm and 7am, please use On-Call Finder to send an [facility] Secure Chat to the on-call search engine optimization analyst. Pastoral Care office phone numbers: EDG/COV/GRT [phone], DENNIS [phone], FTT [phone], DBN [phone] * Sussy Mckay CPhT - 03/28/2025 3:26 PM EDT Discharge Medication Delivery Service DMD weatherseal technician has delivered the following medications for Adelia Willoughby: Rx#[id number]:OXYCODONE 5 MG TABLET-5 mg EVERY 8 HOURS PRN Date/Time of Delivery: 03/28/2025 3:26 PM Delivered to: 1226, placed medication on patients bedside table Please contact DMD weatherseal technician with any questions. Thanks! Sussy Mckay CPhT * Eliza Escamilla RN - 03/28/2025 10:40 AM EDT Images from the original note were not included. This note was copied from a baby's chart. Note: Infant GA: 39 weeks 3 days Weight: 3925 grams Current Weight 3884 grams WL: -1.05% Baby has been spitty. Mom states she combo fed her last 3 babies at the breast due to not making a full supply. Does not wish to breastfeed at this time. To give formula via bottle and offer breast on occasion. Education provided on lactogenesis and attempting to pump at least a few times a day to stimulate the prolactin hormone. Mom declines pump set up at this time. Mother has a pump at home. Plan: Put to breast on demand If has not fed at 3 hours, undress, change diaper and attempt to feed Pump every 3 hours (or as directed by LC) with a weight loss of 10% and above, decreased output, increased bilirubin levels, or any bottle/supplement is given. Breast massage or compression during pumping Ice for decreasing milk, warm to increase Put baby STS prior to feeding or pumping LC remains available. Call as needed. follow-up You may follow up with [facility] at the [place] location. Call [phone] an appointment or for questions/concerns. Weight checks are done daily in our office from 1 pm to 2 pm on a walk-in basis, no appointment needed. All visits are provided by [facility] and you will not be billed. Guide to storing breast milk when your goes home Breast milk can be stored in clean glass or hard BPA-free plastic bottles with tight fitting lids. You can also use milk storage bags, which are made for freezing human milk. Do not use disposable bottle liners or other plastic bags to store breast milk. After each pumping Label the date on the storage container. Include your child???s name if you are giving the milk to a childcare provider. Gently swirl the container to mix the cream part of the breast milk that may rise to the top back into the rest of the milk. Shaking the milk is not recommended- this can cause a breakdown of some ofthe milk???s valuable components. Refrigerate or chill milk right after it is expressed. Place it is a dark spot as soon as possible because it will begin to break down in the light. You can put it in the refrigerator, place it in a cooler or insulated cooler pack, or freeze it in small (2 to 4 ounce) batches for later feedings. Tips for freezing milk Wait to tighten bottle caps or lids until the milk is completely frozen. Try to leave an inch or so from the milk to the top of the container because it will expand when freezing. Store milk in the back of the freezer- not in the freezer door. Tips for thawing and warming up milk Clearly label milk containers with the date it was expressed. Use the oldest stored milk first. Breast milk does not necessarily need to be warmed. Some moms prefer to take the chill off and serve at room temperature. Some moms serve it cold. Thaw frozen milk in the refrigerator overnight, by holding the bottle or frozen bag of milk under warm running water, or setting it in a container of warm water. Never put a bottle or bag of breast milk in the microwave. Microwaving creates hot spots that couldburn your baby and damage the components of the milk. Swirl the milk and test the temperature by dropping some on your wrist. It should be comfortably warm. Use thawed breast milk within 24 hours. Do not refreeze thawed breast milk. Guide to storing fresh breast milk for use with healthy full-term infants Place Temperature How long Things to know Countertop, table Room temp (60??F - 85??F) Up to 3-4 hours is best. Up to 6-8 hours is okay for very clean expressed milk. Containers should be covered and kept as cool as possible; covering the container with a clean cool towel may keep milk cooler. Throw out any leftover milk within 1 to 2 hours after the baby is finished feeding. Smaller cooler with a blue-ice pack. 59??F 24 hours Keep ice packs in contact with milk containers at all times; limit opening cooler. Refrigerator 39??F or colder Up to 72 hours is best. Up to 5-8 days is okay for very clean expressed milk. Store milk in the back of the main body of the refrigerator. Freezer 0??F or colder Up to 6 months is best. Up to 12 months is okay. Store milk toward the back of the freezer where temperature is most constant. Milk stored at 0??F or colder is safe for longer durations, but the quality of the milk might not be as high. Guide to storing thawed breast milk Room temperature (60??F to 85??F) Refrigerator (39??F or colder) Any freezers Thawed breast milk Up to 1-2 hours is best. Up to 3-4 hours is okay. 24 hours Do not refreeze Excerpt from http://www.womenshealth.gov//mseupie-npc-lvby-storage/ retrieved 08/22/12 For simplicity, many families use the 5/5/5 method: 5 hours at room temperature, 5 days in the refrigerator, 5 months in the freezer (with it's own door on the outside) Engorgement Engorgement refers to the normal fullness in your breasts which occurs around the 2nd to 5th day when your colostrum changes to the more plentiful breast milk. It typically lasts only 12-48 hours if treated properly and it can range from mild to severe. If moderate to severe engorgement occurs the breast will feel hard, warm to touch, tender or even painful. The tightly stretched skin may appear shiny and the areola may increase in diameter and become flat and taut, making it difficult for your baby to latch on. Engorgement may extend into the armpit. The more milk you leave in the breast, the less milk your body will make. Tips for treatment: Before Gentle breast massage from the chest wall toward the nipple To help milk begin to flow, apply moist warmth for a few minutes. Try standing in a warm shower, immersing breast in a bowl of warm water or wrapping breast in towel or baby diaper moistened with warm water. Avoid warmth for more than a few minutes because it can increase swelling and inflammation.Do no use warmth at all if breasts are severely swollen, then use ice. To make it easier for baby to latch, hand expression, Reverse Pressure Softening (see below) or brief use of a breast pump will soften the areola. Between feedings If breasts remains uncomfortably full after feeding, pump or hand express for comfort only, excessive pumping will prolong severe engorgement Apply ice cold compresses for 10-20 minutes at a time in between feedings to reduce swelling and relieve discomfort. Try a bag or frozen vegetables or ice cubes wrapped in a thin cloth. Lie down or sit back in a recliner while cold packs are on your breasts. Elevating the breasts in a well fitted support bra will also relieve swelling. Drink plenty of fluids, but avoid liquids or foods that are high in sodium (salt), they may increase swelling. Non-steroidal, anti-inflammatory medication, such as ibuprofen, will reduce swelling and pain. Reverse Pressure Softening Instructions (from [employer]) Two handed, one-step method Fingernails short, fingertips curved; each one touching the side of nipple. Two handed, two-step method Using 2 or 3 straight fingers on each side, first knuckles touching nipple. Move ?? turn. Repeat above & below nipple. Two thumbs, two-step method (Step 1). Using straight thumbs, base of thumbnail even with side of nipple. Two thumbs, two-step method (Step 2). Move turn. Repeat above & below nipple. * Nora Simon, CHUY - 03/27/2025 11:05 PM EDT Patient stated her lower back pain was still 8/10. This RN scanned in and handed patient dose of 5 mg of Oxycodone. Patient was asked to take dose in front of this RN. Patient then stated she alreadytook the dose. This RN did not see patient take the dose and patient had her fist closed as though she was holding something. This RN asked patient to open her hand. Patient opened her hand and 5 mg dose of Oxycodone fell onto the bed. The patient then took the dose of Oxycodone in front of this RN. Reiterated to patient that we have to watch her take the medications we are giving her. She verbalized understanding. * Eileen Vargas RN - 03/27/2025 5:30 PM EDT This note was copied from a baby's chart. Note: Came to Mom's room--new delivery. The baby is asleep in the crib. Mom's plan for infant feeding is breast and bottle feeding formula. I reviewed feeding cues with the parents, and encouraged skin to skin holding, and offering the breast every 3 hours--sooner with cues. I gave, reviewed, and wrote the LC number on the teaching papers, and offered LC support as needed. * Renzo Mccloud RN - 03/27/2025 7:56 AM EDT 03/27/25 0744 Heart Rate Mode External US Baseline Rate 135 bpm Baseline Classification Normal Variability Moderate Pattern A Movement Present Uterine Activity Mode Palpation;[place] Contraction Frequency irregular Contraction Duration 70-140 Contraction Intensity Mild;Irritability Resting Tone Palpated Soft NST NST Performed? Yes $ NST charge Yes Nonstress Test Uterine Findings Uterine Irritability Yes Contractions Irregular Nonstress Test Fetus A Variability Moderate Decelerations None Accelerations Yes Acoustic Stimulator No Baseline 135 BPM Interpretation Fetus A Nonstress Test Interpretation Reactive Cosigned by Lila Greenwood MD at 03/27/2025 8:30 AM EDT documented in this encounter Procedure Notes * Lila Greenwood MD - 03/27/2025 2:30 PM EDT Delivery Information for Adelia Willoughby Labor Events: labor: No Fluid Color: Clear Induction: Oxytocin Augmentation: Complications: Gestational Diabetes Cervical ripening: Delivery: Episiotomy: Laceration Repaired? Perineal: Periurethral: Labial: Sulcus: Vaginal: Cervical: Blood loss (mL): Delivery Blood Loss Intrapartum & : 03/27/25 1152 - 03/27/25 1430 Delivery Admission: 03/27/25 0627 - 03/27/25 1430 Intrapartum & Delivery Admission None information: Date of : Information for the patient's : Adelia Willoughby Baby [[id number]] 03/27/2025 Time of : Information for the patient's : Adelia Willoughby Baby [[id number]] 12:00 AM EDT Sex: Information for the patient's : Adelia Willoughby Baby [[id number]] female Delivery type: GA: 39w3d Delivery Clinician: Lila Greenwood Living?: APGARS One minute Five minutes Ten minutes Fifteen minutes Twenty minutes Skin color: Heart rate: Grimace: Muscle tone: Breathing: Totals: Presentation/position: ; Resuscitation: Bulb Suction;Position;Dry;Warm Cord information: Disposition of cord blood: Lab Blood gases sent? Complications: Placenta: Delivered: Removal: Appearance: Cultures sent to pathology: [place] Measurements: Weight: Length: Head circumference (in): Other providers: RENZO MCCLOUD;ESTEFANI WHITFIELD;AJAY LAWRENCE;JACI BEE;ASHANTI MANUEL;SHAMA HUSSEIN Delivery Nurse;Laborer [employer]entry [employer];Laborer [employer];Second Customer Service Engineer;Second Customer Service Engineer;Charge Nurse Additional information: Forceps: Vacuum: Breech: Observed anomalies Disposition: Disposition: Mother's Choice for Feeding: BF-Breast Fed will supplement with formula, if indicated Output: Skin to Skin: VAGINAL DELIVERY NOTE Procedure: Spontaneous Vaginal Delivery Attending: Lila Greenwood MD EBL: 300 mL : Living female with Apgars & weight pending Complications: none Delivery note: The patient pushed for a spontaneous vaginal delivery. The was delivered in the OA position and a shoulder dystocia was encountered and relieved after 20 seconds with McRobert'spositioning. was handed off to the awaiting staff. The placenta followed spontaneously. The vagina and perineum were inspected. No lacerations. Patient tolerated procedure well and remained inher room for recovery. Lial Greenwood MD documented in this encounter Miscellaneous Notes * Utilization Review Notes - Renzo De La Garza RN - 03/27/2025 4:02 PM EDT ADMITTED INPATIENT ON 03/27 @ 0637 at 39w3d admitted for induction of labor 03/27, BABY WITH MOM SEE DELIVERY REPORT DC WHEN STABLE * Utilization Review Notes - Renzo De La Garza RN - 03/27/2025 11:38 AM EDT ADMITTED INPATIENT ON 03/27 @ 0637 at 39w3d admitted for induction of labor MEMBRANES INTACT PITOCIN GTT DELIVERY PENDING * H&P Update - Lila Greenwood MD - 03/27/2025 8:00 AM EDT ACOG reviewed and updated. This patient is a 29 y.o. at 39w3d admitted for induction of labor. was uncomplicated although Andriy did not complete her 3hr GTT. Plan for pitocin and AROM today. Cervix was 3cm in office. Cat 1 FHTs. Lila Greenwood MD documented in this encounter Plan of Treatment Upcoming Encounters Date Type Department Care Team (Late st Contact Info) Description 07/30/2025 1:30 PM EDT Patient Outreach [facility] [address] [place] [address] documented as of this encounter Goals Goal Patient Goal Type Associated Problems Recent Progress Patient-Stated? Author Blood Pressure < 140/90 Blood Pressure 116/78(2024 1:17 PM EDT) No Chanel Nguyen RMA Maintain a healthy diet, exercise regularly and maintain an ideal body weight General No Braulio Castro RMA BMI (Calculated) < 30 General 45.9(05/14/20 1:17 PM EDT) No Chanel Nguyen RMA Stay Tobacco Free Lifestyle No Braulio Castro RMA HEMOGLOBIN A1C < 7.0 Result Component 5.3( 2:26 PM EDT) No Chanel Nguyen RMSonido documented as of this encounter Procedures Procedure Name Priority Date/Time Associated Diagnosis Comments RHIG CHECK Routine 03/28/2025 6:22 AM EDT KLEIHAUER BETKE STAIN Routine 03/28/2025 6:22 AM EDT RHIG ELIGIBILITY Routine 03/27/2025 11:0 0 PM EDT RHIG Routine 03/27/2025 11:00 PM EDT GLUCOSE METER POC Routine 03/27/2025 8:3 3 AM EDT HIV AG/AB STAT 03/27/2025 7:03 AM EDT Grand multiparity BB HISTORY CHECK Routine 03/27/2025 7:03 AM EDT Grand multiparity SYPHILIS SCREEN WITH REFLEX RPR QUANT Routine 03/27/2025 7:03 AM EDT Grand multiparity CBC Routine 03/27/2025 7:03 AM EDT Grand multiparity HIGH RISK HCV ANTIBODY REFLEX STAT 03/27/2025 7:03 AM EDT Grand multiparity DRUGS OF ABUSE WITH REFLEX TO CONFIRMATION, URINE Routine 03/27/2025 7:03 AM EDT Grand multiparity ABORH Routine 03/27/2025 7:03 AM EDT Grand multiparity ANTIBODY SCREEN IGG Routine 03/27/2025 7 :03 AM EDT Grand multiparity TYPE AND SCREEN Routine 03/27/2025 7:03 AM EDT Grand multiparity ADMIT Routine 03/27/2025 6:37 AM EDT documented in this encounter Results * RHIG CHECK (03/28/2025 6:22 AM EDT) RhIG Check (1) Yes 03/28/2025 12:41 PM EDT [facility] Blood VENOUS BLOOD / Unknown Venipuncture / Unknown 03/28/2025 6:22 AM EDT 03/28/2025 9:16 AM EDT us Lila Greenwood MD BLOOD BANK ORDERABLES Final Result [facility] [address] [place] [address] * KLEIHAUER BETKE STAIN (03/28/2025 6:22 AM EDT) % Cells 0.0 % 03/28/2025 12:09 PM EDT [facility] [employer] Blood VENOUS BLOOD / Unknown Venipuncture / Unknown 03/28/2025 6:22 AM EDT 03/28/2025 9:16 AM EDT us Lila Greenwood MD HEMATOLOGY ORDERABLES Final Result [facility] [employer] [address] [facility], [place] [address] * RHIG ELIGIBILITY (03/27/2025 11:00 PM EDT) RhIG Eligible (1) Yes 03/28/2025 12:42 PM EDT [facility] Blood VENOUS BLOOD / Unknown 03/27/2025 11:00 PM EDT 03/27/2025 11:00 PM EDT us Lila Greenwood MD BLOOD BANK ORDERABLES Final Result Performing Organization Address [facility] Co de Phone Number [facility] [address] [place] [id number] * (ABNORMAL) GLUCOSE METER POC (03/27/2025 8:33 AM EDT) [facility] [address] Glucose Meter POC 109(H) 70 - 100 mg/dL 03/27/2025 8:34 AM EDT [facility] Sample Type Capillary 03/27/2025 8:34 AM EDT [facility] Patient Status Non-Critical Patient 03/27/2025 8:34 AM EDT [facility] Blood BLOOD SPECIMEN / Unknown 03/27/2025 8:33 AM EDT 03/27/2025 8:34 AM EDT Lila Greenwood MD POINT OF CARE TEST ORDERABL ES Final Result Performing Organization Address City/[facility]/ZIP Co de Phone Number [facility] [address] [place] [id number] * BB HISTORY CHECK (03/27/2025 7:03 AM EDT) [facility] [address] BB HISTORY CHECK (1) Note or Issue in History 03/27/2025 7:16 AM EDT [facility] Blood VENOUS BLOOD / Unknown Venipuncture / Unknown 03/27/2025 7:03 AM EDT 03/27/2025 7:10 AM EDT Lila Greenwood MD BLOOD BANK ORDERABLES Final Result Performing Organization Address City/[facility]/ZIP Co de Phone Number [address] [address] * ANTIBODY SCREEN IGG (03/27/2025 7:03 AM EDT) Pathologist [facility] ABSC IgG Int Negative 03/27/2025 9:05 AM EDT [facility] Blood VENOUS BLOOD / Unknown Venipuncture / Unknown 03/27/2025 7:03 AM EDT 03/27/2025 7:10 AM EDT us Lila Greenwood MD BLOOD BANK ORDERABLES Final Result Performing Organization Address [facility]/ZIP Co de Phone Number [address] [address] * ABORH (03/27/2025 7:03 AM EDT) Pathologist [facility] ABORH Int A NEG 03/27/2025 8:0 1 AM EDT [facility] Blood VENOUS BLOOD / Unknown Venipuncture / Unknown 03/27/2025 7:03 AM EDT 03/27/2025 7:10 AM EDT Lila Greenwood MD BLOOD BANK ORDERABLES Final Result Performing Organization Address City/[facility]/ZIP Co de Phone Number [facility] [address] [address] * HIGH RISK HCV ANTIBODY REFLEX (03/27/2025 7:03 AM EDT) Pathologist [facility] Hep C Ab Non-Reacti ve Non-React alka 03/27/2025 7:51 AM EDT [facility] [employer], [facility] Comment:No antibodies to HCV detected. Does not exclude possibility of exposure to HCV. Blood VENOUS BLOOD / Unknown Venipuncture / Unknown 03/27/2025 7:03 AM EDT 03/27/2025 7:10 AM EDT Narrative [facility] [employer], [facility] - 03/27/2025 7:51 AM EDT Test performed using [employer] electrochemiluminescence immunassay (ECLIA). Lila Greenwood MD IMMUNOLOGY ORDERABLES Final Result Performing Organization Address [facility] de Phone Number [facility] [employer] , [place] [address] * HIV AG/AB (03/27/2025 7:03 AM EDT) [facility] [address] HIV Ag/AB Non-Reacti ve Non-Reacti ve 03/27/2025 7:55 AM EDT [facility] [employer] [facility] Comment:Negative for HIV-1 a ntigen and anti-HIV-1/anti-HIV-2 antibodies. Blood VENOUS BLOOD / Unknown Venipuncture / Unknown 03/27/2025 7:03 AM EDT 03/27/2025 7:10 AM EDT Narrative [facility] [employer], [facility] - 03/27/2025 7:55 AM EDT Test performed using [employer] electrochemiluminescence immunassay (ECLIA). Lila Greenwood MD IMMUNOLOGY ORDERABLES Final Result Performing Organization Address [facility] Phone Number [facility] [employer] , [place] [address] * (ABNORMAL) CBC (03/27/2025 7:03 AM EDT) Pathologist [facility] WBC 9.0 3.7 - 10.3 x10(3)/mcL 03/27/2025 7:24 AM EDT [facility] [employer], [facility] RBC 3.82(L) 3.90 - 5.20 x10(6)/mcL 03/27/2025 7:24 AM EDT [facility] [employer], [facility] Hgb 10.0(L) 11.2 - 15.7 g/dL 03/27/2025 7:24 AM EDT [facility] Hct 31.4(L) 34.0 - 45.0 % 03/27/2025 7:24 AM EDT [facility] MCV 82.2 80.0 - 100.0 fL 03/27/2025 7:24 AM EDT [facility] MCH 26.2 26.0 - 34.0 pg 03/27/2025 7:24 AM EDT [facility] MCHC 31.8 30.7 - 35.5 g/dL 03/27/2025 7:24 AM EDT [facility] RDW 14.5 <=14.9 % 03/27/2025 7:24 AM EDT [facility] Platelet 203 155 - 369 x10(3)/mcL 03/27/2025 7:24 AM EDT [facility] MPV 9.6 8.8 - 12.5 fL 03/27/2025 7:24 AM EDT [facility], [facility] Blood VENOUS BLOOD / Unknown Venipuncture / Unknown 03/27/2025 7:03 AM EDT 03/27/2025 7:10 AM EDT us Lila Greenwood MD HEMATOLOGY ORDERABLES Final Result [facility] [address] [facility] , [place] [address] * SYPHILIS SCREEN WITH REFLEX RPR QUANT (03/27/2025 7:03 AM EDT) Trep Ab Index 0.10 <=0.99 Index Value 03/27/2025 9:11 AM EDT [facility] Comment: < 1.00 - Non-Reactive >=1.00 - Reactive NOTE: All reactive results will be reflexed to Quantitative Non-Treponemal(RPR)test. Blood VENOUS BLOOD / Unknown Venipuncture / Unknown 03/27/2025 7:03 AM EDT 03/27/2025 7:10 AM EDT Lila Greenwood MD CHEMISTRY ORDERABLES Final Result [facility] [address] [facility] , [place] [address] * DRUGS OF ABUSE WITH REFLEX TO CONFIRMATION, URINE (03/27/2025 7:03 AM EDT) 6 AM (Heroin) Absent Cutoff 10 ng/mL 03/27/2025 7:48 AM EDT [facility] Amphetamines Absent Cutoff 500 ng/mL 03/27/2025 7:48 AM EDT [facility] Barbiturates Absent Cutoff 200 ng/mL 03/27/2025 7:48 AM EDT [facility] Benzodiazepines Absent Cutoff 200 ng/mL 03/27/2025 7:48 AM EDT [facility] Buprenorphine Absent Cutoff 5 ng/mL 03/27/2025 7:48 AM EDT [facility] Cannabinoid Metabolite Absent Cutoff 50 ng/mL 03/27/2025 7:48 AM EDT [facility] Cocaine Metabolite Absent Cutoff 150 ng/mL 03/27/2025 7:48 AM EDT [facility] Fentanyl Absent Cutoff 5 ng/mL 03/27/2025 7:48 AM EDT [facility] Methadone and Metabolite Absent Cutoff 300 ng/mL 03/27/2025 7:48 AM EDT [facility] Opiate Absent Cutoff 300 ng/mL 03/27/2025 7:48 AM EDT [facility] Oxycodone Lvl Absent Cutoff 100 ng/mL 03/27/2025 7:48 AM EDT [facility] Urine Creatinine 175.0 mg/dL 03/27/20 7:48 AM EDT [facility] Comment: Greater than 20: Consistent with valid sample Greater than 2 but less than 20: Possible dilution Less than 2: Questionable valid sample Urine STRUCTURE OF URINARY TRACT PROPER / Unknown 03/27/2025 7:03 AM EDT 03/27/2025 7:11 AM EDT Narrative [facility] - 03/27/2025 7:48 AM EDT These drug classes have been qualitatively screened by immunoassay and are for medical purposes only. Results should not be used for non-medical purposes. Results reported as presumptive positive will be sent for confirmation. Due to possible factors, such as, dilute/adulterated urine, concentration of drug/metabolite being below the cut-off, or antibody specificity of test reagent, a negative result does not rule out drug use. These results are only valid for urine specimens. Any contamination with vaginal pool/amniotic fluid could cause erroneous results. us Lila Greenwood MD URINE ORDERABLES Final Resu lt [employer] [address] [place] [address] , [place] [address] documented in this encounter Visit Diagnoses Diagnosis (spontaneous vaginal delivery)- Primary Normal delivery Grand multiparity Grand multiparity Rh negative state in antepartum period Rhesus isoimmunization affecting management of mother, antepartum condition Encounter for supervision of normal in third trimester Supervision of other normal Noncompliant patient in third trimester documented in this encounter Admitting Diagnoses Diagnosis Grand multiparity documented in this encounter Administered Medications Inactive Administered Medications - up to 1 most recent administrations Medication Order MAR Action Action Date Dose Rate Site acetaminophen (TYLENOL) tablet 1,000 mg 1,000 mg, Oral, *EVERY 6 HOURS, First dose on Wed03/27/25 at 1815, Until Discontinued, Alternate administrations of ibuprofen and acetaminophen 3 hours apart. Continue until discharge. Maximum adult dose of acetaminophen is 4000 mg from all sources in 24 hours., Post-op Given 03/29/2025 12:04 PM EDT 1,000 mg aluminum & magnesium hydroxide-simethicone 200-200-20 mg/5 mL suspension 30 mL 30 mL, Oral, EVERY 4 HOURS PRN, Starting on Wed03/27/25 at 151, Until Wed03/29/25 at 1916, Indigestion, Shake well., Post-op usbpuramgi-tbnhojn-mxm e vera (DERMOPLAST) 20-0.5 % topical spray Aero Topical, 4 TIMES DAILY PRN, Starting on Wed03/27/25 at 151, Until Wed03/29/25 at 1916, perineal discomfort, Application site: Perineum, Post-op Given 03/29/2025 4:20 AM EDT fentaNYL 3 mcg/mL and bupivacaine 0.125 % epidural 130 ml (Pyxis) Epidural, TITRATED, Starting on Wed03/27/25 at 1215, Until Sujey 03/29/25 at 1916, Maintain IV during epidural infusion. Stop infusion and call Anesthesia if patient complains of numbness, tingling, weakness of hands, face or tongue, metallic taste in mouth, ringing in ears, or if patient overly sedated and difficult to arouse. For epidural use only , Delivery Mode: Intermittent Mode, Amt/Dose (mL): 5, Dose Freq (min): 20, Lock Code for Program Changes: [id number] New Bag 03/27/2025 12:34 PM EDT 13.5 mL/hr 13.5 mL/hr gabapentin (NEURONTIN) capsule 200 mg 200 mg, Oral, EVERY 8 HOURS PRN, Starting on Wed03/27/25 at 1429, Until Sujey 03/29/25 at 1916, Pain, Pain Unrelieved by other non-opioids, Capsules may be opened and contents dissolved in water for administration Given 03/29/2025 6:05 AM EDT 200 mg hydrocortisone 1 % cream Topical, 4 TIMES DAILY PRN, Starting on Wed03/27/25 at 1512, Until Sujey 03/29/25 at 1916, Other, for perineal discomfort, Application site: Perineum, Perineum, Perineum, Perineum, Post-op Given 03/29/2025 1:50 AM EDT ibuprofen (ADVIL;MOTRIN) tablet 600 mg 600 mg, Oral, EVERY 6 HOURS SCHEDULED (4 times per day), First dose (after last modification) on Wed03/27/25 at 2345, Until Discontinued, Give with food. If patient receiving scheduled ibuprofen (Caldolor) or ketorolac IV, hold oral ibuprofen until IV therapy completed. Given 03/29/2025 10:49 AM EDT 600 mg lactated ringers infusion Intravenous, at 125 mL/hr, CONTINUOUS, Starting on Wed03/27/25 at 0645, Until Wed03/27/25 at 1643, L&D Pre-Delivery New Bag 03/27/2025 7:02 AM EDT 125 mL/hr metoclopramide HCl (REGLAN) injection 10 mg 10 mg, Intravenous, EVERY 8 HOURS PRN, Starting on Wed03/27/25 at 1206, Until Sujey 03/29/25 at 1916, Nausea, Vomiting, For nausea unrelieved by or if allergic to ondansetron (ZOFRAN). Administer slowly IV push. ondansetron (ZOFRAN) injection 4 mg 4 mg, Intravenous, EVERY 8 HOURS PRN, Starting on Wed03/27/25 at 1206, Until Sujey 03/29/25 at 1916, Nausea, Vomiting oxyCODONE (ROXICODONE) immediate release tablet 5 mg 5 mg, Oral, EVERY 4 HOURS PRN, Starting on Wed03/27/25 at 2208, Until Sujey 03/29/25 at 1916, Pain Unrelieved by Oral Non-Opioid Therapy Given 03/29/2025 1:57 PM EDT 5 mg oxytocin (PITOCIN) 20 units in LR 1000 mL (after placenta delivery) Intravenous, at 999 mL/hr, PRN, 1 dose, Starting on Wed03/27/25 at 0636, Until Wed03/27/25 at 1526, Begin after delivery of placenta to promote uterine involution. Continue oxytocin until vaginal bleeding and vital signs are stable., L&D Pre-Delivery IV Started 03/27/2025 2:26 PM EDT 999 mL/hr oxytocin (pitOCIN) 20 units in LR 1000 mL 1-20 anshul-units/min (3-60 mL/hr), Intravenous, TITRATED, Starting on Wed03/27/25 at 0645, Until Wed03/27/25 at 1643, Pitocin 20 units in 1000 mL started at 2 mu/min increase 2 mu/min every 30 minutes until patient is in active labor. The nurse will notify the physician when the Pitocin reaches 20 milliunits/min (60 mL/hr). - Oxytocin may be discontinued by the RN as needed based on patient/fetus response and may include reasons such as: 1) Tachysystole, 2) Category II or Category III Heart rate tracings, 3) Vaginal bleeding, or 4) Uterine hypertonus. - Oxytocin infusion rate may be maintained (not increased) by the RN as needed based on patient/fetus response and may include reasons such as: 1) Epidural placement, 2) Active labor achieved, 3) Patient request, 4) Provider request. - Oxytocin infusion rate may be decreased by the RN as needed based on patient/fetus response and may include reasons such as: 1) tachysystole with Category I or II FHR tracing, 2) Provider request. , L&D Pre-Delivery Rate/Dose Change 03/27/2025 1:23 PM EDT 18 anshul-units/m in 54 mL/hr rho(D) immune globulin injection 300 mcg 300 mcg, Intramuscular, ONCE (L&D), 1 dose, On Wed03/28/25 at 1400 Given 03/28/2025 5:02 PM EDT 300 mcg Right upper gluteus senna-docusate (SENOKOT-S) 8.6-50 mg per tablet 2 Tablet 2 Tablet, Oral, NIGHTLY, First dose on Wed03/27/25 at 2200, Until Discontinued, Until BM, then discontinue, Post-op Given 03/28/2025 10:11 PM EDT 2 Tablets witch katie-glycerin (TUCKS) pad Topical, PRN, Starting on Wed03/27/25 at 1512, Until Wed03/29/25 at 1916, Other, Perineal Hygiene, Application site: Perineum, Post-op Given 03/29/2025 1:50 AM EDT documented in this encounter Discontinued Medications Medication Sig Discontinue Reason Start Date End Da te mupirocin (BACTROBAN) 2 % Top OintmentIndications:P aronychia of great toe of left foot Apply topically 3 times daily. DELETE-Therapy completed 07/19/2024 03/27/2025 Amoxicillin 500 mg Oral Tablet DELETE-Therapy completed 12/05/2024 03/27/2025 chlorhexidine (PERIDEX) 0.12 % MM Mouthwash RINSE 15 MLS BY MOUTH TWICE DAILY FOR 2 MINUTES THEN SPIT DELETE-Therapy completed 01/04/2025 03/27/2025 ondansetron (ZOFRAN) 4 mg Oral TabletIndications:Lm sea/vomiting in Take 1 Tablet by mouth every 6 hours as needed for Nausea. Stop Taking at Discharge 08/15/2024 03/29/2025 acetaminophen-codeine (TYLENOL #3) 300-30 mg Oral Tablet Take 1 Tablet by mouth every 4 hours as needed for Pain. Stop Taking at Discharge 03/29/2025 documented as of this encounter Active and Recently Administered Medications Times are shown in EDT. Scheduled Medication Order 03/27/2025 03/28/2025 03/29/2025 acetaminophen (TYLENOL) tablet 1,000 mg 1,000 mg, Oral, *EVERY 6 HOURS, First dose on Wed03/27/25 at 1815, Until Discontinued, Alternate administrations of ibuprofen and acetaminophen 3 hours apart. Continue until discharge. Maximum adult dose of acetaminophen is 4000 mg from all sources in 24 hours., Post-op 1752 (Given - Provider: Urszula Jiang, RN) 0014 (Given - Provider: Nora Simon, CHUY)0601 (Given - Provider: Nora Simon RN)1253 (Given - Provider: Katelyn Abernathy, CHUY)1825 (Given - Provider: Katelyn Abernathy, RN) 0036 (Given - Provider: Mali Russell, CHUY)0605 (Given - Provider: Mali Russell, CHUY)1204 (Given - Provider: Katelyn Abernathy, RN) ibuprofen (ADVIL;MOTRIN) tablet 600 mg 600 mg, Oral, EVERY 6 HOURS SCHEDULED (4 times per day), First dose (after last modification) on Wed03/27/25 at 2345, Until Discontinued, Give with food. If patient receiving scheduled ibuprofen (Caldolor) or ketorolac IV, hold oral ibuprofen until IV therapy completed. 2214 (Given - Provider: Nora Simon RN) 0426 (Given - Provider: Nora Simon RN)1050 (Given - Provider: Katelyn Abernathy, CHUY)1200 (Due)1701 (Given - Provider: Katelyn Abernathy, RN)2211 (Given - Provider: Mali Russell, CHUY) 0420 (Given - Provider: Mali Russell, CHUY)1049 (Given - Provider: Katelyn Abernathy, RN)1200 (Not Given - Provider: Katelyn Abernathy, RN - Reason: Contraindicated) rho(D) immune globulin injection 300 mcg (COMPLETED) 300 mcg, Intramuscular, ONCE (L&D), 1 dose, On Wed03/28/25 at 1400 1702 (Given - Provider: Katelyn Abernathy, CHUY) senna-docusate (SENOKOT-S) 8.6-50 mg per tablet 2 Tablet 2 Tablet, Oral, NIGHTLY, First dose on Wed03/27/25 at 2200, Until Discontinued, Until BM, then discontinue, Post-op 0015 (Not Given - Provider: Nora Simon, RN - Reason: Patient Declined)221 (Given - Provider: Mali Russell, CHUY) Continuous Medication Order 03/27/2025 03/28/2025 03/29/2025 fentaNYL 3 mcg/mL and bupivacaine 0.125 % epidural 130 ml (Pyxis) Epidural, TITRATED, Starting on e 03/27/25 at 1215, Until Sujey 03/29/25 at 1916, Maintain IV during epidural infusion. Stop infusion and call Anesthesia if patient complains of numbness, tingling, weakness of hands, face or tongue, metallic taste in mouth, ringing in ears, or if patient overly sedated and difficult to arouse. For epidural use only , Delivery Mode: Intermittent Mode, Amt/Dose (mL): 5, Dose Freq (min): 20, Lock Code for Program Changes: [id number] 1230 (Given - Provider: Estefani Whitfield)1233 (Given - Provider: Estefani Whitfield)1234 (New Bag - Provider: Estefani Whitfield)1422 (Stopped - Provider: Estefani Whitfield) lactated ringers infusion (CANCELED) Intravenous, at 125 mL/hr, CONTINUOUS, Starting on Wed03/27/25 at 0645, Until Wed03/27/25 at 1643, L&D Pre-Delivery 0702 (New Bag - Provider: Libra Abernathy RN)1643 (Stopped - Provider: Urszula Jiang, CHUY - Comment: stopped by other RN) oxytocin (pitOCIN) 20 units in LR 1000 mL (CANCELED) 1-20 anshul-units/min (3-60 mL/hr), Intravenous, TITRATED, Starting on Wed03/27/25 at 0645, Until Wed03/27/25 at 1643, Pitocin 20 units in 1000 mL started at 2 mu/min increase 2 mu/min every 30 minutes until patient is in active labor. The nurse will notify the physician when the Pitocin reaches 20 milliunits/min (60 mL/hr). - Oxytocin may be discontinued by the RN as needed based on patient/fetus response and may include reasons such as: 1) Tachysystole, 2) Category II or Category III Heart rate tracings, 3) Vaginal bleeding, or 4) Uterine hypertonus. - Oxytocin infusion rate may be maintained (not increased) by the RN as needed based on patient/fetus response and may include reasons such as: 1) Epidural placement, 2) Active labor achieved, 3) Patient request, 4) Provider request. - Oxytocin infusion rate may be decreased by the RN as needed based on patient/fetus response and may include reasons such as: 1) tachysystole with Category I or II FHR tracing, 2) Provider request. , L&D Pre-Delivery 0758 (New Bag - Provider: Renzo Mccloud RN)0832 (Rate/Dose Change - Provider: Renzo Mccloud RN)0859 (Rate/Dose Change - Provider: Renzo Mccloud RN)0928 (Rate/Dose Change - Provider: Renzo Mccloud RN)0958 (Rate/Dose Change - Provider: Renzo Mccloud RN)1027 (Rate/Dose Verify (No Cosign) - Provider: Renzo Mccloud RN)1029 (Rate/Dose Change - Provider: Renzo Mccloud RN)1101 (Rate/Dose Change - Provider: Renzo Mccloud RN)1131 (Rate/Dose Change - Provider: Renzo Mccloud RN)1323 (Rate/Dose Change - Provider: Shama Hussein RN)1426 (Stopped - Provider: Renzo Mccloud RN) PRN Medication Order 03/27/2025 03/28/2025 03/29/2025 aluminum & magnesium hydroxide-simethicone 200-200-20 mg/5 mL suspension 30 mL 30 mL, Oral, EVERY 4 HOURS PRN, Starting on Wed03/27/25 at 1512, Until Wed03/29/25 at 1916, Indigestion, Shake well., Post-op jxchdecvsy-gzrinxc-bppd vera (DERMOPLAST) 20-0.5 % topical spray Aero Topical, 4 TIMES DAILY PRN, Starting on Wed03/27/25 at 1512, Until Sujey 03/29/25 at 1916, perineal discomfort, Application site: Perineum, Post-op 152 (Given - Provider: Renzo Mccloud, RN) 0420 (Given - Provider: Mali Russell, RN) gabapentin (NEURONTIN) capsule 200 mg 200 mg, Oral, EVERY 8 HOURS PRN, Starting on Wed03/27/25 at 1429, Until Sujey 03/29/25 at 1916, Pain, Pain Unrelieved by other non-opioids, Capsules may be opened and contents dissolved in water for administration 2104 (Given - Provider: Nora Simon, RN) 1050 (Given - Provider: Katelyn Abernathy, RN)2217 (Given - Provider: Mali Russell, CHUY) 0605 (Given - Provider: Mali Russell, RN) hydrocortisone 1 % cream Topical, 4 TIMES DAILY PRN, Starting on Wed03/27/25 at 1512, Until Sujey 03/29/25 at 1916, Other, for perineal discomfort, Application site: Perineum, Perineum, Perineum, Perineum, Post-op 152 (Given - Provider: Renzo Mccloud RN) 1050 (Given - Provider: Katelyn Abernathy, RN) 0150 (Given - Provider: Mali Russell, CHUY) metoclopramide HCl (REGLAN) injection 10 mg(Linked Group 1) 10 mg, Intravenous, EVERY 8 HOURS PRN, Starting on Wed03/27/25 at 1206, Until Sujey 03/29/25 at 1916, Nausea, Vomiting, For nausea unrelieved by or if allergic to ondansetron (ZOFRAN). Administer slowly IV push. ondansetron (ZOFRAN) injection 4 mg(Linked Group 1) 4 mg, Intravenous, EVERY 8 HOURS PRN, Starting on Wed03/27/25 at 1206, Until Sujey 03/29/25 at 1916, Nausea, Vomiting oxyCODONE (ROXICODONE) immediate release tablet 5 mg 5 mg, Oral, EVERY 4 HOURS PRN, Starting on Wed03/27/25 at 2208, Until Sujey 03/29/25 at 1916, Pain Unrelieved by Oral Non-Opioid Therapy 2302 (Given - Provider: Nora Simon, CHUY) 0913 (Given - Provider: Katelyn Abernathy, RN)1701 (Given - Provider: Katelyn Abernathy, RN)2340 (Given - Provider: Mali Russell, RN) 0420 (Given - Provider: Mali Russell, RN)0821 (Given - Provider: Katelyn Abernathy, RN)1357 (Given - Provider: Katelyn Abernathy, RN) oxytocin (PITOCIN) 20 units in LR 1000 mL (after placenta delivery) (COMPLETED) Intravenous, at 999 mL/hr, PRN, 1 dose, Starting on Wed03/27/25 at 0636, Until e 03/27/25 at 1526, Begin after delivery of placenta to promote uterine involution. Continue oxytocin until vaginal bleeding and vital signs are stable., L&D Pre-Delivery 1426 (IV Started - Provider: Renzo Mccloud RN)1526 (Stopped - Provider: Renzo Mccloud, CHUY) witch katie-glycerin (TUCKS) pad Topical, PRN, Starting on Wed03/27/25 at 1512, Until Sujey 03/29/25 at 1916, Other, Perineal Hygiene, Application site: Perineum, Post-op 1527 (Given - Provider: Renzo Mccloud RN) 0150 (Given - Provider: Mali Russell, CHUY) Linked Groups Order Group 1: ondansetron (ZOFRAN) injection 4 mgJump to med 4 mg, Intravenous, EVERY 8 HOURS PRN, Starting on e 03/27/25 at 1206, Until Sujey 03/29/25 at 1916, Nausea, Vomiting Or metoclopramide HCl (REGLAN) injection 10 mgJump to med 10 mg, Intravenous, EVERY 8 HOURS PRN, Starting on e 03/27/25 at 1206, Until Sujey 03/29/25 at 1916, Nausea, Vomiting, For nausea unrelieved by or if allergic to ondansetron (ZOFRAN). Administer slowly IV push. documented in this encounter Orders Medications Ordered That Doug ht Not Have Been Administered Count Last Ordered Date First Ordered Date acetaminophen (TYLENOL) tablet 1,000 mg 1 0 03/27/2025 aluminum & magnesium hydroxi de-simethicone 200-200-20 mg/5 mL suspension 30 mL 1 03/27/2025 fentaNYL (SUBLIMAZE) injection 50-100 mcg 1 03/27/2025 fentaNYL 3 mcg/mL and bupiva kyleigh 0.125 % epidural 130 ml (Pyxis) 1 03/27/2025 FENTANYL 3 MCG/ML AND BUPIVI KYLEIGH 0.125% EPIDURAL epidural 1 03/27/2025 ibuprofen (ADVIL;MOTRIN) tablet 600 mg 2 metoclopramide HCl (REGLAN) injection 10 mg 1 03/27/2025 ondansetron (ZOFRAN) injection 4 mg 1 03/27 Lab Orders Without Results Count Last Ordered D ate First Ordered Date SCREEN 1 03/27/2025 Admission Count Last Ordered Date First Orde red Date ADMIT 1 03/27/2025 Discharge Count Last Ordered Date First Orde red Date DISCHARGE PATIENT 1 03/29/2025 documented in this encounter Care Teams Worm Packer Relationship Specialty Start Date End Date Rafa Powell MD [address] [place], [place] [id number] PCP - General Internal Medicine 07/06/24 documented as of this encounter
--- OUTSIDE RECORDS SUMMARY | 2025-03-27 06:29 | XMS_ITS | Encounter Summary ---
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 No 03/28/2025 Overall Financial Resource Strain (CARDIA) Answe r Date Recorded How hard is it for you to pa y for the very basics like food, housing, medical care, and heating? Not very hard 03/28/2025 PHQ-2 Answer Date Recorded PHQ-2 Total Score 0 03/28/2025 [facility] [place] [facility] Occupat ional [facility] - Occupational Stress [...] things needed for daily living? Yes [facility]20[facility] IP Transportation Answer D ate Recorded [...] on file documented as of this encounter Functional Status * Alcohol Screening Score Answer Date of Assessment Author 0 03/27/2025 7:15 AM EDT Sharon Yates RN * Drug Screening Score Answer Date of Assessment Author 0 03/27/2025 7:15 AM Sharon Newberry RN * Question Answer Date of Assessment Author How often do you have a drin k containing alcohol? 0 03/27/2025 7:15 AM EDSharon Motley RN How many drinks containing a lcohol do you have on a typical day when you are drinking? 0 03/27/2025 7:15 AM EDT Sharon Yates RN How often do you have six or more drinks on one occasion? 0 03/27/2025 7:15 AM EDT Odette Yates RN AUDIT-C to Determine Rows 4-10 0 03/27/2025 7:15 AM EDT Sharon Yates RN * Is the person deaf or [...] of Assessment Author No 04/28/2023 2:43 PM Sahil Shin RN * Does this person have difficulty dressing or bathing? Answer Date of Assessment Author No 04/28/2023 2:43 PM Sahil Shin RN * Because of a physical, mental or emotional condition, does this person have difficulty doing errands alone such as visiting a doctor's office or shopping? Answer Date of Assessment Author No 04/28/2023 2:43 PM EDSahil Conley RN * PHQ-9 Total Score Answer Date of Assessment Author 0 03/27/2025 7:16 AM EDSharon Motley RN * Question Answer Date of Assessment Author Little interest or pleasure in doing things 0 03/27/2025 7:16 AM Sharon Newberry RN Feeling down, depressed, or hopeless 0 03/27/2025 7:16 AM Sharon Newberry RN PHQ-2 Total Score 0 03/27/2025 7:16 AM SOPHIET Sharon Yates RN * PHQ-2 Total Score Answer Date of Assessment Author 0 03/27/2025 7:16 AM EDSharon Motley RN * Question Answer Date of Assessment Author Feeling Nervous, Anxious, or on Edge 0 03/27/2025 7:16 AM Sharon Newberry RN Not Being Able to Stop or Co ntrol Worrying 0 03/27/2025 7:16 AM EDSharon Motley RN Worrying too Much About Diff erent Things 0 03/27/2025 7:16 AM SOPHIET Sharon Yates RN Trouble Relaxing 0 03/27/2025 7:16 AM EDT Sharon Gonzalez RN Being so Restless That it is Hard to Sit Still 0 03/27/2025 7:16 AM Sharon Newberry RN Becoming Easily Annoyed or Irritable 0 03/27/2025 7:16 AM EDT Sharon Yates RN Feeling Afraid as if Somethi ng Awful Might Happen 0 03/27/2025 7:16 AM SOPHIET Sharon Yates RN VLADIMIR-7 Total Score 0 03/27/2025 7:16 AM Sharon Newberry RN * Suicide Severity Rating Answer Date of Assessment Author No Risk 03/27/2025 7:16 AM Sharon Newberry RN * Treasure Suicide Severity Rating Scale (Q shift for moderate and high) Question Answer Date of Assessment Author 1. In the past month, have y ou wished you were or wished you could go to sleep and not wake up? 0 03/27/2025 7:16 AM EDT Sharon Vidal RN 2. In the past month, have y ou actually had any thoughts of killing yourself? (If no, skip to question 6) 0 03/27/2025 7:16 AM Sharon Newberry RN 6. Have you ever done anythi ng, started to do anything, or prepared to do anything to end your life? 0 03/27/2025 7:16 AM EDT Sharon Yates RN documented as of this encounter Mental Status * Because of a physical, mental or emotional condition, does this person have serious difficulty concentrating, remembering or making decisions? Answer Entry Date Author No 04/28/2023 2:43 PM Sahil Shin RN documented in this encounter Medications at Time of Discharge acetaminophen (TYLENOL) 500 mg Oral TabletIndication s:Encounter for supervision of other normal in third trimester Take 500 mg by mouth nightly. no.[id number] a 28 mg iron- 1 mg-200 mg Oral CapsuleIndicatio ns:, unspecified gestational age Take 1 Tablet by mouth daily. 30 Capsule 4 08/15/2024 acetaminophen 325 mg Oral Tab Take 2 Tablets by mouth every 6 hours for 3 days. Maximum recommended acetaminophen dosage is 4,000 mg/day. 03/28/2025 5 acetaminophen-co deine (TYLENOL #3) 300-30 mg Oral Tablet Take 1 Tablet by mouth every 4 hours as needed for Pain. 5 ondansetron (ZOFRAN) 4 mg Oral TabletIndication s:Nausea/vomitin g in Take 1 Tablet by mouth every 6 hours as needed for Nausea. 30 Tablet 08/15/2024 5 oxyCODONE (ROXICODONE) 5 mg Oral Tablet Take 1 Tablet by mouth every 8 hours as needed for Acute Pain (R52) for up to 30 days. 9 Tablet 03/28/2025 3:12 PM EDT 03/28/2025 5 documented as of this encounter Discharge Disposition Disposition Code Departure Means Destination Home or Self Care documented in this encounter Plan of Treatment Upcoming Encounters Date Type Department Care Team (Late st Contact Info) Description 07/30/2025 1:30 PM EDT Patient Outreach [place] [phone] [place] [address] documented as of this encounter Goals Goal Patient Goal Type Associated Problems Recent Progress Patient-Stated? Author Blood Pressure < 140/90 Blood Pressure 116/78(2024 1:17 PM EDT) No Chanel Nguyen RMA Maintain a healthy diet, exercise regularly and maintain an ideal body weight General No Braulio Castro RMA BMI (Calculated) < 30 General 45.9(05/14/20 1:17 PM EDT) Chanel Lima RMA Stay Tobacco Free Lifestyle No Braulio Castro RMA HEMOGLOBIN A1C < 7.0 Result Component 5.3( 2:26 PM EDT) Chanel Lima RMA documented as of this encounter Visit Diagnoses Diagnosis Grand multiparity- Primary documented in this encounter Care Teams Horticulture Worker Relationship Specialty Start Date End Date Rafa Powell MD [address] [place] [address] PCP - General Internal Medicine 07/06/24 documented as of this encounter
--- OUTSIDE RECORDS SUMMARY | 2025-03-27 12:16 | XMS_ITS | Encounter Summary ---
Author [place] [address] Care Team Providers Care Tablet Tester Name Role Phone Rafa Powell MD Primary Care Provider [phone] Reason for Visit * Auth/Cert/Inpt Specialty Diagnoses / Procedures Referred By Contac t Referred To Contact Diagnoses term Referral ID Status Reason Start Date Expiration Date Visits Re quested Visits Authorized [id number] 1 1 Encounter Details Date Type Department Care Team (Late st Contact Info) Description 03/27/2025 12:16 PM EDT [facility] [place] [address] Cristofer Benitez MD [address] [place] [id number] Estefani Whitfield Anesthesia Record Procedure Summary Procedure Name Responsible Anesthesiologist Anesthesia Start Time Anesthesia Stop Time LABOR ANALGESIA Cristofer Benitez MD 03/27/25 1216 1429 Events Date Time Event Comment 03/27/2025 1216 An Start 1216 Immediate Pre Anesthetic Ass es 1225 Block/ Injection Placed 1225 Face Time 1342 1422 Face Time 1429 An Stop Meds Name Total Test Dose *EPI TRAY* lidocaine 1.5%-epin ephrine 1:200,000 injection 5 mL ephedrine injection 50mg/ML 15 mg fentaNYL 3 mcg/mL and bupivacaine 0.125 % epidural 130 ml (Pyxis) 30.3 mL * Agents No agents on file. * Blood No blood administrations on file. Lines, Drains, and Airways Type Details Placement Removal Peripheral IV 03/27/25; 0702; 20; Left; Forearm; Juancarlos Abernathy RN; 2; 03/28/25; 0604; Therapy completed; Catheter intact 03/27/25 0702 by Libra Abernathy RN 03/28/25 0604 by Nora Simon RN Epidural 03/27/25; 1216 (crea sridhar via procedure documentation) 03/27/25 1216 by Cristofer Benitez MD 03/27/25 1401 by Sharon Yates RN documented in this encounter Social History Tobacco Use Types Packs/Day Years [...] drink = 0.6 oz pur e alcohol) [facility] Utilities Answer Date Recorded In the past 12 months has Rithmio, gas, oil, or water [employer] threatened to shut off services in your home? No 03/28/2025 Overall Financial Resource Strain (CARDIA) Answe r Date Recorded How hard is it for you to pa y for the very basics like food, housing, medical care, and heating? Not very hard 03/28/2025 PHQ-2 Answer Date Recorded PHQ-2 Total Score 0 03/28/2025 [facility] of Occupat ional Health - Occupational Stress [...] the money to buy more. Never true 06/25/20 25 Within the past 12 months, t he [...] things needed for daily living? Yes 04/[facility]/2023 [facility] IP Transportation Answer D ate Recorded [...] 03/27/2025 7:15 AM Sharon Newberry RN * Drug Screening Score Answer Date of Assessment Author 0 03/27/2025 7:15 AM EDT Sharon Yates RN * Question Answer Date of Assessment Author How often do you have a drin k containing alcohol? 0 03/27/2025 7:15 AM SOPHIET Sharon Yates RN How many drinks containing a lcohol do you have on a typical day when you are drinking? 0 03/27/2025 7:15 AM EDT Sharon Yates RN How often do you have six or more drinks on one occasion? 0 03/27/2025 7:15 AM EDT Odette Yates RN AUDIT-C to Determine Rows 4-10 0 03/27/2025 7:15 AM SOPHIET Sharon Yates RN * Is the person deaf or does he/she have serious difficulty hearing? Answer Date of Assessment Author No 04/28/2023 2:43 PM Sahil Shin RN * Is the person blind or does he/she have serious difficulty seeing even when wearing glasses? Answer Date of Assessment Author No 04/28/2023 2:43 PM EDSahil Conley RN * Does this person have serious [...] 2:43 PM EDT Sahil Willson RN * PHQ-9 Total Score Answer Date of Assessment Author 0 03/27/2025 7:16 AM EDT Sharon Yates RN * Question Answer Date of Assessment Author Little interest or pleasure in doing things 0 03/27/2025 7:16 AM SOPHIET Sharon Yates RN Feeling down, depressed, or hopeless 0 03/27/2025 7:16 AM EDT Sharon Yates RN PHQ-2 Total Score 0 03/27/2025 7:16 AM EDT Sharon Yates RN * PHQ-2 Total Score Answer Date of Assessment Author 0 03/27/2025 7:16 AM EDSharon Motley RN * Question Answer Date of Assessment Author Feeling Nervous, Anxious, or on Edge 0 03/27/2025 7:16 AM SOPHIET Sharon Yates RN Not Being Able to Stop or Co ntrol Worrying 0 03/27/2025 7:16 AM Sharon Newberry RN Worrying too Much About Diff erent Things 0 03/27/2025 7:16 AM Sharon Newberry RN Trouble Relaxing 0 03/27/2025 7:16 AM EDT Sharon Gonzalez RN Being so Restless That it is Hard to Sit Still 0 03/27/2025 7:16 AM Sharon Newberry RN Becoming Easily Annoyed or Irritable 0 03/27/2025 7:16 AM SOPHIET Sharon Yates RN Feeling Afraid as if Somethi ng Awful Might Happen 0 03/27/2025 7:16 AM EDT Sharon Yates RN VLADIMIR-7 Total Score 0 03/27/2025 7:16 AM EDT Sharon Yates RN * Suicide Severity Rating Answer Date of Assessment Author No Risk 03/27/2025 7:16 AM EDT Sharon Yates RN * Proctor Suicide Severity Rating Scale (Q shift for [...] question 6) 0 03/27/2025 7:16 AM EDT Sharon Yates RN 6. Have you ever done anythi [...] Sahil Willson RN documented in this encounter Procedure Notes * Estefani Whitfield - 03/27/2025 12:25 PM EDTAssociated Order(s): Neuraxial Block by Anesthesia Neuraxial Block by Anesthesia Epidural Reason for Block: labor epidural Procedure Date/Time: 03/27/2025 12:16 PM Resident/FULFILLMENT SPECIALIST: Rosemary Matamoros CRNA Other Staff: Estefani Whitfield Performed by: student woodwind instruments inspector Patient Location: OB Pre-anesthetic Checklist: Patient identified- 2 criteria, Block plan confirmed, Supplemental O2 applied, if needed, Allergies confirmed, Block site marked, STUART recommended monitors applied, Aseptic technique used, Anticoagulant confirmed, Necessary block equipment present, IV access functioning, Drug/solution labeled, Resuscitation equipment available, Procedure consent verified, Timeout performe d, Preprocedure evaluation verified, Block equipment and meds available, Equipment checked and Sedation given, if needed Pre-Neuraxial Block Preparation and Assessment Immediate pre anesthetic assess completed? Yes Patient Position: sitting Skin Prep: ChloraPrep Sterile Drape: Yes Monitoring: BP, HR and O2 Saturation Sedation Level: no sedation Local Anesthetic: Lidocaine 1%: 3 ml intradermal Vertebral Space: lumbar Lumbar Location: L3-4 Epidural Space Identification: KAREN saline Site Localization: anatomical landmark Approach: midline Epidural Needle and Procedure Needle Type: Tuohy Needle Gauge: 17 Needle Length: 9 cm Number of Attempts: 1 Needle Depth- Skin to KAREN (cm): 6.5 Catheter Maicol at skin (cm): 12 Test Dose Result: Negative Location: Lumbar Events: No complications noted Cosigned by Rosemary Matamoros CRNA at 03/27/2025 2:13 PM EDT documented in this encounter OR Notes * Anesthesia Postprocedure Evaluation - Ed Ambrosio DO - 03/28/2025 10:02 AM EDT Post-Anesthesia Evaluation Note Patient Name: Adelia Willoughby Patient Date: March 28, 2025 OB Post-Anesthesia Evaluation Patient Location: Patient room Post op vitals: stable Nausea controlled: yes Level of consciousness: awake, alert and oriented Analgesia type: PO/IV/NSAID/Narcotics Post anesthesia pain: adequate analgesia Airway patency: patent Respiratory status: room air Cardiovascular status: stable and BP within 20% of baseline Hydration status: euvolemic Post Anesthetic Epidural Analgesia: Excellent S/P Neuraxial Assessment: Postural headache: Absent Sensory function B/L LE: Intact Motor function B/L LE: Intact Bowel/Bladder function: Normal Neuraxial punctured site: Not inflamed/infected Temperature: Normothermia Obstetric Post Anesthesia Complications: No Complications Perioperative complications: NONE Vitals Value Taken Time BP 106/65 03/28/25 09:05 Resp 18 03/28/25 09:05 SpO2 99 % 03/28/25 09:05 Temp 36.5 ??C (97.7 ??F) 03/28/25 09:05 Pulse 87 03/28/25 09:05 documented in this encounter Plan of Treatment Upcoming Encounters Date Type Department Care Team (Late st Contact Info) Description 07/30/2025 1:30 PM EDT Patient Outreach [facility] [address] [place] [address] documented as of this encounter Goals Goal Patient Goal Type Associated Problems Recent Progress Patient-Stated? Author Blood Pressure < 140/90 Blood Pressure 116/78(2024 1:17 PM EDT) No Chanel Nguyen, RMA Maintain a healthy diet, exercise regularly and maintain an ideal body weight General No Braulio Castro RMA BMI (Calculated) < 30 General 45.9(05/14/20 1:17 PM EDT) No Chanel Nguyen RMA Stay Tobacco Free Lifestyle No Braulio Castro RMA HEMOGLOBIN A1C < 7.0 Result Component 5.3( 2:26 PM EDT) No Chanel Nguyen RMA documented as of this encounter Procedures Procedure Name Priority Date/Time Associated Diagnosis Comments ANE NEURAXIAL BLOCK Routine 03/27/2025 1 2:16 PM EDT documented in this encounter Results * Neuraxial Block by Anesthesia (03/27/2025 12:16 PM EDT) Narrative [facility] - 03/27/2025 12:16 PM EDT Rosemary Matamoros CRNA 03/27/2025 2:13 PM Neuraxial Block by Anesthesia Epidural Reason for Block: labor epidural Procedure Date/Time: 03/27/2025 12:16 PM Resident/FULFILLMENT SPECIALIST: Rosemary Matamoros CRNA Other Staff: Estefani Whitfield Performed by: student woodwind instruments inspector Patient Location: OB Pre-anesthetic Checklist: Patient identified- 2 criteria, Block plan confirmed, Supplemental O2 applied, if needed, Allergies confirmed, Block site marked, STUART recommended monitors applied, Aseptic technique used, Anticoagulant confirmed, Necessary block equipment present, IV access functioning, Drug/solution labeled, Resuscitation equipment available, Procedure consent verified, Timeout performed, Preprocedure evaluation verified, Block equipment and meds available, Equipment checked and Sedation given, if needed Pre-Neuraxial Block Preparation and Assessment Immediate pre anesthetic assess completed? Yes Patient Position: sitting Skin Prep: ChloraPrep Sterile Drape: Yes Monitoring: BP, HR and O2 Saturation Sedation Level: no sedation Local Anesthetic: Lidocaine 1%: 3 ml intradermal Vertebral Space: lumbar Lumbar Location: L3-4 Epidural Space Identification: KAREN saline Site Localization: anatomical landmark Approach: midline Epidural Needle and Procedure Needle Type: Tuohy Needle Gauge: 17 Needle Length: 9 cm Number of Attempts: 1 Needle Depth- Skin to KAREN (cm): 6.5 Catheter Maicol at skin (cm): 12 Test Dose Result: Negative Location: Lumbar Events: No complications noted us Cristofer Benitez MD ANESTHESIA [place] [address] documented in this encounter Visit Diagnoses Not on filedocumented in this encounter Administered Medications Inactive Administered Medications - up to 1 most recent administrations Medication Order MAR Action Action Date Dose Rate Site ePHEDrine injection Intravenous, PRN (Anesthesia), Starting on Wed03/27/25 at 1238, Until Wed03/27/25 at 1456, Anesthesia Intra-op Given 03/27/2025 12:38 PM EDT 15 mg fentaNYL 3 mcg/mL and bupivacaine 0.125 % [...] (min): 20, Lock Code for Program Changes: [id number] New Bag 03/27/2025 12:34 PM EDT 13.5 mL/hr 13.5 mL/hr lidocaine-EPINEPHrine 1.5 %-1:200,000 injection Epidural, PRN (Anesthesia), Starting on Wed03/27/25 at 1225, Until Wed03/27/25 at 1456, Anesthesia Intra-op Given 03/27/2025 12:28 PM EDT 2 mL documented in this encounter Care Teams Tablet Tester Relationship Specialty Start Date End Date Rafa Powell MD [address] [place], [place] [phone] PCP - General Internal Medicine 07/06/24 documented as of this encounter
--- OUTSIDE RECORDS SUMMARY | 2025-04-04 10:00 | XMS_ITS | Encounter Summary ---
Author Organization [facility] [place] [address] Care Team Providers Care Solar Energy Systems Engineer Name Role Phone Rafa Powell MD Primary Care Provider [phone] Reason for Referral * Consultation (Routine) - Pending Review Specialty Diagnoses / Procedures Referred By Contac t Referred To Contact Diagnoses Hemorrhoids, unspecified hemorrhoid type Procedures MI OFFICE/OUTPATIENT NEW MODERATE MDM 45 MINUTES Nelda Gay DO [address] [place] [address] Phone: tel: fax: Seven Lindsey MD [address] [place] [address] [address] [place] [address] Phone: tel: fax: Referral ID Status Reason Start Date Expiration Date V isits Requested Visits Authorized [id number] Pending Review 04/04/2025 04/04/2026 99 99 Reason for Visit * Reason Comments Care back pain and hemorr hoids Encounter Details Date Type Department Care Team (Late st Contact Info) Description 04/04/2025 10:00 AM EDT Visit [facility] [address] [place] [address] Nelda Gay DO [address] [place] [facility] Hemorrhoids, unspecified hemorrhoid type (Primary Dx) Social History Tobacco Use Types Packs/Day Years [...] drink = 0.6 oz pur e alcohol) [facility] Utilities Answer Date Recorded In the past 12 months has e electric, gas, oil, or water company threatened to shut off services in your home? No 03/28/2025 Overall Financial Resource Strain (CARDIA) Answe r Date Recorded How hard is it for you to pa y for the very basics like food, housing, medical care, and heating? Not very hard 03/28/2025 PHQ-2 Answer Date Recorded PHQ-2 Total Score 0 03/28/2025 [facility] of Occupat ional Health - Occupational Stress [...] things needed for daily living? Yes 04/26/2023 [facility] H[facility] IP Transportation Answer D ate Recorded In [...] Sign Reading Time Taken Comments Blood Pressure 122/76 04/04/2025 10:20 AM EDT Pulse - - Temperature - - Respiratory Rate - - Oxygen Saturation - - Inhaled Oxygen Concentration - - Weight 114.2 kg (251 lb 12.8 oz) 2024 10:20 AM EDT Height 157.5 cm (5' 2 ) 04/04/2025 10:2 0 AM EDT Body Mass Index 46.05 04/04/2025 10:20 AM EDT documented in this encounter Functional Status * Is the person deaf or does [...] 2:43 PM EDT Sahil Willson RN documented as of this encounter Mental Status * Because of a physical, mental or emotional condition, does this person have serious difficulty concentrating, remembering or making decisions? Answer Entry Date Author No 04/28/2023 2:43 PM EDT Shail Willson RN documented in this encounter Ordered Prescriptions Prescription Sig Dispense Quantity Refills Last Filled Start Date End Date hydrocortisone (ANUSOL-HC) 25 mg Rect SuppositoryIndica tions:Hemorrhoids , unspecified hemorrhoid type Place 1 Suppository rectally every 12 hours. 30 Suppository documented in this encounter Progress Notes * Nelda Gay, - 04/04/2025 10:00 AM EDT Assessment & Plan 1. visit. She is currently and experiencing bleeding, which has tapered down. Various control options were discussed, including progesterone-only pills, Depo-Provera shots, Nexplanon implants, and IUDs. She expressed interest in tubal ligation. A list of providers who perform tubal ligation will be provided on her checkout sheet. She will consider temporary contraception and inform us via [employer] message if needed. 2. Hemorrhoids. She has been using a spray, cream, Tylenol, and ibuprofen for pain management, but these have not been effective. The hemorrhoids are likely inflamed due to delivery pressure but do not appear thrombosed, so no excision is necessary at this time. A referral to a colorectal surgeon will be made for further evaluation and management. She is advised to continue with stool softeners, Tucks pads, and Preparation H cream. A suppository medication will be sent to her pharmacy to help with internal hemorrhoids. Stronger pain medications are not recommended as they can worsen hemorrhoids by causing constipation. Follow-up She will return for her full 6-week visit. Dx/Orders: Diagnoses and all orders for this visit: Hemorrhoids, unspecified hemorrhoid type - AMB REFERRAL TO COLORECTAL SURGERY - hydrocortisone (ANUSOL-HC) 25 mg Rect Suppository; Place 1 Suppository rectally every 12 hours. Dispense: 30 Suppository; Refill: 0 Return if symptoms worsen or fail to improve. Subjective Adelia Willoughby is a 29 y.o. female Chief Complaint Patient presents with Care back pain and hemorrhoids History of Present Illness The patient presents for a visit. She reports that she is currently and continues to experience bleeding, although it has lessened in intensity. She is considering tubal ligation as a method of control but wishes to contemplate this decision further. She does not report any symptoms of depression or anxiety. She has been dealing with hemorrhoids for the past 8 days. Despite using a spray, cream, Tylenol, and ibuprofen, she has not found relief from her symptoms. MEDICATIONS Tylenol, ibuprofen Review of Systems All other systems reviewed and are negative. Objective Blood pressure 122/76, height 5' 2 (1.575 m), weight 251 lb 12.8 oz (114.2 kg), currently . Body mass index is 46.05 kg/m??. Physical Exam A small, non-thrombosed hemorrhoid is present in the genitourinary area. Physical Exam Vitals reviewed. Constitutional: Appearance: Normal appearance. Pulmonary: Effort: Pulmonary effort is normal. Neurological: Mental Status: She is alert. The provider educated the patient (or legal sales and service representative) on the use of the ambient listening artificial intelligence tool, Pixtr. They were informed that this AI tool processes the conversation to generate a clinical note with the expected benefit of improved accuracy while achieving an improved encounter experience for the patient and provider.?The provider explained that the medical information captured by the AI tool including, but not limited to, diagnoses and treatment plan would be protected in accordance with applicable privacy laws and that all diagnoses and treatment decisions would be made by the provider. The provider explained that the note generated will be reviewed bythe provider for accuracy to minimize potential errors.? The patient was given an opportunity to ask questions and opt out of proceeding with the use of the AI tool. After being informed of such information, the patient (or legal sales and service representative), and each individual in attendance with the patient, verbally consented to the use of the AI tool. documented in this encounter Miscellaneous Notes * Patient Instructions - Nelda Gay DO - 04/04/2025 10:00 AM EDT [facility] [employer] (Drs. Alvarez or Wiliam) - [phone] [facility] [employer] (Dr. Barajas) - [phone] [facility] (Dr. Jessenia Dunn) - [phone] documented in this encounter Plan of Treatment Upcoming Encounters Date Type Department Care Team (Late st Contact Info) Description 07/30/2025 1:30 PM EDT Patient Outreach [place] [address] [place] [address] Scheduled Referrals Name Type Priority Associated Diagnoses Orde r Schedule AMB REFERRAL TO COLORECTAL SURGERY Outpatient Referral Routine Hemorrhoids, unspecified hemorrhoid type Ordered: 04/04/2025 documented as of this encounter Goals Goal Patient Goal Type Associated Problems Recent Progress Patient-Stated? Author Blood Pressure < 140/90 Blood Pressure 116/78(2024 1:17 PM EDT) No Chanel Nguyen RMSonido Maintain a healthy diet, exercise regularly and maintain an ideal body weight General No Braulio Castro RMA BMI (Calculated) < 30 General 45.9(05/14/20 25 1:17 PM EDT) No Chanel Nguyen RMA Stay Tobacco Free Lifestyle No Braulio Castro RMA HEMOGLOBIN A1C < 7.0 Result Component 5.3( 4 2:26 PM EDT) No Chanel Nguyen RMA documented as of this encounter Visit Diagnoses Diagnosis Hemorrhoids, unspecified hemorrhoid type- Primary documented in this encounter Care Teams Solar Energy Systems Engineer Relationship Specialty Start Date End Date Rafa Powell MD [employer] [facility] [place] [address] [place] [phone] PCP - General Internal Medicine 07/06/24 documented as of this encounter
--- OUTSIDE RECORDS SUMMARY | 2025-04-26 11:40 | XMS_ITS | Encounter Summary ---
Author Organization [place] [address] Care Team Providers Care Electronic Equipment Maint Tech Name Role Phone Rafa Powell MD Primary Care Provider [phone] Encounter Details Date Type Department Care Team (Latest Contact Info) Description 04/26/2025 11:40 AM EDT Telemedicine [facility] [place] [phone] Rafa Powell MD [address] [place] [address] Acute midline thoracic back pain (Primary Dx); Cervical radiculopathy Social History Tobacco Use Types Packs/Day Years [...] drink = 0.6 oz pur e alcohol) [facility] Utilities Answer Date Recorded In the past 12 months has [employer], gas, oil, or water company threatened to shut off services in your home? No 03/28/2025 Overall Financial Resource Strain (CARDIA) Answe r Date Recorded How hard is it for you to pa y for the very basics like food, housing, medical care, and heating? Not very hard 03/28/2025 PHQ-2 Answer Date Recorded PHQ-2 Total Score 0 03/28/2025 [facility] - Occupational Stress Questionnaire Answer Date Recorded [...] things needed for daily living? Yes 04/26/2023 [facility] IP Transportation Answer D ate Recorded [...] as of this encounter Functional Status * Is the person deaf or does he/she have serious difficulty hearing? Answer Date of Assessment Author No 04/28/2023 2:43 PM Sahil Shin RN * Is the person blind or does he/she have serious difficulty seeing even when wearing glasses? Answer Date of Assessment Author No 04/28/2023 2:43 PM Sahil Shin RN * Does this person have serious [...] Sahil Willson RN documented in this encounter Ordered Prescriptions Prescription Sig Dispense Quantity Refills Last Filled Start Date End Date cyclobenzaprine (FLEXERIL) 10 mg Oral TabletIndications:C ervical radiculopathy Take 1 Tablet by mouth every 8 hours as needed for Muscle spasms for up to 10 days. 30 Tablet 04/26/2025 5 predniSONE (DELTASONE) 10 mg Oral TabletIndications:C ervical radiculopathy Take 1 Tablet by mouth 2 times daily for 7 days. 14 Tablet 04/26/2025 5 documented in this encounter Progress Notes * Rafa Powell MD - 04/26/2025 11:40 AM EDT Patient presented today for routine care follow-up through a video visit. Patient has reviewed the terms and conditions of service as part of the registration for today's visit. A video visit does not replace a [id number] exam and further services may be necessary. We are conducting her video visit in a private space and this video visit is being conducted in accordance with state telehealth/video visit regulations. HPI: Pain between shoulder blades, having severe pain, problems with numbness in both arms. No recent injuries, no specific causes. Numbness in both arms. Mostly right arm. Gets tingly and rizvi down right arm and leg. Right arm gets weak. Symptoms comes and goes, intermittent. Not (1 month old) Review of Systems Musculoskeletal: Positive for back pain. Exam: Constitutional: NAD, appropriately groomed. Appears comfortable. HENT: No gross deformities. Voice normal. No facial swelling noted. Eyes: Extra occular movements grossly intact. Visible portions of the eyes appear normal. No redness or discharge visible via casual video inspection. Cardiopulmonary: Does not appear in cardiopulmonary distress. Easy respirations w/o labored breathing. No audible gross wheezing or breathlessness. Neuro: Alert and oriented. Conversational. No gross deficits or facial droop appreciated on video evaluation. Psych: Appropriate mood and affect. Normal conversation and thought content. Assessment Diagnoses and all orders for this visit: Acute midline thoracic back pain Cervical radiculopathy - XR CERVICAL SPINE AP LATERAL ODONTOID AND OBLIQUE; Future - XR THORACIC SPINE AP AND LATERAL; Future - predniSONE (DELTASONE) 10 mg Oral Tablet; Take 1 Tablet by mouth 2 times daily for 7 days. Dispense: 14 Tablet; Refill: 0 - cyclobenzaprine (FLEXERIL) 10 mg Oral Tablet; Take 1 Tablet by mouth every 8 hours as needed for Muscle spasms for up to 10 days. Dispense: 30 Tablet; Refill: 0 documented in this encounter Plan of Treatment Upcoming Encounters Date Type Department Care Team (Late st Contact Info) Description 07/30/2025 1:30 PM EDT Patient Outreach [place] [address] [place] [address] Scheduled Orders Name Type Priority Associated Diagnoses Orde r Schedule XR CERVICAL SPINE AP LATERAL ODONTOID AND OBLIQUE Imaging Routine Cervical radiculopathy 1 Occurrences starting 04/26/2025 until 04/26/2026 XR THORACIC SPINE AP AND LATERAL Imaging Routine Cervical radiculopathy 1 Occurrences starting 04/26/2025 until 04/26/2026 documented as of this encounter Goals Goal Patient Goal Type Associated Problems Recent Progress Patient-Stated? Author Blood Pressure < 140/90 Blood Pressure 116/78(2024 1:17 PM EDT) No Chanel Nguyen, RMSonido Maintain a healthy diet, exercise regularly and maintain an ideal body weight General No Braulio Castro RMA BMI (Calculated) < 30 General 45.9(05/14/20 1:17 PM EDT) No Chanel Nguyen RMA Stay Tobacco Free Lifestyle No Braulio Castro RMA HEMOGLOBIN A1C < 7.0 Result Component 5.3( 4 2:26 PM EDT) No Chanel Nguyen RMA documented as of this encounter Visit Diagnoses Diagnosis Acute midline thoracic back pain- Primary Cervical radiculopathy Brachial neuritis or radiculitis nos documented in this encounter Care Teams Electronic Equipment Maint Tech Relationship Specialty Start Date End Date Rafa Powell MD [address] [place] [phone] PCP - General Internal Medicine 07/06/24 documented as of this encounter
--- OUTSIDE RECORDS SUMMARY | 2025-05-02 14:15 | XMS_ITS | Encounter Summary ---
Author Organization [facility] Address [address] [place] [address] Care Team Providers Care Network Security Analyst Name Role Phone Rafa Powell MD Primary Care Provider [phone] Reason for Visit * Reason Onset Date Comments [facility] 05/02/2025 Recert Encounter Details Date Type Department Care Team (Late st Contact Info) Description 05/02/2025 2:15 PM EDT Patient Outreach [facility] [address] [address] Claire Julian, RD,LD [address] [place] [address] [facility] (Recert) Social History Tobacco Use Types Packs/Day Years [...] drink = 0.6 oz pur e alcohol) [facility] Utilities Answer Date Recorded In [...] Date Recorded PHQ-2 Total Score 0 03/28/2025 [facility] of Occupat ional [facility] - Occupational Stress Questionnaire Answer Date Recorded [...] money to buy more. Never true 03/28/20 25 Within the past 12 months, t [...] things needed for daily living? Yes 04/26/2023 [facility] IP Transportation Answer D ate Recorded In [...] Assessment Author No 04/28/2023 2:43 PM Sahil Shin, CHUY * Is the person blind or does [...] Sahil Willson RN documented in this encounter Miscellaneous Notes * Telephone Encounter - Claire Julian RD,CHAR - 05/02/2025 3:22 PM EDT Spoke to Patient over the phone for post WIC Recert. See WI 75 in Media. Measurements obtained via [employer]. Next appt. 3 months for WI follow up. documented in this encounter Plan of Treatment Upcoming Encounters Date Type Department Care Team (Late st Contact Info) Description 07/30/2025 1:30 PM EDT Patient Outreach [place] [address] [place] [address] documented as of this encounter Goals Goal [...] Nguyen RMA Stay Tobacco Free Lifestyle No Schuchter, Malynda, RMA HEMOGLOBIN A1C < 7.0 Result Component 5.3( 4 2:26 PM EDT) No Chanel Nguyen, MARIE documented as of this encounter Visit Diagnoses Diagnosis Nutritional deficiency- Primary Unspecified nutritional deficiency Tobacco use disorder documented in this encounter Care Teams Network Security Analyst Relationship Specialty Start Date End Date Rafa Powell MD [address] [place] [phone] PCP - General Internal Medicine 07/06/24 documented as of this encounter
--- OUTSIDE RECORDS SUMMARY | 2025-05-14 13:00 | XMS_ITS | Encounter Summary ---
Author Organization [facility] [place] [address] Care Team Providers Care Thread Milling Machine Set Up Operator Name Role Phone Rafa Powell MD Primary Care Provider [phone] Reason for Visit * Reason Comments Care Encounter Details Date Type Department Care Team (Late st Contact Info) Description 05/14/2025 1:00 PM EDT Visit [facility] [address] [place] [phone] Loco Judge, DO [address] [place] [address] exam (Primary Dx) Social History Tobacco Use Types [...] drink = 0.6 oz pur e alcohol) [facility] Utilities Answer Date Recorded In the past 12 months has [email or web address], gas, oil, or water company threatened to shut off services in your home? No 03/28/2025 Overall Financial Resource Strain (CARDIA) Answe r Date Recorded How hard is it for you to pa y for the very basics like food, housing, medical care, and heating? Not very hard 03/28/2025 PHQ-2 Answer Date Recorded PHQ-2 Total Score 0 03/28/2025 [facility] - Occupational Stress Questionnaire Answer Date [...] things needed for daily living? Yes 04/26/2023 [facility] IP Transportation Answer D ate Recorded [...] Sign Reading Time Taken Comments Blood Pressure 116/78 05/14/2025 1:17 PM EDT Pulse - - Temperature - - Respiratory Rate - - Oxygen Saturation - - Inhaled Oxygen Concentration - - Weight 113.6 kg (250 lb 6.4 oz) 05/14/2025 1:17 PM EDT Height 157.5 cm (5' 2 ) 05/14/2025 1:17 PM EDT Body Mass Index 45.8 05/14/2025 1:17 PM EDT documented in this encounter Functional Status [...] Sahil Willson RN documented in this encounter Progress Notes * Loco Judge, - 05/14/2025 1:00 PM EDT Office Visit Pt is a 29 y.o. s/p . Overall, she is doing well. No LMP recorded. Complications of /delivery? Mild SD Lochia resolved: yes infant:no Infant well-being: growing well Bowel habits: normal Urinary habits:normal Depressive symptoms:yes interested in starting meds Desires contraception:yes Physical Exam: Vitals: 05/14/25 1317 BP: 116/78 General appearance: alert, well appearing, and in no distress. Abdominal exam: soft, nontender, nondistended, no masses or organomegaly. Incisional exam: none Pelvic exam: normal external genitalia, vulva, vagina, cervix, uterus and adnexa. Assessment: 29 y.o. 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 Discussed side effects including irregular bleeding the first couple months after switching to new method. Patient does not have contraindication to estrogen. She would like to proceed with IUD. Loco Judge DO documented in this encounter Plan of Treatment Upcoming Encounters Date Type Department Care Team (Late st Contact Info) Description 07/30/2025 1:30 PM EDT Patient Outreach [place] [address] [address] documented as of this encounter Goals Goal [...] as of this encounter Visit Diagnoses Diagnosis exam- Primary Routine follow-up documented in this encounter Care Teams Thread Milling Machine Set Up Operator Relationship Specialty Start Date End Date Rafa Powell MD [facility] [phone] PCP - General Internal Medicine 07/06/24 documented as of this encounter
[2025-05-25] VITALS (7 sets, daily range): BP systolic 117–154; BP diastolic 56–99; PULSE 90–104; RESP 17–21; TEMP 36.6; O2SAT 98–100; BMI 43.0
--- OUTSIDE RECORDS SUMMARY | 2025-05-25 07:37 | XMS_ITS | Clinical Summary ---
Author Organization [facility] Address [address] [place] [phone] Phone Care Team Providers Care Radiographer Name Role Phone Isael Marie MD Primary Care Physician [phone] [ ] Conditions or Problems Problem Name Problem Code Onset Date Status Entry Date Provider Comment Standard Description Annotate Body mass index (BMI) 45.0-49.9; adult Z68.42 (ICD-10-CM ) 01/01 Active 01/01 Isael Marie MD Body mass index [BMI] 45.0-49.9, adult Body mass index (BMI) 45.0-49.9; adult Z68.42 (ICD-10-CM ) 12/25 Correction 12/25 Isael Marie MD Body mass index [BMI] 45.0-49.9, adult 38 weeks gestation of 11584790 (SNOMED CT) 01/01 Active 01/01 Isael Marie MD Gestation period, 38 weeks Body mass index (BMI) 45.0-49.9; adult Z68.42 (ICD-10-CM ) 12/25 Removed 12/25 Isael Marie MD Body mass index [BMI] 45.0-49.9, adult Body mass index (BMI) 45.0-49.9; adult Z68.42 (ICD-10-CM ) 12/11 Correction 12/11 Isael Marie MD Body mass index [BMI] 45.0-49.9, adult 36 weeks gestation of 56798282 (SNOMED CT) 12/18 Resolved 12/18 Isael Marie MD Gestation period, 36 weeks 37 weeks gestation of Z3A.37 (ICD-10-CM ) 12/25 Active 12/25 Isael Marie MD 37 weeks gestation of 33 weeks gestation of 28945531 (SNOMED CT) 11/28 Resolved 11/28 Isael Marie MD Gestation period, 33 weeks 36 weeks gestation of 66969958 (SNOMED CT) 12/18 Removed 12/18 Isael Marie MD Gestation period, 36 weeks Body mass index (BMI) 45.0-49.9; adult Z68.42 (ICD-10-CM ) 12/11 Removed 12/11 Lorenza Nichole [facility] Body mass index [BMI] 45.0-49.9, adult Body mass index (BMI) 45.0-49.9; adult Z68.42 (ICD-10-CM ) 11/28 Correction 11/28 Lorenza Nichole [facility] Body mass index [BMI] 45.0-49.9, adult Body mass index (BMI) 45.0-49.9; adult Z68.42 (ICD-10-CM ) 11/28 Removed 11/28 Isael Marie MD Body mass index [BMI] 45.0-49.9, adult Supervision of other high risk , second trimester 07290102 (SNOMED CT) 10/27 Resolved 10/27 sIael Marie MD High risk Supervision of other high risk , unspecified trimester 969542374 (SNOMED CT) Inactive Isael Marie MD High risk care 28 weeks gestation of 17532333 (SNOMED CT) 10/27 Resolved 10/27 Isael Marie MD Gestation period, 28 weeks Supervision of other high risk , third trimester 74706232 (SNOMED CT) 11/28 Active 11/28 Isael Marie MD High risk 33 weeks gestation of 25983888 (SNOMED CT) 11/28 Removed 11/28 Isael aMrie MD Gestation period, 33 weeks Body mass index (BMI) 45.0-49.9; adult Z68.42 (ICD-10-CM ) 10/27 Correction 10/27 Isael Marie MD Body mass index [BMI] 45.0-49.9, adult Unspecified pruritic disorder 631322155 (SNOMED CT) 11/28 Active 11/28 Isael Marie MD Pruritic disorder GESTATIONAL DIABETES 99764181 (SNOMED CT) 11/28 Active 11/28 Charlene De Leon RN Gestational diabetes mellitus Positive urine drug screen 364873754 (SNOMED CT) 10/31 Active 10/31 Katelyn Cosby CNM Screening for drug of abuse in urine specimen positive Body mass index (BMI) 45.0-49.9; adult Z68.42 (ICD-10-CM ) 10/27 Removed 10/27 Isael Marie MD Body mass index [BMI] 45.0-49.9, adult Body mass index (BMI) 40.0-44.9; adult Z68.41 (ICD-10-CM ) 11/30 Correction Isael Marie MD Body mass index [BMI] 40.0-44.9, adult Supervision of other high risk , second trimester 65884591 (SNOMED CT) 10/27 Removed 10/27 Isael Marie MD High risk 28 weeks gestation of 03259462 (SNOMED CT) 10/27 Removed 10/27 Isael Marie MD Gestation period, 28 weeks Body mass index (BMI) 40.0-44.9; adult Z68.41 (ICD-10-CM ) 11/30 Removed Lorenza Nichole CNM Body mass index [BMI] 40.0-44.9, adult Body mass index (BMI) 40.0-44.9; adult Z68.41 (ICD-10-CM ) 10/18 Correction 10/18 Lorenza Nichole CNM Body mass index [BMI] 40.0-44.9, adult Supervision of other high risk , unspecified trimester 186351803 (SNOMED CT) Removed Lorenza Nichole CNM High risk care Back pain - 525922473 (SNOMED CT) 11/30 Active 11/30 Lorenza Nichole JULIANA Backache 13 weeks gestation of 10263199 (SNOMED CT) Resolved Lorenza Nichole JULIANA Gestation period, 13 weeks Body mass index (BMI) 40.0-44.9; adult Z68.41 (ICD-10-CM ) 10/18 Removed 10/18 Nora Simon APRN Body mass index [BMI] 40.0-44.9, adult Body mass index (BMI) 40.0-44.9; adult Z68.41 (ICD-10-CM ) Correction Nora Simon APRN Body mass index [BMI] 40.0-44.9, adult Counseling for nutrition Z71.3 (ICD-10-CM ) Inactive Sussy Lemos RN Dietary counseling and surveillance Body mass index (BMI) 40.0-44.9; adult Z68.41 (ICD-10-CM ) Removed Sussy Lemos RN Body mass index [BMI] 40.0-44.9, adult Body mass index (BMI) 40.0-44.9; adult Z68.41 (ICD-10-CM ) 06/14 Correction 06/14 Sussy Lemos RN Body mass index [BMI] 40.0-44.9, adult Flu vaccine 90302063 (SNOMED CT) Inactive Sussy Lemos RN Administration of influenza vaccine Amenorrhea 92970027 (SNOMED CT) 05/30 Inactive 05/30 Sussy Lemos RN Amenorrhea Supervision of other normal , first trimester 79043815 (SNOMED CT) 12/05 Resolved 12/05 Sussy Lemos RN Normal Supervision of other normal , second trimester 52614142 (SNOMED CT) Inactive Sussy Taravella RN Normal 9 weeks gestation of 654008 (SNOMED CT) 06/14 Resolved 06/14 Sussy Lemos RN Gestation period, 9 weeks 13 weeks gestation of 78178197 (SNOMED CT) Removed Sussy Lemos RN Gestation period, 13 weeks Rh factor negative, antepartum, second trimester 722962597 (SNOMED CT) 06/14 Active 06/14 Isael Marie MD Rhesus isoimmunization with problem Body mass index (BMI) 40.0-44.9; adult Z68.41 (ICD-10-CM ) 06/14 Removed 06/14 Isael Marie MD Body mass index [BMI] 40.0-44.9, adult Body mass index (BMI) 40.0-44.9; adult Z68.41 (ICD-10-CM ) 05/30 Correction 05/30 Isael Marie MD Body mass index [BMI] 40.0-44.9, adult Marijuana abuse 83106245 (SNOMED CT) 06/14 Active 06/14 Isael Marie MD Harmful pattern of use of cannabis *Less than 8 weeks gestation of Z3A.01 (ICD-10-CM ) 05/30 Resolved 05/30 Isael Marie MD Less than 8 weeks gestation of 9 weeks gestation of 466704 (SNOMED CT) 06/14 Removed 06/14 Isael Marie MD Gestation period, 9 weeks Body mass index (BMI) 40.0-44.9; adult Z68.41 (ICD-10-CM ) 05/30 Removed 05/30 Isael Marie MD Body mass index [BMI] 40.0-44.9, adult Care 870400939 (SNOMED CT) 10/29 Inactive 10/29 Isael Marie MD care Obesity, class III 543079945 (SNOMED CT) 05/30 Active 05/30 Isael Marie MD Obesity Hx of gestational diabetes 437620116 (SNOMED CT) 05/30 Active 05/30 Isael Marie MD Past history of gestational diabetes mellitus Supervision of other normal , first trimester 54680232 (SNOMED CT) 12/05 Removed 12/05 Isael Marie MD Normal *Less than 8 weeks gestation of Z3A.01 (ICD-10-CM ) 05/30 Removed 05/30 Isael Marie MD Less than 8 weeks gestation of Amenorrhea 70984454 (SNOMED CT) 05/30 Removed 05/30 Sussy Lemos RN Amenorrhea Care 633191183 (SNOMED CT) 10/29 Removed 10/29 Timmy Cali MD care Low back pain, chronic 031175683 (SNOMED CT) 10/29 Active 10/29 Timmy Cali MD Chronic low back pain Back pain, thoracic region 888313651 (SNOMED CT) 10/29 Active 10/29 Timmy Cali MD Thoracic back pain RH FACTOR NEGATIVE 656.10 (ICD-9-CM) 11/17 Resolved 11/17 Timmy Cali MD Rhesus isoimmunization affecting management of mother, unspecified as to episode of care or not applicable Hayley of vagina 91693173 (SNOMED CT) 03/06 Resolved 03/06 Timmy Cali MD Candidiasis of vagina Lumbar pain 507697800 (SNOMED CT) 04/15 Resolved 04/15 Timmy Cali MD Low back pain Urinary tract infection 96638693 (SNOMED CT) 06/10 Resolved 06/10 Timmy Cali MD Urinary tract infectious disease RhD negative 028800786 (SNOMED CT) 05/13 Resolved 05/13 Timmy Cali MD RhD negative Supervision of other normal , third trimester 85060678 (SNOMED CT) 05/27 Resolved 05/27 Timmy Cali MD Normal 39 weeks gestation of 02443598 (SNOMED CT) 06/10 Resolved 06/10 Timmy Cali MD Gestation period, 39 weeks 39 weeks gestation of 50190419 (SNOMED CT) 06/10 Removed 06/10 Timmy Cali MD Gestation period, 39 weeks 38 weeks gestation of 00701486 (SNOMED CT) 06/10 Inactive 06/10 Timmy Cali MD Gestation period, 38 weeks 37 weeks gestation of Z3A.37 (ICD-10-CM ) 06/10 Inactive 06/10 Timmy Cali MD 37 weeks gestation of 36 weeks gestation of 81011937 (SNOMED CT) 06/10 Inactive 06/10 Timmy Cali MD Gestation period, 36 weeks 34 weeks gestation of 77868723 (SNOMED CT) 06/10 Inactive 06/10 Timmy Cali MD Gestation period, 34 weeks 33 weeks gestation of 55310447 (SNOMED CT) 06/10 Inactive 06/10 Timmy Cali MD Gestation period, 33 weeks 32 weeks gestation of 1345387 (SNOMED CT) 06/10 Inactive 06/10 Isael Marie MD Gestation period, 32 weeks Urinary tract infection 76181624 (SNOMED CT) 06/10 Removed 06/10 Isael Marie MD Urinary tract infectious disease Encounter for anatomic survey 237345492 (SNOMED CT) 03/06 Inactive 03/06 Isael Marie MD anatomy study Supervision of other normal , second trimester 48218102 (SNOMED CT) 02/06 Resolved 02/06 Isael Marie MD Normal 28 weeks gestation of 12672329 (SNOMED CT) 03/06 Resolved 03/06 Isael Marie MD Gestation period, 28 weeks Supervision of other normal , third trimester 76568523 (SNOMED CT) 05/27 Removed 05/27 Isael Marie MD Normal 30 weeks gestation of 14226111 (SNOMED CT) 05/27 Inactive 05/27 Isael Marie MD Gestation period, 30 weeks 28 weeks gestation of 53841522 (SNOMED CT) 03/06 Removed 03/06 Timmy Cali MD Gestation period, 28 weeks RhD negative 300846388 (SNOMED CT) 05/13 Removed 05/13 Timmy Cali MD RhD negative Lumbar pain 022942575 (SNOMED CT) 04/15 Removed 04/15 Isael Marie MD Low back pain 24 weeks gestation of 735166570 (SNOMED CT) 04/15 Inactive 04/15 Isael Marie MD Gestation period, 24 weeks Hayley of vagina 97253177 (SNOMED CT) 03/06 Removed 03/06 Isael Marie MD Candidiasis of vagina 18 weeks gestation of 17290777 (SNOMED CT) 03/06 Inactive 03/06 Isael Marie MD Gestation period, 18 weeks Encounter for anatomic survey 130596845 (SNOMED CT) 03/06 Removed 03/06 Isael Marie MD anatomy study Supervision of other normal , second trimester 06820360 (SNOMED CT) 02/06 Removed 02/06 Isael Marie MD Normal Supervision of other normal , first trimester 08873007 (SNOMED CT) 12/05 Resolved 12/05 Isael Marie MD Normal 8 weeks gestation of 18171872 (SNOMED CT) 01/02 Resolved 01/02 Isael Marie MD Gestation period, 8 weeks 14 weeks gestation of 40966079 (SNOMED CT) 02/06 Inactive 02/06 Isael Marie MD Gestation period, 14 weeks Flu vaccine 67602338 (SNOMED CT) 12/05 Inactive 12/08 Isael Marie MD Administration of influenza vaccine 8 weeks gestation of 69382301 (SNOMED CT) 01/02 Removed 01/02 Isael Marie MD Gestation period, 8 weeks ROUTINE FOLLOW-UP 367122053 (SNOMED CT) 11/05 Inactive 11/05 Isael Marie MD visit FAMILY PLANNING 421361430 (SNOMED CT) 11/05 Inactive 11/05 Isael Marie MD Contraception care Less than 8 weeks gestation of 71369886 (SNOMED CT) 12/05 Resolved 12/05 Isael Marie MD First trimester Counseling, hiv 256738725 (SNOMED CT) 12/05 Inactive 12/08 Isael Marie MD Human immunodeficienc y virus counseling HIV testing 474722641 (SNOMED CT) 12/05 Resolved 12/08 Isael Marie MD Human immunodeficienc y virus antibody test HIV testing 491938567 (SNOMED CT) 12/05 Removed 12/08 Isael Marie MD Human immunodeficienc y virus antibody test Counseling, hiv 550378562 (SNOMED CT) 12/05 Removed 12/08 Isael Marie MD Human immunodeficienc y virus counseling Flu vaccine 40245497 (SNOMED CT) 12/05 Removed 12/08 Isael Marie MD Administration of influenza vaccine Supervision of other normal , first trimester 20674609 (SNOMED CT) 12/05 Removed 12/05 Isael Marie MD Normal Cigarette smoker 45377213 (SNOMED CT) 12/05 Active 12/05 Isael Marie MD Cigarette smoker Less than 8 weeks gestation of 68276392 (SNOMED CT) 12/05 Removed 12/05 Isael Marie MD First trimester FAMILY PLANNING 953571617 (SNOMED CT) 11/05 Removed 11/05 Lorenza Montes MD Contraception care HIGH RISK 20982155 (SNOMED CT) 11/17 Resolved 11/17 Lorenza Montes MD High risk ROUTINE FOLLOW-UP 129065902 (SNOMED CT) 11/05 Removed 11/05 Lorenza Montes MD visit GESTATIONAL DIABETES 39158624 (SNOMED CT) 04/30 Inactive 04/30 Lorenza Montes MD Gestational diabetes mellitus UTI NOS 11375591 (SNOMED CT) 03/12 Resolved 03/12 Lorenza Montes MD Urinary tract infectious disease UTI NOS 53764584 (SNOMED CT) 03/12 Removed 03/12 Lorenza Montes MD Urinary tract infectious disease UNS ABNORM MGMT MOTH ANTPRTM COND/COMP O35.9xx0 (ICD-10-CM ) 01/15 Inactive 01/15 Lorenza Montes MD Maternal care for (suspected) abnormality and damage, unspecified, not applicable or unspecified RH FACTOR NEGATIVE 656.10 (ICD-9-CM) 11/17 Removed 11/17 Dian Torres LPN Rhesus isoimmunization affecting management of mother, unspecified as to episode of care or not applicable HIGH RISK 12731787 (SNOMED CT) 11/17 Removed 11/17 Dian Torres LPN High risk History of SAB O03.9 (ICD-10-CM ) 11/17 Inactive 11/17 Dian Torres LPN Complete or unspecified spontaneous without complication X2 Medications Medication Instructions Start Date Stop Date Generic Name NDC Provider METFORMIN HCL 500 MG TABS TAKE 1 TABLET BY MOUTH AT DINNERTIME METFORMIN HCL [id number] Isael Marie MD HYDROXYZINE PAMOATE 25 MG CAPS 1 capsule every 6 hours as needed for itching HYDROXYZINE PAMOATE 56408738132 Isael FIOREUCH DELICA LANCETS 30G Or alternate lancets to fit the patient's lancing device. Must test glucose four times daily LANCETS 48456457895 Isael Marie MD [employer] ULTRA 2 w/Device KIT Check blood sugars 4 x a day BLOOD GLUCOSE MONITORING SUPPL 98497507196 Lorenza RHODES FINEPOINT LANCETS Check blood sugars 4 x a day LANCETS 30878444778 Lorenza RHODES ULTRA BLUE IN VITRO STRIP Check blood sugars 4 x a day GLUCOSE BLOOD 97664132315 Lorenza Montes MD OMEPRAZOLE 20 MG CPDR TAKE 1 CAPSULE BY MOUTH ONCE A DAY OMEPRAZOLE 16299270356 Lorenza Nichole CNBernie PNV PLUS MULTIVITAMIN 27-1 MG TABS 1 po qd 05/18 VIT-FE FUMARATE-FA 84634399048 Nora Simon BOOK RETAILER PLUS 27-1 MG TABS 1 tablet daily for vitamin supplementation VIT-FE FUMARATE-FA 23872878358 Isael Marie MD PLUS 27-1 MG TABS 1 tablet daily for vitamin supplementation VIT-FE FUMARATE-FA 12137594061 Isael Marie MD TYLENOL 325 MG TABS TAKE 1-2 TABLETS BY MOUTH EVERY 4-6 HOURS NEEDED FOR PAIN OR FEVER 05/30 ACETAMINOPHEN 10938867805 Sussy Lemos RN [id number] AFFEINE 50-325-40 MG TABS Take one tablet every 6 hours as needed for severe headaches 05/30 BUTALBITAL-APAP- CAFFEINE 46790195882 Sussy Lemos RN CYCLOBENZAPRINE HCL 10 MG TABS Take one tablet every eight hours as needed for low back pain 05/30 CYCLOBENZAPRINE HCL 70209677246 Sussy Lemos RN RHOGAM ULTRA-FILTERED PLUS 300 MCG INJ Give 300 mcg IM once 10/29 RHO D IMMUNE GLOBULIN Timmy Cali MD PLUS 27-1 MG TABS 1 daily for vitamin supplementation 10/29 VIT-FE FUMARATE-FA 43281670522 Timmy Cali MD MZOIRTQCVO-AOON-I AFFEINE 50-325-40 MG TABS Take one tablet every 6 hours as needed for severe headaches BUTALBITAL-APAP- CAFFEINE 60146823162 Timmy Cali MD MACROBID 100 MG CAPS TAKE 1 CAPSULE BY MOUTH 2 TIMES A DAY FOR 7 DAYS NITROFURANTOIN MONOHYD MACRO 47422226982 Timmy Cali MD TYLENOL 325 MG TABS TAKE 1-2 TABLETS BY MOUTH EVERY 4-6 HOURS NEEDED FOR PAIN OR FEVER ACETAMINOPHEN 91560048386 Timmy Cali MD AMPICILLIN 250 MG ORAL CAPSULE 1 capsule four times daily for five days to treat UTI 06/30 AMPICILLIN 64483423537 Timmy Cali MD METRONIDAZOLE 500 MG TABS TAKE 1 TABLET BY MOUTH 2 TIMES A DAY FOR 7 DAYS 06/25 METRONIDAZOLE 85218965049 Timmy Cali MD CEPHALEXIN 500 MG CAPS TAKE 1 CAPSULE BY MOUTH 2 TIMES A DAY FOR 7 days 06/28 CEPHALEXIN 03504989004 Timmy Cali MD PYRIDIUM 100 MG TABS 1 tablet three times daily for three days 06/13 PHENAZOPYRIDINE HCL 06312652847 Isael Marie MD MACROBID 100 MG CAPS TAKE 1 CAPSULE BY MOUTH 2 TIMES A DAY FOR 7 DAYS 06/20 NITROFURANTOIN MONOHYD MACRO 06207189051 Isael Marie MD AMPICILLIN 250 MG ORAL CAPSULE 1 capsule four times daily for five days to treat UTI AMPICILLIN 17595058378 Isael Marie MD DIFLUCAN 150 MG TABS TAKE 1 TABLET BY MOUTH TODAY, REPEAT ONCE TOMORROW 03/07 FLUCONAZOLE 77754575863 Isael Marie MD RHOGAM ULTRA-FILTERED PLUS 300 MCG INJ Give 300 mcg IM once RHO D IMMUNE GLOBULIN Timmy Cali MD [id number] AFFEINE 50-325-40 MG TABS Take one tablet every 6 hours as needed for severe headaches BUTALBITAL-APAP- CAFFEINE 34917224160 Isael Marie MD CYCLOBENZAPRINE HCL 10 MG TABS Take one tablet every eight hours as needed for low back pain CYCLOBENZAPRINE HCL 61679287356 Isael Marie MD PROMETHAZINE HCL 25 MG TABS 1 BY MOUTH EVERY 6 HRS NEEDED FOR NAUSEA AND/OR VOMITTING 04/15 PROMETHAZINE HCL 09477838748 Isael Marie MD DIFLUCAN 150 MG TABS Take one tablet one dose only FLUCONAZOLE 03902452720 Isael Marie MD PLUS 27-1 MG TABS 1 daily for vitamin supplementation VIT-FE FUMARATE-FA 94469006749 Isael Marie MD PROMETHAZINE HCL 25 MG TABS 1 BY MOUTH EVERY 6 HRS NEEDED FOR NAUSEA AND/OR VOMITTING PROMETHAZINE HCL 88767406950 Isael Marie MD NUVARING 0.12-0.015 MG/24HR RING place per vagina for 3 weeks. 12/05 ETONOGESTREL-ETH INYL ESTRADIOL 10125226947 Isael Marie MD NUVARING 0.12-0.015 MG/24HR RING place per vagina for 3 weeks. ETONOGESTREL-ETH INYL ESTRADIOL 56928905511 Lorenza Montes MD ACCU-CHEK SMARTVIEW STRP test blood sugars four times daily 11/05 GLUCOSE BLOOD 01024418963 Lorenza Montes MD ACCU-CHEK FASTCLIX LANCETS test blood sugars four times daily 11/05 LANCETS 93906882061 Lorenza Montes MD GLYBURIDE 2.5 MG TABS one at night-time 11/05 GLYBURIDE 55668985005 Lorenza Montes MD RANITIDINE HCL 150 MG ORAL TABLET take twice daily 11/05 RANITIDINE HCL 71918397699 Lorenza Montes MD FORTE TABS Take 1 tablet daily one or covered equivalent. 11/05 [id number]-KAY-[id number]- FA 80349424050 Lorenza Montes MD GLYBURIDE 2.5 MG TABS one at night-time GLYBURIDE 40338181243 Lorenza Montes MD ACCU-CHEK FASTCLIX LANCETS test blood sugars four times daily LANCETS 35649366540 Lorenza Montes MD ACCU-CHEK SMARTVIEW STRP test blood sugars four times daily GLUCOSE BLOOD 74580822635 Lorenza Montes MD KEFLEX 500 MG ORAL CAPSULE Take 1 capsule by mouth every 8 hours 04/09 CEPHALEXIN 33864833859 Lorenza Montes MD KEFLEX 500 MG ORAL CAPSULE Take 1 capsule by mouth every 8 hours CEPHALEXIN 32065956363 Lorenza Montes MD PLUS 27-1 MG TABS TAKE 1 BY MOUTH ONCE A DAY 01/15 VIT-FE FUMARATE-FA 76110704398 Lorenza Montes MD RANITIDINE HCL 150 MG ORAL TABLET take twice daily RANITIDINE HCL 26195969923 Lorenza Montes MD FORTE TABS Take 1 tablet daily one or covered equivalent. [id number]-[id number]- FA 30640639269 Lorenza Montes MD PLUS 27-1 MG TABS TAKE 1 BY MOUTH ONCE A DAY VIT-FE FUMARATE-FA 49652759081 Eliza Head APRN PROMETHAZINE HCL 12.5 MG TABS TAKE 1 BY MOUTH EVERY 6 HRS NEEDED FOR NAUSEA/VOMITING 11/20 PROMETHAZINE HCL 28447666319 Eliza Head APRN Medications Administered No information available. Allergies, Adverse Reactions, Alerts Observed no known allergies at Results Date Name Value Unit Range Flag Description Office Visit: 1st provider r m 5 UA COLOR yellow Color of Uri ne Lab Report: GLUCOSE TOLERANC E TEST, GEST, 3 SPEC (75G), CBC (INCLUDES DI ... RPR TITER NON-REACTIVE NON-REAC TI N rapid plasma reagin antibody titer Lab Report: URIC ACID, COMPR EHENSIVE METABOLIC PANEL, CBC (H/H, RBC, IND ... BG RANDOM 99 mg/dL 65-99 N Glucose [Mass/volume] in Blood URIC ACID 5.0 mg/dL 2.5-7.0 N Urate [Mass /volume] in Serum or Plasma Office Visit: PN f/u LH rm # 4 HSV GENITAL no Herpes si mplex virus identified in Genital specimen by Organism specific culture Office Visit: new ob f/u er visit complete AFP-MS MOM reviewed {MoM} alpha-1 fetoprotein, maternal ,serum, multiples of median Lab Report: OBSTETRIC PANEL, OBSTETRIC PANEL, OBSTETRIC PANEL, OBSTETRIC ... BETA-HCG QN 263 m[iU]/mL H beta HCG , serum, quantitative Office Visit: pn fu rm6 EVELYNE PREP Negative Whiff EVELYNE p reparation for fungus WET MOUNT rare bacteria, rare WBCs, Clue Cells absent, Yeast absent, Trichomonas absent, Negative microbial wet sm ear Lab Report: BV/VAGINITIS BROWN EL DNA PROBE, CULTURE, URINE, ROUTINE, CULTU ... TOBRAMYCIN <=1.0; S ug/mL tobramyci n serum, random Office Visit: new ob intake rm 6 PREG TST URN positive beta HC G, urine, semiquantitative Lab Report: HIV 1/2 ANTIGEN/ ANTIBODY,FOURTH GENERATION W/RFL, OBSTETRIC ... HGBA1C 5.0 % OF TOTAL HGB % <5.7 N Hemoglobin A1c/Hemoglobin, total in Blood - % TSH 2.59 u[iU]/mL N Thyrotropin [Units/volume] in Serum or Plasma HEP C AB NON-REACTIVE NON-REAC TI N Hepatitis C virus Ab [Presence] in Serum CALCIUM 9.3 mg/dL 8.6-10.2 N Calcium [Moles/volume] in Serum or Plasma CO2 25 mmol/L 20-32 N Carbon dioxid e, total [Moles/volume] in Venous blood CHLORIDE BLD 103 mmol/L 98-110 N chloride , blood POTASSIUM 3.8 mmol/L 3.5-5.3 N Potassium [Moles/volume] in Serum or Plasma SODIUM 134 mmol/L 135-146 L Sodium [Moles/volume] in Serum or Plasma BUN/CREAT NOT APPLICABLE (calc) 6-22 Urea nitrogen/Creatinine [Mass Ratio] in Serum or Plasma EGFR IF AFA 138 mL/min/1 .73m2 >OR = 60 N Glomerular filtration rate/1.73 sq M.predicted among blacks [Volume Rate/Area] in Serum, Plasma or Blood by Creatinine-based formula (MDRD) EGFR 119 mL/min/1 .73m2 >OR = 60 N Glomerular filtration rate/1.73 sq M.predicted [Volume Rate/Area] in Serum, Plasma or Blood by Creatinine-based formula (MDRD) CREATININE 0.71 mg/dL 0.50-1.1 0 N Creatinine [Mass/volume] in Serum or Plasma BUN 10 mg/dL 7-25 N Urea nitrogen [Mass/volume] in Serum or Plasma GLUCOSE SER 86 mg/dL 65-99 N Glucose [Mass/volume] in Serum or Plasma RUBELLA IGG 9.61 N Rubella v irus IgG Ab [Units/volume] in Serum HBSAG NON-REACTIVE NON-REAC TI N Hepatitis B virus surface Ag [Units/volume] in Serum ABO/RH RH(D) NEGATIVE blood type with RH factor ABO BLD GRP A ABO blood group ANTIBODY SCR NO ANTIBODIES DETECTED N antibody screen, serum Lab Report: DRUG MONITOR, YUNIEL ERIKA 1, SCREEN, URINE PHENCYCLIDIN NEGATIVE ng/mL <25 N Phencyc lidine [Presence] in Urine OXYCODONE NEGATIVE <100 N Oxycodone urine screening METHADONEURN NEGATIVE <100 N Methado ne [Presence] in Urine by Screen method COCAINE UR NEGATIVE <150 N cocaine, urine MARIJUANAURN NEGATIVE <20 N Marijua na, cannabinoid screen Urine BENZODIAZ UR NEGATIVE <100 N Benzodi azepines [Presence] in Urine AMPHETAMI UR NEGATIVE <500 N Ampheta mines [Presence] in Urine Lab Report: HIV 1/2 ANTIGEN/ ANTIBODY,FOURTH GENERATION W/RFL, GLUCOSE TO ... RPR NON-REACTIVE NON-REAC TI N Reagin Ab [Units/volume] in Serum by VDRL BASO % MANU 0.3 % N basophils as percent of blood leukocytes, manual count EOS % MANU 2.2 % N eosinophil s as percent of blood leukocytes, manual count MONOCYTE % 7.1 % N Monocytes/ 100 leukocytes in Blood by Automated count LYMPH% P BLD 20.8 % N lymphocy demarco as percent of blood leukocytes PMN % 69.6 % N Neutrophils/1 00 leukocytes in Blood by Automated count ABS BASOS 26 {Cells}/ uL 0-200 N Basophils [#/volume] in Blood ABS EOS 189 {Cells}/ uL 15-500 N Eosinophils [#/volume] in Blood ABS MONOS 611 {Cells}/ uL 200-950 N Monocytes [#/volume] in Blood ABSLYMPHCT 1789 {Cells}/ uL 850-3900 N Lymphocytes [#/volume] in Blood ABS NEUTROPH 5986 CELLS/UL 10*3/uL 1500-780 0 N Neutrophils [#/volume] in Blood MPV 9.8 fL 7.5-12.5 N Platelet eli n volume [Entitic volume] in Blood by Alireza PLATELETK/UL 214 THOUSAND/UL 10*3/uL 140-400 N platelet count RDW 12.6 % 11.0-15. 0 N Erythrocyte distribution width [Ratio] by Automated count OL-MCHC 35.1 g/dL 32.0-36. 0 N mean corpuscular hemoglobin concentration, rbc MCH 32.6 pg 27.0-33. 0 N MCH [Entitic mass] by Automated count MCV 93.0 fL 80.0-100 .0 N MCV [Entitic volume] by Automated count HCT 34.5 % 35.0-45. 0 L Hematocrit [Volume Fraction] of Blood by Automated count HGB 12.1 g/dL 11.7-15. 5 N Hemoglobin [Mass/volume] in Blood RBC M/UL 3.71 MILLION/UL 10*6/uL 3.80-5.1 0 L red blood count WBC CT BLOOD 8.6 10*3/uL 3.8-10.8 N leukocy te count, blood GTT 2H 100 mg/dL <153 N blood glucose , 2 hours after glucose tolerance test GTT 1H 170 mg/dL <180 N blood glucose , 60 minutes after glucose tolerance test GTT FASTING 97 mg/dL 65-91 H glucose t olerance test with glucose, fasting HIV AB NON-REACTIVE NON-REAC TI N HIV 1 Ab [Presence] in Serum, Plasma or Blood by Immunoblot Lab Report: Antibody Screen IgG IGG SERUM Negative mg/dL IgG, serum Lab Report: HEPATIC FUNCTION PANEL, BILE ACIDS, BILE AC TOT <1.5 < OR = 8.3 bile acid, total SGPT (ALT) 7 U/L 6-29 N Alanine aminotransferase [Enzymatic activity/volume] in Serum or Plasma SGOT (AST) 10 U/L 10-30 N Aspartate aminotransferase [Enzymatic activity/volume] in Serum or Plasma ALK PHOS 77 U/L 31-125 N Alkaline phosphatase [Enzymatic activity/volume] in Blood BILI INDIREC 0.4 MG/DL (CALC) mg/dL 0.2-1.2 N bilirubin, serum , indirect BILI DIRECT 0.1 mg/dL < OR = 0.2 N Bilirubin.direct [Mass/volume] in Serum or Plasma BILI TOTAL 0.5 mg/dL 0.2-1.2 N Bilirubin. total [Mass/volume] in Serum or Plasma A/G RATIO 1.2 (calc) 1.0-2.5 N Albumin/ Globulin [Mass Ratio] in Serum or Plasma GLOBULIN TOT 2.9 G/DL (CALC) g/dL 1.9-3.7 N Globulin [Mass/volume] in Serum ALBUMIN EOP 3.5 g/dL 3.6-5.1 L Albumin [Mass/volume] in Serum or Plasma by Electrophoresis PROTEIN, TOT 6.4 g/dL 6.1-8.1 N Protein [Mass/volume] in Serum or Plasma Lab Report: URINALYSIS POC APPEARANCE U Cloudy Clear A Appearan ce of Urine Office Visit: OB Visit rm 11 SPEC GR URIN 1.025 Specific gravity of Urine by Test strip PH URINE 6.0 pH of Urine by Test strip GLUCOSE, URN negative Glucose [Mass/volume] in Urine by Test strip BILIRUBIN UR negative Bilirub in.total [Presence] in Urine by Test strip KETONES URN negative Ketones [Mass/volume] in Urine by Test strip BLOOD UR DIP negative blood i n urine (hemoglobin) by dipstick PROTEIN, URN negative protein , urine, semiquantitative (dipstick) UROBILINOGEN negative Urobili nogen [Presence] in Urine by Test strip NITRITE URN negative Nitrite [Presence] in Urine by Test strip WBC DIPSTK U negative Leukocy te esterase [Presence] in Urine by Test strip Plan of Care Type Date Detail Referral Chiropractic Ref erral [facility], [address], [place], [address] Referral excluded fr om report: Referral [facility] (all MCOs & Mcare) Pain Relief [facility], [address], [place], [address] Referral [facility], [facility] Pending order Urine Dip Auto 8 1003 Pending order Urine Dip Auto 8 1003 Pending order Urine Dip Auto 8 1003 Pending order T1 G.C. Chlamydi a Pending order T1 Group B Strep Pending order Ultrasound Pending order Consult Maternal - Medicine Specialist Pending order RC Bile Acids Pending order T1 Hepatic Funct ion Panel Pending order NST with MEGAN 1 W eekly to Delivery Pending order Urine Dip Auto 8 1003 Pending order T1 CBC with diff Pending order T1 GTT 3 Specime n Pending order T1 HIV 1/2 Ag & Ab 4th gen -consent required Pending order T1 RPR w/ reflex to titer & confirmation Pending order Urine Dip Auto 8 1003 Pending order Antibody Screen Pending order Other Pending order Rhogam Pending order T1 Urine Drug Sc reen w/o Confirmation Pending order Urine Dip Auto 8 1003 Pending order Urine Dip Auto 8 1003 Pending order Ultrasound Pending order Urine Dip Auto 8 1003 Pending order Urine Dip Auto 8 1003 Pending order T1 GTT 3 Specime n Pending order Urine Dip Auto 8 1003 Pending order Test 8 1025 Pending order Urine Dip Auto 8 1003 Pending order T1 CMP Pending order T1 HIV 1/2 Ag & Ab 4th gen -consent required Pending order T1 Hep C Ab Pending order T1 Pane l (Obstetric Panel) Pending order T1 TSH reflex to free T4 Pending order T1 HGBA1c Pending order T1 ThinPrep Pap w GC/Chlamydia Pending order T1 Urine Drug Sc reen w/o Confirmation Pending order T1 Urine Culture Pending order ThinPrep Pap w r eflex HR HPV/GC/Chlamydia mRNA E6/E7 Pending order Urine Dip Auto 8 1003 Pending order Urine Dip Auto 8 1003 Pending order Urine Dip Auto 8 1003 Pending order BV Yeast Trich C ulture (Affirm) Pending order Urine Culture Pending order Urine Dip Auto 8 1003 Pending order Hemoglobin 95233 Pending order BV Yeast Trich C ulture (Affirm) Pending order G.C. Chlamydia ( lab order) Pending order Group B Strep Pending order Urine Dip Auto 8 1003 Pending order Urine Dip Auto 8 1003 Pending order Urine Culture Pending order G.C. Chlamydia ( lab order) Pending order BV Yeast Trich C ulture (Affirm) Pending order Urine Culture Pending order Urine Dip Auto 8 1003 Pending order Urine Dip Auto 8 1003 Pending order Urine Culture Pending order GC & Chlamydia Pending order Rhogam Pending order Ultrasound Pending order Giving encourage ment to exercise Pending order Urine Dip Auto 8 1003 Pending order CBC with Differe ntial Pending order RPR w/ reflex to titer & confirmation Pending order GTT 3 Specimen Pending order Other Pending order Pelvic Ultrasoun d Pending order Medication Recon ciliation Pending order Urine Dip Auto 8 1003 Pending order Ultrasound Pending order Urine Dip Auto 8 1003 Pending order Medication Recon ciliation Pending order Quad Screen AFP Pending order Quad Screen Estr iol Pending order Quad Screen HCG Quant Pending order Quad Screen Inhi bin Pending order Medication Recon ciliation Pending order Urine Dip Auto 8 1003 Pending order GTT 3 Specimen Pending order Urine Dip Auto 8 1003 Pending order Medication Recon ciliation Pending order ThinPrep Pap w G C/Chlamydia Pending order Panel ( Obstetric Panel) Pending order HIV 1/2 Antigen & Antibodies -consent required Pending order Hep C Ab Pending order HCG Quantitative Pending order Medication Recon ciliation Pending order Urine Drug Scree n w/o Confirmation Pending order Urine Culture Pending order Urine Dip Auto 8 1003 Pending order Test 8 1025 Pending order Fluzone Quadriva lent Preservative Free Intramuscular Suspension 0.5 ML Pending order IMADM >18YR IM R OUTE 1ST VAC/TOXOID Pending order GTT 2 Hour Pending order Test 8 1025 Pending order Hemoglobin 63106 Pending order GC & Chlamydia Pending order Urine Dip Auto 8 1003 Pending order Urine Dip Auto 8 1003 Pending order Urine Dip Manual 12004 Pending order Urine Dip Manual 80408 Pending order GC & Chlamydia Pending order Group B Strep Pending order Urine Dip Auto 8 1003 Pending order Ultrasound Pending order BPP with NST 2 W eekly to Delivery Pending order BPP with NST 2 W eekly to Delivery Pending Order exclud ed from report: Pending order Ultrasound Pending Order exclud ed from report: Pending order BPP with NST 2 W eekly to Delivery Pending order Ultrasound Pending order Urine Dip Auto 8 1003 Pending order CMP Pending order CBC no diff Pending order Uric Acid Pending order BV Yeast Trich C ulture (Affirm) Pending order Consult Maternal - Medicine Specialist Pending Order exclud ed from report: Pending order Consult Maternal - Medicine Specialist Pending order Consult Maternal - Medicine Specialist Pending order Consult Maternal - Medicine Specialist Pending Order exclud ed from report: Pending order Urine Dip Manual 28303 Pending order Rhogam Pending order CBC with diff Pending order RPR Pending order Other Pending order GTT 3 Specimen Pending order Urine Dip Auto 8 1003 Pending order Urine Dip Auto 8 1003 Pending order Urine Culture Pending order Ultrasound Pending order Urine Dip Auto 8 1003 Pending order Urine Dip Auto 8 1003 Pending order Urine Dip Auto 8 1003 Pending order Antibody Screen Pending order Urine Culture Pending order Ultrasound Pending order Urine Culture Pending order Urine Culture Pending Order exclud ed from report: Pending order Cystic Fibrosis Screen Pending Order exclud ed from report: Pending order Panel ( Obstetric Panel) Pending Order exclud ed from report: Pending order Hep C Ab Pending Order exclud ed from report: Pending order HIV Antibody -co nsent required Pending Order exclud ed from report: Pending order Urine Dip Auto 8 1003 Pending order Test 8 1025 Pending order Urine Drug Scree n w/o Confirmation Pending order GC & Chlamydia Pending order Hep C Ab Pending order HIV Antibody -co nsent required Pending order Panel ( Obstetric Panel) Pending order Cystic Fibrosis Screen Patient education Medications Patient education Patient Educat ion Given Patient education Medications Patient education Patient Educat ion Given Patient education %20AT %2027%20TO%2030%20WEEK S Patient education %20AT %2027%20TO%2030%20WEEK S Patient education %20AT %2027%20TO%2030%20WEEK S Patient education %20AT %2027%20TO%2030%20WEEK S Patient education Medications Patient education Medications Patient education Patient Educat ion Given Patient education %20AT %207%20TO%2010%20WEEKS Patient education Medications Patient education Patient Educat ion Given Patient education %20AT %207%20TO%2010%20EKS Patient education Medications Patient education Patient Educat ion Given Patient education %20AT %207%20TO%2010%20S Patient education Medications Patient education Medications Patient education Medications Patient education Medications Patient education Medications Patient education Medications Patient education Medications Patient education Medications Patient education Patient Educat ion Given Patient education Medications Patient education Patient Educat ion Given Patient education Medications Patient education Medications Patient education Patient Educat ion Given Patient education Medications Patient education Patient Educat ion Given Patient education Medications Patient education Medications Patient education Medications Patient education Medications Patient education Medications Patient education Patient Educat ion Given Patient education Medications Patient education Patient Educat ion Given Patient education Medications Procedures Code Procedure Name Date Entry Date [facility]-[id number] Medication Reconciliation CPT-3074F Most recent systolic blood pressure <130 mm Hg CPT-3079F Most recent diastoli c blood pressure 80-89 mm Hg CPT-16756 Urine Dip Auto 50655 CPT-3074F Most recent systolic blood pressure <130 mm Hg CPT-3079F Most recent diastoli c blood pressure 80-89 mm Hg [facility]-[id number] Medication Reconciliation CPT-06406 Urine Dip Auto 35291 SCT-[id number] Medication Reconciliation CPT-3074F Most recent systolic blood pressure <130 mm Hg CPT-3079F Most recent diastoli c blood pressure 80-89 mm Hg [facility] 60638 T1 G.C. Chlamydia [facility] 5617 T1 Group B Strep CPT-3074F Most recent systolic blood pressure <130 mm Hg CPT-3078F Most recent diastoli c blood pressure <80 mm Hg CPT-08443 Urine Dip Auto 13794 OB US GEN Ultrasound C MF M S Consult Maternal- Medicine Specialis t SCT-[id number] Medication Reconciliation CPT-3074F Most recent systolic blood pressure <130 mm Hg CPT-3079F Most recent diastoli c blood pressure 80-89 mm Hg CPT-12685 Urine Dip Auto 56376 [facility] 43263 RC Bile Acids [facility] 19578 T1 Hepatic Function Panel 20 23/11/24 NST MEGAN W D NST with MEGAN 1 Weekly to Delivery CPT-49296 Urine Dip Auto 57503 SCT-[id number] Medication Reconciliation CPT-3074F Most recent systolic blood pressure <130 mm Hg CPT-3079F Most recent diastoli c blood pressure 80-89 mm Hg [facility] 6399 T1 CBC with diff [facility] 75953 T1 GTT 3 Specimen [facility] 47482 T1 HIV 1/2 Ag & Ab 4 th gen -consent required [facility] 93691 T1 RPR w/ reflex to titer & confirmation [facility] 99346 T1 Urine Drug Screen w/o Confirmation 202 CPT-70431 Antibody Screen Rhogam SES Rhogam CPT-11586 Urine Dip Auto 23487 SCT-[id number] Medication Reconciliation Chiropractic Chiropractic Referral [facility] CPT-3074F Most recent systolic blood pressure <130 mm Hg CPT-3078F Most recent diastoli c blood pressure <80 mm Hg CPT-12217 Urine Dip Auto 70677 SCT-[id number] Medication Reconciliation SCT-[id number] Medication Reconciliation CPT-3077F Most recent systolic blood pressure >=140 mm Hg CPT-3079F Most recent diastoli c blood pressure 80-89 mm Hg OB US GEN Ultrasound CPT-04724 Urine Dip Auto 12945 SCT-[id number] Medication Reconciliation CPT-3074F Most recent systolic blood pressure <130 mm Hg CPT-3078F Most recent diastoli c blood pressure <80 mm Hg CPT-42276 Urine Dip Auto 33873 CPT-33972 Fluzone Quadrivalent Preservative Free prefilled syringe (36 mos +) CPT-64631 IMADM >18YR IM ROUTE 1ST VAC/TOXOID 07/12 CPT-16168 Urine Dip Auto 05664 SCT-[id number] Medication Reconciliation CPT-3074F Most recent systolic blood pressure <130 mm Hg CPT-3078F Most recent diastoli c blood pressure <80 mm Hg [facility] 67971 T1 GTT 3 Specimen CPT-53409 Test 58516 CPT-92319 Urine Dip Auto 36125 SCT-[id number] Medication Reconciliation CPT-3074F Most recent systolic blood pressure <130 mm Hg CPT-3079F Most recent diastoli c blood pressure 80-89 mm Hg [facility] 53154 T1 CMP [facility] 60070 T1 HIV 1/2 Ag & Ab 4 th gen -consent required [facility] 8472 T1 Hep C Ab [facility] 32387 T1 Panel (Obstetric Panel) 05/30 [facility] 98117 T1 TSH reflex to free T4 201 06/11/27 [facility] 496 T1 HGBA1c [facility] 52939 T1 ThinPrep Pap w GC/Chlamydia [facility] 50982 T1 Urine Drug Screen w/o Confirmation 201 06/11/27 [facility] 395 T1 Urine Culture SCT-[id number] Medication Reconciliation [facility]# 57682 ThinPrep Pap w refle x HR HPV/GC/Chlamydia mRNA E6/E7 [facility] N [facility] (all MCOs & Mcare) [facility]-[id number] Medication Reconciliation CPT-65926 Urine Dip Auto 25043 SCT-[id number] Giving encouragement to exercise CPT-05059 Urine Dip Auto 40538 SCT-[id number] Medication Reconciliation SCT-[id number] Giving encouragement to exercise SCT-[id number] Medication Reconciliation SCT-[id number] Giving encouragement to exercise CPT-21433 Urine Dip Auto 07154 23176 [facility] Test # BV Yeast Trich Culture (Affirm) 201 03/13/12 395 [facility] Test # Urine Culture CPT-16516 Urine Dip Auto 07514 CPT-50914 Hemoglobin 63242 SCT-[id number] Giving encouragement to exercise 14275 [facility] Test # BV Yeast Trich Culture (Affirm) 201 03/13/05 28636 [facility] Test # G.C. Chlamydia (lab order) 5617 [facility] Test # Group B Strep 5 CPT-98392 Urine Dip Auto 81722 93522 [facility] Test # G.C. Chlamydia (lab order) 73561 [facility] Test # BV Yeast Trich Culture (Affirm) 201 03/12/15 395 [facility] Test # Urine Culture SCT-[id number] Medication Reconciliation CPT-71610 Urine Dip Auto 94597 CPT-33848 Urine Dip Auto 72633 SCT-[id number] Medication Reconciliation 395 [facility] Test # Urine Culture 395 [facility] Test # Urine Culture 81112 [facility] Test # GC & Chlamydia SCT-[id number] Medication Reconciliation CPT-75515 Urine Dip Auto 85063 Rhogam SES Rhogam OB US GEN Ultrasound SCT-[id number] Giving encouragement to exercise PT [facility] 2 6399 [facility] Test # CBC with Differential 2 26659 [facility] Test # RPR w/ reflex to titer & confirmati on [facility]# 83619 GTT 3 Specimen Other [facility] OB Other CPT-85504 Urine Dip Auto 72691 SCT-[id number] Medication Reconciliation PU Pelvic Ultrasound SCT-[id number] Medication Reconciliation CPT-43786 Urine Dip Auto 35381 CPT-87341 Urine Dip Auto 48941 SCT-[id number] Medication Reconciliation OB US GEN Ultrasound [facility]# 86029 Quad Screen AFP [facility]# 23222 Quad Screen Estriol [facility]# 31544 Quad Screen HCG Quant 03/06 [facility]# 64989 Quad Screen Inhibin SCT-[id number] Medication Reconciliation CPT-96797 Urine Dip Auto 93425 [facility]# 21992 GTT 3 Specimen CPT-50202 Urine Dip Auto 51877 [facility]-[id number] Medication Reconciliation [facility]# 72416 ThinPrep Pap w GC/Chlamydia CPT-23219 Urine Dip Auto 38414 CPT-89822 Test 86645 [facility]-[id number] Medication Reconciliation CPT-70013 Fluzone Quadrivalent Preservative Free Intramuscular Suspension 0.5 ML CPT-39613 IMADM >18YR IM ROUTE 1ST VAC/TOXOID 12/05 [facility]# 69002 Panel (Obstetric Panel) 08504 [facility] # HIV 1/2 Antigen & An tibodies -consent required 8472 [facility] # Hep C Ab 8396 [facility] Test # HCG Quantitative 12/0558 [facility] Test # Urine Drug Screen w/o Confirmation 395 [facility] Test # Urine Culture [facility]# 38789 GTT 2 Hour CPT-75851 Test 00132 CPT-73215 Hemoglobin 40618 14872 [facility] Test # GC & Chlamydia CPT-84941 Urine Dip Auto 39084 CPT-15362 Urine Dip Auto 32751 CPT-27089 Urine Dip Manual 07582 06/18 CPT-50129 Urine Dip Manual 84607 06/11 14763 [facility] Test # GC & Chlamydia 5617 [facility] Test # Group B Strep 8 CPT-99448 Urine Dip Auto 41368 BPP NST 2W D BPP with NST 2 Weekly to Delivery OB US GEN Ultrasound BPP NST 2W D BPP with NST 2 Weekly to Delivery OB US GEN Ultrasound CPT-15760 Urine Dip Auto 10357 905 [facility] Test # Uric Acid 43250 [facility] Test # BV Yeast Trich Culture (Affirm) 201 01/09/11 80806 [facility] Test # CMP 1 [facility]# 1759 CBC no diff C KEMI M S Consult Maternal- Medicine Specialis t C KEMI M S Consult Maternal- Medicine Specialis t CPT-78527 Urine Dip Manual 88996 04/30 Rhogam SES Rhogam CPT-85379 Urine Dip Auto 29368 6399 [facility] Test # CBC with diff 2 799 [facility] Test # RPR Other [facility] Other [facility]# 99321 GTT 3 Specimen CPT-54440 Urine Dip Auto 80229 395 [facility] Test # Urine Culture OB US GEN Ultrasound CPT-52736 Urine Dip Auto 79878 CPT-62110 Urine Dip Auto 34509 CPT-25375 Urine Dip Auto 69050 [facility]# 795 Antibody Screen 395 [facility] Test # Urine Culture OB US GEN Ultrasound 395 [facility] Test # Urine Culture CPT-29817 Cystic Fibrosis Screen 11/17 [facility]# 00505 Panel (Obstetric Panel) 8472 [facility] # [place] 48462 [facility] # HIV Antibody -consent required 11/17 CPT-54983 Test 94570 CPT-76071 Urine Dip Auto 40659 73916 [facility] Test # Urine Drug Screen w/o Confirmation 13922 [facility] Test # GC & Chlamydia Vital Signs Date Name Value Unit Description BMI (Body Mass Index) 47.54 kg/m2 Bod y Mass Index (Ratio) Body Temperature 97.6 [degF] temperat ure E&M Body Temperature 36.44 Rachael temperat ure in centigrade E&M BP Diastolic 82 mm[Hg] blood pressu re, diastolic BP Systolic 127 mm[Hg] blood pressur e, systolic BSA (Body Surface Area) 2.27 b donna surface area Heart Rate 88 /min pulse rate Height 62 [in_us] height E&M Height 157.48 cm height in cent imeters E&M Weight Measured 259 [lb_av] weight E& M Weight Measured 259 [lb_av] weight E& M Weight Measured 117.73 kg weight in kilograms E&M Immunizations Vaccine Administration Date Standard Description CVX Co de Dose hepbseries 45 Unknown Fluzone Preservative Free Intramuscular Suspension 36mo+ 0.5ml Fluzone Preservative Free Intramuscular Suspension 36mo+ 0.5ml 140 0.5 mL PRIVATE Fluzone Quadrivalent Prefilled Syringe 0.5 ML for 6 mos - 64 years PRIVATE Fluzone Quadrivalent Prefilled Syringe 0.5 ML for 6 mos - 64 years 150 0.5 mL Advance Directives No information available.
--- OUTSIDE RECORDS SUMMARY | 2025-05-25 07:38 | XMS_ITS | Encounter Summary ---
Author Organization [place] [address] Care Team Providers Care It Professional Name Role Phone Rafa Powell MD Primary Care Provider [phone] Encounter Details Date Type Department Care Team (Late st Contact Info) Description 03/07/2025 Results Follow-Up SEP [facility] [address] [place] [id number] Kiki Irizarry, DO [address] [place] [address] STREP B DNA Social History Tobacco Use Types Packs/Day Years [...] drink = 0.6 oz pur e alcohol) [facility] Utilities Answer Date Recorded In the [...] Date Recorded PHQ-2 Total Score 0 03/28/2025 [place] [facility] - Occupational Stress Questionnaire Answer Date [...] things needed for daily living? Yes 04/26/2023 [facility] IP Transportation Answer D ate Recorded In the past 12 months, has l ack of reliable transportation kept you from medical appointments, meetings, work or from getting things needed for daily living? No 03/28/2025 Sexually Active Control Partners Comments Yes Male Comments Yes Sex and Gender Information Value Date Recorded [...] containing alcohol? 0 03/27/2025 7:15 AM EDT Sharon Yates RN How many drinks containing [...] of Assessment Author No 04/28/2023 2:43 PM SOPHIET Sahil Willson RN * Does this person [...] 04/28/2023 2:43 PM Sahil Shin RN * Question Answer Date of Assessment Author Little interest or pleasure in doing things 0 03/28/2025 12:33 PM EDT Clemencia Gilbert MSW Feeling down, depressed, or hopeless 0 03/28/2025 12:33 PM EDT Clemencia Gilbert MSW PHQ-2 Total Score 0 03/28/2025 12:33 PM EDT Clemencia Gilbert DIRECTOR OF ACCREDITATION * PHQ-9 Total Score Answer Date of Assessment Author 0 03/28/2025 12:33 PM EDT Clemencia Gilbert MSW * PHQ-2 Total Score Answer Date of Assessment Author 0 03/28/2025 12:33 PM EDT Clemencia Gilbert DIRECTOR OF ACCREDITATION * Question Answer Date of Assessment Author Feeling Nervous, Anxious, or on Edge 0 03/27/2025 7:16 AM EDT Sharon Yates RN Not Being Able to Stop or Co ntrol Worrying 0 03/27/2025 7:16 AM EDT Sharon Yates RN Worrying too Much About Diff erent Things 0 03/27/2025 7:16 AM EDT Sharon Yates RN Trouble Relaxing 0 03/27/2025 7:16 AM EDT Sharon Gonzalez RN Being so Restless That it is Hard to Sit Still 0 03/27/2025 7:16 AM EDT Sharon Yates RN Becoming Easily Annoyed or Irritable 0 03/27/2025 7:16 AM EDT Sharon Yates RN Feeling Afraid as if Somethi ng Awful Might Happen 0 03/27/2025 7:16 AM EDT Sharon Yates RN VLADIMIR-7 Total Score 0 03/27/2025 7:16 AM EDT Sharon Yates RN * Suicide Severity Rating Answer Date of Assessment Author No Risk 03/27/2025 7:16 AM EDT Sharon Yates RN * [place] Suicide Severity Rating Scale (Q shift for [...] Sahil Willson RN documented in this encounter Plan of Treatment Upcoming Encounters Date Type Department Care Team (Late st Contact Info) Description 07/30/2025 1:30 PM EDT Patient Outreach [facility] [address] [place] [address] documented as of this encounter Goals Goal [...] Result Component 5.3( 4 2:26 PM EDT) Chanel Lima RMA documented as of this encounter Visit Diagnoses Not on filedocumented in this encounter Care Teams It Professional Relationship Specialty Start Date End Date Rafa Powell MD [employer] [place] [id number] PCP - General Internal Medicine 07/06/24 documented as of this encounter
--- OUTSIDE RECORDS SUMMARY | 2025-05-25 07:38 | XMS_ITS | Encounter Summary ---
Author Organization [place] [place] [address] Care Team Providers Care Senior Research Scientist Name Role Phone Rafa Powell MD Primary Care Provider [phone] Reason for Visit * Reason Onset Date Comments Medication Refill 04/02/2025 Encounter Details Date Type Department Care Team (Late st Contact Info) Description 04/02/2025 Refill SEP Denisha [address] [place] [address] Barbara Eldridge MD [address] [place] [address] Medication Refill Social History Tobacco Use Types Packs/Day Years [...] = 0.6 oz pur e alcohol) [facility] Utilities Answer Date Recorded In the past 12 months has [employer] electric, gas, oil, or water company threatened to shut off services in your home? No 03/28/2025 Overall Financial Resource Strain (CARDIA) Answe r Date Recorded How hard is it for you to pa y for the very basics like food, housing, medical care, and heating? Not very hard 03/28/2025 PHQ-2 Answer Date Recorded PHQ-2 Total Score 0 03/28/2025 [facility] - Occupational Stress Questionnaire Answer Date [...] things needed for daily living? Yes 04/26/2023 [facility] IP Transportation Answer D ate Recorded In [...] 2:43 PM SOPHIET Sahil Willson RN * Is the person [...] encounter Miscellaneous Notes * Telephone Encounter - Halima Talbert RN - 04/02/2025 1:18 PM EDT Pt called to f/u on rx request and need for appt. RN offered appt tomorrow for evaluation, but pt declined, as baby has pedi appt. Appt scheduled for evaluation on 04/04. documented in this encounter Plan of Treatment Upcoming Encounters Date Type Department Care Team (Late st Contact Info) Description 07/30/2025 1:30 PM EDT Patient Outreach [place] [address] [place] [address] documented as of this encounter Goals Goal [...] on filedocumented in this encounter Care Teams Senior Research Scientist Relationship Specialty Start Date End Date Rafa Powell MD [employer] [place] [phone] PCP - General Internal Medicine 07/06/24 documented as of this encounter
--- OUTSIDE RECORDS SUMMARY | 2025-05-25 07:38 | XMS_ITS | Clinical Summary ---
Author Organization [facility] Address [address] [place] [address] Care Team Providers Care Ambulance Dispatcher Name Role Phone Pcp, No Primary Care Provider Unavailabl e Allergies Active Allergy Reactions Criticality Noted Date Comments Tramadol Rash Low 04/17/2022 Ubrogepant Diarrhea High 05/04/2022 Medications chlorhexidine (Peridex) 0.12 % solution Use 15 mL in the mouth or throat if needed for wound care. 120 mL 12/18/2023 Active Social History Tobacco Use Types Packs/Day Years Used Date Smoking Tobacco: Never Assessed Comments Unknown Sex and Gender Information Value Date Recorded Sex Assigned at Not on file Legal Sex Female 1:16 PM EDT Gender Identity Not on file Sexual Orientation Not on file Last Filed Vital Signs Vital Sign Reading Time Taken Comments Blood Pressure 150/94 12/18/2023 1:20 PM EDT Pulse 95 12/18/2023 1:20 PM EDT Temperature 36.9 C (98.5 F) 12/18/2023 1:20 PM EDT Respiratory Rate 22 12/18/2023 1:20 PM EDT Oxygen Saturation 97% 12/18/2023 1:20 PM EDT Inhaled Oxygen Concentration - - Weight 115 kg (253 lb 15.5 oz) 12/18/2023 1:20 P M EDT Height - - Body Mass Index - - Plan of Treatment Health Maintenance Due Date Last Done Comments [facility]-Depression Screening 1994 [facility]-HIV Screening 1994 [facility]-Hepatitis C Screening 1994 [facility]-/Child/Adol SDOH Screenings 1994 [facility]-Varicella Vaccines (1 of 2 - 13+ 2-dose series) 2007 [facility]- SDOH Screenings 2012 [facility]-Adult SDOH Screenings 2012 [id number] Vaccine (2023- season) 2024 [facility]-HPV/Cotest 2024 [facility]-Influenza Vaccine (#1) 06/04/202507/12, 08/01/2016, 12/06/2015, Additional history exists [facility]-Cervical Cancer Screening 12/31/2025 [facility]-Pap Smear 12/31/2025 12/31/2022 [facility]-DTaP,Tdap,and Td Vaccines (13 - Td or Tdap) 02/23/2033 02/23/2023, 12/10/2020, 11/02/2019, Additional history exists [facility]-Zoster Vaccines (1 of 2) 2044 [facility]-HIB Vaccines Completed 02/09/1996, 05/1996, 05/19/1995, Additional history exists [facility]-IPV Vaccines Completed 05/13/1999, , 03/17/1995, Additional history exists HPV Vaccines Completed 08/19/2009, 11/2008, 01/24/2009 [facility]-Hepatitis B Vaccines Completed 014, 02/09/1996, 1994, Additional history exists [facility]-Hepatitis A Vaccines Aged Out No longer eligible based on patient's age to complete this topic [facility]-Pneumococcal Vaccine: Pediatrics (0 to 5 Years) and At-Risk Patients (6 to 49 Years) Aged Out No longer eligible based on patient's age to complete this topic [facility]-Rotavirus Vaccines Aged Out No lo nger eligible based on patient's age to complete this topic Insurance [employer] Care Teams Ambulance Dispatcher Relationship Specialty Start Date End Date Pcp, [place] [address] PCP - General Family Medicine 12/18/23
--- OUTSIDE RECORDS SUMMARY | 2025-05-25 07:38 | XMS_ITS | Encounter Summary ---
Author Organization [facility] [place] [id number] Care Team Providers Care Workers Compensation Specialist Name Role Phone Rafa Powell MD Primary Care Provider [phone] Encounter Details Date Type Department Care Team (Latest Contact Info) Description 04/26/2025 Travel Social History Tobacco Use Types Packs/Day Years [...] drink = 0.6 oz pur e alcohol) [facility] Utilities Answer Date Recorded In the past 12 months has [employer] electric, gas, oil, or water company threatened to shut off services in your home? No 03/28/2025 Overall Financial Resource Strain (CARDIA) Answe r Date Recorded How hard is it for you to pa y for the very basics like food, housing, medical care, and heating? Not very hard 03/28/2025 PHQ-2 Answer Date Recorded PHQ-2 Total Score 0 03/28/2025 [facility] [place] [facility] - Occupational Stress [...] things needed for daily living? Yes 04/26/2023 [facility] IP Transportation Answer D ate Recorded [...] Author No 04/28/2023 2:43 PM Sahil Shin, RN * Because of a physical, mental [...] Description 07/30/2025 1:30 PM EDT Patient Outreach [facility] [address] [place] [address] documented as of this encounter Goals Goal Patient Goal Type Associated Problems Recent Progress Patient-Stated? Author Blood Pressure < 140/90 Blood Pressure 116/78(2024 1:17 PM EDT) No Chanel Nguyen RMA Maintain a healthy diet, exercise regularly and maintain an ideal body weight General No Braulio Castro RMA BMI (Calculated) < 30 General 45.9(05/14/20 25 1:17 PM EDT) No Chanel Nguyen RMSonido Stay Tobacco Free Lifestyle No Braulio Castro RMA HEMOGLOBIN A1C < 7.0 Result Component 5.3( 4 2:26 PM EDT) No Chanel Nguyen RMA documented as of this encounter Visit Diagnoses Not on filedocumented in this encounter Care Teams Workers Compensation Specialist Relationship Specialty Start Date End Date Rafa Powell MD [address] [facility] [place] [phone] PCP - General Internal Medicine 07/06/24 documented as of this encounter
--- OUTSIDE RECORDS SUMMARY | 2025-05-25 07:38 | XMS_ITS | Clinical Summary ---
Author Organization 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 30 Capsule 4 08/15/20 24 Active Additional Information Patient not taking.Reported on 05/14/2025 acetaminophen (TYLENOL) 500 mg Oral TabletIndications :Encounter for supervision of other normal in third trimester Take 500 mg by mouth nightly. Active hydrocortisone (ANUSOL-HC) 25 mg Rect SuppositoryIndica tions:Hemorrhoids , unspecified hemorrhoid type Place 1 Suppository rectally every 12 hours. 30 Suppository 04/05/20 25 Active Additional Information Patient not taking.Reported on 05/14/2025 oxyCODONE (ROXICODONE) 5 mg Oral Tablet Take 1 Tablet by mouth every 8 hours as needed for Acute Pain (R52) for up to 30 days. 9 Tablet 5 3:12 PM EDT 03/28/20 25 025 Additional Information Patient not taking.Reported on 04/04/2025 predniSONE (DELTASONE) 10 mg Oral TabletIndications :Cervical radiculopathy Take 1 Tablet by mouth 2 times daily for 7 days. 14 Tablet 04/26/20 25 025 cyclobenzaprine (FLEXERIL) 10 mg Oral TabletIndications :Cervical radiculopathy Take 1 Tablet by mouth every 8 hours as needed for Muscle spasms for up to 10 days. 30 Tablet 04/26/20 25 025 celecoxib (CELEBREX) 100 mg Oral Capsule Take 1 Capsule by mouth 2 times daily for 10 days. 20 Capsule 04/26/20 025 Active Problems Patient Care Coordination No te Formatting of this note migh t be different from the original. [facility] - Chai Medina MD Interventional Pain Protocol: Utilization audit completed by Cassandra Flynn RN on 06/24/2023. Gareth report completed (EVERY 3 MONTHS) ( 08/05/21 ) Pharmacy: [id number] [place] [address] - [address] [phone] Problem Noted Date Diagnosed Date Hypokalemia 07/06/2024 Tachycardia 07/06/2024 Biliary colic 11/15/2022 DDD (degenerative disc disease), lumbosacral 10/2021 Migraine without aura and wi thout status migrainosus, not intractable 05/04/2022 Chronic right-sided low back pain with right-radha ed sciatica 01/14/2020 Gastroesophageal reflux disease without esophagi tis 10/18/2019 BMI 40.0-44.9, adult 08/02/2016 Resolved Problems Problem Noted Date Diagnosed Date Resolved Date (spontaneous vaginal delivery) 03/27/2025 04/04/2025 Noncompliant patien t in third trimester 01/21/2025 04/04/2025 History of gestational diabetes 01/07/2025 04/04/2025 Encounter for supervision of normal in third trimester 10/27/2024 04/04/2025 Overview (03/07/2025): EDC by 7w3d US PNL nml Genetics ordered/NOT done Anatomy complete GCT 141- GTT ordered Tdap done Consent signed GBS neg Obesity in 10/27/2024 025 Overview (10/27/2024): Growth 32 + 36 weeks Grand multiparity 10/27/2024 04/04/2025 Normal labor and delivery 04/10/2023 uterine contractions in third trimester, antepartum 03/18/2023 07/06/2024 Epigastric pain 03/11/2023 07/06/2024 Pain of round ligament during 12/30/2022 07/06/2024 History of gestational diabetes 12/14/2022 07/06/2024 Colicky RUQ abdominal pain 11/14/2022 0 12/30/2022 Sciatica of right side 05/04/202207/06 Multiparity 02/10/2021 10/20/2021 Pelvic pain affecting pregna ncy in third trimester, antepartum 02/01/2021 02/10/2021 Abdominal pain during pregna ncy in third trimester 01/24/2021 02/10/2021 Gestational diabetes mellitu s (GDM) in third trimester 01/02/2021 12/30/2022 Encounter for supervision of normal in third trimester 09/18/2020 10/20/2021 Overview (09/18/2020): L=16 week US PNL wnl Anatomy US ordered Endometritis 01/14/2020 08/12/2020 Abdominal pain 01/14/2020 08/12/2020 Tobacco use 01/04/2020 07/06/2024 PROM (premature rupture of membranes) 01/04/2020 08/12/2020 38 weeks gestation of 01/02/2020 08/12/2020 Gestational diabetes mellitus, class A2 11/28/2019 08/12/2020 Assessment & Plan (07/06/2024 11:12 AM EDT): Orders: HEMOGLOBIN A1C; Future LIPID PANEL REFLEX; Future HEMOGLOBIN A1C LIPID PANEL REFLEX Obesity affecting in second trimester 10/22/2019 08/12/2020 Musculoskeletal pain 09/01/2019 020 Rhesus isoimmunization with problem 06/14/20 19 08/12/2020 History of gestational diabetes 05/30/2019 12/06/2024 Overview (10/27/2024): Early GCT ordered Bilateral low back pain 10/29/201606/2020 39 weeks gestation of 08/02/2016 12/17/2017 Normal labor and delivery 08/02/2016 Pain of round ligament affec ting , antepartum 06/09/2016 08/03/2016 NST (non-stress test) reactive 06/09/2016 08/02/2016 31 weeks gestation of 06/09/2016 08/02/2016 Blunt abdominal trauma 03/29/201608/02 Rh negative state in antepartum period 03/29/2016 04/04/2025 Labor and delivery, indication for care 07/08/2014 08/02/2016 GDM (gestational diabetes mellitus) 07/07/2014 08/02/2016 Gestational age, 38 weeks 07/03/2014 Gestational diabetes mellitus, class A2 07/03/2014 08/02/2016 Labor, false ([place]), antepartum 07/03/2014 08/02/2016 Irregular uterine contractions 06/28/2014 08/02/2016 Paresthesias in antepartum period 06/03/2014 08/03/2016 Gestational diabetes mellitus, class A2 05/09/2014 08/02/2016 30 weeks gestation of 05/09/2014 08/02/2016 Pain of round ligament compl icating , antepartum 03/30/2014 05/09/2014 25 weeks gestation of 03/30/2014 05/09/2014 18 weeks gestation of 02/12/2014 03/30/2014 Pain 02/12/2014 03/30/2014 Dermatitis 06/02/2013 05/09/2014 Tinea pedis 06/02/2013 05/09/2014 BMI (body mass index), pedia tric, greater than or equal to 95% for age 0704/26/2012 12/17/2017 Elevated blood pressure comp licating , antepartum 01/04/2020 with flank pain, antepartum 02/10/2021 False labor 02/10/2021 Vaginal delivery 10/20/2021 Encounters Date Type Department Care Team Description 05/14/2025 1:00 PM EDT Visit [facility] [address] [place] [phone] Loco Judge DO exam (Primary Dx) 05/02/2025 2:15 PM EDT Patient Outreach [facility] [address] [place] [address] Claire Julian, TIA,LD WIC (Recert) 04/26/2025 11:40 AM EDT Telemedicine [facility] [address] [place] [phone] Rafa Powell MD Acute midline thoracic back pain (Primary Dx); Cervical radiculopathy 04/26/2025 Travel 04/04/2025 10:00 AM EDT Visit [facility] NPTFTT [address] [place] [phone] Nelda Gay DO Hemorrhoids, unspecified hemorrhoid type (Primary Dx) 04/02/2025 Refill SEP [facility] [address] [place] [phone] Barbara Eldridge MD Medication Refill 03/27/2025 12:16 PM EDT Anesthesia Event EDG LDRP [facility] [place] [address] Cristofer Benitez MD Ricci, Juliana 03/27/2025 6:29 AM EDT - 03/27/2025 11:59 PM EDT Hospital Encounter [place] [address] Grand multiparity (Primary Dx) Discharge Disposition: Home or Self Care 03/27/2025 6:27 AM EDT - 03/29/2025 3:16 PM EDT Hospital Encounter [place] [address] [place] [address] Lila Greenwood MD Grand multiparity Discharge Disposition: Home or Self Care 03/27/2025 Travel 03/20/2025 2:30 PM EDT ROUTINE FOLLOW UP OB VISIT [address] [phone] Iveth Solorzano, Rh negative state in antepartum period (Primary Dx); Encounter for supervision of other normal in third trimester; Obesity in ; Grand multiparity; History of gestational diabetes 03/12/2025 2:30 PM EDT ROUTINE FOLLOW UP OB VISIT [address] [phone] Loco Judge DO Encounter for supervision of other normal in third trimester (Primary Dx); Rh negative state in antepartum period; Obesity in ; Grand multiparity; History of gestational diabetes 03/12/[address] [phone] Lila Greenwood MD Scheduled Induction 03/08/2025 11:30 AM EDT Clinical Support [address] [phone] Mellissa Harris RT History of gestational diabetes (Primary Dx); Obesity in ; Encounter for supervision of other normal in third trimester 03/07/2025 Results Follow-Up [address] [phone] Kiki Irizarry DO STREP B DNA 03/05/2025 2:20 PM EDT ROUTINE FOLLOW UP OB VISIT [address] [phone] Kiki Irizarry DO Encounter for supervision of other normal in third trimester (Primary Dx); History of gestational diabetes; Grand multiparity; Rh negative state in antepartum period; Obesity in ; Noncompliant patient in third trimester from Last 3 Months Immunizations Immunization Administration Dates Next Due DTP/HiB 02/09/1996 DTaP 05/13/1999, 6,05/19/1995,1994,01/13/1995 H1N1 Nasal 08/19/2009 HPV Quadrivalent 08/19/2009,04/04/2009, 9 Hepatitis B, Unspecified Formulation 05/2014,02/09/1996,1994,1994 HiB, Unspecified Formulation 02/09/1996, 05/19/1995,03/17/1995,1994 IPV 05/13/1999, 5,03/17/1995,1994 Influenza Seasonal Injectable PF 12/06/2015,02/2014 Influenza Vaccine Quadrivalent PF 07/12/2019,,12/06/2015 Influenza Vaccine, Unspecifi ed Formulation 09/02/2009 MMR 05/13/1999,02/09/1996 Rho (D) Immune Globulin 03/28/2025,02/09,04/27/2023,2022,12/10/2020,08/06/2020,01/06/2020,0 11/02/2019,06/27/2019,05/20/2016, 014,04/20/2014 Tdap 02/09/2025, 3,12/10/2020,2019,10/19/2017,07/07/2014,06/12/2014,0 03/14/2007 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 Surgery Date Site/Laterality Comments TONSILLECTOMY AND ADENOIDECTOMY 2006 WISDOM TOOTH EXTRACTION Medical History Medical History Date Comments Distal radial fracture right VUR (vesicoureteric reflux) reso lved Gastroesophageal reflux dise ase without esophagitis 10/18/2019 Musculoskeletal pain 09/01/2019 Gestational diabetes gdm Rh incompatibility Bulging lumbar disc pt unsure of specific area Migraines Family History Medical History Relation Name Comments Hypertension Father Cancer Maternal Grandfather bladder Coronary Art Dis Maternal Grandfather Hypertension Maternal Grandfather Cancer Mother Breast Cancer Cancer Paternal Grandfather Unknown Diabetes Paternal Uncle Relation Name Status Comments Father Maternal Grandfather Mother Paternal Grandfather Paternal Uncle Social History Tobacco Use Types Packs/Day Years Used Date Smoking Tobacco: Former Cigarettes 0.3 9.3 0 10/04/2011 - 01/19/2021 Passive Smoke Exposure: Past Smokeless Tobacco: Current Tobacco Cessation:Ready to Q uit: Not Asked; Counseling Given: Not Answered Comments:3 cigs a day. 11/22/24Pt. reports no longer smoking cigarrettes is vaping and denies interest in quitting or receiving counseling services at this time. Alcohol Use Standard Drinks/Week Comments Not Currently 0 (1 standard drink = 0.6 oz pur e alcohol) [facility] Utilities Answer Date Recorded In the [...] Date Recorded PHQ-2 Total Score 0 03/28/2025 [facility] - Occupational Stress [...] things needed for daily living? Yes 04/26/2023 [facility] IP Transportation Answer D ate Recorded In [...] on file Sexual Orientation Not on file Obstetrics History Para Term AB IAB SAB Ectopic Multiple Livin g Live Births 8 6 6 2 2 0 6 6 Date Outcome GA Total Labor Labor/2nd/3rd Weight Sex Type Anes PTL Tamiko A1 A5 Name Clin 2011 Term 39w 1d 6 lb 14.8 oz (3.141 kg) F Vag-S pont Epidur al N Livin g 9 [address],AL EXANDR A BABY A Campbell Saldivar IV, MD Delivery Location:[facility] Comments:none observed 2015 Term 39w 3d 14h 37m 14h 12m/0h 20m/0h 05m 7 lb 13.4 oz (3.555 kg) F Vag-S pont Epidur al N Livin g [address]AL EXANDR A BABY Jacob Smith MD Complications:Group B strept ococcal infection during ,Rh negative status during Delivery Location:[facility] Comments:none noted in delivery 2019 Term 38w 4d 0h 06m 0h 06m 7 lb 15.2 oz (3.605 kg) F Vag-S pont Epidur al N Livin g [address],AL EXANDR A GIRL Meño Shepherd DO Complications:GDM, class A2 Delivery Location:[facility] ([facility]) 2020 Term 39w 2d 0h 03m 0h 03m 8 lb 1.1 oz (3.66 kg) F Vag-S pont Epidur al N Livin g [address] EXANDR A BABY Lila Greenwood MD Complications:Gestational di abetes Delivery Location:[facility] ([facility]) 2022 Term 39w 1d 0h 03m 0h 03m 8 lb 7.8 oz (3.85 kg) M Vag-S pont Epidur al Y Livin g 9 [address],AL EXANDR A BOY Isaac Lott D, DO Delivery Location[facility] 2024 Term 39w 3d 2h 34m 2h 29m/0h 01m/0h 04m 8 lb 10.5 oz (3.925 kg) F Vag-S pont Epidur al N Livin g 8 8 Lila West MD Complications:Gestational di abetes,Shoulder dystocia during labor and delivery Delivery Location:[facility] ([facility] Last Filed Vital Signs Vital Sign Reading Time Taken Comments Blood Pressure 116/78 05/14/2025 1:17 PM EDT Pulse 79 03/29/2025 8:19 AM EDT Temperature 36.6 C (97.9 F) 03/29/2025 8:19 AM EDT Respiratory Rate 18 03/29/2025 8:19 AM EDT Oxygen Saturation 100% 03/29/2025 8:19 AM EDT Inhaled Oxygen Concentration - - Weight 113.6 kg (250 lb 6.4 oz) 05/14/2025 1:17 PM EDT Height 157.5 cm (5' 2 ) 05/14/2025 1:17 PM EDT Body Mass Index 45.8 05/14/2025 1:17 PM EDT Plan of Treatment Upcoming Encounters Date Type Department Care Team (Late st Contact Info) Description 07/30/2025 1:30 PM EDT Patient Outreach [place] [address] [place] [address] Health Maintenance Due Date Last Done Comments COVID-19 Vaccine ( season) 2024 HPV/Pap Cotest 2024 Influenza Vaccine (#1) 2025 9, 07/26/2017 (Declined), 08/01/2016, Additional history exists Annual Wellness Exam 07/06/2025 07/06/2024 Cervical Cancer Screening 12/31/2025 Pap Smear 12/31/2025 12/31/2022, 08/12/2020 DTaP/TDaP/Td (14 - Td or Tdap) 02/09/2035 02/09/2025, 02/23/2023, 12/10/2020, Additional history exists Hepatitis B Vaccine Completed 06/11/2014, 02/09/1996, 1994, Additional history exists Meningococcal B Vaccine Aged Out No l onger eligible based on patient's age to complete this topic Pneumococcal Vaccine 0-49 Aged Out No longer eligible based on patient's age to complete this topic Goals Goal Patient Goal Type Associated Problems Recent Progress Patient-Stated? Author Blood Pressure < 140/90 Blood Pressure 116/78(2024 1:17 PM EDT) No Chanel Nguyen RMA Maintain a healthy diet, exercise regularly and maintain an ideal body weight General No Braulio Castro RMA BMI (Calculated) < 30 General 45.9(05/14/20 1:17 PM EDT) No Chanle Nguyen RMA Stay Tobacco Free Lifestyle No Braulio Castro RMA HEMOGLOBIN A1C < 7.0 Result Component 5.3( 2:26 PM EDT) No Chanel Nguyen RMA Procedures Procedure Name Priority Date/Time Associated Diagnosis Comments RHIG CHECK Routine 03/28/2025 6:22 AM EDT KLEIHAUER BETKE STAIN Routine 03/28/2025 6:22 AM EDT RHIG ELIGIBILITY Routine 03/27/2025 11:0 0 PM EDT RHIG Routine 03/27/2025 11:00 PM EDT ANE NEURAXIAL BLOCK Routine 03/27/2025 1 2:16 PM EDT GLUCOSE METER POC Routine 03/27/2025 8:3 3 AM EDT BB HISTORY CHECK Routine 03/27/2025 7:03 AM EDT Grand multiparity ANTIBODY SCREEN IGG Routine 03/27/2025 7 :03 AM EDT Grand multiparity ABORH Routine 03/27/2025 7:03 AM EDT Grand multiparity TYPE AND SCREEN Routine 03/27/2025 7:03 AM EDT Grand multiparity HIGH RISK HCV ANTIBODY REFLEX STAT 03/27/2025 7:03 AM EDT Grand multiparity HIV AG/AB STAT 03/27/2025 7:03 AM EDT Grand multiparity CBC Routine 03/27/2025 7:03 AM EDT Grand multiparity SYPHILIS SCREEN WITH REFLEX RPR QUANT Routine 03/27/2025 7:03 AM EDT Grand multiparity DRUGS OF ABUSE WITH REFLEX TO CONFIRMATION, URINE Routine 03/27/2025 7:03 AM EDT Grand multiparity ADMIT Routine 03/27/2025 6:37 AM EDT SEP URINALYSIS POC Routine 03/20/2025 2: 40 PM EDT Encounter for supervision of other normal in third trimester SEP URINALYSIS POC Routine 03/12/2025 2: 05 PM EDT Encounter for supervision of other normal in third trimester PN US OB FOLLOW UP TRANSABDOMINAL APPROACH EACH GESTATION Routine 03/08/2025 11:24 AM EDT History of gestational diabetes Obesity in Encounter for supervision of other normal in third trimester STREP B DNA Routine 03/05/2025 3:09 PM EDT Encounter for supervision of other normal in third trimester SEP URINALYSIS POC Routine 03/05/2025 2: 12 PM EDT Encounter for supervision of other normal in third trimester VISE HAND CYTOLOGY REQUEST (PAP ONLY) Routine 12/31/2022 11:20 AM EDT Encounter for supervision of other normal , second trimester from Last 3 Months or Most Recently Relevant to Health Maintenance Results * RHIG CHECK (03/28/2025 6:22 AM EDT) RhIG Check (1) Yes 03/28/2025 12:41 PM EDT [facility] Blood VENOUS BLOOD / Unknown Venipuncture / Unknown 03/28/2025 6:22 AM EDT 03/28/2025 9:16 AM EDT us Lila Greenwood MD BLOOD BANK ORDERABLES Final Result [facility] [place] [place] [address] * KLEIHAUER BETKE STAIN (03/28/2025 6:22 AM EDT) % Cells 0.0 % 03/28/2025 12:09 PM EDT [facility] Blood VENOUS BLOOD / Unknown Venipuncture / Unknown 03/28/2025 6:22 AM EDT 03/28/2025 9:16 AM EDT us Lila Greenwood MD HEMATOLOGY ORDERABLES Final Result [facility] [address] [place] [address], [place] [address] * RHIG ELIGIBILITY (03/27/2025 11:00 PM EDT) RhIG Eligible (1) Yes 03/28/2025 12:42 PM EDT [facility] Blood VENOUS BLOOD / Unknown 03/27/2025 11:00 PM EDT 03/27/2025 11:00 PM EDT Lila Greenwood MD BLOOD BANK ORDERABLES Final Result [facility] [place] [place] [address] * Neuraxial Block by Anesthesia (03/27/2025 12:16 PM EDT) Narrative [facility] - 03/27/2025 12:16 PM EDT Rosemary Matamoros CRNA 03/27/2025 2:13 PM Neuraxial Block by Anesthesia Epidural Reason for Block: labor epidural Procedure Date/Time: 03/27/2025 12:16 PM Resident/CENTER DIRECTOR: Rosemary Matamoros CRNA Other Staff: Estefani Whitfield Performed by: student hide handler Patient Location: OB Pre-anesthetic Checklist: Patient identified- [...] Benitez MD ANESTHESIA ORDERABLES Final R esult [facility] [address] [place] [address] * (ABNORMAL) GLUCOSE METER POC (03/27/2025 8:33 AM EDT) [facility] Glucose Meter POC 109(H) 70 - 100 mg/dL 03/27/2025 8:34 AM EDT [facility] Sample Type Capillary 03/27/2025 8:34 AM EDT [facility] Patient Status Non-Critical Patient 03/27/2025 8:34 AM EDT [facility] Blood BLOOD SPECIMEN / Unknown 03/27/2025 8:33 AM EDT 03/27/2025 8:34 AM EDT us Lila Greenwood MD POINT OF CARE TEST ORDERABL ES Final Result Performing Organization Address City/[facility]/ZIP Co de Phone Number [facility] [address] [place] [address] * HIV AG/AB (03/27/2025 7:03 AM EDT) HIV Ag/AB Non-Reacti ve Non-Reacti ve 03/27/2025 7:55 AM EDT [facility] Comment:Negative for HIV-1 a ntigen and anti-HIV-1/anti-HIV-2 antibodies. Blood VENOUS BLOOD / Unknown Venipuncture / Unknown 03/27/2025 7:03 AM EDT 03/27/2025 7:10 AM EDT Narrative [facility] - 03/27/2025 7:55 AM EDT Test performed using Leticia [employer]csys electrochemiluminescence immunassay (ECLIA). us Lila Greenwood MD IMMUNOLOGY ORDERABLES Final Result Performing Organization Address [facility] Co de Phone Number [facility] [address] [address] * BB HISTORY CHECK (03/27/2025 7:03 AM EDT) Pathologist [facility] BB HISTORY CHECK (1) Note or Issue in History 03/27/2025 7:16 AM EDT [facility] Blood VENOUS BLOOD / Unknown Venipuncture / Unknown 03/27/2025 7:03 AM EDT 03/27/2025 7:10 AM EDT us Lila Greenwood MD BLOOD BANK ORDERABLES Final Result Performing Organization Address City/[facility]/ZIP Co de Phone Number [facility] [address] [address] * SYPHILIS SCREEN WITH REFLEX RPR QUANT (03/27/2025 7:03 AM EDT) [facility] Trep Ab Index 0.10 <=0.99 Index Value 03/27/2025 9:11 AM EDT [facility] Comment: < 1.00 - Non-Reactive >=1.00 - Reactive NOTE: All reactive results will be reflexed to Quantitative Non-Treponemal(RPR)test. Blood VENOUS BLOOD / Unknown Venipuncture / Unknown 03/27/2025 7:03 AM EDT 03/27/2025 7:10 AM EDT us Lila Greenwood MD CHEMISTRY ORDERABLES Final Result [facility], [address], [place] [address] * (ABNORMAL) CBC (03/27/2025 7:03 AM EDT) [facility] WBC 9.0 3.7 - 10.3 x10(3)/mcL 03/27/2025 7:24 AM EDT [facility] RBC 3.82(L) 3.90 - 5.20 x10(6)/mcL 03/27/2025 7:24 AM EDT [facility] Hgb 10.0(L) 11.2 - 15.7 g/dL 03/27/2025 7:24 AM EDT [facility] Hct 31.4(L) 34.0 - 45.0 % 03/27/2025 7:24 AM EDT [facility] MCV 82.2 80.0 - 100.0 fL 03/27/2025 7:24 AM EDT [facility] MCH 26.2 26.0 - 34.0 pg 03/27/2025 7:24 AM EDT [facility] MCHC 31.8 30.7 - 35.5 g/dL 03/27/2025 7:24 AM EDT [facility] RDW 14.5 <=14.9 % 03/27/2025 7:24 AM EDT [facility] Platelet 203 155 - 369 x10(3)/mcL 03/27/2025 7:24 AM EDT [facility] MPV 9.6 8.8 - 12.5 fL 03/27/2025 7:24 AM EDT [facility] Blood VENOUS BLOOD / Unknown Venipuncture / Unknown 03/27/2025 7:03 AM EDT 03/27/2025 7:10 AM EDT Lila Greenwood MD HEMATOLOGY ORDERABLES Final Result Performing Organization Address [facility] Co de Phone Number [email or web address] , [place] [address] * HIGH RISK HCV ANTIBODY REFLEX (03/27/2025 7:03 AM EDT) Hep C Ab Non-Reacti ve Non-React alka 03/27/2025 7:51 AM EDT [facility] Comment:No antibodies to HCV detected. Does not exclude possibility of exposure to HCV. Blood VENOUS BLOOD / Unknown Venipuncture / Unknown 03/27/2025 7:03 AM EDT 03/27/2025 7:10 AM EDT Narrative [facility] - 03/27/2025 7:51 AM EDT Test performed using Let[employer] electrochemiluminescence immunassay (ECLIA). Lila Greenwood MD IMMUNOLOGY ORDERABLES Final Result Performing Organization Address [facility] Co de Phone Number [email or web address] , [place] [address] * DRUGS OF ABUSE WITH REFLEX TO CONFIRMATION, URINE (03/27/2025 7:03 AM EDT) 6 AM (Heroin) Absent Cutoff 10 ng/mL 03/27/2025 7:48 AM EDT [facility] Amphetamines Absent Cutoff 500 ng/mL 03/27/2025 7:48 AM EDT [facility] Barbiturates Absent Cutoff 200 ng/mL 03/27/2025 7:48 AM EDT [facility] Benzodiazepines Absent Cutoff 200 ng/mL 03/27/2025 7:48 AM EDT [facility] Buprenorphine Absent Cutoff 5 ng/mL 03/27/2025 7:48 AM EDT [facility] Cannabinoid Metabolite Absent Cutoff 50 ng/mL 03/27/2025 7:48 AM EDT [facility] Cocaine Metabolite Absent Cutoff 150 ng/mL 03/27/2025 7:48 AM EDT [facility] Fentanyl Absent Cutoff 5 ng/mL 03/27/2025 7:48 AM EDT [facility] Methadone and Metabolite Absent Cutoff 300 ng/mL 03/27/2025 7:48 AM EDT [facility] Opiate Absent Cutoff 300 ng/mL 03/27/2025 7:48 AM EDT [facility] Oxycodone Lvl Absent Cutoff 100 ng/mL 03/27/2025 7:48 AM EDT [facility] Urine Creatinine 175.0 mg/dL 03/27/20 7:48 AM EDT [facility] Comment: Greater than 20: Consistent with valid sample Greater than 2 but less than 20: Possible dilution Less than 2: Questionable valid sample Urine STRUCTURE OF URINARY TRACT PROPER / Unknown 03/27/2025 7:03 AM EDT 03/27/2025 7:11 AM EDT Narrative [facility] - 03/27/2025 7:48 AM EDT These drug [...] Greenwood MD URINE ORDERABLES Final Resu lt [facility] [address] [facility] , [address] [place] [id number] * ABORH (03/27/2025 7:03 AM EDT) ABORH Int A NEG 03/27/2025 8:0 1 AM EDT [facility] BLOOD BANK Blood VENOUS BLOOD / Unknown Venipuncture / Unknown 03/27/2025 7:03 AM EDT 03/27/2025 7:10 AM EDT Lila Greenwood MD BLOOD BANK ORDERABLES Final Result [facility] [place] [place] [address] * ANTIBODY SCREEN IGG (03/27/2025 7:03 AM EDT) ABSC IgG Int Negative 03/27/2025 9:05 AM EDT [facility] BLOOD [facility] Blood VENOUS BLOOD / Unknown Venipuncture / Unknown 03/27/2025 7:03 AM EDT 03/27/2025 7:10 AM EDT Lila Greenwood MD BLOOD BANK ORDERABLES Final Result [facility] BLOOD [address] [address] * (ABNORMAL) SEP URINALYSIS POC (03/20/2025 2:40 PM EDT) Only the most recent of3 resultswithin the time period is included. UA Color POC Yellow Color 03/20/2025 2:43 PM EDT [facility] UA Appear POC Clear Clear 03/20/2025 2:43 PM EDT [facility] UA Gluc POC Negative Negative mg/dL 03/20/2025 2:43 PM EDT [facility] UA Bili POC Negative Negative 03/20/2025 2:43 PM EDT [facility] UA Ketones POC Negative Negative mg/dL 03/20/2025 2:43 PM EDT [facility] UA SG POC 1.020 1.001 - 1.035 no units 03/20/2025 2:43 PM EDT [facility] UA Blood POC Negative Negative 03/20/2025 2:43 PM EDT [facility] UA pH POC 6.0 5.0 - 8.0 pH 03/20/2025 2:43 PM EDT [facility] UA Protein POC Trace(A) Negative mg/dL 03/20/2025 2:43 PM EDT [facility] UA Urobilinogen POC 1.0 0.2, 1.0 03/20/2025 2:43 PM EDT [facility] UA Nitrite POC Negative Negative 03/20/2025 2:43 PM EDT [facility] UA Leuk Est POC Small(A) Negative 2:43 PM EDT [facility] Urine STRUCTURE OF URINARY TRACT PROPER / Unknown 03/20/2025 2:40 PM EDT 03/20/2025 2:43 PM EDT Iveth Solorzano DO POINT OF CARE TEST ORDERABLES Final Result [facility] [address] [place] [address] * PN US OB FOLLOW UP TRANSABDOMINAL APPROACH EACH GESTATION (03/08/2025 11:24 AM EDT) Anatomical Region Laterality Modality Pelvis Other Narrative 03/08/2025 4:25 PM EDT EFW 77.5, AC 98.5%, nml fluid, cephalic Kiki Irizarry DO IMG ORDERABLE S Final Result * STREP B DNA (03/05/2025 3:09 PM EDT) Strep B DNA Not Detected Not Detected 11:47 AM EDT [facility] [place] Swab RECTUM AND VAGINA, CS / Unknown 03/05/2025 3:09 PM EDT 03/05/2025 3:09 PM EDT Narrative [facility] - 03/07/2025 11:47 AM EDT TEST INFORMATION: This qualitative assay utilizes molecular amplification to detect a portion of the Streptococcus agalactiae genome and is intended for a screen of antepartum women in 35-37 weeks gestation. A negative result does not rule out the presence the Group B Strep in concentrations below the limit of detection for the assay. Kiki Irizarry DO MICROBIOLOGY - GENERAL ORDERABLES Final Result [facility] [address] [facility] , [address] [place] [id number] * VISE HAND CYTOLOGY REQUEST (PAP ONLY) (12/31/2022 11:20 AM EDT) CASE REPORT Gynecologic Cytology Report Case: [id number] Authorizing Provider: Lila Greenwood MD Collected: 12/31/2022 1120 Ordering Location: [facility] Received: 12/31/2022 1120 First Screen: Nathen Patino CT Specimen: LIQUID-BASED PAP - CERVICAL/ENDOCERV ICAL, Cervix, Endocervical 01/01/2023 10:39 AM EDT [facility] PAP FINAL DIAGNOSIS Negative for intraepithelial lesion or malignancy 01/01/2023 10:39 AM EDT [facility] at 1039 EDT MICROSCOPIC DESCRIPTION Microscopic examination is performed and the findings corroborate the diagnosis. 01/01/2023 10:39 AM EDT [facility] PAP SMEAR ADEQUACY Satisfactory for evaluation 01/01/2023 10:39 AM EDT [facility] PAP ORGANISMS NOTED Abundant bacteria present. 01/01/2023 10:39 AM EDT [facility] ENDOCERVICAL T-ZONE Transformation zone present 01/01/2023 10:39 AM EDT [facility] EMBEDDED IMAGES 10:39 AM EDT [facility] PAP DISCLAIMER The Pap Smear is a screening test that aids in the detection of cervical cancer and cancer precursors. Both false positive and false negative results can occur. The test should be used at regular intervals, and positive results should be confirmed before definitive therapy. Processed using the ThinPrep Black[employer]er Automated cytology screening device ([employer]). 01/01/2023 10:39 AM EDT [facility] Thin Prep ENDOCERVICAL STRUCTURE / Unknown 12/31/2022 11:20 AM EDT 12/31/2022 11:20 AM EDT us Lila Greenwood MD CYTOLOGY ORDERABLES Final R esult [facility] [address] [place] [address] from Last 3 Months or Most Recently Relevant to Health Maintenance Insurance [address] [place] [address] MDR [place] [id number] [place] [address] [place] [address] MDR Advance Directives For more information, please contact: [phone] * Full Code (Latest Code Status on File) Date Activated Date Inactivated Comments 03/29/2025 10:26 AM 03/29/2025 7:16 PM * Full Code Date Activated Date Inactivated Comments 03/27/2025 6:37 AM 03/27/2025 4:43 PM * Full Code Date Activated Date Inactivated Comments 04/25/2023 8:49 PM 04/28/2023 7:38 PM * Full Code Date Activated Date Inactivated Comments 04/10/2023 8:35 PM 04/11/2023 4:01 PM * Full Code Date Activated Date Inactivated Comments 02/11/2021 11:46 AM 02/12/2021 6:55 PM 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
--- OUTSIDE RECORDS SUMMARY | 2025-05-25 07:38 | XMS_ITS | Encounter Summary ---
Author Organization [facility] [place] [id number] Care Team Providers Care Commercial Accountant Name Role Phone Rafa Powell MD Primary Care Provider [phone] Encounter Details Date Type Department Care Team (Latest Contact Info) Description 03/27/2025 Travel Social History Tobacco Use Types Packs/Day [...] drink = 0.6 oz pur e alcohol) [facility] Utilities Answer Date Recorded In the past 12 months has [employer] electric, gas, oil, or water company threatened to shut off services in your home? No 03/28/2025 Overall Financial Resource Strain (CARDIA) Answe r Date Recorded How hard is it for you to pa y for the very basics like food, housing, medical care, and heating? Not very hard 03/28/2025 PHQ-2 Answer Date Recorded PHQ-2 Total Score 0 03/28/2025 [facility] of Occupat ional Health - Occupational Stress [...] things needed for daily living? Yes 04/26/2023 [facility] IP Transportation Answer D ate Recorded [...] of Assessment Author 0 03/27/2025 7:15 AM EDSharon Motley RN * Drug Screening Score Answer Date of Assessment Author 0 03/27/2025 7:15 AM EDT Sharon Yates RN * Question Answer Date of Assessment Author How often do you have a drin k containing alcohol? 0 03/27/2025 7:15 AM EDSharon Motley RN How many drinks containing a lcohol do you have on a typical day when you are drinking? 0 03/27/2025 7:15 AM Sharon Newberry RN How often do you have six [...] 2:43 PM SOPHIET Sahil Willson RN * Because of a [...] Co ntrol Worrying 0 03/27/2025 7:16 AM SOPHIET Sharon Yates RN Worrying too Much About Diff erent Things 0 03/27/2025 7:16 AM SOPHIET Sharon Yates RN Trouble Relaxing 0 03/27/2025 7:16 AM EDT Sharon Gonzalez RN Being so Restless That it is Hard to Sit Still 0 03/27/2025 7:16 AM SOPHIET Sharon Yates RN Becoming Easily Annoyed or Irritable 0 03/27/2025 7:16 AM EDT Sharon Yates RN Feeling Afraid as if Somethi ng Awful Might Happen 0 03/27/2025 7:16 AM SOPHIET Sharon Yates RN VLADIMIR-7 Total Score 0 03/27/2025 7:16 AM EDT Sharon Yates RN * Suicide Severity Rating Answer Date of Assessment Author No Risk 03/27/2025 7:16 AM EDT Sharon Yates RN * [place] Suicide Severity Rating Scale (Q shift for moderate and high) Question Answer Date of Assessment Author 1. In the past month, have y ou wished you were or wished you could go to sleep and not wake up? 0 03/27/2025 7:16 AM SOPHIET Sharon Yates RN 2. In the past month, have [...] Description 07/30/2025 1:30 PM EDT Patient Outreach [place] [address] [place] [address] documented as of this encounter [...] on filedocumented in this encounter Care Teams Commercial Accountant Relationship Specialty Start Date End Date Rafa Powell MD [address] [place], [place] [phone] PCP - General Internal Medicine 07/06/24 documented as of this encounter
--- OUTSIDE RECORDS SUMMARY | 2025-05-25 07:39 | XMS_ITS | Clinical Summary ---
Author Organization [facility] Address [address] [place] [id number] Phone [email or web address] Care Team Providers Care Acute Care Surgeon Name Role Phone Unavailable Primary Care Provider Unavailabl e Allergies Active Allergy Reactions Criticality Noted Date Comments Ketorolac Other (see comments) 07/19/2024 Eye sight messes with me- it will go black Tramadol Rash Low 04/17/2022 Ubrogepant Diarrhea High 05/04/2022 Medications No known medications Active Problems No known active problems Social History Tobacco Use Types Packs/Day Years Used Date Smoking Tobacco: Never Assessed Comments Unknown Sex and Gender Information Value Date Recorded Sex Assigned at Not on file 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 Gender Identity Not on file Sexual Orientation Not on file Last Filed Vital Signs Vital Sign Reading Time Taken Comments Blood Pressure 157/95 12/01/2024 1:40 AM EST Pulse 109 12/01/2024 1:40 AM EST Temperature - - Respiratory Rate 24 12/01/2024 1:40 AM EST Oxygen Saturation 100% 12/01/2024 1:40 AM EST Inhaled Oxygen Concentration - - Weight - - Height - - Body Mass Index - - Plan of Treatment Health Maintenance Due Date Last Done Comments Cervical Cancer Screening Combo 1994 Dental Cleaning/Exam 1994 HPV / Cotest 1994 Pap Testing 1994 Covid-19 Immunization ( season) 2024 Influenza Immunization (#1) 06/04/20250 06/2019, 08/01/2016, 12/06/2015, Additional history exists Tetanus Diphtheria and Pertussis Immunization (13 - Td or Tdap) 02/23/2033 02/23/2023, 12/10/2020, 11/02/2019, Additional history exists HIB Immunization Completed 02/09/1996, 05/1996, 05/19/1995, Additional history exists Polio Immunization Completed 05/13/1999, 0 05/19/1995, 03/17/1995, Additional history exists HPV Immunization Completed 08/19/2009, 11/2008, 01/24/2009 Hepatitis B Immunization Completed 014, 02/09/1996, 1994, Additional history exists Hepatitis A Immunization Aged Out No longer eligible based on patient's age to complete this topic Pneumococcal: Ped (0 to 5 Yrs) and At-Risk Member (6 to 64 Yrs) Aged Out No longer eligible based on patient's age to complete this topic Varicella Immunization Aged Out No lo nger eligible based on patient's age to complete this topic
--- NOTE | 2025-05-25 07:42 | XR_ITS ---
FINAL REPORT TECHNIQUE: Right foot 2 views CLINICAL HISTORY: cellulitis- eval for osteo COMPARISON: None FINDINGS: RIGHT FOOT 2 VIEWS: There is no acute fracture or dislocation. There is sclerosis of the lateral sesamoid, plantar to the head of the first metatarsal, that may represent avascular necrosis. There is mild soft tissue swelling in the first digit. No bony destruction is identified to suggest osteomyelitis. The joint spaces are intact. There is no soft tissue abnormality. IMPRESSION: Sclerosis of the lateral sesamoid, that may represent avascular necrosis. Mild soft tissue swelling in the first digit without evidence of bone destruction to suggest osteomyelitis. Reviewed, Interpreted and Dictated by Eliazar Quiros MD Transcribed by Carol Cordero Authenticated and [facility] [place]
--- NOTE | 2025-05-25 07:50 | ED_ITS ---
Discharge Plan Disposition Patient Disposition: Home, Self-Care Prescriptions Prescriptions: New cephalexin 500 mg capsule 500 mg PO Q6H 5 Days Qty: 20 0RF Referrals Follow up/Referrals: Rafa Powell [Primary Care Provider, Medical] - See instructions Clinical Impressions Clinical Impression: Ingrowing toenail, Cellulitis Instructions Patient Instructions: DI for Cellulitis -- Adult, Ingrown Toenail, Cellulitis Print Language Print Language: Kazakh Discharge ED Provider: Juan Brasher General Adult HPI General Chief complaint: PAIN Stated complaint: infection R big toe Time Seen by Provider: 05/25/25 07:45 Mode of Arrival: Ambulatory Description of Symptoms (Recalled from ER Triage Doc. by RN): Pt states she has had an ingrown toenail in the Right great toe for about a week and the pain has progressively gotten worse in the last 4 days. States she has only taken tylenol and ibuprofen for the pain. History of Present Illness HPI narrative: This patient presents by personal vehicle with complaints of pain from the right great toe. She has a history of ingrown toenails, and has been suffering from this 1 for the last week. She reports that she developed increased redness and pain last night, redness is significantly worsened over the last 12 hours. Patient rates pain at 10 out of 10 and describes difficulty ambulating. She reports no fevers, no night sweats, she did have 1 episode of chills last night. She has no streaking up the leg, is afebrile in the emergency department, and is not hypotensive. Patient's primary concern at this time is pain, she is concerned that she will have to miss work due to inability to ambulate due to pain. Related Data Previous Rx's ?Medication ?Instructions ?Recorded cephalexin 500 mg capsule 500 mg PO Q6H 5 days #20 cap s 05/25/25 Allergies Allergy/AdvReac Type Severity Reaction Status Date / Time ketorolac (From Toradol) AdvReac Verified 04/23/24 19:13 tramadol AdvReac Verified 02/11/23 18:44 ubrogepant (From Ubrelvy) AdvReac Verified 02/11/23 18:44 [facility] Disclaimer: The information contained in this section may have been updated after the patient was seen, as this information can be updated by other users. Medical History EBV infection Splenomegaly 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 History of wisdom tooth extraction Hx of tonsillectomy Family History Mother Breast cancer Father Hypertension Grandfather Stomach cancer Other Diabetes Social History Smoking Status: Current every day smoker alcohol intake: never current occupational status: employed Travel in the last 8 weeks?: None Have you lived/traveled outside US in past 30 days?: No Contact w/someone who lives/traveled outside US past 30 days?: No Exposure to someone with infectious disease in past 14 days?: No Do you have a fever (greater than 100.4 F or 38 C)?: No Have you tested positive for COVID-19?: No Exposed to someone with COVID-19 in past 14 days?: No Do you have a sore throat?: No Do you have a cough?: No Do you have any weakness?: No Do you have any diarrhea?: No Are you experiencing any unusual bleeding?: No Do you have any muscle aches/pain?: No Do you have any abdominal pain?: No Are you experiencing loss of taste or smell?: No Other Medical History Have you received the Flu Vaccine for this season: No Have you received the Pneumonia Vaccine: No ROS Obtained: Yes All systems reviewed & no additional complaints except as documented Physical Exam General General appearance: alert and in no apparent distress Head Head exam: atraumatic and normocephalic Eye Eye exam: Present normal appearance and PERRL Respiratory Respiratory exam: Absent respiratory distress or accessory muscle use Cardiovascular Cardiovascular exam: Present regular rate and normal rhythm Extremities Exam Extremities exam: Present other (Erythema notable on great toe on right foot, ingrown toenail visible) Neurological Exam Neurological exam: Present alert and oriented X3 Medical Decision Making Medical Records Medical records reviewed: Yes I reviewed the patient's medical records. Screening: Per USPSTF and CDC recommendations, given the prevalence of disease in our region, it is our hospital?s policy to screen for HIV and viral Hepatitis for all patients aged 18 and over and those with ongoing risk factors. Gareth Inquiry Pt receiving controlled substance: No Gareth was queried for this patient: No Vital Signs: 05/25/25 07:37 05/25/25 07:44 05/25/25 07:50 Temperature 97.8 F Temperature Source Oral Pulse Rate 100 H 95 H Pulse Rate [Left Radial] 104 H Respiratory Rate 21 18 Blood Pressure 154/99 H 147/83 H Blood Pressure [Left Arm] 154/99 H Blood Pressure Mean Blood Pressure Mean [Left Arm] 117 Blood Pressure Source Blood Pressure Source [Left Arm] Automatic Cuff Blood Pressure Position [Left Arm] Sitting 02 Sat by Pulse Oximetry 100 100 100 Oxygen Delivery Method Room Air Room Air 05/25/25 08:01 05/25/25 08:31 05/25/25 09:01 Temperature Temperature Source Pulse Rate Pulse Rate [Left Radial] Respiratory Rate Blood Pressure 147/83 H 117/73 132/56 L Blood Pressure [Left Arm] Blood Pressure Mean 104 87 97 Blood Pressure Mean [Left Arm] Blood Pressure Source Blood Pressure Source [Left Arm] Blood Pressure Position [Left Arm] 02 Sat by Pulse Oximetry Oxygen Delivery Method 05/25/25 09:35 Temperature 97.8 F Temperature Source Oral Pulse Rate 90 Pulse Rate [Left Radial] Respiratory Rate 17 Blood Pressure 122/67 Blood Pressure [Left Arm] Blood Pressure Mean Blood Pressure Mean [Left Arm] Blood Pressure Source Automatic Cuff Blood Pressure Source [Left Arm] Blood Pressure Position [Left Arm] 02 Sat by Pulse Oximetry Oxygen Delivery Method Room Air Lab Data Lab results reviewed: Yes I reviewed the patient's lab results. Orders (Tests/Meds): ED MEDICATIONS Discontinued Medications Generic Name Dose Route Start Last Admin Trade Name Freq PRN Reason Stop Dose Admin Acetaminophen/Codeine Phosphate 1 each 05/25/25 07:49 05/25/25 07:58 Acetaminophen/Codeine #3 Tab PO 05/25/25 07:50 1 each ONCE ONE Administration Cephalexin HCl 500 mg 05/25/25 07:42 05/25/25 07:58 Cephalexin 500mg Capsule PO 05/25/25 07:43 500 mg ONCE ONE Administration ORDERS Category Date Time Status Foot XR right 2 views [XR foot RT 2V] Stat Exams 05/25/25 07:42 Completed Medical Decision Narrative: This patient arrived to the emergency department with concerns for significant pain from an ingrown toenail. Differential diagnoses include cellulitis, paronychia, felon, osteomyelitis, necrotizing infection. Based on these concerns I made the decision to perform an imaging workup. Plain film x-rays of the feet personally interpreted by me showed no sign of bony involvement of the great toe. Of note the x-ray was read as having mild sclerosis of the lateral sesamoid that could represent avascular necrosis. The patient had no pain in this area, no difficulty bearing weight on the lateral foot, given the lack of clinical coordination I did not think that the imaging finding was likely reflective of avascular necrosis. Given this reassuring finding and careful physical exam I felt the most likely diagnosis was cellulitis associated with an ingrown toenail. I had a joint medical decision making conversation with the patient. She reported that she had had symptoms of an ingrown toenail for 2 weeks before the pain began. At this point I do not believe that the source of the patient's pain is the ingrown toenail, but rather the infection. The patient reports the pain began only when she began to see an signs of erythema and soft tissue swelling. I recommended a course of Keflex for her cellulitis, Tylenol, Motrin for pain as well as conservative measures such as soaking the foot in warm water, and doing your best to avoid long work. The patient reported that her primary goal was pain control. She was treated for pain in the emergency department with Tylenol and codeine, she reported only mild improvement in her symptoms. Given the high potential for abuse, and the fact that in the emergency department opioid pain medications seem to minimally effective I did not think it was reasonable to discharge the patient with a prescription for opioid pain medications. I discharged the patient with antibiotics, Tylenol, Motrin, and instructions to establish with a nearby fishing vessel operator. I also included strict return precautions. Critical Care Critical Care Time Critical Care Time: No
[2025-05-25] MEDS: ACETAMINOPHEN/CODEINE #3 TAB 1 EACH PO (07:58)
== END 2025-05-25 09:37 | disposition home or self-care (01) ==
PROVIDERS: Emergency Provider Student in an Organized Health Care Education/Training Program; PCP Pediatrics
DX: L03.115 Cellulitis of right lower limb (principal); L60.0 Ingrowing nail
CPT/HCPCS: 73620; 99283